=== PATIENT | female | born 1940 | race Caucasian/White ===

== ENCOUNTER 2016-07-04 21:50 | Emergency (ER) | payer MEDICARE, MEDICAID ==
[2016-07-04] MEDS ORDERED: ALBUTEROL SULFATE 2.5 MG/0.5 ML INH NEB SOLN As Ordered ONE (23:35)
[2016-07-04 23:54] LABS: BASO # 0.1 K/mm3 (0.0-0.2); BASO % 1.6 % (0.0-1.0); EOS # 0.4 K/mm3 (0.0-0.50); EOS % 3.9 % (0.0-3.0); LARGE UNSTAINED CELL # 0.2 K/mm3 (0.0-0.4); LARGE UNSTAINED CELL % 2.4 % (0.0-4.0); LYMPH # 2.8 K/mm3 (1.5-4.5); LYMPH % 30.1 % (24.0-44.0); MEAN CORPUSCULAR HEMOGLOBIN 28.9 pg (27.0-33.0); MEAN CORPUSCULAR HGB CONC 32.6 g/dl (32.0-36.5); MEAN CORPUSCULAR VOLUME 88.9 fl (80.0-96.0); MONO # 0.4 K/mm3 (0.0-0.8); MONO % 5.1 % (0.0-5.0); NEUTROPHILS % 56.9 % (36.0-66.0); PLATELET COUNT, AUTOMATED 261 k/mm3 (150-450); RED CELL DISTRIBUTION WIDTH 13.3 % (11.5-14.5); WHITE BLOOD COUNT 8.8 K/mm3 (4.0-10.0)
[2016-07-05 00:16] LABS: CALCIUM LEVEL 9.1 MG/DL (8.8-10.2); CREATININE FOR GFR 1.11 MG/DL (0.55-1.02); GLOMERULAR FILTRATION RATE 50.7 (>39)
--- NOTE | 2016-07-05 02:20 | REPUSA ---
CLINICAL HISTORY: Suspected pneumonia. TECHNIQUE: Multiple axial CT images were obtained through the thorax without IV contrast material. COMMENTS: Mild groundglass densities of the left upper lobe. Subsegmental atelectasis/consolidation of the lingula. There is no evidence of pleural or parenchymal-based mass. There are no pleural effusions. There is n o evidence of hilar or mediastinal lymphadenopathy. The heart and great vessels are within normal fox its. The visualized portions of the liver are of uniform attenuation without mass or defect. There is no i ntra or extrahepatic biliary ductal dilatation. The spleen is unremarkable. The visualized pancreas i s of normal contour and attenuation characteristics. There is no evidence of adrenal mass. The visual ized portions of the kidneys present no abnormalities. The bony structures are free of lytic or blastic lesions. IMPRESSION: Lingular pneumonia. Left upper lobe ground glass density suggestive of pneumonia. Thank you for your kind referral of this patient.
[2016-07-05] MEDS ORDERED: LevoFLOXacin 250 MG TABLET As Ordered ONE (02:38)
--- NOTE | 2016-07-05 02:50 | EDDOCDS ---
Nurse's Notes [facility] Name: Liss Haywood Age: 76 yrs Sex: Female : 1940 Arrival Date: 07/04/2016 Time: 21:50 Bed PD2 Private MD: Mateusz Carranza Diagnosis: Bacterial pneumonia, not elsewhere classified-left lingular, left upper lobe Presentation: 07/04 21:56 Presenting complaint: Patient states: that she is coughing a lot and it is productive, ms18 green and yellow phlegm. Pt is recovering from pneumonia at this time. Adult Sepsis Screening: The patient does not have new or worsening altered mentation. Patient's respiratory rate is less than 22. Systolic blood pressure is greater than 100. Patient has a qSOFA score of 0- Negative Sepsis Screen. Suicide/Homicide risk assessment- the patient denies having any suicidal and/or homicidal ideations and does not present with any other emotional, behavioral or mental health complaints. Status: Patient is not a guest service team leader or dependent. Transition of care: patient was not received from another setting of care. 21:56 Acuity: [place] Level 3 ms18 21:56 Method Of Arrival: Walkin/Carried/Asstd ms18 Triage Assessment: 22:06 General: Appears in no apparent distress, comfortable, Behavior is appropriate for age, ms18 cooperative. Pain: Denies pain. Neurological: Level of Consciousness is awake, alert, obeys commands, Oriented to person, place, time. Respiratory: Airway is patent Respiratory effort is even, unlabored, Reports cough that is productive. Derm: Skin is pink, warm & dry. Historical: - Allergies: Aspirinnon-coated; - Home Meds: 1. aspirin 325 mg Oral TbEC 1 tab once daily 2. simvastatin 40 mg Oral tab 1 tab once daily 3. Januvia 100 mg oral tab 1 tab once daily 4. metformin 500 mg Oral Tb24 1 tab 2 times per day 5. escitalopram oxalate 10 mg oral tab 1 tab once daily 6. ranitidine HCl 150 mg Oral tab 1 tab once daily 7. Vitamin D2 50,000 unit oral cap 1 cap every 2 weeks 8. metoprolol tartrate 25 mg Oral tab 1 tab once daily 9. albuterol sulfate 90 mcg/actuation Inhl aepb 2 puffs every 4 hours 10. risedronate 35 mg oral tab 1 tab once wkly 11. magnesium oxide 250 mg Oral tab daily 12. Super B Complex + C oral oral daily 13. calcium carbonate 600 mg (1,500 mg) Oral tab daily - PMHx: Angina; Hypertension; Diabetes - NIDDM: controlled; Pneumonia; Cancer, Breast - Left; - PSHx: Hip Arthroplasty, Left; Bladder suspension; Hysterectomy; Tonsillectomy; Adenoidectomy; Mastectomy- Left; - Social history: Smoking status: Patient states former smoker of tobacco. No barriers to communication noted, The patient speaks fluent Eritrean. - Family history: Not pertinent. - : The pt / caregiver states he / she is not on anticoagulants. Home medication list is obtained from the patient. - Exposure Risk Screening:: None identified. Screenin/03 01:52 Screening information is obtained from the patient. Fall risk: No risks identified. cz Assistance ADL's: requires no assistance with activities of daily living. Abuse/DV Screen: The patient / caregiver reports he/she is: not in a situation that causes fear, pain or injury. Nutritional screening: No deficits noted. home support is adequate. 02:46 Advance Directives: Currently, there is no health care proxy. lf1 Assessment: 01:52 Reassessment: Patient appears in no apparent distress at this time. pt sitting quietly cz on stretcher no coughing noted since initial breathing treatment was done. 02:46 Adult Sepsis Screening: The patient does not have new or worsening altered mentation. lf1 Patient's respiratory rate is less than 22. Systolic blood pressure is greater than 100. Patient has a qSOFA score of 0- Negative Sepsis Screen. General: First patient contact at time of discharge. Pain: Denies pain. Neurological: Level of Consciousness is awake, alert. EENT: No deficits noted. Cardiovascular: Chest pain is denied. Respiratory: Reports cough that is. GI: Denies nausea, vomiting. Derm: Skin is normal, swelling noted to left forehead, pt. states she tripped on her shoelaces Swollen area noted on forehead. Vital Signs: 07/04 21:53 BP 154 / 81; Pulse 98; Resp 18 S; Temp 96.9(O); Pulse Ox 95% on R/A; Weight 61.69 kg gr2 (R); Height 4 ft. 10 in. (147.32 cm) (R); Pain 3/10; 07/05 02:31 BP 146 / 64 LA Sitting (auto/reg); Pulse 80 MON; Resp 20 S; Temp 97.3(TE); Pulse Ox 94% cln on R/A; Pain 0/10; 07/04 21:53 Body Mass Index 28.42 (61.69 kg, 147.32 cm) gr2 Vitals: 07/04 21:53 Log In Time: July 04, 2016 at 21:53. gr2 ED Course: 21:51 Patient visited by Malachi Stewart. gr2 21:51 Patient moved to Waiting gr2 21:52 Mateusz Carranza MD is Private Physician. gr2 21:54 Patient visited by Malachi Stewart. gr2 21:54 Patient moved to Pre RCE gr2 21:58 Triage Initiated ms18 22:49 Patient moved to Triage 3 jmb 23:08 Milo Vernon RPA-C is PHCP. ck7 23:08 Dilshad Henao MD is Attending Physician. ck7 23:08 Patient visited by Milo Vernon RPA-C. ck7 23:27 Patient moved to PD2 jmb 23:43 -Blood Culture Sent. jmb 23:43 MED Profile Sent. jmb 23:43 CBC with Diff Sent. jmb 07/05 00:11 Patient visited by Milo Vernon RPA-C. ck7 01:11 PHCP role handed off by Milo Vernon RPA-C mo1 01:11 Beto Srivastava PA is PHCP. mo1 01:52 The patient / caregiver is instructed regarding the plan of care and ED course. cz 01:52 No IV's were initiated during this patient's visit. No procedures done that require cz assistance. 02:29 Mateusz Carranza MD is Referral Physician. mo1 02:32 Patient visited by Kamila Shepard PCA. cln 02:41 CT Chest Without Contrast Returned. EDMS Administered Medications: 07/04 23:38 Drug: Albuterol 2.5 mg [albuterol sulfate 2.5 mg/0.5 mL solution for nebulization (0.5 bb3 mL)] Route: Nebulizer; 23:46 Follow up: lung sounds increased throughout with end expiratory wheeze. Pt denies SOB bb3 past baseline. Pt had a congested non productive cough during neb tx. No adverse reactions. 07/05 02:40 Drug: levofloxacin 750 mg [levofloxacin 250 mg tablet (3 tabs)] Route: PO; lf1 Intake: RT: 07/04 23:37 Oxygen is room air. Respiratory: Respiratory effort is even, unlabored, relaxed, bb3 Respiratory pattern is regular symmetrical, Breath sounds are diminished bilaterally. Reports cough that is productive. 23:39 Initial Med Neb Given as ordered Patient was instructed and evaluated on procedure. bb3 23:45 Respiratory: lung sounds increased throughout with end expiratory wheeze. Pt denies SOB bb3 past baseline. Pt had a congested non productive cough during neb tx. No adverse reactions. Order Results: Lab Order: CBC with Diff; SPEC'M 07/04/16 23:40 Test: WHITE BLOOD COUNT; Value: 8.8; Range: 4.0-10.0; Units: K/mm3; Status: F Test: RED BLOOD COUNT; Value: 4.21; Range: 4.00-5.40; Units: M/mm3; Status: F Test: HEMOGLOBIN; Value: 12.2; Range: 12.0-16.0; Units: g/dl; Status: F Test: HEMATOCRIT; Value: 37.4; Range: 36.0-47.0; Units: %; Status: F Test: MEAN CORPUSCULAR VOLUME; Value: 88.9; Range: 80.0-96.0; Units: fl; Status: F Test: MEAN CORPUSCULAR HEMOGLOBIN; Value: 28.9; Range: 27.0-33.0; Units: pg; Status: F Test: MEAN CORPUSCULAR HGB CONC; Value: 32.6; Range: 32.0-36.5; Units: g/dl; Status: F Test: RED CELL DISTRIBUTION WIDTH; Value: 13.3; Range: 11.5-14.5; Units: %; Status: F Test: PLATELET COUNT, AUTOMATED; Value: 261; Range: 150-450; Units: k/mm3; Status: F Test: NEUTROPHILS %; Value: 56.9; Range: 36.0-66.0; Units: %; Status: F Test: LYMPH %; Value: 30.1; Range: 24.0-44.0; Units: %; Status: F Test: MONO %; Value: 5.1; Range: 0.0-5.0; Abnormal: Above high normal; Units: %; Status: F Test: EOS %; Value: 3.9; Range: 0.0-3.0; Abnormal: Above high normal; Units: %; Status: F Test: BASO %; Value: 1.6; Range: 0.0-1.0; Abnormal: Above high normal; Units: %; Status: F Test: LARGE UNSTAINED CELL %; Value: 2.4; Range: 0.0-4.0; Units: %; Status: F Test: NEUTROPHILS #; Value: 5.0; Range: 1.8-7.7; Units: K/mm3; Status: F Test: LYMPH #; Value: 2.8; Range: 1.5-4.5; Units: K/mm3; Status: F Test: MONO #; Value: 0.4; Range: 0.0-0.8; Units: K/mm3; Status: F Test: EOS #; Value: 0.4; Range: 0.0-0.50; Units: K/mm3; Status: F Test: BASO #; Value: 0.1; Range: 0.0-0.2; Units: K/mm3; Status: F Test: LARGE UNSTAINED CELL #; Value: 0.2; Range: 0.0-0.4; Units: K/mm3; Status: F Lab Order: [facility]; [facility]' 07/04/16 23:40 Test: GLUCOSE, FASTING; Value: 134; Range: 83-110; Abnormal: Above high normal; Units: MG/DL; Status: F Test: BLOOD UREA NITROGEN; Value: 23; Range: 7-18; Abnormal: Above high normal; Units: MG/DL; Status: F Test: CREATININE FOR GFR; Value: 1.11; Range: 0.55-1.02; Abnormal: Above high normal; Units: MG/DL; Status: F Test: GLOMERULAR FILTRATION RATE; Value: 50.7; Range: >39; Status: F Test: SODIUM LEVEL; Value: 139; Range: 136-145; Units: MEQ/L; Status: F Test: POTASSIUM SERUM; Value: 4.0; Range: 3.5-5.1; Units: MEQ/L; Status: F Test: CHLORIDE LEVEL; Value: 102; Range: 98-107; Units: MEQ/L; Status: F Test: CARBON DIOXIDE LEVEL; Value: 26; Range: 21-32; Units: MEQ/L; Status: F Test: ANION GAP; Value: 11; Range: 8-16; Units: MEQ/L; Status: F Test: CALCIUM LEVEL; Value: 9.1; Range: 8.8-10.2; Units: MG/DL; Status: F Test Note: ; Units are mL/min/1.73 m2 Chronic Kidney Disease Staging per NKF: Stage I & II GFR >=60 Normal to Mildly Decreased Stage III GFR 30-59 Moderately Decreased Stage IV GFR 15-29 Severely Decreased Stage V GFR <15 Very Little GFR Left ESRD GFR <15 on HOME DELIVERY DRIVER Radiology Order: CT Chest Without Contrast Test: CT Chest Without Contrast REASON FOR EXAMINATION: r/o pneumonia; ; CLINICAL HISTORY: Suspected pneumonia.; TECHNIQUE: Multiple axial CT images were obtained through the thorax without IV contrast material.; COMMENTS:; Mild groundglass densities of the left upper lobe.; Subsegmental atelectasis/consolidation of the lingula.; There is no evidence of pleural or parenchymal-based mass. There are no pleural effusions. There is n; o evidence of hilar or mediastinal lymphadenopathy. The heart and great vessels are within normal fox; its.; The visualized portions of the liver are of uniform attenuation without mass or defect. There is no i; ntra or extrahepatic biliary ductal dilatation. The spleen is unremarkable. The visualized pancreas i; s of normal contour and attenuation characteristics. There is no evidence of adrenal mass. The visual; ized portions of the kidneys present no abnormalities.; The bony structures are free of lytic or blastic lesions.; IMPRESSION:; Lingular pneumonia.; Left upper lobe ground glass density suggestive of pneumonia.; Thank you for your kind referral of this patient.; ; ; Outcome: 07/05 02:29 Discharge ordered by Provider. mo1 02:46 Discharge Assessment: Patient awake, alert and oriented x 3. No cognitive and/or lf1 functional deficits noted. Patient verbalized understanding of disposition instructions. Patient awake and alert. Oriented to person, place and time. Patient verbalized understanding of disposition instructions. Patient has no functional deficits. patient administered narcotics - no. The following High Risk Discharge criteria are identified: None. Discharged to home ambulatory. Condition: unchanged. Discharge instructions given to patient, family, Instructed on discharge instructions, follow up and referral plans. medication usage, Demonstrated understanding of instructions, medications, Patient was not receptive of discharge instructions. Prescriptions given X 2, Work note provided to patient. CT Study completed. Property :Personal belongings accompany Pt. 02:50 Patient left the ED. lf1 Signatures: Dispatcher [employer] EDMS Guillaume Barrientos, RN RN Elvira EwingRN RN lf1 Paco Neff bb3 Milo Vernon, TOSHA-C RPA-Cck7 Malachi Stewart gr2 Beto Srivastava PA PA mo1 Alfredito Curry,RN Arlyn Johnston RN RN ms18 Kamila Shepard, EJ RN HOSPICE cln SIMRAN
--- NOTE | 2016-07-05 02:51 | EDDOCDS ---
Physician Documentation [facility] Name: Liss Haywood Age: 76 yrs Sex: Female : 1940 Arrival Date: 07/04/2016 Time: 21:50 Bed PD Private MD: Mateusz Carranza Disposition: 07/05/16 02:29 Discharged to Home/Self Care. Impression: Bacterial pneumonia, not elsewhere classified - left lingular, left upper lobe. - Condition is Stable. - Discharge Instructions: Pneumonia, Adult, Cough, Adult. - Prescriptions for Levaquin 750 mg Oral Tablet - take 1 tablet by ORAL route once daily for 10 days; 10 tablet. Albuterol Sulfate 90 mcg/actuation Inhalation HFA Aerosol Inhaler - inhale 2 puff by INHALATION route every 4 hours As needed; 1 Inhaler. - Medication Reconciliation, Local Pharmacy Hours form. - Follow up: Mateusz Carranza MD; When: 1 - 2 days; Reason: Recheck today's complaints, Continuance of care. - Problem is new. - Symptoms are unchanged. Historical: - Allergies: Aspirinnon-coated; - Home Meds: 1. aspirin 325 mg Oral TbEC 1 tab once daily 2. simvastatin 40 mg Oral tab 1 tab once daily 3. Januvia 100 mg oral tab 1 tab once daily 4. metformin 500 mg Oral Tb24 1 tab 2 times per day 5. escitalopram oxalate 10 mg oral tab 1 tab once daily 6. ranitidine HCl 150 mg Oral tab 1 tab once daily 7. Vitamin D2 50,000 unit oral cap 1 cap every 2 weeks 8. metoprolol tartrate 25 mg Oral tab 1 tab once daily 9. albuterol sulfate 90 mcg/actuation Inhl aepb 2 puffs every 4 hours 10. risedronate 35 mg oral tab 1 tab once wkly 11. magnesium oxide 250 mg Oral tab daily 12. Super B Complex + C oral oral daily 13. calcium carbonate 600 mg (1,500 mg) Oral tab daily - PMHx: Angina; Hypertension; Diabetes - NIDDM: controlled; Pneumonia; Cancer, Breast - Left; - PSHx: Hip Arthroplasty, Left; Bladder suspension; Hysterectomy; Tonsillectomy; Adenoidectomy; Mastectomy- Left; - Social history: Smoking status: Patient states former smoker of tobacco. No barriers to communication noted, The patient speaks fluent Brazilian. - Family history: Not pertinent. - : The pt / caregiver states he / she is not on anticoagulants. Home medication list is obtained from the patient. - Exposure Risk Screening:: None identified. Vital Signs: 07/04 21:53 BP 154 / 81; Pulse 98; Resp 18 S; Temp 96.9(O); Pulse Ox 95% on R/A; Weight 61.69 kg / gr2 136 lbs (R); Height 4 ft. 10 in. (147.32 cm) (R); Pain 3/10; 07/05 02:31 BP 146 / 64 LA Sitting (auto/reg); Pulse 80 MON; Resp 20 S; Temp 97.3(TE); Pulse Ox 94% cln on R/A; Pain 0/10; 07/04 21:53 Body Mass Index 28.42 (61.69 kg, 147.32 cm) gr2 MDM: 07/04 23:27 -Blood Culture (Adults Only), peripheral from different site, or from device/port/PICC ck7 etc. if present ordered. 23:27 Albuterol 2.5 mg Nebulizer once ordered. ck7 23:27 Call Respiratory ordered. ck7 23:27 Call Respiratory complete. jmb 23:28 Chest, 2 View (pa\E\lat) Ordered. EDMS 23:28 CBC with Diff Ordered. EDMS 23:28 MED Profile Ordered. EDMS 23:28 -Blood Culture Ordered. EDMS 07/05 00:10 Financial registration complete. hs2 00:25 CBC with Diff Reviewed. ck7 00:25 MED Profile Reviewed. ck7 00:37 CT Chest Without Contrast Ordered. EDMS 01:06 -Blood Culture (Adults Only), peripheral from different site, or from device/port/PICC cz etc. if present complete. 02:28 levofloxacin 750 mg PO once ordered. mo1 Administered Medications: 07/04 23:38 Drug: Albuterol 2.5 mg [albuterol sulfate 2.5 mg/0.5 mL solution for nebulization (0.5 bb3 mL)] Route: Nebulizer; 23:46 Follow up: lung sounds increased throughout with end expiratory wheeze. Pt denies SOB bb3 past baseline. Pt had a congested non productive cough during neb tx. No adverse reactions. 07/05 02:40 Drug: levofloxacin 750 mg [levofloxacin 250 mg tablet (3 tabs)] Route: PO; lf1 Signatures: Dispatcher [employer] Guillaume Verdin, RN RN Elvira Ewing RN RN lf1 Milo Vernon, RPA-C RPA-Cck7 Beto Srivastava PA PA mo1 Alfredito Curry,RILEY RN Arlyn Wolf RN RN ms18 Fay Arguelles, [facility]2 Paco Neff [facility] MTDD
--- NOTE | 2016-07-05 14:36 | REP ---
PA and lateral chest radiograph 07/04/2016 Indication: Cough Comparison: PA and lateral chest 07/21/2014; study read in conjunction with CT chest 07/05/2016, CT chest 02/15/2016 Findings: Cardiomediastinal silhouette is of normal size. Moderate atherosclerotic changes are noted in the thoracic aorta Patchy opacities are present within the left upper lobe and lingula, consistent with small areas of atelectasis , scarring and/or minimal infiltrate. There is a right epicardial fat pad. Deformity of the right 6th posterior lateral ribs most compatible with scarring Surgical clips are noted within the left axilla consistent with history left breast cancer and left mastectomy Impression 1. Mild stable parenchymal disease in the lingula and left upper lobe consistent with small areas of atelectasis, scarring and/or minimal infiltrate. Recommend clinical followup. 2. Prior left mastectomy. Surgical clips in the left axilla Signed by Sara Chester MD 07/05/2016 09:00 A
--- NOTE | 2016-07-07 03:50 | EDDOCDS ---
Physician Documentation [facility] Name: Liss Haywood Age: 76 yrs Sex: Female : 1940 Arrival Date: 07/04/2016 Time: 21:50 Bed PD Private MD: Mateusz Carranza Disposition: 07/05/16 02:29 Discharged to Home/Self Care. Impression: Bacterial pneumonia, not elsewhere classified - left lingular, left upper lobe. - Condition is Stable. - Discharge Instructions: Pneumonia, Adult, Cough, Adult. - Prescriptions for Levaquin 750 mg Oral Tablet - take 1 tablet by ORAL route once daily for 10 days; 10 tablet. Albuterol Sulfate 90 mcg/actuation Inhalation HFA Aerosol Inhaler - inhale 2 puff by INHALATION route every 4 hours As needed; 1 Inhaler. - Medication Reconciliation, Local Pharmacy Hours form. - Follow up: Mateusz Carranza MD; When: 1 - 2 days; Reason: Recheck today's complaints, Continuance of care. - Problem is new. - Symptoms are unchanged. Historical: - Allergies: Aspirinnon-coated; - Home Meds: 1. aspirin 325 mg Oral TbEC 1 tab once daily 2. simvastatin 40 mg Oral tab 1 tab once daily 3. Januvia 100 mg oral tab 1 tab once daily 4. metformin 500 mg Oral Tb24 1 tab 2 times per day 5. escitalopram oxalate 10 mg oral tab 1 tab once daily 6. ranitidine HCl 150 mg Oral tab 1 tab once daily 7. Vitamin D2 50,000 unit oral cap 1 cap every 2 weeks 8. metoprolol tartrate 25 mg Oral tab 1 tab once daily 9. albuterol sulfate 90 mcg/actuation Inhl aepb 2 puffs every 4 hours 10. risedronate 35 mg oral tab 1 tab once wkly 11. magnesium oxide 250 mg Oral tab daily 12. Super B Complex + C oral oral daily 13. calcium carbonate 600 mg (1,500 mg) Oral tab daily - PMHx: Angina; Hypertension; Diabetes - NIDDM: controlled; Pneumonia; Cancer, Breast - Left; - PSHx: Hip Arthroplasty, Left; Bladder suspension; Hysterectomy; Tonsillectomy; Adenoidectomy; Mastectomy- Left; - Social history: Smoking status: Patient states former smoker of tobacco. No barriers to communication noted, The patient speaks fluent Niuean. - Family history: Not pertinent. - : The pt / caregiver states he / she is not on anticoagulants. Home medication list is obtained from the patient. - Exposure Risk Screening:: None identified. Vital Signs: 07/04 21:53 BP 154 / 81; Pulse 98; Resp 18 S; Temp 96.9(O); Pulse Ox 95% on R/A; Weight 61.69 kg / gr2 136 lbs (R); Height 4 ft. 10 in. (147.32 cm) (R); Pain 3/10; 07/05 02:31 BP 146 / 64 LA Sitting (auto/reg); Pulse 80 MON; Resp 20 S; Temp 97.3(TE); Pulse Ox 94% cln on R/A; Pain 0/10; 07/04 21:53 Body Mass Index 28.42 (61.69 kg, 147.32 cm) gr2 MDM: 07/04 23:27 -Blood Culture (Adults Only), peripheral from different site, or from device/port/PICC ck7 etc. if present ordered. 23:27 Albuterol 2.5 mg Nebulizer once ordered. ck7 23:27 Call Respiratory ordered. ck7 23:27 Call Respiratory complete. jmb 23:28 Chest, 2 View (pa\E\lat) Ordered. EDMS 23:28 CBC with Diff Ordered. EDMS 23:28 MED Profile Ordered. EDMS 23:28 -Blood Culture Ordered. EDMS 07/05 00:10 Financial registration complete. hs2 00:25 CBC with Diff Reviewed. ck7 00:25 MED Profile Reviewed. ck7 00:37 CT Chest Without Contrast Ordered. EDMS 01:06 -Blood Culture (Adults Only), peripheral from different site, or from device/port/PICC cz etc. if present complete. 02:28 levofloxacin 750 mg PO once ordered. mo1 03:26 [facility] Payment Agreement was scanned into [employer] and attached to record. hs2 07:33 T-Sheet-- Draft Copy was scanned into [employer] and attached to record. gb 10:52 Radiology Report was scanned into [employer] and attached to record. gb 07/06 00:31 ED course: dr carranza faxed formal report of cxr for fu mlg. ml Administered Medications: 07/04 23:38 Drug: Albuterol 2.5 mg [albuterol sulfate 2.5 mg/0.5 mL solution for nebulization (0.5 bb3 mL)] Route: Nebulizer; 23:46 Follow up: lung sounds increased throughout with end expiratory wheeze. Pt denies SOB bb3 past baseline. Pt had a congested non productive cough during neb tx. No adverse reactions. 07/05 02:40 Drug: levofloxacin 750 mg [levofloxacin 250 mg tablet (3 tabs)] Route: PO; lf1 02:50 Follow up: Response: Pt left department before re-evaluation is appropriate 1 Signatures: Dispatcher [employer] EDMS Benigno Romero MD MD ml Guillaume Barrientos, RILEY RN cz Mary Alexander, Reg Reg gb Elvira Ornelas RN RN lf1 Milo Vernon, RPA-C RPA-Cck7 Beto Srivastava PA PA mo1 Becker, JoshuaRN RN Arlyn Wolf RN RN ms18 Fay Arguelles, Reg Reg hs2 Paco Neff bb3 The chart was reviewed and I authenticate all verbal orders and agree with the evaluation and treatment provided.Attachments: 03:26 [facility] Payment Agreement hs2 07:33 T-Sheet-- Draft Copy gb Chart Complete MTDD
--- NOTE | 2016-07-07 03:51 | EDDOCDS ---
Nurse's Notes [facility] Name: Liss Haywood Age: 76 yrs Sex: Female : 1940 Arrival Date: 07/04/2016 Time: 21:50 Bed PD2 Private MD: Mateusz Carranza Diagnosis: Bacterial pneumonia, not elsewhere classified-left lingular, left upper lobe Presentation: 07/04 21:56 Presenting complaint: Patient states: that she is coughing a lot and it is productive, ms18 green and yellow phlegm. Pt is recovering from pneumonia at this time. Adult Sepsis Screening: The patient does not have new or worsening altered mentation. Patient's respiratory rate is less than 22. Systolic blood pressure is greater than 100. Patient has a qSOFA score of 0- Negative Sepsis Screen. Suicide/Homicide risk assessment- the patient denies having any suicidal and/or homicidal ideations and does not present with any other emotional, behavioral or mental health complaints. Status: Patient is not a food service or dependent. Transition of care: patient was not received from another setting of care. 21:56 Acuity: KEY[place] Level 3 ms18 21:56 Method Of Arrival: Walkin/Carried/Asstd ms18 Triage Assessment: 22:06 General: Appears in no apparent distress, comfortable, Behavior is appropriate for age, ms18 cooperative. Pain: Denies pain. Neurological: Level of Consciousness is awake, alert, obeys commands, Oriented to person, place, time. Respiratory: Airway is patent Respiratory effort is even, unlabored, Reports cough that is productive. Derm: Skin is pink, warm & dry. Historical: - Allergies: Aspirinnon-coated; - Home Meds: 1. aspirin 325 mg Oral TbEC 1 tab once daily 2. simvastatin 40 mg Oral tab 1 tab once daily 3. Januvia 100 mg oral tab 1 tab once daily 4. metformin 500 mg Oral Tb24 1 tab 2 times per day 5. escitalopram oxalate 10 mg oral tab 1 tab once daily 6. ranitidine HCl 150 mg Oral tab 1 tab once daily 7. Vitamin D2 50,000 unit oral cap 1 cap every 2 weeks 8. metoprolol tartrate 25 mg Oral tab 1 tab once daily 9. albuterol sulfate 90 mcg/actuation Inhl aepb 2 puffs every 4 hours 10. risedronate 35 mg oral tab 1 tab once wkly 11. magnesium oxide 250 mg Oral tab daily 12. Super B Complex + C oral oral daily 13. calcium carbonate 600 mg (1,500 mg) Oral tab daily - PMHx: Angina; Hypertension; Diabetes - NIDDM: controlled; Pneumonia; Cancer, Breast - Left; - PSHx: Hip Arthroplasty, Left; Bladder suspension; Hysterectomy; Tonsillectomy; Adenoidectomy; Mastectomy- Left; - Social history: Smoking status: Patient states former smoker of tobacco. No barriers to communication noted, The patient speaks fluent South Korean. - Family history: Not pertinent. - : The pt / caregiver states he / she is not on anticoagulants. Home medication list is obtained from the patient. - Exposure Risk Screening:: None identified. Screenin/03 01:52 Screening information is obtained from the patient. Fall risk: No risks identified. cz Assistance ADL's: requires no assistance with activities of daily living. Abuse/DV Screen: The patient / caregiver reports he/she is: not in a situation that causes fear, pain or injury. Nutritional screening: No deficits noted. home support is adequate. 02:46 Advance Directives: Currently, there is no health care proxy. lf1 Assessment: 07/04 23:30 Respiratory: Reports cough that is productive. cz 07/05 00:30 Reassessment: pt sitting quietly in room after breathing treatment and labs done cz awaiting results. 01:52 Reassessment: Patient appears in no apparent distress at this time. pt sitting quietly cz on stretcher no coughing noted since initial breathing treatment was done. 02:46 Adult Sepsis Screening: The patient does not have new or worsening altered mentation. lf1 Patient's respiratory rate is less than 22. Systolic blood pressure is greater than 100. Patient has a qSOFA score of 0- Negative Sepsis Screen. General: First patient contact at time of discharge. Pain: Denies pain. Neurological: Level of Consciousness is awake, alert. EENT: No deficits noted. Cardiovascular: Chest pain is denied. Respiratory: Reports cough that is. GI: Denies nausea, vomiting. Derm: Skin is normal, swelling noted to left forehead, pt. states she tripped on her shoelaces Swollen area noted on forehead. 02:50 General: Appears in no apparent distress. cz Vital Signs: 07/04 21:53 BP 154 / 81; Pulse 98; Resp 18 S; Temp 96.9(O); Pulse Ox 95% on R/A; Weight 61.69 kg gr2 (R); Height 4 ft. 10 in. (147.32 cm) (R); Pain 3/10; 07/05 02:31 BP 146 / 64 LA Sitting (auto/reg); Pulse 80 MON; Resp 20 S; Temp 97.3(TE); Pulse Ox 94% cln on R/A; Pain 0/10; 07/04 21:53 Body Mass Index 28.42 (61.69 kg, 147.32 cm) gr2 Vitals: 07/04 21:53 Log In Time: July 04, 2016 at 21:53. gr2 ED Course: 21:51 Patient visited by Malachi Stewart. gr2 21:51 Patient moved to Waiting gr2 21:52 Mateusz Carranza MD is Private Physician. gr2 21:54 Patient visited by Malachi Stewart. gr2 21:54 Patient moved to Pre RCE gr2 21:58 Triage Initiated ms18 22:49 Patient moved to Triage 3 jmb 23:08 Milo Vernon RPA-C is PHCP. ck7 23:08 Dilshad Henao MD is Attending Physician. ck7 23:08 Patient visited by Milo Vernon RPA-C. ck7 23:27 Patient moved to PD2 jmb 23:43 -Blood Culture Sent. jmb 23:43 MED Profile Sent. jmb 23:43 CBC with Diff Sent. jmb 07/05 00:11 Patient visited by Milo Vernon RPA-C. ck7 01:11 PHCP role handed off by Milo Vernon RPA-C mo1 01:11 Beto Srivastava PA is PHCP. mo1 01:52 The patient / caregiver is instructed regarding the plan of care and ED course. cz 01:52 No IV's were initiated during this patient's visit. No procedures done that require cz assistance. 02:29 Mateusz Carranza MD is Referral Physician. mo1 02:32 Patient visited by Kamila Shepard PCA. cln 02:41 CT Chest Without Contrast Returned. EDMS 03:26 [facility] [place] Agreement was scanned into [employer] and attached to record. hs2 03:31 Patient name changed from Liss\S\F\S\Haywood\S\ to Liss\S\Kellee\S\Haywood. EDMS 07:33 T-Sheet-- Draft Copy was scanned into [employer] and attached to record. gb 10:52 Radiology Report was scanned into [employer] and attached to record. gb 15:07 Chest, 2 View (pa\E\lat) Returned. EDMS Administered Medications: 07/04 23:38 Drug: Albuterol 2.5 mg [albuterol sulfate 2.5 mg/0.5 mL solution for nebulization (0.5 bb3 mL)] Route: Nebulizer; 23:46 Follow up: lung sounds increased throughout with end expiratory wheeze. Pt denies SOB bb3 past baseline. Pt had a congested non productive cough during neb tx. No adverse reactions. 07/05 02:40 Drug: levofloxacin 750 mg [levofloxacin 250 mg tablet (3 tabs)] Route: PO; lf1 02:50 Follow up: Response: Pt left department before re-evaluation is appropriate lf1 Intake: RT: 07/04 23:37 Oxygen is room air. Respiratory: Respiratory effort is even, unlabored, relaxed, bb3 Respiratory pattern is regular symmetrical, Breath sounds are diminished bilaterally. Reports cough that is productive. 23:39 Initial Med Neb Given as ordered Patient was instructed and evaluated on procedure. bb3 23:45 Respiratory: lung sounds increased throughout with end expiratory wheeze. Pt denies SOB bb3 past baseline. Pt had a congested non productive cough during neb tx. No adverse reactions. Order Results: Lab Order: CBC with Diff; SPEC'M 07/04/16 23:40 Test: WHITE BLOOD COUNT; Value: 8.8; Range: 4.0-10.0; Units: K/mm3; Status: F Test: RED BLOOD COUNT; Value: 4.21; Range: 4.00-5.40; Units: M/mm3; Status: F Test: HEMOGLOBIN; Value: 12.2; Range: 12.0-16.0; Units: g/dl; Status: F Test: HEMATOCRIT; Value: 37.4; Range: 36.0-47.0; Units: %; Status: F Test: MEAN CORPUSCULAR VOLUME; Value: 88.9; Range: 80.0-96.0; Units: fl; Status: F Test: MEAN CORPUSCULAR HEMOGLOBIN; Value: 28.9; Range: 27.0-33.0; Units: pg; Status: F Test: MEAN CORPUSCULAR HGB CONC; Value: 32.6; Range: 32.0-36.5; Units: g/dl; Status: F Test: RED CELL DISTRIBUTION WIDTH; Value: 13.3; Range: 11.5-14.5; Units: %; Status: F Test: PLATELET COUNT, AUTOMATED; Value: 261; Range: 150-450; Units: k/mm3; Status: F Test: NEUTROPHILS %; Value: 56.9; Range: 36.0-66.0; Units: %; Status: F Test: LYMPH %; Value: 30.1; Range: 24.0-44.0; Units: %; Status: F Test: MONO %; Value: 5.1; Range: 0.0-5.0; Abnormal: Above high normal; Units: %; Status: F Test: EOS %; Value: 3.9; Range: 0.0-3.0; Abnormal: Above high normal; Units: %; Status: F Test: BASO %; Value: 1.6; Range: 0.0-1.0; Abnormal: Above high normal; Units: %; Status: F Test: LARGE UNSTAINED CELL %; Value: 2.4; Range: 0.0-4.0; Units: %; Status: F Test: NEUTROPHILS #; Value: 5.0; Range: 1.8-7.7; Units: K/mm3; Status: F Test: LYMPH #; Value: 2.8; Range: 1.5-4.5; Units: K/mm3; Status: F Test: MONO #; Value: 0.4; Range: 0.0-0.8; Units: K/mm3; Status: F Test: EOS #; Value: 0.4; Range: 0.0-0.50; Units: K/mm3; Status: F Test: BASO #; Value: 0.1; Range: 0.0-0.2; Units: K/mm3; Status: F Test: LARGE UNSTAINED CELL #; Value: 0.2; Range: 0.0-0.4; Units: K/mm3; Status: F Lab Order: MED Profile; SPEC'M 07/04/16 23:40 Test: GLUCOSE, FASTING; Value: 134; Range: 83-110; Abnormal: Above high normal; Units: MG/DL; Status: F Test: BLOOD UREA NITROGEN; Value: 23; Range: 7-18; Abnormal: Above high normal; Units: MG/DL; Status: F Test: CREATININE FOR GFR; Value: 1.11; Range: 0.55-1.02; Abnormal: Above high normal; Units: MG/DL; Status: F Test: GLOMERULAR FILTRATION RATE; Value: 50.7; Range: >39; Status: F Test: SODIUM LEVEL; Value: 139; Range: 136-145; Units: MEQ/L; Status: F Test: POTASSIUM SERUM; Value: 4.0; Range: 3.5-5.1; Units: MEQ/L; Status: F Test: CHLORIDE LEVEL; Value: 102; Range: 98-107; Units: MEQ/L; Status: F Test: CARBON DIOXIDE LEVEL; Value: 26; Range: 21-32; Units: MEQ/L; Status: F Test: ANION GAP; Value: 11; Range: 8-16; Units: MEQ/L; Status: F Test: CALCIUM LEVEL; Value: 9.1; Range: 8.8-10.2; Units: MG/DL; Status: F Test Note: ; Units are mL/min/1.73 m2 Chronic Kidney Disease Staging per NKF: Stage I & II GFR >=60 Normal to Mildly Decreased Stage III GFR 30-59 Moderately Decreased Stage IV GFR 15-29 Severely Decreased Stage V GFR <15 Very Little GFR Left ESRD GFR <15 on [employer] Lab Order: -Blood Culture; SPEC'M 07/04/16 23:40 Test: BLOOD CULTURE; Value: No growth after 24 hours . All specimens observed; Status: F Test: BLOOD CULTURE; Value: for 5 days. Results final at that time.; Status: F Test: BLOOD CULTURE; Value: No Growth after 48 hours. All Specimens observed; Status: F Test: BLOOD CULTURE; Value: for 7 days. Results final at that time.; Status: F Radiology Order: Chest, 2 View (pa\E\lat) Test: Chest, 2 View (pa\E\lat) REASON FOR EXAMINATION: Cough; PA and lateral chest radiograph 07/04/2016; ; Indication: Cough; ; Comparison: PA and lateral chest 07/21/2014; study read in conjunction with CT; chest 07/05/2016, CT chest 02/15/2016; ; Findings: Cardiomediastinal silhouette is of normal size. Moderate; atherosclerotic changes are noted in the thoracic aorta Patchy opacities are; present within the left upper lobe and lingula, consistent with small areas of; atelectasis , scarring and/or minimal infiltrate. There is a right epicardial; fat pad. Deformity of the right 6th posterior lateral ribs most compatible with; scarring; ; Surgical clips are noted within the left axilla consistent with history left; breast cancer and left mastectomy; ; Impression; 1. Mild stable parenchymal disease in the lingula and left upper lobe consistent; with small areas of atelectasis, scarring and/or minimal infiltrate. Recommend; clinical followup.; ; 2. Prior left mastectomy. Surgical clips in the left axilla; ; ; ; ; ; ; Signed by; Sara Chester MD 07/05/2016 09:00 A; Radiology Order: CT Chest Without Contrast Test: CT Chest Without Contrast REASON FOR EXAMINATION: r/o pneumonia; ; CLINICAL HISTORY: Suspected pneumonia.; TECHNIQUE: Multiple axial CT images were obtained through the thorax without IV contrast material.; COMMENTS:; Mild groundglass densities of the left upper lobe.; Subsegmental atelectasis/consolidation of the lingula.; There is no evidence of pleural or parenchymal-based mass. There are no pleural effusions. There is n; o evidence of hilar or mediastinal lymphadenopathy. The heart and great vessels are within normal fox; its.; The visualized portions of the liver are of uniform attenuation without mass or defect. There is no i; ntra or extrahepatic biliary ductal dilatation. The spleen is unremarkable. The visualized pancreas i; s of normal contour and attenuation characteristics. There is no evidence of adrenal mass. The visual; ized portions of the kidneys present no abnormalities.; The bony structures are free of lytic or blastic lesions.; IMPRESSION:; Lingular pneumonia.; Left upper lobe ground glass density suggestive of pneumonia.; Thank you for your kind referral of this patient.; ; ; Outcome: 07/05 02:29 Discharge ordered by Provider. mo1 02:46 Discharge Assessment: Patient awake, alert and oriented x 3. No cognitive and/or lf1 functional deficits noted. Patient verbalized understanding of disposition instructions. Patient awake and alert. Oriented to person, place and time. Patient verbalized understanding of disposition instructions. Patient has no functional deficits. patient administered narcotics - no. The following High Risk Discharge criteria are identified: None. Discharged to home ambulatory. Condition: unchanged. Discharge instructions given to patient, family, Instructed on discharge instructions, follow up and referral plans. medication usage, Demonstrated understanding of instructions, medications, Patient was not receptive of discharge instructions. Prescriptions given X 2, Work note provided to patient. CT Study completed. Property :Personal belongings accompany Pt. 02:50 Patient left the ED. lf1 Signatures: Dispatcher [employer] EDMS Guillaume Barrientos, RILEY RN cz Mary Alexander, Reg Reg gb Elvira OrnelasRN RN lf1 Paco Neff bb3 Milo Vernon, RPA-C RPA-Cck7 Malachi Stewart gr2 Beto Srivastava PA PA mo1 Alfredito Curry,RN RN Arlyn Wolf RN RN ms18 Fay Arguelles, Reg Reg hs2 Kamila Shepard, EJ ACUTE DIALYSIS NURSE cln Chart Complete MTDD
--- NOTE | 2016-07-07 03:51 | EDDOCDS ---
Physician Documentation [facility] Name: Liss Haywood Age: 76 yrs Sex: Female : 1940 Arrival Date: 07/04/2016 Time: 21:50 Bed PD Private MD: Mateusz Carranza Disposition: 07/05/16 02:29 Discharged to Home/Self Care. Impression: Bacterial pneumonia, not elsewhere classified - left lingular, left upper lobe. - Condition is Stable. - Discharge Instructions: Pneumonia, Adult, Cough, Adult. - Prescriptions for Levaquin 750 mg Oral Tablet - take 1 tablet by ORAL route once daily for 10 days; 10 tablet. Albuterol Sulfate 90 mcg/actuation Inhalation HFA Aerosol Inhaler - inhale 2 puff by INHALATION route every 4 hours As needed; 1 Inhaler. - Medication Reconciliation, Local Pharmacy Hours form. - Follow up: Mateusz Carranza MD; When: 1 - 2 days; Reason: Recheck today's complaints, Continuance of care. - Problem is new. - Symptoms are unchanged. Historical: - Allergies: Aspirinnon-coated; - Home Meds: 1. aspirin 325 mg Oral TbEC 1 tab once daily 2. simvastatin 40 mg Oral tab 1 tab once daily 3. Januvia 100 mg oral tab 1 tab once daily 4. metformin 500 mg Oral Tb24 1 tab 2 times per day 5. escitalopram oxalate 10 mg oral tab 1 tab once daily 6. ranitidine HCl 150 mg Oral tab 1 tab once daily 7. Vitamin D2 50,000 unit oral cap 1 cap every 2 weeks 8. metoprolol tartrate 25 mg Oral tab 1 tab once daily 9. albuterol sulfate 90 mcg/actuation Inhl aepb 2 puffs every 4 hours 10. risedronate 35 mg oral tab 1 tab once wkly 11. magnesium oxide 250 mg Oral tab daily 12. Super B Complex + C oral oral daily 13. calcium carbonate 600 mg (1,500 mg) Oral tab daily - PMHx: Angina; Hypertension; Diabetes - NIDDM: controlled; Pneumonia; Cancer, Breast - Left; - PSHx: Hip Arthroplasty, Left; Bladder suspension; Hysterectomy; Tonsillectomy; Adenoidectomy; Mastectomy- Left; - Social history: Smoking status: Patient states former smoker of tobacco. No barriers to communication noted, The patient speaks fluent Afghan. - Family history: Not pertinent. - : The pt / caregiver states he / she is not on anticoagulants. Home medication list is obtained from the patient. - Exposure Risk Screening:: None identified. Vital Signs: 07/04 21:53 BP 154 / 81; Pulse 98; Resp 18 S; Temp 96.9(O); Pulse Ox 95% on R/A; Weight 61.69 kg / gr2 136 lbs (R); Height 4 ft. 10 in. (147.32 cm) (R); Pain 3/10; 07/05 02:31 BP 146 / 64 LA Sitting (auto/reg); Pulse 80 MON; Resp 20 S; Temp 97.3(TE); Pulse Ox 94% cln on R/A; Pain 0/10; 07/04 21:53 Body Mass Index 28.42 (61.69 kg, 147.32 cm) gr2 MDM: 07/04 23:27 -Blood Culture (Adults Only), peripheral from different site, or from device/port/PICC ck7 etc. if present ordered. 23:27 Albuterol 2.5 mg Nebulizer once ordered. ck7 23:27 Call Respiratory ordered. ck7 23:27 Call Respiratory complete. jmb 23:28 Chest, 2 View (pa\E\lat) Ordered. EDMS 23:28 CBC with Diff Ordered. EDMS 23:28 MED Profile Ordered. EDMS 23:28 -Blood Culture Ordered. EDMS 07/05 00:10 Financial registration complete. hs2 00:25 CBC with Diff Reviewed. ck7 00:25 MED Profile Reviewed. ck7 00:37 CT Chest Without Contrast Ordered. EDMS 01:06 -Blood Culture (Adults Only), peripheral from different site, or from device/port/PICC cz etc. if present complete. 02:28 levofloxacin 750 mg PO once ordered. mo1 03:26 [facility] [place] Agreement was scanned into [employer] and attached to record. hs2 07:33 T-Sheet-- Draft Copy was scanned into [employer] and attached to record. gb 10:52 Radiology Report was scanned into [employer] and attached to record. gb 07/06 00:31 ED course: dr carranza faxed formal report of cxr for fu mlg. ml Administered Medications: 07/04 23:38 Drug: Albuterol 2.5 mg [albuterol sulfate 2.5 mg/0.5 mL solution for nebulization (0.5 bb3 mL)] Route: Nebulizer; 23:46 Follow up: lung sounds increased throughout with end expiratory wheeze. Pt denies SOB bb3 past baseline. Pt had a congested non productive cough during neb tx. No adverse reactions. 07/05 02:40 Drug: levofloxacin 750 mg [levofloxacin 250 mg tablet (3 tabs)] Route: PO; lf1 02:50 Follow up: Response: Pt left department before re-evaluation is appropriate 1 Signatures: Dispatcher [employer] EDMS Benigno Romero MD MD ml Guillaume Barrientos, RILEY RN cz Mary Alexander, Reg Reg gb Elvira Ornelas RN RN lf1 Milo Vernon, RPA-C RPA-Cck7 Beto Srivastava PA PA mo1 Becker, JoshuaRN RN Arlyn Wolf RN RN ms18 Fay Arguelles, Reg Reg hs2 Paco Neff bb3 The chart was reviewed and I authenticate all verbal orders and agree with the evaluation and treatment provided.Attachments: 03:26 [facility] Payment Agreement hs2 07:33 T-Sheet-- Draft Copy gb Chart Complete MTDD
== END 2016-07-05 02:50 | disposition home or self-care (01) ==
LOC: M ED 21:50
DX: J18.1 Lobar pneumonia, unspecified organism (principal); I10 Essential (primary) hypertension; E11.9 Type 2 diabetes mellitus without complications; I20.9 Angina pectoris, unspecified; Z85.3 Personal history of malignant neoplasm of breast; Z90.12 Acquired absence of left breast and nipple; Z96.642 Presence of left artificial hip joint; Z90.79 Acquired absence of other genital organ(s); Z90.89 Acquired absence of other organs; Z87.891 Personal history of nicotine dependence; Z79.51 Long term (current) use of inhaled steroids; Z79.82 Long term (current) use of aspirin; Z79.899 Other long term (current) drug therapy; Z88.6 Allergy status to analgesic agent

== ENCOUNTER → 2016-07-15 | Outpatient (CLI) | payer MEDICARE, MEDICAID ==
--- NOTE | 2016-07-15 15:02 | REPMRS ---
Patient History The patient states she has not had a clinical breast exam in over a year. Patient is postmenopausal, has history of cancer in the left breast at age 65, had previous chemotherapy at age 65, and had first child at age 32. Family history of breast cancer in mother at age 50 or over and prostate cancer in brother at age 50 or over. Benign stereotatic loc for ea lesion of the right breast, October 03, 2011. Malignant mastectomy of the left breast, 2005. Took tamoxifen for 5 years. Digital Woman Screen Mammo: July 15, 2016 - Exam #: [id number] Bilateral CC and MLO view(s) were taken. Technologist: Ksenia Alvarez, Technologist Prior study comparison: June 24, 2015, digital woman screen mammo performed at [facility]. March 18, 2014, digital woman screen mammo performed at [facility]. March 08, 2013, digital woman screen mammo performed at [facility]. FINDINGS: There are scattered fibroglandular densities. There has been no change in the appearance of the right breast parenchyma in the interval since the prior examination. No mass, architectural distortion, or microcalcific cluster has developed. There is a needle biopsy marker clip in the right breast. No suspicious finding. ASSESSMENT: BI-RADS/ACR category 2 mammogram. Benign finding(s). Recommendation Routine screening mammogram in 1 year. This mammogram was interpreted with the aid of an FDA-approved computer-aided dectection system. Electronically Signed By: Naeem Galindo MD 07/15/16 0186
== END ==
LOC: M WHC 12:50
PROVIDERS: ATTEND Physician Assistant Medical
DX: Z12.31 Encounter for screening mammogram for malignant neoplasm of breast (principal)

== ENCOUNTER → 2016-08-30 | Outpatient (REF) | payer MEDICARE, MEDICAID ==
[2016-08-30 11:46] LABS: BASO % 0.5 % (0.0-1.0); EOS # 0.2 K/mm3 (0.0-0.50); EOS % 2.9 % (0.0-3.0); LARGE UNSTAINED CELL # 0.1 K/mm3 (0.0-0.4); LARGE UNSTAINED CELL % 1.2 % (0.0-4.0); LYMPH # 1.8 K/mm3 (1.5-4.5); LYMPH % 23.6 % (24.0-44.0); MEAN CORPUSCULAR HEMOGLOBIN 29.6 pg (27.0-33.0); MEAN CORPUSCULAR HGB CONC 33.6 g/dl (32.0-36.5); MEAN CORPUSCULAR VOLUME 88.1 fl (80.0-96.0); MONO # 0.4 K/mm3 (0.0-0.8); MONO % 4.8 % (0.0-5.0); NEUTROPHILS # 4.9 K/mm3 (1.8-7.7); NEUTROPHILS % 66.9 % (36.0-66.0); PLATELET COUNT, AUTOMATED 279 k/mm3 (150-450); RED CELL DISTRIBUTION WIDTH 13.2 % (11.5-14.5); WHITE BLOOD COUNT 7.3 K/mm3 (4.0-10.0)
[2016-08-30 12:22] LABS: ALBUMIN 4.1 GM/DL (3.2-5.2); ALBUMIN/GLOBULIN RATIO 1.37 (1.00-1.93); BILIRUBIN,TOTAL 0.5 MG/DL (0.2-1.0); CALCIUM LEVEL 9.6 MG/DL (8.8-10.2); CREATININE FOR GFR 0.99 MG/DL (0.55-1.02); GLOMERULAR FILTRATION RATE 57.9 (>39); POTASSIUM SERUM 4.4 MEQ/L (3.5-5.1); TOTAL PROTEIN 7.1 GM/DL (6.4-8.2)
== END ==
LOC: M SFHCPLAZ 09:10
PROVIDERS: ATTEND Family Medicine
DX: N18.3 Chronic kidney disease, stage 3 (moderate) (principal); E11.9 Type 2 diabetes mellitus without complications

== ENCOUNTER → 2016-09-06 | Outpatient (CLI) | payer MEDICARE, MEDICAID ==
[~2016-09-06] MED LIST: ISOVUE-370 76% 100ML VIAL (Q9967) As Ordered ONE
--- NOTE | 2016-09-06 10:17 | REP ---
CT study of chest with IV contrast: History: Pulmonary nodule. CT contrast dose: 75 ml of Isovue [address] study. Multiple prior studies are reviewed dated July 05, 2016, February 15, 2016, and July 31, 2013. CT findings: There is a subtle ground-glass opacity in the apex of the left lung left upper lobe. This measures 11 mm in anteroposterior by 12 mm in craniocaudal span. It is felt to be visible in retrospect and unchanged compared with study done July 31, 2013. No other significant pulmonary nodule is seen. There is some chronic fibroatelectatic change in the lingular segment of the left upper lobe. This is unchanged from February 15, 2016 prior study. Some old posttraumatic rib deformities are seen on the right. No pleural effusion is seen. No hilar or mediastinal mass or adenopathy is observed. There is fairly extensive left coronary artery vascular calcification versus stenting. The left breast is surgically absent. There is a stable periportal cyst in the left lobe of the liver measuring 1.4 cm. This is unchanged from an abdominal CT done in July 2005. There is a small hypervascular nodule in the left lobe of the liver on today's study measuring 1 cm in greatest diameter. This is visible on the April 2016 prior study and is unchanged. This is most compatible with a hemangioma. There is a 5 mm low density area in the left lobe of the liver more superiorly which is also visible and unchanged from the April 05, 2016 prior exam. This is unchanged from the images from July 31, 2013 as well. There is a complex cystic lesion in the left kidney seen at the bottom edge of the field of view of today's study containing some peripheral calcification. This measures 4.6 cm in greatest diameter. This is visible on the [address] study as well and is actually smaller today. Bone window settings show no bony destructive lesion. Impression: 1. Subtle 12 mm ground-glass opacity in the apex of the left lung left upper lobe. This is unchanged over a 2-year interval. Recommend followup chest CT study in 1 year. 2. Status post left mastectomy. 3. Stable benign appearing left lobe liver lesions and left renal cyst. Signed by Chapito Galindo MD 09/06/2016 03:19 P
== END ==
LOC: M RAD 09:15
PROVIDERS: ATTEND Family Medicine
DX: R91.1 Solitary pulmonary nodule (principal); K76.89 Other specified diseases of liver; N28.1 Cyst of kidney, acquired; Z98.890 Other specified postprocedural states
CPT/HCPCS: 71260; Q9967

== ENCOUNTER → 2016-10-31 | Outpatient (REF) | payer MEDICARE, MEDICAID | LOC: M LAB REF 12:54 | PROVIDERS: ATTEND Physician Assistant | DX: R30.0 Dysuria (principal) | CPT/HCPCS: 81002; 87088; 87186; G0463 ==

== ENCOUNTER → 2017-01-02 | Outpatient (REF) | payer MEDICARE, MEDICAID ==
[2017-01-02 19:34] LABS: ALBUMIN 4.3 GM/DL (3.2-5.2); ALBUMIN/GLOBULIN RATIO 1.39 (1.00-1.93); ALKALINE PHOSPHATASE 63 U/L (45-117); ALT/SGPT 18 U/L (12-78); ANION GAP 6 MEQ/L (8-16); AST/SGOT 15 U/L (15-37); BILIRUBIN,TOTAL 0.4 MG/DL (0.2-1.0); BLOOD UREA NITROGEN 24 MG/DL (7-18); CALCIUM LEVEL 10.1 MG/DL (8.8-10.2); CARBON DIOXIDE LEVEL 31 MEQ/L (21-32); CHLORIDE LEVEL 98 MEQ/L (98-107); CREATININE FOR GFR 0.96 MG/DL (0.55-1.02); GLUCOSE, FASTING 104 MG/DL (83-110); MAGNESIUM LEVEL 1.7 MG/DL (1.8-2.4); POTASSIUM SERUM 4.5 MEQ/L (3.5-5.1); SODIUM LEVEL 135 MEQ/L (136-145); TOTAL PROTEIN 7.4 GM/DL (6.4-8.2)
== END ==
LOC: M SFHCPLAZ 11:30
PROVIDERS: ATTEND Family Medicine
DX: E11.9 Type 2 diabetes mellitus without complications (principal); E78.2 Mixed hyperlipidemia; E55.9 Vitamin D deficiency, unspecified; Z23 Encounter for immunization
CPT/HCPCS: 36415; 80053; 81001; 82043; 82306; 83036; 83735; 83970; 90670; G0009; G0463

== ENCOUNTER → 2017-01-05 | Outpatient (CLI) | payer MEDICARE, MEDICAID ==
--- NOTE | 2017-01-05 12:12 | REP ---
Clinical: Left knee pain. Technique: AP, lateral, bilateral oblique and sunrise views of the left knee. Findings: Moderate tricompartmental arthritic degenerative changes include subchondral sclerosis along the tibial plateau and posterior margin of the patella with associated tibiofemoral and patellofemoral joint space narrowing as well as cortical irregularities and subtle spurring and chondrocalcinosis. No acute fracture or dislocation. No effusion. Vascular calcifications noted. Impression: Moderate tricompartmental arthritic degenerative changes. Signed by Keegan Gramajo MD 01/05/2017 12:02 P
== END ==
LOC: M RAD 11:10
PROVIDERS: ATTEND Family Medicine
DX: M17.0 Bilateral primary osteoarthritis of knee (principal)

== ENCOUNTER → 2017-01-12 | Outpatient (REF) | payer MEDICARE, MEDICAID | LOC: M SFHCPLAZ 15:15 | PROVIDERS: ATTEND Family Medicine | DX: R50.9 Fever, unspecified (principal) | CPT/HCPCS: 81001; 81002; 87088; 87186; 87804; 96372; G0463; J0696 ==

== ENCOUNTER → 2017-02-13 | Outpatient (REF) | payer MEDICARE, MEDICAID | LOC: M SFHCPLAZ 16:04 | PROVIDERS: ATTEND Physician Assistant | DX: N39.0 Urinary tract infection, site not specified (principal) | CPT/HCPCS: 81002; 87088; 87186; G0463 ==

== ENCOUNTER → 2017-05-09 | Outpatient (REF) | payer MEDICARE, MEDICAID ==
[2017-05-09 11:53] LABS: BASO % 0.3 % (0.0-1.0); EOS # 0.2 10^3/uL (0.0-0.50); EOS % 1.9 % (0.0-3.0); IMMATURE GRANULOCYTE % 0.4 % (0-0); LYMPH # 3.3 10^3/uL (1.5-4.5); LYMPH % 33.7 % (24.0-44.0); MEAN CORPUSCULAR HEMOGLOBIN 29.2 pg (27.0-33.0); MEAN CORPUSCULAR HGB CONC 32.9 g/dl (32.0-36.5); MEAN CORPUSCULAR VOLUME 88.6 fl (80.0-96.0); MONO # 0.6 10^3/uL (0.0-0.8); MONO % 6.3 % (0.0-5.0); NEUTROPHILS # 5.6 10^3/uL (1.8-7.7); NEUTROPHILS % 57.4 % (36.0-66.0); PLATELET COUNT, AUTOMATED 250 10^3/uL (150-450); WHITE BLOOD COUNT 9.8 10^3/uL (4.0-10.0)
[2017-05-09 12:44] LABS: ALBUMIN 4.4 GM/DL (3.2-5.2); ALBUMIN/GLOBULIN RATIO 1.26 (1.00-1.93); BILIRUBIN,TOTAL 0.2 MG/DL (0.2-1.0); CALCIUM LEVEL 9.9 MG/DL (8.8-10.2); CREATININE FOR GFR 1.13 MG/DL (0.55-1.02); FREE T4 0.97 NG/DL (0.76-1.46); GLOMERULAR FILTRATION RATE 49.6 (>39); POTASSIUM SERUM 4.5 MEQ/L (3.5-5.1); TOTAL PROTEIN 7.9 GM/DL (6.4-8.2)
== END ==
LOC: M SFHCPLAZ 10:30
PROVIDERS: ATTEND Family Medicine
DX: E55.9 Vitamin D deficiency, unspecified (principal); E78.2 Mixed hyperlipidemia; E11.9 Type 2 diabetes mellitus without complications; Z23 Encounter for immunization
CPT/HCPCS: 36415; 80053; 80061; 82306; 83970; 84439; 84443; 85025; 90662; G0008; G0463

== ENCOUNTER → 2017-06-06 | Outpatient (REF) | payer MEDICARE, MEDICAID | LOC: M LAB REF 18:07 | PROVIDERS: ATTEND Family Medicine | DX: D48.5 Neoplasm of uncertain behavior of skin (principal) ==

== ENCOUNTER → 2017-07-18 | Outpatient (CLI) | payer MEDICARE, MEDICAID | LOC: M WHC 09:42 | DX: Z12.31 Encounter for screening mammogram for malignant neoplasm of breast (principal); Z85.3 Personal history of malignant neoplasm of breast; M81.0 Age-related osteoporosis without current pathological fracture | CPT/HCPCS: 77067 ==

== ENCOUNTER → 2017-07-19 | Outpatient (CLI) | payer MEDICARE, MEDICAID | LOC: M RAD 09:10 | DX: N28.1 Cyst of kidney, acquired (principal) | CPT/HCPCS: 76775 ==

== ENCOUNTER → 2017-07-25 | Outpatient (REF) | payer MEDICARE, MEDICAID ==
[2017-07-25 14:32] LABS: ALBUMIN 4.2 GM/DL (3.2-5.2); ALKALINE PHOSPHATASE 57 U/L (45-117); ALT/SGPT 15 U/L (12-78); ANION GAP 9 MEQ/L (8-16); AST/SGOT 16 U/L (7-37); BILIRUBIN,TOTAL 0.3 MG/DL (0.2-1.0); BLOOD UREA NITROGEN 23 MG/DL (7-18); CALCIUM LEVEL 9.2 MG/DL (8.8-10.2); CARBON DIOXIDE LEVEL 29 MEQ/L (21-32); CHLORIDE LEVEL 100 MEQ/L (98-107); CREATININE FOR GFR 1.23 MG/DL (0.55-1.02); FERRITIN 82 NG/ML (8-252); GLUCOSE, FASTING 212 MG/DL (70-100); IRON (FE) 62 UG/DL (50-170); PERCENT SATURATION 16.7 % (13.2-45.0); POTASSIUM SERUM 4.9 MEQ/L (3.5-5.1); SODIUM LEVEL 138 MEQ/L (136-145); TOTAL IRON BINDING CAPACITY 371 UG/DL (250-450); TOTAL PROTEIN 7.2 GM/DL (6.4-8.2)
[2017-07-25 14:34] LABS: VITAMIN B12 LEVEL 699 PG/ML (247-911)
[2017-07-25 14:50] LABS: ESTIMATED AVERAGE GLUCOSE 146 MG/DL (60-110); HEMOGLOBIN A1c 6.7 %
== END ==
LOC: M SFHCPLAZ 10:45
DX: N18.3 Chronic kidney disease, stage 3 (moderate) (principal); E11.9 Type 2 diabetes mellitus without complications
CPT/HCPCS: 83550

== ENCOUNTER → 2017-07-26 | Outpatient (CLI) | payer MEDICARE, MEDICAID ==
[~2017-07-26] MED LIST changes: +ISOVUE-370 76% 100ML VIAL (Q9967) As Ordered; -ISOVUE-370 76% 100ML VIAL (Q9967) As Ordered ONE
== END ==
LOC: M RAD 13:13
DX: N28.1 Cyst of kidney, acquired (principal)
CPT/HCPCS: Q9967

== ENCOUNTER → 2017-09-18 | Outpatient (REF) | payer MEDICARE, MEDICAID ==
[2017-09-18 10:19] LABS: ALBUMIN/GLOBULIN RATIO 1.21 (1.00-1.93); ALKALINE PHOSPHATASE 64 U/L (45-117); ALT/SGPT 17 U/L (12-78); ANION GAP 9 MEQ/L (8-16); AST/SGOT 13 U/L (7-37); BILIRUBIN,TOTAL 0.3 MG/DL (0.2-1.0); BLOOD UREA NITROGEN 20 MG/DL (7-18); CALCIUM LEVEL 9.5 MG/DL (8.8-10.2); CARBON DIOXIDE LEVEL 29 MEQ/L (21-32); CHLORIDE LEVEL 99 MEQ/L (98-107); CREATININE FOR GFR 1.16 MG/DL (0.55-1.30); GLOMERULAR FILTRATION RATE 48.1 (>39); GLUCOSE, FASTING 158 MG/DL (70-100); POTASSIUM SERUM 4.7 MEQ/L (3.5-5.1); SODIUM LEVEL 137 MEQ/L (136-145); TOTAL PROTEIN 7.3 GM/DL (6.4-8.2)
[2017-09-18 10:21] LABS: ESTIMATED AVERAGE GLUCOSE 163 MG/DL (60-110); HEMOGLOBIN A1c 7.3 %
[2017-09-18 10:54] LABS: VITAMIN B12 LEVEL 668 PG/ML (247-911)
[2017-09-18 11:37] LABS: FERRITIN 30 NG/ML (8-252); IRON (FE) 55 UG/DL (50-170); PERCENT SATURATION 13.8 % (13.2-45.0); TOTAL IRON BINDING CAPACITY 400 UG/DL (250-450)
== END ==
LOC: M SFHCPLAZ 08:57
DX: N18.3 Chronic kidney disease, stage 3 (moderate) (principal); E11.9 Type 2 diabetes mellitus without complications
CPT/HCPCS: 83550

== ENCOUNTER → 2017-09-19 | Outpatient (CLI) | payer MEDICARE, MEDICAID | LOC: M RAD 14:21 | DX: R91.1 Solitary pulmonary nodule (principal); K44.9 Diaphragmatic hernia without obstruction or gangrene; K76.0 Fatty (change of) liver, not elsewhere classified; N28.1 Cyst of kidney, acquired | CPT/HCPCS: Q9967 ==

== ENCOUNTER → 2017-11-24 | Outpatient (REF) | payer MEDICARE, MEDICAID ==
[2017-11-24 18:14] LABS: AMORPHOUS SEDIMENT SMALL (NEGATIVE); APPEARANCE, URINE CLEAR (CLEAR); BACTERIA, URINE AUTO NEGATIVE (NEGATIVE); BILIRUBIN, URINE AUTO NEGATIVE (NEGATIVE); BLOOD, URINE BLOOD NEGATIVE (NEGATIVE); COLOR, URINE STRAW (YELLOW); GLUCOSE, URINE (UA) AUTO NEGATIVE (NEGATIVE); KETONE, URINE AUTO NEGATIVE (NEGATIVE); LEUKOCYTE ESTERASE, URINE AUTO TRACE (NEGATIVE); MUCUS, URINE SMALL (NEGATIVE); NITRITE, URINE AUTO NEGATIVE (NEGATIVE); PROTEIN, URINE AUTO NEGATIVE (NEGATIVE); RBC, URINE AUTO 2 /HPF (0-3); SPECIFIC GRAVITY URINE AUTO 1.006 (1.002-1.035); SQUAMOUS EPITHELIAL CELL UR AU 0 /HPF (0-6); UROBILINOGEN, URINE AUTO 0.2 mg/dL (0.0-2.0); WBC, URINE AUTO 2 /HPF (0-3)
== END ==
LOC: M SFHCPLAZ 16:52
DX: R30.0 Dysuria (principal)
CPT/HCPCS: 81001

== ENCOUNTER → 2018-06-18 | Outpatient (REF) | payer MEDICARE, MEDICAID ==
[2018-06-18 13:59] LABS: HEMOGLOBIN A1c 7.5 %
[2018-06-18 14:28] LABS: ALBUMIN 4.1 GM/DL (3.2-5.2); BILIRUBIN,TOTAL 0.3 MG/DL (0.2-1.0); C REACTIVE PROTEIN QUANTITATIV 1.01 MG/DL (0.00-0.30); CALCIUM LEVEL 8.9 MG/DL (8.8-10.2); CHOLESTEROL RISK RATIO 2.517 (<5); CREATININE FOR GFR 1.15 MG/DL (0.55-1.30); FREE T4 1.21 NG/DL (0.76-1.46); GLOMERULAR FILTRATION RATE 48.5 (>39); MAGNESIUM LEVEL 1.9 MG/DL (1.8-2.4); POTASSIUM SERUM 4.1 MEQ/L (3.5-5.1); THYROID STIMULATING HORMONE 0.769 uIU/ML (0.358-3.740); TOTAL PROTEIN 7.5 GM/DL (6.4-8.2)
== END ==
LOC: M SFHCPLAZ 11:35
PROVIDERS: ATTEND Family Medicine
DX: E11.9 Type 2 diabetes mellitus without complications (principal)
CPT/HCPCS: 36415; 80053; 80061; 82550; 83036; 83735; 84439; 84443; 86140; G0463

== ENCOUNTER → 2018-12-03 | Outpatient (REF) | payer MEDICARE, MEDICAID | LOC: M SFHCPLAZ 11:48 | PROVIDERS: ATTEND Family Medicine | DX: G47.62 Sleep related leg cramps (principal); E11.9 Type 2 diabetes mellitus without complications; Z53.8 Procedure and treatment not carried out for other reasons ==

== ENCOUNTER 2019-02-05 20:59 | Emergency (ER) | payer MEDICARE, MEDICAID ==
[~2019-02-05] VITALS: Ht 149.9 cm; Wt 59.6 kg
[2019-02-05 23:00] VITALS: BP 167/71
--- NOTE | 2019-03-05 14:18 | REP ---
Sacrum and coccyx series: Three views. Repeat dictation. History: Trauma. Comparison pelvic view is from July 31, 2013. Findings: A metallic screw is seen transfixing the SI joints horizontally through the region of the first sacral segment. This is a new finding. There are old healed superior and inferior pubic ramus fractures on the left. There is degenerative osteoarthritic facet disease in the lumbar spine. No acute fracture is seen. No sacral or coccygeal fracture is visible on these radiographs. Impression: Status post a transsacral pinning of the SI joints bilaterally with a horizontally oriented screw. Healed superior and inferior pubic ramus fractures. No acute traumatic abnormality. Electronically Signed by Chapito Galindo MD 03/05/2019 02:32 P
== END 2019-02-05 23:01 | disposition home or self-care (01) ==
LOC: M ED 20:59
DX: S30.0XXA Contusion of lower back and pelvis, initial encounter (principal); Y04.8XXA Assault by other bodily force, initial encounter; Y92.018 Other place in single-family (private) house as the place of occurrence of the external cause; E11.9 Type 2 diabetes mellitus without complications; I10 Essential (primary) hypertension; J45.909 Unspecified asthma, uncomplicated; K21.9 Gastro-esophageal reflux disease without esophagitis

== ENCOUNTER → 2019-03-21 | Outpatient (CLI) | payer MEDICARE, MEDICAID ==
--- NOTE | 2019-03-21 12:16 | REP ---
Lumbar spine five views: Comparison is 07/31/2013. There is demineralization. Vertebral body heights and alignment are normal and unchanged. There is mild disc space narrowing throughout the lumbar spine. There are small anterior osteophytes throughout the lumbar spine compatible with mild multilevel degenerative disc disease. This is unchanged. There is no spondylolysis or spondylolisthesis. This is unchanged. There is a transversely oriented internal fixation screw across the sacrum, not present on the prior lumbar spine study but unchanged from the sacrum/coccyx study dated 02/05/2019. On the comparison sacrum/coccyx study there were healed fractures of the left superior and inferior pubic ramus. The pubic ramus is not visible on the lumbar spine study today. Impression: Mild multilevel degenerative disc disease. This is unchanged. There is a transversely oriented fixation screw across the sacrum as described. Electronically Signed by Fransico Pickens MD 03/21/2019 12:08 P
--- NOTE | 2019-03-21 12:38 | REP ---
Sacrum and coccyx three views: Comparison is 12/20/2018. There is a fixation screw transversely across the sacrum. This is unchanged. No acute fracture is identified. On the comparison study there were healed fractures of the superior inferior pubic rami on the left. On the current study only in the superior left pubic ramus healed fracture is identified. The inferior ramus is excluded at the film margin. The sacroiliac articulations are unchanged. Impression: No acute fracture. Fixation screw as described. Old fracture of the left superior pubic ramus. Electronically Signed by Fransico Pickens MD 03/21/2019 12:30 P
--- NOTE | 2019-03-21 14:18 | REP ---
Right hand two views AP and lateral projections: There is demineralization. 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 On the lateral view there are faintly visible calcifications posterior to the carpus, nonspecific, tiny a avulsions versus chondrocalcinosis. No other evidence of fracture. Left hand two views AP and lateral projections: There is demineralization. Joint spaces are unremarkable except for triangular fibrocartilage no calcinosis suggestive of CPPD. On the lateral view there are faintly visible calcifications posterior to the carpus, nonspecific, a avulsions versus chondrocalcinosis. Electronically Signed by Fransico Pickens MD 03/21/2019 02:10 P
--- NOTE | 2019-03-21 15:29 | REP ---
Right wrist two views AP and lateral projections: There are no comparisons. There is demineralization. There are calcifications in the triangular fibrocartilage suggestive of CPPD. Lateral view there are tiny calcifications posteriorly, nonspecific, a avulsions versus chondrocalcinosis. No other fracture or dislocation are identified. Left hand two views, AP and lateral projections: There is demineralization. There are triangular fibrocartilage calcifications compatible with CPPD. There are faintly visible calcifications posteriorly on the lateral view, nonspecific, CPPD versus tiny a avulsions. No other fractures are identified. There is no dislocation. Electronically Signed by Fransico Pickens MD 03/21/2019 03:21 P
== END ==
LOC: M WUC 10:53
PROVIDERS: ATTEND Physician Assistant Medical
DX: M79.642 Pain in left hand (principal); M19.039 Primary osteoarthritis, unspecified wrist; S39.92XD Unspecified injury of lower back, subsequent encounter; M71.431 Calcium deposit in bursa, right wrist; M71.43 Calcium deposit in bursa, wrist; Z87.81 Personal history of (healed) traumatic fracture; M51.36 Other intervertebral disc degeneration, lumbar region

== ENCOUNTER → 2019-03-22 | Outpatient (CLI) | payer MEDICARE, MEDICAID ==
[2019-03-22 13:01] LABS: BASO % 0.6 % (0.0-1.0); EOS # 0.2 10^3/uL (0.0-0.5); EOS % 2.6 % (0.0-3.0); HEMATOCRIT 34.9 % (36.0-47.0); HEMOGLOBIN 11.4 g/dl (12.0-15.5); LYMPH # 2.3 10^3/uL (1.5-5.0); LYMPH % 33.2 % (24.0-44.0); MEAN CORPUSCULAR HEMOGLOBIN 29.4 pg (27.0-33.0); MEAN CORPUSCULAR HGB CONC 32.7 g/dl (32.0-36.5); MEAN CORPUSCULAR VOLUME 89.9 fl (80.0-96.0); MONO # 0.5 10^3/uL (0.0-0.8); MONO % 6.6 % (0.0-5.0); NEUTROPHILS % 56.7 % (36.0-66.0); PLATELET COUNT, AUTOMATED 237 10^3/uL (150-450); RED BLOOD COUNT 3.88 10^6/uL (4.00-5.40)
[2019-03-22 13:34] LABS: ALBUMIN 4.1 GM/DL (3.2-5.2); BILIRUBIN,TOTAL 0.4 MG/DL (0.2-1.0); CALCIUM LEVEL 9.8 MG/DL (8.8-10.2); CREATININE FOR GFR 0.96 MG/DL (0.55-1.30); GLOMERULAR FILTRATION RATE 59.7 (>39); POTASSIUM SERUM 4.6 MEQ/L (3.5-5.1); TOTAL PROTEIN 6.8 GM/DL (6.4-8.2)
[2019-03-22 15:03] LABS: HEMOGLOBIN A1c 6.5 %
== END ==
LOC: M WUC 03-21 11:00
PROVIDERS: ATTEND Family Medicine
DX: E11.9 Type 2 diabetes mellitus without complications (principal); G47.62 Sleep related leg cramps

== ENCOUNTER → 2019-03-28 | Outpatient (CLI) | payer MEDICARE, MEDICAID ==
[~2019-03-28] MED LIST changes: +ASPI81CH33 PO; +ASPI81TA85 PO; +CALC600T66 PO; +CICL0.7739 TOP; +CVS250TA3 PO; +DRIS50003 PO; +ESCI20TA PO; +FAMO20TA PO; +FOSA70TA PO; +HYDR-4514 PO; -ISOVUE-370 76% 100ML VIAL (Q9967) As Ordered; +JANU100T PO; +LEXA1TAB PO; +METF-791 PO; +METO1TAB87 PO; +METO50TA7 PO; +MIRA0.254 PO; +RA B1TAB7 PO; +SIMV40TA2 PO; +VOLT1GEL15 TOP; +ZANT150T40 PO
--- NOTE | 2019-03-28 11:39 | REP ---
UNILATERAL MAMMOGRAM RIGHT BREAST WITH 3D TOMOSYNTHESIS: HISTORY: Left breast cancer and mastectomy 2006. COMPARISON: 07/18/2017 as well as other prior exams. MLO and CC views of the right breast are performed with 3D tomosynthesis. There is moderate scattered fibroglandular tissue which is unchanged. No new mass or architectural distortion is seen. No clustered microcalcifications are seen. There are scattered coarse benign type calcifications. A metallic clip is seen in the upper outer quadrant of the right breast from a prior benign biopsy in 2011. IMPRESSION: BIRADS 1: BI-RADS/ACR category 1 mammogram. Negative Mammogram. ACR 1 negative mammogram right breast in this patient status post left mastectomy. Suggest followup mammogram in 1 year. This mammogram was interpreted with the aid of an FDA-approved computer-aided detection system. The patient states she has not had a clinical breast exam in over a year. The patient letter being requested is M1.
== END ==
LOC: M WHC 09:45
PROVIDERS: ATTEND Family Medicine
DX: Z12.31 Encounter for screening mammogram for malignant neoplasm of breast (principal); Z85.3 Personal history of malignant neoplasm of breast; Z90.12 Acquired absence of left breast and nipple

== ENCOUNTER 2019-04-06 06:34 | Observation (INO) | payer MEDICARE, MEDICAID ==
[~2019-04-06] VITALS: Ht 148.6 cm; Wt 64.6 kg
[2019-04-06] MEDS ORDERED: METF-791 PO (06:50)
[2019-04-06] MEDS ORDERED: MIRA0.254 PO (06:50)
[2019-04-06] MEDS ORDERED: ASPI81CH33 PO (06:50)
[2019-04-06] MEDS ORDERED: FOSA70TA PO (06:50)
[2019-04-06] MEDS ORDERED: MAGN250T22 PO (06:50)
[2019-04-06] MEDS ORDERED: ZANT150T40 PO (06:50)
[2019-04-06] MEDS ORDERED: METO1TAB87 PO (06:50)
[2019-04-06] MEDS ORDERED: DRIS50003 PO (06:50)
[2019-04-06] MEDS ORDERED: VOLT1GEL15 TOP (06:50)
[2019-04-06] MEDS ORDERED: CALC600T66 PO (06:50)
[2019-04-06] MEDS ORDERED: LEXA1TAB PO (06:50)
[2019-04-06] MEDS ORDERED: JANU100T PO (06:50)
[2019-04-06] MEDS ORDERED: SIMV40TA20 PO (06:50)
[2019-04-06] MEDS ORDERED: MORPHINE 4 MG/ML 1ML VIAL/SYRINGE (J2270) IV ONE (07:30)
[2019-04-06] MEDS ORDERED: METOPROLOL TART 25 MG TABLET PO ONE (07:45)
[2019-04-06 07:57] LABS: BASO % 0.3 % (0.0-1.0); EOS # 0.1 10^3/uL (0.0-0.5); EOS % 0.5 % (0.0-3.0); HEMATOCRIT 35.4 % (36.0-47.0); HEMOGLOBIN 11.7 g/dl (12.0-15.5); LYMPH # 1.5 10^3/uL (1.5-5.0); MEAN CORPUSCULAR HEMOGLOBIN 29.2 pg (27.0-33.0); MEAN CORPUSCULAR HGB CONC 33.1 g/dl (32.0-36.5); MEAN CORPUSCULAR VOLUME 88.3 fl (80.0-96.0); MONO # 0.7 10^3/uL (0.0-0.8); MONO % 5.7 % (0.0-5.0); NEUTROPHILS # 9.3 10^3/uL (1.5-8.5); NEUTROPHILS % 79.9 % (36.0-66.0); PLATELET COUNT, AUTOMATED 234 10^3/uL (150-450); RED BLOOD COUNT 4.01 10^6/uL (4.00-5.40); WHITE BLOOD COUNT 11.7 10^3/uL (4.0-10.0)
--- NOTE | 2019-04-06 08:06 | REP ---
Right elbow for views : There is no fracture or dislocation. Mineralization and joint spaces are normal. There are no calcifications or foreign bodies. Impression: Negative right elbow . Electronically Signed by Fransico Pickens MD 04/06/2019 07:56 A
[2019-04-06 08:15] LABS: BLOOD UREA NITROGEN 25 MG/DL (7-18); CALCIUM LEVEL 9.3 MG/DL (8.8-10.2); CARBON DIOXIDE LEVEL 28 MEQ/L (21-32); CHLORIDE LEVEL 94 MEQ/L (98-107); CK-MB VALUE MASS 2.6 NG/ML (<3.6); CPK CREATINE PHOSPHOKINASE 101 U/L (26-192); CREATININE FOR GFR 1.11 MG/DL (0.55-1.30); GLOMERULAR FILTRATION RATE 50.5 (>39); GLUCOSE, FASTING 176 MG/DL (70-100); MB/CK RELATIVE INDEX 2.57 (< OR =4); POTASSIUM SERUM 4.9 MEQ/L (3.5-5.1); SODIUM LEVEL 131 MEQ/L (136-145); TROPONIN I < 0.02 NG/ML (< 0.10)
[2019-04-06] MEDS ORDERED: ISOVUE-370 76% 100ML VIAL (Q9967) As Ordered ONE (08:52)
[2019-04-06] MEDS ORDERED: LABETALOL HCL 100 MG/20 ML VIAL IV STA ×2 (08:54→11:33)
--- NOTE | 2019-04-06 09:47 | REP ---
CT of the chest with IV contrast: Comparison is 09/19/2017. There is no pneumothorax. There is a tiny right pleural fluid collection, possibly a small right hemothorax. There is a new ground-glass density anteriorly inferiorly in the right upper lobe, possibly a small pulmonary contusion. There is a stable ground-glass density anteriorly inferiorly in the lingula, unchanged. There is an acute fracture of the right ninth rib posteriorly. There are old healed fractures of the right seventh and tenth ribs and of the left ninth rib and tenth rib. There is an old grade 3 compression deformity of the T3 vertebral body. There is slight retropulsion. This is unchanged. There is no sternal fracture. No fracture. The visualized clavicle or scapular. The thoracic aorta is unremarkable. There is no mediastinal hematoma. Cardiac size is upper normal. There is no pericardial effusion. The visualized upper abdominal contents are unremarkable except for left renal upper pole cysts. These are unchanged. Impression: Small right hemothorax. Probable right upper lobe pulmonary contusion. No pneumothorax. Acute right ninth rib fracture posteriorly. Old healed fractures bilaterally as described. Old compression deformity of the T3 vertebral body with slight retropulsion. Thoracic aorta unremarkable. No mediastinal hematoma. Electronically Signed by Fransico Pickens MD 04/06/2019 09:38 A
[2019-04-06] MEDS ORDERED: ASPI81TA85 PO (10:50)
[2019-04-06] MEDS ORDERED: RA B1TAB7 PO (10:50)
[2019-04-06] MEDS ORDERED: METO50TA7 PO (10:50)
[2019-04-06] MEDS ORDERED: ESCI20TA PO (10:50)
[2019-04-06] MEDS ORDERED: CICL0.7739 TOP (10:50)
[2019-04-06] MEDS: **hydrALAZINE** 10 MG TAB PO SCH ×3 (12:00→23:18)
[2019-04-06] MEDS ORDERED: ACETAMINOPHEN TAB 650MG DOSE (2X325MG) PO PRN (12:15)
[2019-04-06] MEDS ORDERED: GLUCOSE 4 GM CHEW TABLET PO PRN (13:00)
[2019-04-06] MEDS ORDERED: GLUCAGON FOR INJ 1 MG VIAL (J1610) SC PRN (13:00)
[2019-04-06] MEDS ORDERED: DEXTROSE 50% 50 ML SYRINGE IV PRN (13:00)
[2019-04-06] MEDS ORDERED: traMADol 50 MG TAB PO PRN (14:00)
--- NOTE | 2019-04-06 14:05 | HPEPDOC ---
General Date of Admission Apr 06, 2019 at 06:35 Date of Service: Apr 06, 2019 Attending Physician: YELENA LARSON MD Chief Complaint The patient is a 78-year-old female admitted with a reason for visit of Hemothorax,Hypertensive Urgency,Right Rib Fracture. Source: Patient, Family Exam Limitations: No limitations Timing/Duration: 24 hours Severity: Moderate Associated Symptoms: Mechanical fall, Other (right chest wall pain) History of Present Illness Ms. Haywood is a 78 yo woman with a history of diabetes, hypertension, remote breast invasive ductal carcinoma s/p mastectomy, osteoporosis, GERD who was brought into the ED this morning by her stepdaughter whom she lives with for right sided chest wall pain after she sustained a mechanical fall last night. The patient and her daughter report that the fall occurred after she got up from the couch where she had fallen asleep while watching TV as she walked to go to her room. The fall was witnessed by her daughter's significant other who described it as tripping and she fell to the ground and landed on her right side elbow without hitting her head and without any loss of consciousness, jerking, l oss of bladder or bowel function. She denies feeling dizzy prior to the event, neither did she experience any chest pain, shortness of breath, palpitations, vertigo, knee buckling or acute lower extremity weakness. Her daughter suggested that they come to the ED last night but the patient declined but by this morning the pain was severe enough that they agreed that they should come in. She denies any interval change in her breathing patterns without shortness of breath, new cough, chest pain outside of the right sided chest wall pain. She also has not had any fevers, chills, abdominal pain or dysuria. Of note, she shared that she has been recently very worried about her daughter who is in the [facility] with suicidality. At baseline she walks unassisted without devices, is completely independent with her ADLs, is a remote prior smoker, remote prior occasional alcohol consumer, does not use illicit substances and feels completely safe in her home that she shares with her daughter and her significant other. In the ED she was hypertensive to 229/97 without much response to the 10 IV labetalol and then 20 IV labetalol one 1 hour later. She was otherwise not tachycardic, and was breathing comfortably on room air. Initial work up was notable for a chronic stable hyponatremia to 131, Cr 1.11 at her baseline, EKG with NSR and negative troponin, CK-MB and total CK. A chest x-ray revealed a small right hemithorax and an acute right 9th posterior rib fracture as well as a right upper lobe contusion, without a pneumothorax. The ED physician contacted thoracic surgery that confirmed no surgical intervention is indicated after looking at the films and suggested adequate pain control and medical management. She is now being admitted under observation for hypertensive urgency and pain contol. Home Medications Scheduled Alendronate Sodium (Fosamax) 70 Mg Tablet, 70 MG PO QWEEK, (Reported) THURSDAYS Aspirin (Aspir 81) 81 Mg Tablet.dr, 81 MG PO DAILY, (Reported) Calcium Carbonate/Vitamin D3 (Calcium 600 + Vit D Tablet) 1 Each Tablet, 1 TAB PO DAILY, (Reported) Ciclopirox Olamine (Ciclopirox) 15 Gm Cream..g., 1 APLCT TOP BID, (Reported) APPLY TO FEET Ergocalciferol (Vitamin D2) (Drisdol) 50,000 Unit Capsule, 50,000 UNIT PO Q2WK, (Reported) EVERY OTHER MONDAY Escitalopram Oxalate (Escitalopram Oxalate) 20 Mg Tablet, 10 MG PO DAILY, (Reported) Magnesium (Magnesium) 250 Mg Tablet, 250 MG PO QHS, (Reported) Metformin HCl (Metformin HCl ER) 500 Mg Tab.er.24h, 500 MG PO BID, (Reported) Metoprolol Tartrate (Metoprolol Tartrate) 50 Mg Tablet, 25 MG PO DAILY, (Rep orted) Pramipexole Di-HCl (Mirapex) 0.25 Mg Tablet, 0.25 MG PO QHS, (Reported) Ranitidine Hcl (Zantac) 150 Mg Tablet, 1 TAB PO DAILY, (Reported) Simvastatin (Simvastatin) 40 Mg Tablet, 40 MG PO QHS, (Reported) Sitagliptin Phosphate (Januvia) 100 Mg Tablet, 100 MG PO DAILY, (Reported) Vitamin B Complex (B Complex) 1 Each Tablet, 1 TAB PO DAILY, (Reported) Scheduled PRN Diclofenac Sodium (Voltaren) 100 Gm Gel..gram., 1 GRAM TOP QID PRN for PAIN, (Reported) APPLY TO BILATERAL KNEES Allergies Coded Allergies: No Known Allergies (Verified , 07/27/05) Past Medical History Medical History Remote invasive ductal carcinoma s/p mastectomy, osteoporosis, diabetes, hypertension, GERD. Surgical History Mastectomy Family History Significant Family History: No pertinent family hx Social History * Smoker: former Smoker Alcohol: Denies Drugs: denies Recent Travel/Sick Contacts: Denies: Recent travel, Recent sick contacts Psychosocial History: No pertinent psych hx A-FIB/CHADSVASC A-FIB History Current/History of A-Fib/PAF?: No Current PO Anticoag Therapy: No Age/Risk Factor Scoring CHADSVASC: CHADSVASC Response (Comments) Value Age Risk Factor Age >/= 75 years old 2 Gender Risk Factor Female 1 Hx of CHF No 0 Hx of HTN Yes 1 Hx of Stroke/TIA/or VTE No 0 Hx of Diabetes Yes 1 Hx of Vascular Disease No 0 Total 5 Treatment Treatment ordered: NONE Reason Anticoagulant not given: Not indicated/[id number] Review of Systems Constitutional: Denies: Chills, Fever, Night Sweats Eyes: Denies: Pain, Vision change ENT: Denies: Head Aches, Ear Pain, Dysphagia Skin: Denies: Rash, Lesions, Breakdown Pulmonary: Reports: Other Symptoms (chest wall pain); Denies: Dyspnea, Cough Cardiovascular: Denies: Chest Pain, Palpitations, Orthopnea, Paroxysmal Noc. Dyspnea, Lt Headedness Gastrointestinal: Denies: Nausea, Vomiting, Abdominal Pain, Diarrhea Genitourinary: Denies: Dysuria, Frequency, Incontinence, Retention Hematologic: Denies: Bruising, Bleeding Excessively Endocrine: Denies: Polydipsia, Polyphagia, Polyuria, Heat Intolerance, Cold Intolerance, Other Endocrine Sx Musculoskeletal: Reports: Other Symptoms (Rib pain in R chest wall with deep breathing, twisting and moving around) Neurological: Denies: Weakness, Numbness, Change in speech, Confusion, Seizures Psych: Reports: Mood Normal (has been worried about daughter who is hospitali zed in [facility] with suicidality); Denies: Depression, Memory Issues Physical Examination General Exam: Positive: Alert, No Acute Distress Eye Exam: Positive: PERRLA, Conjunctiva & lids normal, EOMI; Negative: Sclera icteric ENT Exam: Positive: Atraumatic, Mucous membr. moist/pink, Pharynx Normal Neck Exam: Positive: Supple; Negative: JVD, thyromegaly, +2 carotid pulse wo bruit, Lymphadenopathy Chest Exam: Positive: Clear to auscultation, Normal air movement, Other (tende rness in right chest wall with palpation and also twisting action); Negative: Rales, Rhonchi, Wheezing Heart Exam: Positive: Rate Normal, Regular Rhythm, Normal S1, Normal S2; Negative: Murmurs, Rubs Abdomen Exam: Positive: Normal bowel sounds, Soft; Negative: Tenderness, Hepatospenomegaly Extremity Exam: Positive: Normal pulses; Negative: Clubbing, Cyanosis, Edema Skin Exam: Positive: Nl turgor and temperature; Negative: Breakdown, Lesion Neuro Exam: Positive: Normal Gait, Normal Speech, Strength at 5/5 X4 ext, Cranial Nerves 3-12 NL, Reflexes 2+, Other (Eyes minimally open R>L and reports it to be her baseline with ongoing evaluation for lid lift surgery with her eye doctor. Speaks with a lisp) Psych Exam: Positive: Mental status NL, Mood NL, Oriented x 3 Vital Signs Vital Signs Date Time Temp Pulse Resp B/P (MAP) Pulse Ox O2 Delivery O2 Flow Rate FiO2 04/06/19 12:22 74 191/79 04/06/19 12:15 93 04/06/19 08:35 16 Laboratory Data Labs 24H Laboratory Tests 2 04/06/19 07:38: Immature Granulocyte % (Auto) 0.6, White Blood Count 11.7H, Red Blood Count 4.01, Hemoglobin 11.7L, Hematocrit 35.4L, Mean Corpuscular Volume 88.3, Mean Corpuscular Hemoglobin 29.2, Mean Corpuscular Hemoglobin Concent 33.1, Red Cell Distribution Width 13.0, Platelet Count 234, Neutrophils (%) (Auto) 79.9H, Lymphocytes (%) (Auto) 13.0L, Monocytes (%) (Auto) 5.7H, Eosinophils (%) (Auto) 0.5, Basophils (%) (Auto) 0.3, Neutrophils # (Auto) 9.3H, Lymphocytes # (Auto) 1.5, Monocytes # (Auto) 0.7, Eosinophils # (Auto) 0.1, Basophils # (Auto) 0.0, Nucleated Red Blood Cells % (auto) 0.0, Anion Gap 9, Glomerular Filtration Rate 50.5, Blood Urea Nitrogen 25H, Creatinine 1.11, Sodium Level 131L, Potassium Level 4.9, Chloride Level 94L, Carbon Dioxide Level 28, Calcium Level 9.3, Total Creatine Kinase 101, Creatine Kinase MB 2.6, Creatine Kinase MB Relative Index 2.57, Troponin I < 0.02 CBC/BMP Laboratory Tests 04/06/19 07:38 Red Blood Count 4.01, Mean Corpuscular Volume 88.3, Mean Corpuscular Hemoglobin 29.2, Mean Corpuscular Hemoglobin Concent 33.1, Red Cell Distribution Width 13.0, Neutrophils (%) (Auto) 79.9 H, Lymphocytes (%) (Auto) 13.0 L, Monocytes (%) (Auto) 5.7 H, Eosinophils (%) (Auto) 0.5, Basophils (%) (Auto) 0.3, Neutrophils # (Auto) 9.3 H, Lymphocytes # (Auto) 1.5, Monocytes # (Auto) 0.7, Eosinophils # (Auto) 0.1, Basophils # (Auto) 0.0, Calcium Level 9.3, Total Creatine Kinase 101 Assessment/Plan 78 yo woman with a history of diabetes, hypertension, remote breast invasive ductal carcinoma s/p mastectomy, osteoporosis, GERD who was brought into the ED this morning by her stepdaughter with right sided chest wall pain after she sustained a mechanical fall last night and found to have a posterior 9th rib fracture and small hemothorax now admitted with hypertensive urgency for BP and pain control. Posterior 9th rib fracture in patient with osteoporosis -Pain control with oxycodone 5Q4 PRN for severe pain, tramadol 25mg Q4H PRN for moderate pain, tylenol PRN for mild pain -continue her weekly alendronate that she has skipped some weeks, 70mg every monday -continue oscal mechanical fall: -Dd not hit head, non focal neurological exam with noted chronic R>L ptosis with lisp in speech -PT/OT evaluation, daughter concerned that she may benefit from at least a cane sometimes -fall precautions DM: -hold metformin -SSI AC/HS -fingerstick blood glucose AC/HS -continue home januvia -hypoglycemia protocol -consistent carb diet Hypertension: -s/p labetalol 10 IV x1, then 20 IV x 1 in the ED will minimal effect, with HR in 70s. -start lisinopril 10mg QD now -start hydralazine 25 PO Q6H and adjust as needed -High BP is likely acute and related to pain management -continue her home metop 25 QD. Of note, she is on metop tartrate once daily and ideally should be succinate. Small hemothorax: -no hypoxemia, breathing comfortably -thoracic surgery reviewed imaging and did not recommend any surgical interventions -plan for AM CXR before discharge home likely tomorrow morning Dispo: likely tomorrow after BP controlled and repeat CXR DVT prophylasix: TEDs, SCDs, hold on blood thinners for prophylaxis in the setting of hemothorax Plan / VTE VTE Prophylaxis Ordered?: Yes YELENA LARSON MD Apr 06, 2019 13:58
[2019-04-06 16:40] VITALS: BP 168/74
[2019-04-06] MEDS: lisinopriL 10 MG TAB PO SCH (17:11)
[2019-04-06] MEDS: ESCITALOPRAM OXALATE 10 MG TAB (LEXAPRO) PO SCH (17:12)
[2019-04-06] MEDS: CALCIUM/VITAMIN D 500 MG TAB PO SCH (17:12)
[2019-04-06] MEDS: FAMOTIDINE 20 MG TAB PO SCH (17:12)
[2019-04-06] MEDS: ASPIRIN 81 MG ENTERIC TAB PO SCH (17:15)
[2019-04-06] MEDS: HumaLOG INSULIN (NovoLOG) PER UNIT SC SCH ×2 (17:16→20:40)
[2019-04-06 20:00] VITALS: BP 130/60
[2019-04-06] MEDS: PRAMIPEXOLE 0.25 MG TAB PO SCH (20:13)
[2019-04-06] MEDS: SIMVASTATIN 40 MG TAB PO SCH (20:13)
[2019-04-06] MEDS: oxyCODONE 5MG TAB PO PRN (20:14)
[2019-04-06] MEDS: DICLOFENAC EPOLAMINE 1.3 % PATCH TOP SCH (20:14)
[2019-04-07] VITALS (8 sets, daily range): BP systolic 98–132; BP diastolic 50–61
[2019-04-07] MEDS: oxyCODONE 5MG TAB PO PRN ×2 (04:23→12:37)
[2019-04-07] MEDS: **hydrALAZINE** 10 MG TAB PO SCH ×3 (06:37→17:49)
[2019-04-07 06:54] LABS: HEMATOCRIT 31.9 % (36.0-47.0); HEMOGLOBIN 10.5 g/dl (12.0-15.5); MEAN CORPUSCULAR HEMOGLOBIN 29.9 pg (27.0-33.0); MEAN CORPUSCULAR HGB CONC 32.9 g/dl (32.0-36.5); MEAN CORPUSCULAR VOLUME 90.9 fl (80.0-96.0); PLATELET COUNT, AUTOMATED 177 10^3/uL (150-450); RED BLOOD COUNT 3.51 10^6/uL (4.00-5.40); WHITE BLOOD COUNT 9.8 10^3/uL (4.0-10.0)
[2019-04-07 07:18] LABS: ALBUMIN 3.4 GM/DL (3.2-5.2); BILIRUBIN,TOTAL 0.6 MG/DL (0.2-1.0); CALCIUM LEVEL 8.7 MG/DL (8.8-10.2); CREATININE FOR GFR 2.13 MG/DL (0.55-1.30); GLOMERULAR FILTRATION RATE 23.8 (>39); POTASSIUM SERUM 4.5 MEQ/L (3.5-5.1); TOTAL PROTEIN 6.7 GM/DL (6.4-8.2)
[2019-04-07] MEDS: HumaLOG INSULIN (NovoLOG) PER UNIT SC SCH ×4 (07:30→20:28)
--- NOTE | 2019-04-07 08:10 | ECGEPIP ---
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
[2019-04-07] MEDS ORDERED: SITagliptin 50 MG TAB (JANUVIA) PO SCH (09:00)
[2019-04-07] MEDS: ASPIRIN 81 MG ENTERIC TAB PO SCH (10:26)
[2019-04-07] MEDS: NEPHRO-VIT TAB (NEPHROCAPS) PO SCH (10:26)
[2019-04-07] MEDS: CALCIUM/VITAMIN D 500 MG TAB PO SCH (10:27)
[2019-04-07] MEDS: lisinopriL 10 MG TAB PO SCH (10:27)
[2019-04-07] MEDS: METOPROLOL TART 25 MG TABLET PO SCH (10:27)
[2019-04-07] MEDS: ESCITALOPRAM OXALATE 10 MG TAB (LEXAPRO) PO SCH (10:27)
[2019-04-07] MEDS: FAMOTIDINE 20 MG TAB PO SCH (10:28)
[2019-04-07] MEDS: DICLOFENAC EPOLAMINE 1.3 % PATCH TOP SCH ×2 (10:28→20:27)
--- NOTE | 2019-04-07 15:58 | IPNPDOC ---
Subjective Date Seen The patient was seen on 04/07/19. Subjective Chief Complaint/HPI Not surprisingly, Ms. Haywood's rib hurts. She reports that she isn't taking a deep breath and feels like phlegm is building up because of this. Her BP has been better controlled today. She did get up and walk to the bathroom with therapy. General: Reports: Normal Appetite Pulmonary: Reports: Pleuritic Chest Pain; Denies: Cough Cardiovascular: Denies: Chest Pain, Palpitations Gastrointestinal: Denies: Nausea, Vomiting Psych: Reports: Mood Normal Objective Physical Examination General Exam: Positive: Alert, Cooperative, No Acute Distress Eye Exam: Positive: Conjunctiva & lids normal; Negative: Sclera icteric ENT Exam: Positive: Mucous membr. moist/pink, Pharynx Normal Neck Exam: Positive: Supple; Negative: Lymphadenopathy Chest Exam: Positive: Clear to auscultation, Normal air movement, Other (tenderness in right chest wall with palpation); Negative: Rales, Rhonchi, Wheezing Heart Exam: Positive: Rate Normal, Regular Rhythm, Normal S1, Normal S2; Negative: Murmurs, Rubs Abdomen Exam: Positive: Normal bowel sounds, Soft; Negative: Tenderness, Hepatospenomegaly Extremity Exam: Positive: Normal pulses; Negative: Edema Skin Exam: Positive: Nl turgor and temperature Neuro Exam: Positive: Normal Speech Psych Exam: Positive: Mental status NL, Mood NL, Oriented x 3 Assessment /Plan Problems (1) Right rib fracture Status: Acute Discussed With: Nurse, Patient, Family with Pt Consent Problem Specific Plan: Monitor Clinically Problem Text: She has pain from her rib fracture. The patient's step-daughter feels that the oxycodone makes her too sleepy and it isn't doing a great job taking the pain away either. The patient affirms that her pain is getting a little worse. I will change her to [place]. Sometimes people respond better to one agent than another. Also the acetominophen being right in with the opioid for the synergistic effect may help. I'd like to add a NSAID on for some relief, but we have to turn her kidneys around first for this to work. I added an IS to help remind her to take deep breaths. I feel that the "phlegm" is upper airway and not being cleared by vigorous coughs because of the rib fx. (2) Hemothorax Status: Acute Response to Treatment: Stable Problem Text: CT surgery feels no intervention is needed, therefore, once her pain and BP are controlled she could be discharged. As early as tomorrow. (3) Hypertensive urgency Status: Acute Response to Treatment: Improving Discussed With: Nurse, Patient Problem Specific Plan: Monitor Clinically Problem Text: I don't see that she needs the hydralizine routinely; it is not part of her home regimen. I put hold parameters on for SBP<150 for this medication. I'm sure she will have some hypertensive response to the pain, but I don't want to make her hypotensive. Will monitor. (4) ANU (acute kidney injury) Status: Acute Discussed With: Nurse, Patient, Family with Pt Consent Problem Specific Plan: Repeat Labs Problem Text: Her renal fx got much worse today. She has had a total of 710ml in most of the way through the day. I encouraged more PO fluids. Her step- daughter reports that she drinks well at home and I suspect that reaching for a cup hurts here so she just isn't doing it. I added some fluids on overnight. I will also check a CK in the Am to see if rhabdomyolysis is a part of this process. (5) Diabetes mellitus Status: Chronic Discussed With: Nurse Problem Text: Will check her fingersticks AC and HS with ISS coverage. Continue home regimen of 30 units of basal insulin at night. (6) Anemia of chronic disease Status: Chronic Problem Text: Seems stable, but monitor in light of the hemothorax. (7) Osteoporosis Problem Text: She should continue treatment, but I didn't see how long she has been on her bisphosphanate. If more than 5 years, maybe it's time for a break from this medication and consideration of another treatment modality since she now has a fragility fracture. Plan/VTE VTE Prophylaxis Ordered?: Yes (ROHIT and SCDs) VTE Exclusion Mechanical Proph: N/A:VTE Prophy Ordered VTE Exclusion Pharmacological: Bleeding Risk VS, I&O, 24H, Fishbone Vital Signs/I&O Vital Signs Date Time Temp Pulse Resp B/P (MAP) Pulse Ox O2 Delivery O2 Flow Rate FiO2 04/07/19 13:07 16 04/07/19 12:35 132/61 04/07/19 12:00 97.6 72 92 I&O- Last 24 Hours up to 6 AM 04/07/19 06:00 Intake Total 650 ml Output Total 300 ml Balance 350 ml Laboratory Data 24H LABS Laboratory Tests 2 04/06/19 16:57: Bedside Glucose (Misc Panel) 231H 04/06/19 20:22: Bedside Glucose (Misc Panel) 180H 04/07/19 06:26: Nucleated Red Blood Cells % (auto) 0.0, Anion Gap 7L, Glomerular Filtration Rate 23.8L, Blood Urea Nitrogen 35H, Creatinine 2.13#H, Sodium Level 132L, Potassium Level 4.5, Chloride Level 97L, Carbon Dioxide Level 28, Calcium Level 8.7L, Aspartate Amino Transf (AST/SGOT) 9, Alanine Aminotransferase (ALT/SGPT) 14, Alkaline Phosphatase 51, Total Bilirubin 0.6, Total Protein 6.7, Albumin 3.4, Albumin/Globulin Ratio 1.03 04/07/19 11:58: Bedside Glucose (Misc Panel) 117H CBC/BMP Laboratory Tests 04/07/19 06:26 Red Blood Count 3.51 L, Mean Corpuscular Volume 90.9, Mean Corpuscular Hemoglobin 29.9, Mean Corpuscular Hemoglobin Concent 32.9, Red Cell Distribution Width 13.6, Calcium Level 8.7 L, Aspartate Amino Transf (AST/SGOT) 9, Alanine Aminotransferase (ALT/SGPT) 14, Alkaline Phosphatase 51, Total Bilirubin 0.6, Total Protein 6.7, Albumin 3.4 Leon Boss MD Apr 07, 2019 15:58
[2019-04-07] MEDS ORDERED: NS 1,000 ML IV SCH (17:30)
[2019-04-07] MEDS: ANEXSIA, NORCO 7.5MG/325MG TABLET(HYDROCODONE/APAP) PO PRN ×2 (17:47→22:27)
[2019-04-07] MEDS: PRAMIPEXOLE 0.25 MG TAB PO SCH (20:28)
[2019-04-07] MEDS: SIMVASTATIN 40 MG TAB PO SCH (20:28)
[2019-04-07] MEDS ORDERED: LEVEMIR (INSULIN DETEMIR) 1 UNITS/0.01ML SC SCH (21:00)
[2019-04-07] MEDS: D5W/0.9% SODIUM CHLORIDE 1,000 ML IV SCH (22:27)
[2019-04-08] MEDS: ANEXSIA, NORCO 7.5MG/325MG TABLET(HYDROCODONE/APAP) PO PRN ×2 (03:10→09:40)
[2019-04-08 04:00] VITALS: BP 140/69
[2019-04-08] MEDS: **hydrALAZINE** 10 MG TAB PO SCH ×3 (05:00→12:00)
[2019-04-08 06:06] LABS: HEMATOCRIT 31.7 % (36.0-47.0); HEMOGLOBIN 10.2 g/dl (12.0-15.5); MEAN CORPUSCULAR HEMOGLOBIN 29.1 pg (27.0-33.0); MEAN CORPUSCULAR HGB CONC 32.2 g/dl (32.0-36.5); MEAN CORPUSCULAR VOLUME 90.6 fl (80.0-96.0); PLATELET COUNT, AUTOMATED 180 10^3/uL (150-450); WHITE BLOOD COUNT 8.9 10^3/uL (4.0-10.0)
[2019-04-08 06:29] LABS: ALBUMIN 3.2 GM/DL (3.2-5.2); BILIRUBIN,TOTAL 0.5 MG/DL (0.2-1.0); CALCIUM LEVEL 8.7 MG/DL (8.8-10.2); CREATININE FOR GFR 1.4 MG/DL (0.55-1.30); GLOMERULAR FILTRATION RATE 38.6 (>39); POTASSIUM SERUM 4.3 MEQ/L (3.5-5.1); TOTAL PROTEIN 6.4 GM/DL (6.4-8.2)
[2019-04-08] MEDS: HumaLOG INSULIN (NovoLOG) PER UNIT SC SCH ×2 (07:30→13:01)
[2019-04-08 08:00] VITALS: BP 130/60
[2019-04-08] MEDS: ESCITALOPRAM OXALATE 10 MG TAB (LEXAPRO) PO SCH (09:38)
[2019-04-08] MEDS: FAMOTIDINE 20 MG TAB PO SCH (09:38)
[2019-04-08] MEDS: DICLOFENAC EPOLAMINE 1.3 % PATCH TOP SCH (09:38)
[2019-04-08] MEDS: METOPROLOL TART 25 MG TABLET PO SCH (09:38)
[2019-04-08] MEDS: lisinopriL 10 MG TAB PO SCH (09:39)
[2019-04-08] MEDS: CALCIUM/VITAMIN D 500 MG TAB PO SCH (09:39)
[2019-04-08] MEDS: ASPIRIN 81 MG ENTERIC TAB PO SCH (09:39)
[2019-04-08] MEDS: NEPHRO-VIT TAB (NEPHROCAPS) PO SCH (09:39)
[2019-04-08] MEDS: D5W/0.9% SODIUM CHLORIDE 1,000 ML IV SCH (10:00)
[2019-04-08] MEDS ORDERED: FAMO20TA PO (10:45)
[2019-04-08] MEDS ORDERED: HYDR-4514 PO (10:45)
--- NOTE | 2019-04-08 11:28 | DSES ---
DATE OF ADMISSION: 04/06/2019 DATE OF DISCHARGE: REASON FOR ADMISSION: Liss was in her usual state of health until she fell resulting in rib fracture and a hemothorax. The right rib fracture was identified in the ED, mechanical fall. She has a history of invasive ductal carcinoma status post mastectomy, sustained a mechanical fall and ribs fracture, came into the hospital hypertensive. Her blood pressure rapidly improved. Imaging chest CT of identified acute right 9th rib fracture posteriorly, old healed fractures on the left, old compression deformity of T3. Tiny pleural effusion or a small hemothorax on the right. Admitted for monitoring. Oxygen status was assessed, found to have adequate oxygenation and not require support. Blood pressure normalized quickly 130/60, O2 sat 96, respiratory rate 18, heart rate 80, temperature 97.7 on the day of discharge. ASSESSMENT: Right 9th rib fracture following mechanical fall. Acute pain associated with same. History of arthritis. History of breast cancer. She passes physical therapy today and therefore, she is able to be discharged. Pain medicine currently in use is hydrocodone 7.5/[address] Boss yesterday. This seems to be providing adequate pain control. She also uses metoprolol 25 mg at bedtime. At home, she has been using Januvia and metformin for blood sugar control. Her creatinine is 1.4 at discharge. This should be checked a followup to confirm that her renal function is still adequate to allow continued use of metformin. She is only taking half max dose of 500 mg b.i.d., so I think it should be reasonably safe. Januvia 100 mg a day, but she indicates that her insurance scheme has decided to stop covering this agent so a new agent of this class will need to be selected for her. Other medications to continued will be simvastatin 40, B complex, magnesium 250 at bedtime, famotidine 20 mg daily was started to substitute for ranitidine, escitalopram 10 mg daily, diclofenac 1 gram topical gel to her knees q.i.d. as needed, seems to be providing adequate relief even though the dose is small, calcium carbonate 600 plus D daily, aspirin 81 mg daily and alendronate 70 mg weekly that she affirmed she tolerates well. DISCHARGE DIAGNOSIS: Rib fracture right 9th posterior. Small hemothorax or effusion associated with injury. Chronic problems as outlined. Diabetes mellitus type 2 without known complications, treated with oral medication only. Activity as tolerated. Medications as noted also. Followup with Dr. Carranza within a week. Diet controlled carbohydrate.
[2019-04-08 12:00] VITALS: BP 121/58
[2019-04-11] MEDS ORDERED: ALENDRONATE 35MG TABLET PO SCH (07:00)
== END 2019-04-08 13:36 | disposition home health service (06) ==
LOC: M ED 06:34 → M ED INP 06:35 → M PCU 16:39
PROVIDERS: ADMIT Internal Medicine; ATTEND Family Medicine
DX: S22.31XA Fracture of one rib, right side, initial encounter for closed fracture (principal); S27.1XXA Traumatic hemothorax, initial encounter; W01.0XXA Fall on same level from slipping, tripping and stumbling without subsequent striking against object, initial encounter; Y92.008 Other place in unspecified non-institutional (private) residence as the place of occurrence of the external cause; Y93.89 Activity, other specified; Y99.9 Unspecified external cause status; I16.0 Hypertensive urgency; E11.9 Type 2 diabetes mellitus without complications; I10 Essential (primary) hypertension; K21.9 Gastro-esophageal reflux disease without esophagitis; M81.0 Age-related osteoporosis without current pathological fracture; Z79.84 Long term (current) use of oral hypoglycemic drugs; Z79.82 Long term (current) use of aspirin; Z79.899 Other long term (current) drug therapy; Z85.3 Personal history of malignant neoplasm of breast
CPT/HCPCS: 36415; 71260; 73080; 80048; 80053; 82550; 82553; 84484; 85025; 85027; 93005; 93041; 94760; 96361; 96374; 96375; 96376; 97116; 97161; 97165; 97530; 97535; 99285; G0378; J2270; Q9967

== ENCOUNTER → 2019-04-19 | Outpatient (CLI) | payer MEDICARE, MEDICAID ==
--- NOTE | 2019-04-19 11:32 | REP ---
Two-view chest: 04/20/2019. Indication: Chest trauma. Comparison: 07/05/2016. Findings: Chronic bilateral rib deformities are redemonstrated. The lungs are clear. There is no significant pleural effusion or pneumothorax. Cardiac silhouette is normal. Aortic atherosclerotic disease is noted. Findings: No acute cardiopulmonary process. Electronically Signed by Shyam Acevedo DO 04/19/2019 11:24 A
== END ==
LOC: M SMT 11:11
PROVIDERS: ATTEND Physician Assistant Medical
DX: S22.31XD Fracture of one rib, right side, subsequent encounter for fracture with routine healing (principal); W19.XXXD Unspecified fall, subsequent encounter
CPT/HCPCS: 71046; 99495; G0463

== ENCOUNTER → 2019-06-10 | Outpatient (CLI) | payer MEDICARE, MEDICAID ==
[~2019-06-10] MED LIST changes: -CVS250TA3 PO; +MAGN250T22 PO; -SIMV40TA2 PO; +SIMV40TA20 PO
--- NOTE | 2019-06-10 11:57 | REPPI ---
Chest x-ray: Two views. History: Fracture of one rib on the right side with routine healing. Comparison chest x-ray: April 19, 2019. Findings: There are old bilateral rib fractures again noted. The lungs are symmetrically aerated. No infiltrate is seen. Minimal linear fibrosis is seen in the right base. No pleural effusion is seen. The aorta is calcific and slightly tortuous as before. There is diffuse osteopenia. Thoracic vertebral body heights are maintained. Heart is not enlarged. There are surgical clips in the left axilla. The patient is status post left mastectomy. Impression: No acute disease. Old bilateral rib fractures. Electronically Signed by Chapito Galindo MD 06/10/2019 12:17 P
== END ==
LOC: M PLAIMG 09:44
PROVIDERS: ATTEND Physician Assistant Medical
DX: M85.88 Other specified disorders of bone density and structure, other site (principal); S22.31XD Fracture of one rib, right side, subsequent encounter for fracture with routine healing
CPT/HCPCS: 71046; G0463

== ENCOUNTER → 2019-08-16 | Outpatient (CLI) | payer MEDICARE, MEDICAID ==
--- NOTE | 2019-08-16 08:20 | REP ---
Clinical: Complex renal cyst. Technique: Axial noncontrast images from the lung bases to the pubic symphysis with coronal and sagittal re-formations. Comparison: 07/26/2017. Findings: Left kidney demonstrates multiple large exophytic rounded low density lesions along with a single low density lesion demonstrating partial rim calcification which remain relatively stable in contour and size as compared to 07/26/2017. Largest such lesion noted anteriorly and measures approximately 4 cm diameter. Findings likely represent benign simple and complex cysts. The right kidney demonstrates rounded low density lesions similar to prior examination and likely representing benign cysts. However there is a posterior contour abnormality which appears relatively isointense to renal parenchyma and may be slightly increased from prior examination raising the possibility of underlying mass lesion (image 56). No significant acute perinephric stranding or hydronephrosis. No nephrolithiasis or obstructing ureteral calculi. Liver, spleen, pancreas, gallbladder, and bilateral adrenal glands are normal for noncontrast evaluation. The enteric system demonstrates small hiatal hernia and scattered sigmoid diverticula. No bowel obstruction or acute inflammatory process. Normal terminal ileum and appendix identified in the right lower quadrant. Pelvis demonstrates normal bladder and evidence for prior hysterectomy. No ascites. No free air. No adenopathy. Atherosclerotic changes of the aorta without aneurysm. Skeletal structures demonstrate degenerative changes without focal abnormality. Lung bases demonstrate chronic changes. Impression: 1. Evaluation of the renal lesions is somewhat limited by the lack of contrast enhanced and delayed images. The bilateral low-density lesions appear relatively stable as compared to 2018 and likely represent simple and complex cysts. 2. A rounded contour abnormality along the posterior aspect of the right kidney demonstrates soft tissue density cannot exclude mass lesion based on current examination. Consider ultrasound and if necessary pre and postcontrast CT of the abdomen. 3. Chronic stable changes. Electronically Signed by Keegan Gramajo MD 08/16/2019 08:12 A
== END ==
LOC: M RAD 06:35
PROVIDERS: ATTEND Family Medicine
DX: N28.1 Cyst of kidney, acquired (principal)

== ENCOUNTER → 2019-08-21 | Outpatient (CLI) | payer MEDICARE, MEDICAID ==
[2019-08-21 15:56] LABS: BASO # 0.1 10^3/uL (0.0-0.2); BASO % 0.5 % (0.0-1.0); EOS # 0.3 10^3/uL (0.0-0.5); EOS % 3.1 % (0.0-3.0); HEMATOCRIT 37.2 % (36.0-47.0); HEMOGLOBIN 11.9 g/dl (12.0-15.5); LYMPH % 29.8 % (24.0-44.0); MEAN CORPUSCULAR VOLUME 90.5 fl (80.0-96.0); MONO # 0.7 10^3/uL (0.0-0.8); MONO % 6.5 % (0.0-5.0); NEUTROPHILS # 5.9 10^3/uL (1.5-8.5); NEUTROPHILS % 59.7 % (36.0-66.0); PLATELET COUNT, AUTOMATED 247 10^3/uL (150-450); RED BLOOD COUNT 4.11 10^6/uL (4.00-5.40); WHITE BLOOD COUNT 9.9 10^3/uL (4.0-10.0)
[2019-08-21 16:03] LABS: BILIRUBIN,TOTAL 0.2 MG/DL (0.2-1.0); CALCIUM LEVEL 9.3 MG/DL (8.8-10.2); CHOLESTEROL RISK RATIO 4.266 (<5); CREATININE FOR GFR 1.24 MG/DL (0.55-1.30); FREE T4 1.14 NG/DL (0.76-1.46); GLOMERULAR FILTRATION RATE 44.3 (>32); MAGNESIUM LEVEL 1.7 MG/DL (1.8-2.4); POTASSIUM SERUM 4.8 MEQ/L (3.5-5.1); THYROID STIMULATING HORMONE 1.27 uIU/ML (0.358-3.740); TOTAL PROTEIN 7.4 GM/DL (6.4-8.2)
[2019-08-21 16:40] LABS: HEMOGLOBIN A1c 8.8 %
== END ==
LOC: M WUC 11:40
PROVIDERS: ATTEND Family Medicine
DX: N18.3 Chronic kidney disease, stage 3 (moderate) (principal); E78.2 Mixed hyperlipidemia; E11.9 Type 2 diabetes mellitus without complications; Z79.82 Long term (current) use of aspirin; Z79.84 Long term (current) use of oral hypoglycemic drugs

== ENCOUNTER → 2019-09-25 | Outpatient (REF) | payer MEDICARE, MEDICAID | LOC: M LAB REF 09:56 | PROVIDERS: ATTEND Ophthalmology | DX: H02.831 Dermatochalasis of right upper eyelid (principal); H02.834 Dermatochalasis of left upper eyelid ==

== ENCOUNTER → 2019-11-01 | Outpatient (REF) | payer MEDICARE, MEDICAID ==
[2019-11-01 11:27] LABS: APPEARANCE, URINE CLEAR (CLEAR); BACTERIA, URINE AUTO NEGATIVE (NEGATIVE); BILIRUBIN, URINE AUTO NEGATIVE (NEGATIVE); BLOOD, URINE BLOOD NEGATIVE (NEGATIVE); COLOR, URINE YELLOW (YELLOW); GLUCOSE, URINE (UA) AUTO 3+ mg/dL (NEGATIVE); KETONE, URINE AUTO NEGATIVE (NEGATIVE); LEUKOCYTE ESTERASE, URINE AUTO NEGATIVE (NEGATIVE); NITRITE, URINE AUTO NEGATIVE (NEGATIVE); PROTEIN, URINE AUTO NEGATIVE (NEGATIVE); RBC, URINE AUTO 2 /HPF (0-3); SPECIFIC GRAVITY URINE AUTO 1.016 (1.002-1.035); SQUAMOUS EPITHELIAL CELL UR AU 1 /HPF (0-6); UROBILINOGEN, URINE AUTO 0.2 mg/dL (0.0-2.0); WBC, URINE AUTO 2 /HPF (0-3)
== END ==
LOC: M SFHCPLAZ 10:03
PROVIDERS: ATTEND Family Medicine
DX: N39.0 Urinary tract infection, site not specified (principal)

== ENCOUNTER → 2019-12-18 | Outpatient (REF) | payer MEDICARE, MEDICAID ==
[~2019-12-18] MED LIST changes: -ASPI81TA85 PO; +ASPI81TA86 PO; -METF-791 PO; +METF-838 PO
[2019-12-18 17:18] LABS: BASO # 0.1 10^3/uL (0.0-0.2); BASO % 0.5 % (0.0-1.0); EOS # 0.3 10^3/uL (0.0-0.5); EOS % 2.4 % (0.0-3.0); HEMATOCRIT 38.9 % (36.0-47.0); HEMOGLOBIN 12.8 g/dl (12.0-15.5); LYMPH # 3.1 10^3/uL (1.5-5.0); LYMPH % 30.3 % (24.0-44.0); MEAN CORPUSCULAR HEMOGLOBIN 29.5 pg (27.0-33.0); MEAN CORPUSCULAR HGB CONC 32.9 g/dl (32.0-36.5); MEAN CORPUSCULAR VOLUME 89.6 fl (80.0-96.0); MONO # 0.7 10^3/uL (0.0-0.8); NEUTROPHILS # 6.1 10^3/uL (1.5-8.5); NEUTROPHILS % 59.4 % (36.0-66.0); PLATELET COUNT, AUTOMATED 271 10^3/uL (150-450); RED BLOOD COUNT 4.34 10^6/uL (4.00-5.40); WHITE BLOOD COUNT 10.3 10^3/uL (4.0-10.0)
[2019-12-18 17:27] LABS: ALBUMIN 4.2 GM/DL (3.2-5.2); BILIRUBIN,TOTAL 0.3 MG/DL (0.2-1.0); CALCIUM LEVEL 9.9 MG/DL (8.8-10.2); CHOLESTEROL RISK RATIO 3.893 (<5); CREATININE FOR GFR 1.17 MG/DL (0.55-1.30); FREE T4 1.21 NG/DL (0.76-1.46); GLOMERULAR FILTRATION RATE 47.4 (>32); POTASSIUM SERUM 4.8 MEQ/L (3.5-5.1); PTH INTACT 20.6 PG/ML (18.5-88.0); THYROID STIMULATING HORMONE 0.915 uIU/ML (0.358-3.740); TOTAL 25(OH) VITAMIN D 53.9 NG/ML (30.0-100.0); TOTAL PROTEIN 7.6 GM/DL (6.4-8.2)
[2019-12-18 17:39] LABS: HEMOGLOBIN A1c 9.7 %
== END ==
LOC: M SFHCPLAZ 14:10
PROVIDERS: ATTEND Physician Assistant Medical
DX: F41.9 Anxiety disorder, unspecified (principal); D63.8 Anemia in other chronic diseases classified elsewhere; E55.9 Vitamin D deficiency, unspecified; E78.2 Mixed hyperlipidemia; E11.9 Type 2 diabetes mellitus without complications; R41.89 Other symptoms and signs involving cognitive functions and awareness
CPT/HCPCS: 36415; 80053; 80061; 82306; 82607; 83036; 83655; 83970; 84439; 84443; 85025; G0463

== ENCOUNTER → 2020-02-24 | Outpatient (REF) | payer MEDICARE, MEDICAID ==
[2020-02-25 12:56] LABS: APPEARANCE, URINE HAZY (CLEAR); BACTERIA, URINE AUTO NEGATIVE (NEGATIVE); BILIRUBIN, URINE AUTO NEGATIVE (NEGATIVE); BLOOD, URINE BLOOD 3+ (NEGATIVE); COLOR, URINE YELLOW (YELLOW); GLUCOSE, URINE (UA) AUTO 1+ mg/dL (NEGATIVE); KETONE, URINE AUTO NEGATIVE (NEGATIVE); LEUKOCYTE ESTERASE, URINE AUTO 2+ (NEGATIVE); NITRITE, URINE AUTO NEGATIVE (NEGATIVE); PROTEIN, URINE AUTO 1+ mg/dL (NEGATIVE); RBC, URINE AUTO 182 /HPF (0-3); SPECIFIC GRAVITY URINE AUTO 1.018 (1.002-1.035); SQUAMOUS EPITHELIAL CELL UR AU 1 /HPF (0-6); UROBILINOGEN, URINE AUTO 0.2 mg/dL (0.0-2.0); WBC, URINE AUTO 135 /HPF (0-3)
== END ==
LOC: M LAB REF 16:50
PROVIDERS: ATTEND Family Medicine
DX: R31.9 Hematuria, unspecified (principal)
CPT/HCPCS: 81001; 87086; G0463

== ENCOUNTER → 2020-05-05 | Outpatient (CLI) | payer MEDICARE, MEDICAID ==
--- NOTE | 2020-05-05 11:30 | REPMRS ---
Patient History The patient states she has not had a clinical breast exam in over a year. Family history of breast cancer at age 50 or over in mother, prostate cancer at age 50 or over in brother, prostate cancer at age 42 in son. Benign stereotatic loc for ea lesion of the right breast, October 03, 2011. Malignant mastectomy of the left breast, 2005. Took tamoxifen for 5 years. 3D TOMOSYNTHESIS WAS PERFORMED. Volpara breast density b. Digital Woman Screen Mammo: May 05, 2020 - Exam #: [id number] CC and MLO view(s) were taken of the right breast. Technologist: Leticia Evans, Technologist Prior study comparison: March 28, 2019, bilateral digital woman screen mammo performed at [facility]. July 18, 2017, digital woman screen mammo performed at [facility]. FINDINGS: The breast tissue is heterogeneously dense. This may lower the sensitivity of mammography. There has been no change in the appearance of the mammogram from the prior studies. There is a moderate amount of residual fibroglandular tissue. There is no interval development of dominant mass, areas of architectural distortion, or clustered microcalcification typical of malignancy. No significant changes when compared with prior studies. Assessment: BI-RADS/ACR category 1 mammogram. Negative Mammogram. Recommendation Routine screening mammogram in 1 year (for women over age 40). This mammogram was interpreted with the aid of an FDA-approved computer-aided dectection system. Electronically Signed By: Fransico Alfonso MD 05/05/20 [id number]
== END ==
LOC: M WHC 10:39
PROVIDERS: ATTEND Physician Assistant Medical
DX: Z12.31 Encounter for screening mammogram for malignant neoplasm of breast (principal); Z80.3 Family history of malignant neoplasm of breast; Z80.42 Family history of malignant neoplasm of prostate; Z85.3 Personal history of malignant neoplasm of breast

== ENCOUNTER → 2020-07-21 | Outpatient (CLI) | payer MEDICARE, MEDICAID ==
[~2020-07-21] MED LIST changes: -ESCI20TA PO; +ESCI20TA16 PO; +PRED20TA PO; +VENTAER INH
[2020-07-21 15:58] LABS: BASO % 0.4 % (0.0-1.0); EOS # 0.3 10^3/uL (0.0-0.5); EOS % 2.9 % (0.0-3.0); HEMATOCRIT 36.4 % (36.0-47.0); HEMOGLOBIN 11.7 g/dl (12.0-15.5); LYMPH # 2.7 10^3/uL (1.5-5.0); LYMPH % 25.5 % (24.0-44.0); MEAN CORPUSCULAR HEMOGLOBIN 28.2 pg (27.0-33.0); MEAN CORPUSCULAR HGB CONC 32.1 g/dl (32.0-36.5); MEAN CORPUSCULAR VOLUME 87.7 fl (80.0-96.0); MONO # 0.8 10^3/uL (0.0-0.8); NEUTROPHILS # 6.6 10^3/uL (1.5-8.5); NEUTROPHILS % 62.9 % (36.0-66.0); PLATELET COUNT, AUTOMATED 259 10^3/uL (150-450); RED BLOOD COUNT 4.15 10^6/uL (4.00-5.40); WHITE BLOOD COUNT 10.5 10^3/uL (4.0-10.0)
[2020-07-21 16:38] LABS: ALT/SGPT 21 U/L (12-78); BILIRUBIN,TOTAL 0.4 MG/DL (0.2-1.0); BLOOD UREA NITROGEN 25 MG/DL (7-18); CALCIUM LEVEL 9.5 MG/DL (8.8-10.2); CARBON DIOXIDE LEVEL 28 MEQ/L (21-32); CHLORIDE LEVEL 92 MEQ/L (98-107); CREATININE FOR GFR 0.87 MG/DL (0.55-1.30); FERRITIN 104 NG/ML (8-252); GLOMERULAR FILTRATION RATE > 60.0 (>32); GLUCOSE, FASTING 115 MG/DL (70-100); IRON (FE) 34 UG/DL (50-170); MAGNESIUM LEVEL 1.7 MG/DL (1.8-2.4); PERCENT SATURATION 9.9 % (13.2-45.0); POTASSIUM SERUM 4.6 MEQ/L (3.5-5.1); SODIUM LEVEL 125 MEQ/L (136-145); TOTAL IRON BINDING CAPACITY 345 UG/DL (250-450); TOTAL PROTEIN 7.1 GM/DL (6.4-8.2)
[2020-07-21 17:49] LABS: HEMOGLOBIN A1c 7.3 %
[2020-07-21 17:51] LABS: PTH INTACT 39.7 PG/ML (18.5-88.0)
== END ==
LOC: M LAB 14:54
PROVIDERS: ATTEND Family Medicine
DX: E11.9 Type 2 diabetes mellitus without complications (principal)

== ENCOUNTER → 2020-07-22 | Outpatient (CLI) | payer MEDICARE, MEDICAID ==
[~2020-07-22] MED LIST changes: +ISOVUE-370 76% 100ML VIAL As Ordered ONE
--- NOTE | 2020-07-22 09:30 | REP ---
INDICATION: RENAL CYST. COMPARISON: 08/16/2019 TECHNIQUE: Axial contrast-enhanced images from the lung bases to the pubic symphysis using 100 cc Isovue 370 intravenous contrast material. Delayed images of the abdomen along with coronal and sagittal reformations obtained. This CT examination was performed using the following dose reduction techniques: Automated exposure control, adjustment of mA and/or kv according to the patient's size, and the use of iterative reconstruction technique. FINDINGS: The right kidney demonstrates sub cm and 1.6 cm simple cysts. The left kidney demonstrates innumerable cysts including multiple large exophytic cysts and possible few large cysts with thin benign appearing septations which includes conglomerate of upper pole cysts measuring greater than 7.5 cm in total length and 5.8 x 5.7 cm in diameter. The bilateral cysts demonstrate no soft tissue components and no evidence for calcification or enhancement. There is mild symmetric chronic perinephric stranding without evidence for hydronephrosis or nephrolithiasis. Liver, spleen, pancreas, gallbladder, and bilateral adrenal glands are normal. The enteric system is without obstruction or acute inflammatory process. Pelvis demonstrates normal bladder and evidence for prior hysterectomy. Atherosclerotic changes to the aorta and vasculature noted without aneurysm or dissection. Musculoskeletal structures demonstrate degenerative changes and evidence for prior pelvic trauma and fixation. No ascites. No free air. No adenopathy. IMPRESSION: Bilateral benign renal cysts including multiple large left renal cysts with conglomerate of upper pole cysts measuring greater than 7.5 x 5.8 x 5.7 cm and lower pole thinly septated conglomerate cysts measuring roughly 4 cm maximal diameter. <Electronically signed by Keegan Gramajo > 07/22/20 0927
== END ==
LOC: M RAD 08:43
PROVIDERS: ATTEND Family Medicine
DX: N28.1 Cyst of kidney, acquired (principal)
CPT/HCPCS: 74177; Q9967

== ENCOUNTER 2020-07-25 17:17 | Emergency (ER) | payer MEDICARE, MEDICAID ==
[~2020-07-25] VITALS: Ht 152.4 cm; Wt 62.3 kg
[~2020-07-25 17:17] MED LIST changes: -ISOVUE-370 76% 100ML VIAL As Ordered ONE; -PRED20TA PO; -VENTAER INH
[2020-07-25] MEDS ORDERED: COMBIVENT RESPIMAT 100-20MCG INHALER 4GM INH STA (17:51)
--- NOTE | 2020-07-25 20:10 | REPVR ---
PROCEDURE INFORMATION: Exam: XR Chest, 1 View Exam date and time: 07/25/2020 6:05 PM Age: 80 years old Clinical indication: Cough TECHNIQUE: Imaging protocol: XR of the chest Views: 1 view. COMPARISON: CT Chest with contrast 04/06/2019 9:09 AM FINDINGS: Lungs: Unremarkable. No consolidation. Pleural space: Unremarkable. No pleural effusion. No pneumothorax. Heart/Mediastinum: Unremarkable. No cardiomegaly. Bones/joints: Rib deformity right and left 7th ribs consistent with an age indeterminate, likely chronic rib fractures. Moderate degenerative changes in the thoracic spine. Osteoporosis. Soft tissues: Surgical clips in the left axilla. IMPRESSION: No acute findings. Electronically signed by: Min Swenson On 07/25/2020 20:10:05 PM
[2020-07-25] MEDS ORDERED: PRED20TA PO (20:23)
[2020-07-25] MEDS ORDERED: VENTAER INH (20:23)
[2020-07-25] MEDS ORDERED: predniSONE 20 MG TAB PO ONE (20:30)
[2020-07-25 20:51] VITALS: BP 141/81
== END 2020-07-25 20:54 | disposition home or self-care (01) ==
LOC: M ED 17:17
DX: J44.9 Chronic obstructive pulmonary disease, unspecified (principal); Z20.822 Contact with and (suspected) exposure to COVID-19; M51.34 Other intervertebral disc degeneration, thoracic region; M81.0 Age-related osteoporosis without current pathological fracture; E11.9 Type 2 diabetes mellitus without complications; I12.9 Hypertensive chronic kidney disease with stage 1 through stage 4 chronic kidney disease, or unspecified chronic kidney disease; E78.5 Hyperlipidemia, unspecified; K21.9 Gastro-esophageal reflux disease without esophagitis; Z79.51 Long term (current) use of inhaled steroids; Z79.82 Long term (current) use of aspirin; Z79.899 Other long term (current) drug therapy
CPT/HCPCS: 71045; 94640; 99283; U0003

== ENCOUNTER → 2020-08-18 | Outpatient (REF) | payer MEDICARE, MEDICAID ==
[~2020-08-18] MED LIST changes: +PRED20TA PO; +VENTAER INH
[2020-08-18 17:27] LABS: BASO # 0.1 10^3/uL (0.0-0.2); BASO % 0.5 % (0.0-1.0); EOS # 0.4 10^3/uL (0.0-0.5); EOS % 3.9 % (0.0-3.0); HEMATOCRIT 39.7 % (36.0-47.0); HEMOGLOBIN 12.2 g/dl (12.0-15.5); LYMPH # 2.6 10^3/uL (1.5-5.0); LYMPH % 27.3 % (24.0-44.0); MEAN CORPUSCULAR HEMOGLOBIN 27.5 pg (27.0-33.0); MEAN CORPUSCULAR HGB CONC 30.7 g/dl (32.0-36.5); MEAN CORPUSCULAR VOLUME 89.6 fl (80.0-96.0); MONO # 0.8 10^3/uL (0.0-0.8); MONO % 8.1 % (2.0-8.0); NEUTROPHILS # 5.8 10^3/uL (1.5-8.5); NEUTROPHILS % 59.8 % (36.0-66.0); PLATELET COUNT, AUTOMATED 270 10^3/uL (150-450); RED BLOOD COUNT 4.43 10^6/uL (4.00-5.40); WHITE BLOOD COUNT 9.6 10^3/uL (4.0-10.0)
[2020-08-18 17:37] LABS: SODIUM,RANDOM URINE 113 MEQ/L
[2020-08-18 17:57] LABS: ALBUMIN 4.1 GM/DL (3.2-5.2); CALCIUM LEVEL 9.4 MG/DL (8.8-10.2); CREATININE FOR GFR 1.13 MG/DL (0.55-1.30); FREE T4 1.13 NG/DL (0.76-1.46); GLOMERULAR FILTRATION RATE 49.2 (>32); PHOSPHORUS LEVEL 4.8 MG/DL (2.5-4.9); POTASSIUM SERUM 4.5 MEQ/L (3.5-5.1); THYROID STIMULATING HORMONE 0.715 uIU/ML (0.358-3.740)
[2020-08-18 19:24] LABS: OSMOLALITY URINE 571 MOSM/KG (500-800)
== END ==
LOC: M SFHCPLAZ 15:09
PROVIDERS: ATTEND Family Medicine
DX: E87.1 Hypo-osmolality and hyponatremia (principal); D63.8 Anemia in other chronic diseases classified elsewhere
CPT/HCPCS: 36415; 80069; 83930; 83935; 84300; 84439; 84443; 85025; G0463

== ENCOUNTER → 2020-11-02 | Outpatient (REF) | payer MEDICARE, MEDICAID ==
[2020-11-02 13:31] LABS: BASO # 0.1 10^3/uL (0.0-0.2); BASO % 0.7 % (0.0-1.0); EOS # 0.2 10^3/uL (0.0-0.5); EOS % 2.7 % (0.0-3.0); HEMATOCRIT 37.4 % (36.0-47.0); HEMOGLOBIN 12.1 g/dl (12.0-15.5); LYMPH # 2.7 10^3/uL (1.5-5.0); LYMPH % 32.3 % (24.0-44.0); MEAN CORPUSCULAR HEMOGLOBIN 28.8 pg (27.0-33.0); MEAN CORPUSCULAR HGB CONC 32.4 g/dl (32.0-36.5); MONO # 0.7 10^3/uL (0.0-0.8); MONO % 7.8 % (2.0-8.0); NEUTROPHILS # 4.7 10^3/uL (1.5-8.5); PLATELET COUNT, AUTOMATED 250 10^3/uL (150-450); WHITE BLOOD COUNT 8.5 10^3/uL (4.0-10.0)
[2020-11-02 14:24] LABS: ALBUMIN 4.1 GM/DL (3.2-5.2); BILIRUBIN,TOTAL 0.3 MG/DL (0.2-1.0); CALCIUM LEVEL 10.1 MG/DL (8.8-10.2); CREATININE FOR GFR 1.13 MG/DL (0.55-1.30); GLOMERULAR FILTRATION RATE 49.2 (>32); POTASSIUM SERUM 5.1 MEQ/L (3.5-5.1); TOTAL PROTEIN 7.3 GM/DL (6.4-8.2)
[2020-11-02 14:29] LABS: TOTAL 25(OH) VITAMIN D 22.9 NG/ML (30.0-100.0)
== END ==
LOC: M SFHCPLAZ 10:26
PROVIDERS: ATTEND Physician Assistant
DX: I10 Essential (primary) hypertension (principal); E11.9 Type 2 diabetes mellitus without complications; Z79.899 Other long term (current) drug therapy
CPT/HCPCS: 36415; 80053; 82306; 83036; 83880; 83970; 85025; G0463

== ENCOUNTER → 2020-11-05 | Outpatient (CLI) | payer MEDICARE, MEDICAID ==
[2020-11-05 09:48] LABS: OSMOLALITY URINE 482 MOSM/KG (50-1400)
[2020-11-05 09:56] LABS: SODIUM,RANDOM URINE 114 MEQ/L
[2020-11-05 10:02] LABS: CALCIUM LEVEL 9.3 MG/DL (8.8-10.2); CREATININE FOR GFR 1.15 MG/DL (0.55-1.30); GLOMERULAR FILTRATION RATE 48.2 (>32); PHOSPHORUS LEVEL 3.9 MG/DL (2.5-4.9)
== END ==
LOC: M LAB 07:41
PROVIDERS: ATTEND Physician Assistant
DX: I10 Essential (primary) hypertension (principal)

== ENCOUNTER → 2021-02-11 | Outpatient (REF) | payer MEDICARE, MEDICAID | LOC: M SFHCPLAZ 13:12 | PROVIDERS: ATTEND Physician Assistant | DX: R30.0 Dysuria (principal); R05 Cough | CPT/HCPCS: 81002; 87086; 87426; G0463; U0003 ==

== ENCOUNTER 2021-02-22 20:13 | Emergency (ER) | payer MEDICARE, MEDICAID ==
[~2021-02-22] VITALS: Ht 152.4 cm; Wt 63.6 kg
[2021-02-22 20:31] VITALS: BP 157/88
--- NOTE | 2021-02-22 21:09 | REPVR ---
PROCEDURE INFORMATION: Exam: CT Head Without Contrast Exam date and time: 02/22/2021 8:30 PM Age: 80 years old Clinical indication: Injury or trauma; Fall; Blunt trauma (contusions or hematomas) TECHNIQUE: Imaging protocol: Computed tomography of the head without contrast. Radiation optimization: All CT scans at this facility use at least one of these dose optimization techniques: automated exposure control; mA and/or kV adjustment per patient size (includes targeted exams where dose is matched to clinical indication); or iterative reconstruction. COMPARISON: No relevant prior studies available. FINDINGS: Brain: There is no acute cortical infarction, intracranial hemorrhage or mass. There is mild diffuse heterogeneity of the white matter, most consistent with microangiopathy. Cerebral ventricles: The ventricles appear mildly enlarged, but not out of proportion to the degree of parenchymal volume loss. Paranasal sinuses: Visualized sinuses are unremarkable. No fluid levels. Mastoid air cells: Visualized mastoid air cells are well aerated. Vasculature: Atherosclerosis. Bones/joints: Unremarkable. No acute fracture. Soft tissues: Unremarkable. IMPRESSION: No acute intracranial findings. Electronically signed by: Sabra Carroll On 02/22/2021 21:08:48 PM
--- NOTE | 2021-02-22 21:15 | REPVR ---
PROCEDURE INFORMATION: Exam: CT Cervical Spine Without Contrast Exam date and time: 02/22/2021 8:30 PM Age: 80 years old Clinical indication: Injury or trauma; Fall; Blunt trauma TECHNIQUE: Imaging protocol: Computed tomography images of the cervical spine without contrast. Radiation optimization: All CT scans at this facility use at least one of these dose optimization techniques: automated exposure control; mA and/or kV adjustment per patient size (includes targeted exams where dose is matched to clinical indication); or iterative reconstruction. COMPARISON: CR SPINE LS COMPLETE 03/21/2019 11:16 AM FINDINGS: Bones/joints: Normal alignment. Disc space narrowing and endplate degeneration C5-C6. No acute fracture in the cervical spine. Discs/Spinal canal/Neural foramina: There is [id number] spinal canal stenosis at C4-C5 and C5-C6 and moderate narrowing of the right C5-C6 neural foramen. No further spinal canal stenosis or significant neural foraminal narrowing in the cervical spine. Lungs: Pleuroparenchymal scarring at the lung apices. Soft tissues: Unremarkable. IMPRESSION: No acute fracture or dislocation in the cervical spine. Electronically signed by: Sabra Carroll On 02/22/2021 21:14:57 PM
== END 2021-02-22 22:22 | disposition home or self-care (01) ==
LOC: M ED 20:13
DX: S01.01XA Laceration without foreign body of scalp, initial encounter (principal); W10.8XXA Fall (on) (from) other stairs and steps, initial encounter; Y92.009 Unspecified place in unspecified non-institutional (private) residence as the place of occurrence of the external cause; Y93.9 Activity, unspecified; Y99.9 Unspecified external cause status; I50.9 Heart failure, unspecified; E11.9 Type 2 diabetes mellitus without complications; Z79.82 Long term (current) use of aspirin; Z79.899 Other long term (current) drug therapy

== ENCOUNTER 2021-04-25 11:59 | Inpatient (IN) | payer MEDICARE, MEDICAID ==
[~2021-04-25] VITALS: Ht 149.9 cm; Wt 73.0 kg
--- OUTSIDE RECORDS SUMMARY | 2021-04-25 12:28 | CCD ---
Author Author [facility] Organization [facility] Address Unknown Phone Unavailable Care Team Providers Care Neurology Manager Name Role Phone Tracie Hanley Unavailable PROBLEMS Type Condition ICD9-CM Code [id number] Code Onset Dates Condition S tatus W/U Status Risk SNOMED Code Notes Problem Personal history of malignant neoplasm of breast Z 85.3 Active confirmed 802182629 Problem Essential (primary) hypertension I10 Active conf irmed 85552907 Problem Age-related osteoporosis without current pathological fracture M81.0 Active confirmed 352240930 Problem Vitamin D deficiency, unspecified E55.9 Active con firmed 73210521 Problem Mixed hyperlipidemia E78.2 Active confirmed 407345209 Problem CKD (chronic kidney disease) stage 3, GFR 30-59 ml/min N18.3 Active confirmed 852578598 Problem Type 2 diabetes mellitus without complications E11 .9 Active confirmed 676735356 Problem 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 Active confirmed 2 48097886 Problem Pulmonary nodule R91.1 Active confirmed 309 020667 Problem Gastroesophageal reflux disease, esophagitis pre sence not specified K21.9 Active confirmed 287167198 Problem Anemia of chronic disease D63.8 Active confirmed 163682609 Problem Depression F32.9 Active confirmed 18134711 Problem Hyponatremia E87.1 Active confirmed 7121988 8 Problem Anxiety disorder F41.9 Active confirmed 197 395421 Problem Recurrent UTI N39.0 Active confirmed 458962 001 Problem Primary osteoarthritis of both knees M17.0 Act shereen confirmed 554974267 Problem Leg cramps, sleep related G47.62 Active confirmed 218975523 Problem Breast cancer screening Z12.31 Active confirmed 162798807 ALLERGIES Allergen (clinical drug ingredient) Drug/Non Drug Allergy do cumented on EMR Reaction Allergy Type Onset Date Status Aspirin aspirin aches Non Drug Allergy 04/19/2019 Active ENCOUNTERS from 1940 to 2021-02-15 Encounter Location Date Provider Diagnosis [facility] Bianka [address] [facility] [phone] [place] [address] Jan, Tracie Hanley Cough R05 ; Dysuria R30.0 ; Cloudy urine R82.90 and Bronchitis J40 IMMUNIZATIONS Vaccine Route Administration Date Status Influenza 18 yrs & older Flublok IM Intramuscular May 06, 2019 Administered Rocephin 1gm Ceftriaxone IM Intramuscular January 12, 2017 Admini stered Influenza (High Dose 65 & up) IM Intramuscular May 09, 2017 A dministered Influenza (High Dose 65 & up) IM Intramuscular May 06, 2016 A dministered Pneumococcal 0.5mL Prevnar 13 IM Intramuscular January 02, 2017 A dministered Influenza 6mo & up Fluzone IM Intramuscular Mar 25, 2014 Admi nistered Influenza 18 yrs & older Flublok IM Intramuscular Jun 08, 2020 Administered Influenza 6mo & up Fluzone IM Intramuscular Jun 17, 2013 Admi nistered COVID-19 dose #1 given elsewhere Unspecified Unknown Aug Administered Influenza 6mo & up Fluzone IM Intramuscular May 14, 2012 Admi nistered COVID-19 dose #2 given elsewhere Unspecified Unknown Oct Administered Influenza 6mo & up Fluzone IM Intramuscular May 02, 2011 Admi nistered SOCIAL HISTORY Tobacco Use: Social History Observation Description Date Details (start date - stop date) Former Smoker Sex Assigned At : Social History Observation Description Sex Assigned At Unknown Education: Question Answer Notes Level of Education: Not finished High School Audit Question Answer Notes Total Score: 0 Interpretation: Alcohol Education Language: Question Answer Notes Languages spoken: Chinese Hindu: Question Answer Notes Hindu 08 [employer] Sexual Hx: Question Answer Notes Had sex in the last 12 months (vaginal, oral, or anal)? No LMP: Hysterectomy Have you ever had an STD? No Drug and Alcohol Question Answer Notes Total Score: 0 Interpretation: No problems reported Alcohol Screening: Question Answer Notes Did you have a drink containing alcohol in the past year? No Points 0 Interpretation Negative Tobacco Use: Question Answer Notes Are you a: former smoker How long has it been since you last smoked? > 10 years REASON FOR REFERRAL No Information VITAL SIGNS Weight 147 lbs Jan, Weight-kg 66.68 kg Jan, Height 58 in Jan, BMI 30.72 kg/m2 Jan, Heart Rate 65 /min Jan, Respiratory Rate 20 /min Jan, Temperature 96.6 degrees Fahrenheit Jan, Oximetry 95 Jan, Blood pressure systolic 128 mm Hg Jan, Blood pressure diastolic 82 mm Hg Jan, MEDICATIONS Medication SIG (Take, Route, Frequency, Duration) Notes Start Da te End Date Status Famotidine 20 MG 1 tab Orally at bedtime for 90 day(s) Active metFORMIN HCl ER 500 MG 1 tablet Orally twice daily for 90 day(s) Active Simvastatin 40 MG 1 tablet every evening Orally Once a day for 90 day (s) Active Calcium 600 + D 600-400 MG-UNIT 1 tablet Orally at bedtime for 90 day (s) Active Pramipexole Dihydrochloride 0.5 MG 1 tablet Orally at bedtime for 9 0 day(s) Active Aspirin 81 MG 1 tablet Orally Once a day for 90 day(s) Active Metoprolol Tartrate 50 MG 1/2 tablet with food Orally Twice a day for 90 day(s) Active Glucometer as directed dx: E11.9-one touch verio Daily for 30 Days Oct, Active Magnesium 250 MG 1 tablet with a meal Orally Once a day Active Voltaren 1 % as directed Transdermal 4 gm QID to L knee for 30 days Active Augmentin 875-125 MG 1 tablet Orally Twice a day for 7 day(s) Jan, Active BD Lancet Ultrafine 33G - as directed subcutaneously A C BID, E11.8 for 90 day(s) Active Ergocalciferol 41932 UNIT 1 capsule Orally every 14 days for 90 day(s ) Active predniSONE 20 MG 1 tablet Orally once a day for 5 days Jan, Active Escitalopram Oxalate 20 MG 1 tablet Orally Once a day for 90 day(s) Active ProAir HFA 108 (90 Base) MCG/ACT 2 puffs Inhalation QID for 10 d ays Jan, Active Glimepiride 1 MG 1 tab Orally bid for 90 day(s) Active Ciclopirox 0.77 % 1 application to affected ar ea Externally Twice a day to feet for 30 days Apr, Active Fosamax 70MG 1 tablet Orally once a week for 90 day(s) Active Glucose strip (Verio IQ) as directed one touch verio three times daily for 30 day(s) Dec, Active OneTouch Verio . 1 strip subcutaneously AC BID, E18.9 for 90 day(s) Active Januvia 100 mg 1 tablet Orally every morning for 90 day(s) Active Irbesartan 75 MG 1 tablet Orally at bedtime for 90 day(s) Aug, Active Super B Complex OTC 1 tablet Orally once a day Active PROCEDURES No Information RESULTS Component Value Reference Range Urinalysis, no Micro Reviewed date:02/11/2021 11:28:07 Interpretation: Performing Lab:[facility], [place] [address] Spec gravity 1.005 1.002 - 1.035 pH 7 5.0 - 9.0 Leukocyte + Negative - Nitrate neg Negative - Protein trace Negative - mg/dl Glucose normal Negative - mg/dl Ketones neg Negative - mg/dl Urobili normal Normal - mg/dl Bilirubin neg Negative - Blood trace Negative - Internal QC Acceptable (Y/N) yes URINE CULTURE Reviewed date:02/12/2021 09:22:53 Interpretation: Performing Lab:[facility], [facility] [address] [facility] [address] , ,[place] [address] Coronavirus 2019 Nasopharygeal (Send Out ) COVID Reviewed date:02/12/2021 18:10:59 Interpretation: Performing Lab:[facility], [facility] [address] [place] [id number] , ,[place] [address] KARMA COVID AG (Point of Care) Reviewed date:02/12/2021 14:00:01 Interpretation: Performing Lab:[facility], [place] [address] K[facility]MA COVID ANTIGEN negative REASON FOR VISIT cough MEDICAL (GENERAL) HISTORY Type Description Date Medical History history of nicotine addictio n-quit in 2005-45 pack year history- April 2004 FEV1 of 104% normal Medical History history of left breast invas shereen ductal carcinoma-ER/TN +, status post mastectomy in July 2006-Tammi, chemotherapy s/p tamoxifen x 5Y Medical History T2DM NID Medical History hyperlipidemia 2B Medical History hypertension-LAE 36 mm, mild PHTN, elevated CVP, aortic valve sclerosis, grade 2 diastolic dysfunciton-12/2013 TTE-Nieves/12/2013 low risk DBST-Nieves Medical History GERD Medical History osteoporosis Medical History s/p mechanical fall 07/30/13 with 2 8 left rib fractures, R sacral fracture, L inferior and superior pubic rami fracture, L L2 transverse process fracture, R L4, 5 transverse process fractures, T3 compression fracture for which she was place in [employer] brace , R zone 2 sacral fracture s/p percutaneous fixation of R posterior pelvis, R SI joint screw, closed treatment of anterior pelvic ring-08/01/13 Medical History recurrent UTI Medical History LIZ/chronic MDD Surgical History L mastectomy 2005 Surgical History T&A Surgical History TVH with anterior colporrhap pratima-Elham/Lamonte-done secondary to uterine prolapse/benign pathology June 2010 Surgical History R breast stereotactic biopsy c/w sclerosing adenosis, dystrophic calcifications 10/2011 Surgical History anterior, posterior repair, TVT repair 2 uterine prolapse, stress incontinence-[facility]. Delgado[facility] 12/30/2013 Hospitalization History mechanical fall c 2 R 9th po sterior rib fx 2 small hemothorax, ANU cr to 2.1 04/2019 Goals Section No Information Health Concerns No Information MEDICAL EQUIPMENT No Information MENTAL STATUS No Information FUNCTIONAL STATUS No Information ASSESSMENTS Encounter Date Diagnosis Assessment Notes Treatment Notes Treatm ent Clinical Notes Jan, Cough (ICD-10 - R05) Discussed with patient that her urine looks cloudy and UA is pos for leuks. Will send for culture. Patient's rapid Covid testing was negative. Will send for PCR testing as well. Will start patient on Proair, Augmentin and prednisone as directed. follow up as scheduled with primary care provider sooner if needed. Patient agrees with plan. Jan, Dysuria (ICD-10 - R30.0) Jan, Cloudy urine (ICD-10 - R82.90) Jan, Bronchitis (ICD-10 - J40) Jan, Other Total time shukri ng for the patient on the day of the encounter was 20 min PLAN OF TREATMENT Medication Medication Name Sig Start Date Stop Date predniSONE 20 MG 1 tablet Orally once a day for 5 days Jan, Augmentin 875-125 MG 1 tablet Orally Twice a day for 7 day(s) Jan, ProAir HFA 108 (90 Base) MCG/ACT 2 puffs Inhalation QID for 10 days Jan, Treatment Notes Assessment Notes Clinical Notes Cough Discussed with ruperto nt that her urine looks cloudy and UA is pos for leuks. Will send for culture. Patient's rapid Covid testing was negative. Will send for PCR testing as well. Will start patient on Proair, Augmentin and prednisone as directed. follow up as scheduled with primary care provider sooner if needed. Patient agrees with plan. Next Appt Details Provider Name:Mtaeusz Cash Dillon, 2021-03-29 1 1:15:00 AM, [address] [facility], , [place], [address], Insurance Providers Payer Name Payer Address Payer Phone Insured Name Patient Relati onship to Insured Coverage Start Date Coverage End Date MEDICARE Part A and B [address] [facility] [id number] DAVIAN COATS self MEDICAID [employer] [address] [facility] [id number] DAVIAN COATS
--- OUTSIDE RECORDS SUMMARY | 2021-04-25 12:28 | CCD ---
Author Author [facility] Organization [facility] Address Unknown Phone Unavailable Care Team Providers Care Help Aid Name Role Phone Mateusz Carranza Unavailable PROBLEMS Type Condition ICD9-CM Code ZLC89-WP Code Onset Dates Condition S tatus W/U Status Risk SNOMED Code Notes Problem Personal history of malignant neoplasm of breast Z 85.3 Active confirmed 810854947 Problem Essential (primary) hypertension I10 Active conf irmed 44894956 Problem Age-related osteoporosis without current pathological fracture M81.0 Active confirmed 119051630 Problem Vitamin D deficiency, unspecified E55.9 Active con firmed 01597761 Problem Mixed hyperlipidemia E78.2 Active confirmed 151627070 Problem CKD (chronic kidney disease) stage 3, GFR 30-59 ml/min N18.3 Active confirmed 721884884 Problem Type 2 diabetes mellitus without complications E11 .9 Active confirmed 926220441 Problem 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 Active confirmed 2 09958608 Problem Pulmonary nodule R91.1 Active confirmed 309 839465 Problem Gastroesophageal reflux disease, esophagitis pre sence not specified K21.9 Active confirmed 325089607 Problem Anemia of chronic disease D63.8 Active confirmed 141774007 Problem Depression F32.9 Active confirmed 18291827 Problem Hyponatremia E87.1 Active confirmed 5017688 8 Problem Anxiety disorder F41.9 Active confirmed 197 187290 Problem Recurrent UTI N39.0 Active confirmed 909746 001 Problem Primary osteoarthritis of both knees M17.0 Act shereen confirmed 325020069 Problem Leg cramps, sleep related G47.62 Active confirmed 978882342 Problem Breast cancer screening Z12.31 Active confirmed 530058547 ALLERGIES Allergen (clinical drug ingredient) Drug/Non Drug Allergy do cumented on EMR Reaction Allergy Type Onset Date Status Aspirin aspirin aches Non Drug Allergy 04/19/2019 Active ENCOUNTERS from 1940 to 2021-03-18 Encounter Location Date Provider Diagnosis [facility] [place] [address] [facility] [phone] [place] [address] 14 Mar, 2021 Mateusz Carranza IMMUNIZATIONS Vaccine Route Administration Date Status Influenza [...] Education Language: Question Answer Notes Languages spoken: Maltese Gnosticist: Question Answer Notes Gnosticist 08 Episcopalian Sexual Hx: Question Answer Notes Had sex [...] REASON FOR REFERRAL No Information VITAL SIGNS No information MEDICATIONS Medication SIG (Take, Route, Frequency, Duration) Notes Start Da te End Date Status Januvia 100 mg 1 tablet Orally every morning for 90 day(s) Active Voltaren 1 % as directed Transdermal 4 gm QID to L knee for 30 days Active Ciclopirox 0.77 % 1 application to affected ar ea Externally Twice a day to feet for 30 days Apr, Active BD Lancet Ultrafine 33G - as directed subcutaneously A C BID, E11.8 for 90 day(s) Active Aspirin 81 MG 1 tablet Orally Once a day for 90 day(s) Active Fosamax 70MG 1 tablet Orally once a week for 90 day(s) Active Augmentin 875-125 MG 1 tablet Orally Twice a day for 7 day(s) Jan, Not-Taking Super B Complex OTC 1 tablet Orally once a day Active Famotidine 20 MG 1 tab Orally at bedtime for 90 day(s) Active Glimepiride 1 MG 1 tab Orally bid for 90 day(s) Active OneTouch Verio . 1 strip subcutaneously AC BID, E18.9 for 90 day(s) Active metFORMIN HCl ER 500 MG 1 tablet Orally twice daily for 90 day(s) Active Glucose strip (Verio IQ) as directed one touch verio three times daily for 30 day(s) Dec, Active Magnesium 250 MG 1 tablet with a meal Orally Once a day Active Simvastatin 40 MG 1 tablet every evening Orally Once a day for 90 day (s) Active Metoprolol Tartrate 50 MG 1/2 tablet with food Orally Twice a day for 90 day(s) Active Glucometer as directed dx: E11.9-one touch verio Daily for 30 Days Oct, Active Ergocalciferol 04379 UNIT 1 capsule Orally every 14 days for 90 day(s ) Active Irbesartan 75 MG 1 tablet Orally at bedtime for 90 day(s) Aug, Active predniSONE 20 MG 1 tablet Orally once a day for 5 days Jan, Not-Taking Escitalopram Oxalate 20 MG 1 tablet Orally Once a day for 90 day(s) Active Calcium 600 + D 600-400 MG-UNIT 1 tablet Orally at bedtime for 90 day (s) Active ProAir HFA 108 (90 Base) MCG/ACT 2 puffs Inhalation QID for 10 d ays Jan, Active Pramipexole Dihydrochloride 0.5 MG 1 tablet Orally at bedtime for 9 0 day(s) Active PROCEDURES No Information RESULTS No Results REASON FOR VISIT test strips MEDICAL (GENERAL) HISTORY Type Description Date Medical History history of nicotine addictio n-quit in 2005-45 pack year history- April 2004 FEV1 of 104% normal Medical History history of left breast invas shereen ductal carcinoma-ER/NH +, status post mastectomy in July 2006-Tammi, [...] fracture for which she was place in [employer]OR [employer]ARD brace , R zone 2 sacral fracture s/p percutaneous fixation of R posterior pelvis, R SI joint screw, closed treatment of anterior pelvic ring-08/01/13 Medical History recurrent UTI Medical History LIZ/chronic MDD Surgical History L mastectomy 2005 Surgical History T&A Surgical History TVH with anterior colporrhap partima-[place]/[facility]te-done secondary to uterine prolapse/benign pathology June 2010 Surgical History R breast stereotactic biopsy c/w sclerosing adenosis, dystrophic calcifications 10/2011 Surgical History anterior, posterior repair, TVT repair 2 uterine prolapse, stress incontinence-Dr. Delgado-[facility] 12/30/2013 Hospitalization History mechanical fall c 2 R 9th po sterior rib fx 2 small hemothorax, ANU cr to 2.1 04/2019 Hospitalization History [facility] ED-Fall, indra to head 021 Goals Section No Information Health Concerns No Information MEDICAL EQUIPMENT No Information MENTAL STATUS No Information FUNCTIONAL STATUS No Information ASSESSMENTS No Information PLAN OF TREATMENT Medication Medication Name Sig Start Date Stop Date Irbesartan 75 MG 1 tablet Orally at bedtime for 90 day(s) Aug OneTouch Verio . 1 strip subcutaneously AC BID, E18.9 for 90 day (s) Next Appt Details Provider Name:Mateusz Carranza, 2021-03-29 1 1:15:00 AM, [address] [facility], , [place], [address], Insurance Providers Payer Name Payer Address Payer Phone Insured Name Patient Relati onship to Insured Coverage Start Date Coverage End Date MEDICAID [employer] [address] [facility] [address] DAVIAN COATS MEDICARE Part A and B [address] [facility] [address] DAVIAN COATS
--- OUTSIDE RECORDS SUMMARY | 2021-04-25 12:28 | CCD ---
Author Author [facility] Organization [facility] Address Unknown Phone Unavailable Care Team Providers Care Wireless Sales Manager Name Role Phone Mateusz Carranza Unavailable PROBLEMS Type Condition ICD9-CM Code TDE60-HH Code Onset Dates Condition S tatus W/U Status Risk SNOMED Code Notes Problem Personal history of malignant neoplasm of breast Z 85.3 Active confirmed 190567429 Problem Essential (primary) hypertension I10 Active conf irmed 77023053 Problem Age-related osteoporosis without current pathological fracture M81.0 Active confirmed 630852295 Problem Vitamin D deficiency, unspecified E55.9 Active con firmed 76235497 Problem Mixed hyperlipidemia E78.2 Active confirmed 314374121 Problem CKD (chronic kidney disease) stage 3, GFR 30-59 ml/min N18.3 Active confirmed 084741375 Problem Type 2 diabetes mellitus without complications E11 .9 Active confirmed 201361342 Problem 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 Active confirmed 2 11362143 Problem Pulmonary nodule R91.1 Active confirmed 309 863245 Problem Gastroesophageal reflux disease, esophagitis pre sence not specified K21.9 Active confirmed 453011671 Problem Anemia of chronic disease D63.8 Active confirmed 801743656 Problem Depression F32.9 Active confirmed 41768523 Problem Hyponatremia E87.1 Active confirmed 9669906 8 Problem Anxiety disorder F41.9 Active confirmed 197 497053 Problem Recurrent UTI N39.0 Active confirmed 542879 001 Problem Primary osteoarthritis of both knees M17.0 Act shereen confirmed 846738063 Problem Leg cramps, sleep related G47.62 Active confirmed 939142319 Problem Breast cancer screening Z12.31 Active confirmed 343293632 ALLERGIES Allergen (clinical drug ingredient) Drug/Non Drug Allergy do cumented on EMR Reaction Allergy Type Onset Date Status Aspirin aspirin aches Non Drug Allergy 04/19/2019 Active ENCOUNTERS from 1940 to 2021-03-04 Encounter Location Date Provider Diagnosis [facility] [place] [address] [facility] [phone] [place] [address] Mar, Mateusz Akers (primary) hyperten dorinda I10 IMMUNIZATIONS Vaccine Route Administration Date Status Influenza [...] Education Language: Question Answer Notes Languages spoken: Bulgarian Faith: Question Answer Notes Faith 08 Sikh Sexual Hx: Question Answer Notes Had sex [...] Daily for 30 Days Oct, Active Ergocalciferol 41372 UNIT 1 capsule Orally every 14 days [...] Information RESULTS No Results REASON FOR VISIT refill-irbesartan MEDICAL (GENERAL) HISTORY Type Description Date Medical History history of nicotine addictio n-quit in 2005-45 pack year history- April 2004 FEV1 of 104% normal Medical History history of left breast invas shereen ductal carcinoma-ER/[place] +, status post mastectomy in July 2006-Tammi, [...] fracture for which she was place in [employer] brace , R zone 2 sacral fracture [...] TVT repair 2 uterine prolapse, stress incontinence-Dr. Delgado-[facility] 12/30/2013 Hospitalization History mechanical fall c 2 R 9th po sterior rib fx 2 small hemothorax, ANU cr to 2.1 04/2019 Hospitalization History [facility] ED-Fall, indra to head 021 Goals Section No Information Health Concerns No Information MEDICAL EQUIPMENT No Information MENTAL STATUS No Information FUNCTIONAL STATUS No Information ASSESSMENTS Encounter Date Diagnosis Assessment Notes Treatment Notes Treatm ent Clinical Notes Mar, Essential (primary) hypertension (ICD-10 - I10) PLAN OF TREATMENT Medication Medication Name Sig Start Date Stop Date Irbesartan 75 MG 1 tablet Orally at bedtime for 90 day(s) Aug Next Appt Details Provider Name:Mateusz Carranza, 2021-03-29 1 1:15:00 AM, [address] [facility], , [place], [address], Insurance Providers Payer Name Payer Address Payer Phone Insured Name Patient Relati onship to Insured Coverage Start Date Coverage End Date MEDICAID [employer] [address] [facility] [id number] DAVIAN COATS self MEDICARE Part A and B [address] [facility] [address] [phone] DAVIAN COATS self
--- OUTSIDE RECORDS SUMMARY | 2021-04-25 12:28 | CCD ---
Author Author [facility] Organization [facility] Address Unknown Phone Unavailable Care Team Providers Care Automatic Buffing Wheel Former Name Role Phone Tracie Hanley Unavailable PROBLEMS Type Condition ICD9-CM Code EDF14-AZ Code Onset Dates Condition S tatus W/U Status Risk SNOMED Code Notes Problem Personal history of malignant neoplasm of breast Z 85.3 Active confirmed 276434516 Problem Essential (primary) hypertension I10 Active conf irmed 10947591 Problem Age-related osteoporosis without current pathological fracture M81.0 Active confirmed 864095693 Problem Vitamin D deficiency, unspecified E55.9 Active con firmed 82288285 Problem Mixed hyperlipidemia E78.2 Active confirmed 311646955 Problem CKD (chronic kidney disease) stage 3, GFR 30-59 ml/min N18.3 Active confirmed 128429235 Problem Type 2 diabetes mellitus without complications E11 .9 Active confirmed 859851234 Problem 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 Active confirmed 2 69764583 Problem Pulmonary nodule R91.1 Active confirmed 309 465576 Problem Gastroesophageal reflux disease, esophagitis pre sence not specified K21.9 Active confirmed 200217393 Problem Anemia of chronic disease D63.8 Active confirmed 999905510 Problem Depression F32.9 Active confirmed 69067584 Problem Hyponatremia E87.1 Active confirmed 8440200 8 Problem Anxiety disorder F41.9 Active confirmed 197 101710 Problem Recurrent UTI N39.0 Active confirmed 076312 001 Problem Primary osteoarthritis of both knees M17.0 Act shereen confirmed 539437293 Problem Leg cramps, sleep related G47.62 Active confirmed 129712220 Problem Breast cancer screening Z12.31 Active confirmed 367204327 ALLERGIES Allergen (clinical drug ingredient) Drug/Non Drug Allergy do cumented on EMR Reaction Allergy Type Onset Date Status Aspirin aspirin aches Non Drug Allergy 04/19/2019 Active ENCOUNTERS from 1940 to 2021-03-09 Encounter Location Date Provider Diagnosis [facility] [place] [address] [facility] [phone] [place] [address] Mar, Tracie Hanley Laceration of occipital scal p, initial encounter S01.01XA IMMUNIZATIONS Vaccine Route Administration Date Status Influenza (High Dose 65 & up) IM Intramuscular May 09, 2017 A dministered Pneumococcal 0.5mL Prevnar 13 IM Intramuscular January 02, 2017 A dministered Influenza (High Dose 65 & up) IM Intramuscular May 06, 2016 A dministered COVID-19 dose #2 given elsewhere Unspecified Unknown Oct Administered COVID-19 dose #1 given elsewhere Unspecified Unknown Aug Administered Influenza 6mo & up Fluzone IM Intramuscular Mar 25, 2014 Admi nistered Rocephin 1gm Ceftriaxone IM Intramuscular January 12, 2017 Admini stered Influenza 6mo & up Fluzone IM Intramuscular Jun 17, 2013 Admi nistered Influenza 18 yrs & older Flublok IM Intramuscular May 06, 2019 Administered Influenza 6mo & up Fluzone IM Intramuscular May 14, 2012 Admi nistered Influenza 18 yrs & older [...] Education Language: Question Answer Notes Languages spoken: Citizen Of [place] Rastafari: Question Answer Notes Rastafari 08 Sabianist Sexual Hx: Question Answer Notes Had sex [...] FOR REFERRAL No Information VITAL SIGNS Weight 149.0 lbs 02 Sep, 2021 Height 58 in Mar, BMI 31.14 kg/m2 Mar, Heart Rate 87 /min Mar, Respiratory Rate 20 /min Mar, Temperature 97.4 degrees Fahrenheit Mar, Oximetry 97% Mar, Blood pressure systolic 126 mm Hg Mar, Blood pressure diastolic 80 mm Hg Mar, MEDICATIONS Medication SIG (Take, Route, Frequency, Duration) [...] Daily for 30 Days Oct, Active Ergocalciferol 31352 UNIT 1 capsule Orally every 14 days [...] Information RESULTS No Results REASON FOR VISIT staple removal from head ok per vanessa MEDICAL (GENERAL) HISTORY Type Description Date Medical History history of nicotine addictio n-quit in 2005-45 pack year history- April 2004 FEV1 of 104% normal Medical History history of left breast invas shereen ductal carcinoma-ER/[place] +, status post mastectomy in July 2006-Tammi, [...] fracture for which she was place in [employer]BER brace , R zone 2 sacral fracture [...] TVT repair 2 uterine prolapse, stress incontinence-Dr. Delgado-[facility] 12/30/2013 Hospitalization History mechanical fall c 2 R 9th po sterior rib fx 2 small hemothorax, ANU cr to 2.1 04/2019 Hospitalization History [facility] ED-Fall, indra to head 021 Goals Section No Information Health Concerns No Information MEDICAL EQUIPMENT No Information MENTAL STATUS No Information FUNCTIONAL STATUS No Information ASSESSMENTS Encounter Date Diagnosis Assessment Notes Treatment Notes Treatm ent Clinical Notes Mar, Laceration of occipital scal p, initial encounter (ICD-10 - S01.01XA) Area cleaned with alcohol. [place] removed without complication. Pt will f/u with PCP as scheduled Mar, Other Total time shukri ng for the patient on the day of the encounter was 20 min PLAN OF TREATMENT Medication Medication Name Sig Start Date Stop Date Irbesartan 75 MG 1 tablet Orally at bedtime for 90 day(s) Aug Treatment Notes Assessment Notes Clinical Notes Laceration of occipital scalp, initial encounter Area cleaned with alcohol. [place] removed without complication. Pt will f/u with PCP as scheduled Next Appt Details Provider Name:Mateusz Carranza, 2021-03-29 1 1:15:00 AM, [address] [facility], , [place], [address], Insurance Providers Payer Name Payer Address Payer Phone Insured Name Patient Relati onship to Insured Coverage Start Date Coverage End Date MEDICARE Part A and B [address] [facility] [address] DAVIAN COATS MEDICAID [employer] [address] [facility] [address] DAVIAN COATS
--- OUTSIDE RECORDS SUMMARY | 2021-04-25 12:28 | CCD ---
Author Author [facility] Organization [facility] Address Unknown Phone Unavailable Care Team Providers Care Neurobiologist Name Role Phone Mateusz Carranza Unavailable PROBLEMS Type Condition ICD9-CM Code BEF54-DH Code Onset Dates Condition S tatus W/U Status Risk SNOMED Code Notes Problem Personal history of malignant neoplasm of breast Z 85.3 Active confirmed 487702802 Problem Essential (primary) hypertension I10 Active conf irmed 43269380 Problem Age-related osteoporosis without current pathological fracture M81.0 Active confirmed 013320390 Problem Vitamin D deficiency, unspecified E55.9 Active con firmed 82737475 Problem Mixed hyperlipidemia E78.2 Active confirmed 547414821 Problem CKD (chronic kidney disease) stage 3, GFR 30-59 ml/min N18.3 Active confirmed 537945410 Problem Type 2 diabetes mellitus without complications E11 .9 Active confirmed 960101908 Problem 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 Active confirmed 2 25401114 Problem Pulmonary nodule R91.1 Active confirmed 309 411380 Problem Gastroesophageal reflux disease, esophagitis pre sence not specified K21.9 Active confirmed 376626030 Problem Anemia of chronic disease D63.8 Active confirmed 140986106 Problem Depression F32.9 Active confirmed 99167171 Problem Hyponatremia E87.1 Active confirmed 0290469 8 Problem Anxiety disorder F41.9 Active confirmed 197 243755 Problem Recurrent UTI N39.0 Active confirmed 846763 001 Problem Primary osteoarthritis of both knees M17.0 Act shereen confirmed 948499473 Problem Leg cramps, sleep related G47.62 Active confirmed 677627621 Problem Breast cancer screening Z12.31 Active confirmed 754231875 ALLERGIES Allergen (clinical drug ingredient) Drug/Non Drug Allergy do cumented on EMR Reaction Allergy Type Onset Date Status aspirin Aspirin([facility] Code:[address]-77) aches Drug Allergy Active ENCOUNTERS from 1940 to 2021-04-20 Encounter Location Date Provider Diagnosis [facility] [place] [address] [facility] [phone] [place] [address] Apr, Mateusz Carranza Age-related osteoporosis wit hout current pathological fracture M81.0 and Leg cramps, sleep related G47.62 IMMUNIZATIONS Vaccine Route Administration Date Status Influenza [...] Education Language: Question Answer Notes Languages spoken: Cook Islander Mu-Ism: Question Answer Notes Mu-Ism 08 Confucianism Sexual Hx: Question Answer Notes Had sex [...] Notes Start Da te End Date Status Ergocalciferol 60638 UNIT 1 capsule Orally every 14 days for 90 day(s ) Active Ciclopirox 0.77 % 1 application to affected ar ea Externally Twice a day to feet for 30 days Apr, Active Calcium 600 + D 600-400 MG-UNIT 1 tablet Orally at bedtime for 90 day (s) Active Magnesium 250 MG 1 tablet with a meal Orally Once a day Active BD Lancet Ultrafine 33G - as directed subcutaneously AC BID, E11.8 Active Famotidine 20 MG 1 tab Orally at bedtime for 90 day(s) Active Glucometer as directed dx: E11.9-one touch verio Daily Oct, Active Fosamax 70MG 1 tablet Orally once a week for 90 days Active Glimepiride 1 MG 1 tab Orally bid for 90 day(s) Active Irbesartan 75 MG 1 tablet Orally at bedtime Aug, Active Januvia 100 mg 1 tablet Orally every morning Active Simvastatin 40 MG 1 tablet every evening Orally Once a day Active Super B Complex OTC 1 tablet Orally once a day Active OneTouch Verio . 1 strip subcutaneously AC BID, E18.9 for 90 day(s) Active Pramipexole Dihydrochloride 0.5 MG 1 tablet Orally at bedtime for 90 days Active Aspirin 81 MG 1 tablet Orally Once a day for 90 day(s) Active Metoprolol Tartrate 50 MG 1/2 tablet with food Orally Twice a day for 90 day(s) Active Voltaren 1 % as directed Transdermal 4 gm QID to L knee for 30 days Active predniSONE 20 MG 1 tablet Orally once a day for 5 days Jan, Not-Taking Glucose strip (Verio IQ) as directed one touch verio three times daily for 30 day(s) Dec, Active Escitalopram Oxalate 20 MG 1 tablet Orally Once a day for 90 day(s) Active metFORMIN HCl ER 500 MG 1 tablet Orally twice daily Active ProAir HFA 108 (90 Base) MCG/ACT 2 puffs Inhalation QID for 10 d ays Jan, Active Augmentin 875-125 MG 1 tablet Orally Twice a day for 7 day(s) Jan, Not-Taking PROCEDURES No Information RESULTS No Results REASON FOR VISIT Refill - multiple MEDICAL (GENERAL) HISTORY Type Description Date Medical History history of nicotine addictio n-quit in 2005-45 pack year history- April 2004 FEV1 of 104% normal Medical History history of left breast invas shereen ductal carcinoma-ER/[place] +, status post mastectomy in July 2006-Tammi, [...] fracture for which she was place 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 Delgado-[facility] 12/30/2013 Hospitalization History mechanical fall c 2 R 9th po sterior rib fx 2 small hemothorax, ANU cr to 2.1 04/2019 Hospitalization History [facility] ED-Fall, indra to head 021 Goals Section No Information Health Concerns No Information MEDICAL EQUIPMENT No Information MENTAL STATUS No Information FUNCTIONAL STATUS No Information ASSESSMENTS Encounter Date Diagnosis Assessment Notes Treatment Notes Treatm ent Clinical Notes Apr, Age-related osteoporosis wit hout current pathological fracture (ICD-10 - M81.0) Apr, Leg cramps, sleep related (ICD-10 - G47.62) PLAN OF TREATMENT Medication Medication Name Sig Start Date Stop Date Simvastatin 40 MG 1 tablet every evening Orally Once a day metFORMIN HCl ER 500 MG 1 tablet Orally twice daily Januvia 100 mg 1 tablet Orally every morning Irbesartan 75 MG 1 tablet Orally at bedtime Aug, Pramipexole Dihydrochloride 0.5 MG 1 tablet Orally at bedtime fo r 90 days Fosamax 70MG 1 tablet Orally once a week for 90 days BD Lancet Ultrafine 33G - as directed subcutaneously AC BID, E11 .8 Glucometer as directed dx: E11.9-one touch verio Daily 15 A pr, 2020 Next Appt Details Provider Name:Mateusz Sahnier, 2021-07-16 0 4:00:00 PM, [address] [facility], , [place], [address], Insurance Providers Payer Name Payer Address Payer Phone Insured Name Patient Relati onship to Insured Coverage Start Date Coverage End Date MEDICAID [employer] [address] [facility] [id number] DAVIAN COATS MEDICARE Part A and B [address] [facility] [address] [phone] DAVIAN COATS
--- OUTSIDE RECORDS SUMMARY | 2021-04-25 12:28 | CCD ---
Author Author [facility] Organization [facility] Address Unknown Phone Unavailable Care Team Providers Care Inspector Handbag Frames Name Role Phone Natalie Sims Unavailable PROBLEMS Type Condition ICD9-CM Code OHD39-FC Code Onset Dates Condition S tatus W/U Status Risk SNOMED Code Notes Problem Personal history of malignant neoplasm of breast Z 85.3 Active confirmed 115252559 Problem Essential (primary) hypertension I10 Active conf irmed 64199337 Problem Age-related osteoporosis without current pathological fracture M81.0 Active confirmed 722446700 Problem Vitamin D deficiency, unspecified E55.9 Active con firmed 75675833 Problem Mixed hyperlipidemia E78.2 Active confirmed 833877905 Problem CKD (chronic kidney disease) stage 3, GFR 30-59 ml/min N18.3 Active confirmed 677905691 Problem Type 2 diabetes mellitus without complications E11 .9 Active confirmed 344544934 Problem 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 Active confirmed 2 81435698 Problem Pulmonary nodule R91.1 Active confirmed 309 162107 Problem Gastroesophageal reflux disease, esophagitis pre sence not specified K21.9 Active confirmed 560245443 Problem Anemia of chronic disease D63.8 Active confirmed 136083728 Problem Depression F32.9 Active confirmed 37725849 Problem Hyponatremia E87.1 Active confirmed 9477679 8 Problem Anxiety disorder F41.9 Active confirmed 197 915015 Problem Recurrent UTI N39.0 Active confirmed 616965 001 Problem Primary osteoarthritis of both knees M17.0 Act shereen confirmed 012803462 Problem Leg cramps, sleep related G47.62 Active confirmed 093752191 Problem Breast cancer screening Z12.31 Active confirmed 582212217 ALLERGIES Allergen (clinical drug ingredient) Drug/Non Drug Allergy do cumented on EMR Reaction Allergy Type Onset Date Status Aspirin aspirin aches Non Drug Allergy 04/19/2019 Active ENCOUNTERS from 1940 to 2021-04-07 Encounter Location Date Provider Diagnosis [facility] Bianka [address] [facility] [phone] [place] [address] Mar, Natalie Soosairaj Cough in adult R05 ; Essenti al (primary) hypertension I10 ; Type 2 diabetes mellitus without complications E11.9 ; Mixed hyperlipidemia E78.2 ; CKD (chronic kidney disease) stage 3, GFR 30-59 ml/min N18.3 ; Anemia of chronic disease D63.8 and Breast cancer screening Z12.31 IMMUNIZATIONS Vaccine Route Administration Date Status Influenza [...] Education Language: Question Answer Notes Languages spoken: Israeli Jehovah'S Witness: Question Answer Notes Jehovah'S Witness 08 Sikh Sexual Hx: Question Answer Notes [...] FOR REFERRAL No Information VITAL SIGNS Weight 148.4 lbs Mar, Weight-kg 67.31 kg Mar, Height 58 in Mar, BMI 31.01 kg/m2 Mar, Heart Rate 88 /min Mar, Respiratory Rate 18 /min Mar, Temperature 97.3 degrees Fahrenheit Mar, Oximetry 95% Mar, Blood pressure systolic 122 mm Hg Mar, Blood pressure diastolic 82 mm Hg Mar, MEDICATIONS Medication SIG (Take, Route, Frequency, Duration) Notes Start Da te End Date Status Glucometer as directed dx: E11.9-one touch verio Daily Oct, Active Ciclopirox 0.77 % 1 application to affected ar ea Externally Twice a day to feet for 30 days Apr, Active Ergocalciferol 72613 UNIT 1 capsule Orally every 14 days for 90 day(s ) Active Magnesium 250 MG 1 tablet with a meal Orally Once a day Active Glimepiride 1 MG 1 tab Orally bid for 90 day(s) Active Super B Complex OTC 1 tablet Orally once a day Active BD Lancet Ultrafine 33G - as directed subcutaneously AC BID, E11.8 Active ProAir HFA 108 (90 Base) MCG/ACT 2 puffs Inhalation QID for 10 d ays Jan, Active Pramipexole Dihydrochloride 0.5 MG 1 tablet Orally at bedtime for 9 0 day(s) Active Irbesartan 75 MG 1 tablet Orally at bedtime Aug, Active Januvia 100 mg 1 tablet Orally every morning Active Simvastatin 40 MG 1 tablet every evening Orally Once a day Active predniSONE 20 MG 1 tablet Orally once a day for 5 days Jan, Not-Taking Fosamax 70MG 1 tablet Orally once a week for 90 day(s) Active Voltaren 1 % as directed Transdermal 4 gm QID to L knee for 30 days Active Augmentin 875-125 MG 1 tablet Orally Twice a day for 7 day(s) Jan, Not-Taking Metoprolol Tartrate 50 MG 1/2 tablet with food Orally Twice a day for 90 day(s) Active OneTouch Verio . 1 strip subcutaneously AC BID, E18.9 for 90 day(s) Active Aspirin 81 MG 1 tablet Orally Once a day for 90 day(s) Active Glucose strip (Verio IQ) as directed one touch verio three times daily for 30 day(s) Dec, Active Escitalopram Oxalate 20 MG 1 tablet Orally Once a day for 90 day(s) Active metFORMIN HCl ER 500 MG 1 tablet Orally twice daily Active Famotidine 20 MG 1 tab Orally at bedtime for 90 day(s) Active Calcium 600 + D 600-400 MG-UNIT 1 tablet Orally at bedtime for 90 day (s) Active PROCEDURES No Information RESULTS Component Value Reference Range [facility]AR[facility] COVID AG (Point of Care) Reviewed date:03/30/2021 11:27:38 Interpretation: Performing Lab:[facility], ,[place] [address] KARMA COVID ANTIGEN negative [facility] COVID AG (Point of Care) Reviewed date:03/31/2021 11:26:07 Interpretation: Performing Lab:[facility], [place] INTERFACE [address] [facility] [address] , ,[place] [address] KARMA COVID ANTIGEN NEGATIVE NEGATIVE REASON FOR VISIT Door D- cough MEDICAL (GENERAL) HISTORY Type Description Date Medical History history of nicotine addictio n-quit in 2005-45 pack year history- April 2004 FEV1 of 104% normal Medical History history of left breast invas shereen ductal carcinoma-ER/OR +, status post mastectomy in July 2006-Tammi, [...] fracture for which she was place in [employer] brace , R zone 2 sacral fracture [...] TVT repair 2 uterine prolapse, stress incontinence-Dr. Delgado-[facility] 12/30/2013 Hospitalization History mechanical fall c 2 R 9th po sterior rib fx 2 small hemothorax, ANU cr to 2.1 04/[address] [facility] ED-Fall, indra to head 021 Goals Section No Information Health Concerns No Information MEDICAL EQUIPMENT No Information MENTAL STATUS No Information FUNCTIONAL STATUS No Information ASSESSMENTS Encounter Date Diagnosis Assessment Notes Treatment Notes Treatm ent Clinical Notes Mar, Cough in adult (ICD-10 - R05) Rapid test negative advised supportive measrues vital signs stable. no acute distress. anticipatory guidance given for red flag sxs to seek emergency help Mar, Essential (primary) hypertension (ICD-10 - I10) labs when acute sxs resolves Mar, Type 2 diabetes mellitus without complications ( ICD-10 - E11.9) Mar, Mixed hyperlipidemia (ICD-10 - E78.2) Mar, CKD (chronic kidney disease) stage 3, GFR 30-59 ml/min (ICD-10 - N18.3) Mar, Anemia of chronic disease (ICD-10 - D63.8) Mar, Breast cancer screening (ICD-10 - Z12.31) mammogram order given PLAN OF TREATMENT Medication Medication Name Sig Start Date Stop Date Simvastatin 40 MG 1 tablet every evening Orally Once a day metFORMIN HCl ER 500 MG 1 tablet Orally twice daily Januvia 100 mg 1 tablet Orally every morning Irbesartan 75 MG 1 tablet Orally at bedtime Aug, BD Lancet Ultrafine 33G - as directed subcutaneously AC BID, E11 .8 Glucometer as directed dx: E11.9-one touch verio Daily 15 A 2020 Treatment Notes Assessment Notes Clinical Notes Cough in adult Rapid test negativea dvised supportive measruesvital signs stable. no acute distress.anticipatory guidance given for red flag sxs to seek emergency help Essential (primary) hypertension labs wh en acute sxs resolves Breast cancer screening mammogram order given Treatment Notes Test Name Order Date [facility] Screening Bilateral (Ultrasound if Indicated ) (3D Mammo) 2021-03-30 Future Test Test Name Order Date Comprehensive Metabolic Profile (CMP) 20210330 HEMOGLOBIN A1c [id number] MICROALBUMIN RANDOM [id number] LIPID PANEL (CARDIAC RISK) [id number] CBC with Differential [id number] Next Appt Details next available appt with Dr. Dillon Canas n: Provider Name:Mateusz Carranza, 2021-07-16 0 4:00:00 PM, [address] [facility], , [place], [address], Insurance Providers Payer Name Payer Address Payer Phone Insured Name Patient Relati onship to Insured Coverage Start Date Coverage End Date MEDICAID [employer] [address] [facility] [id number] [place] self MEDICARE Part A and B [address] [facility] [address] [phone] DAVIAN COATS self
--- OUTSIDE RECORDS SUMMARY | 2021-04-25 12:28 | CCD ---
Author Author [facility] Organization [facility] Address Unknown Phone Unavailable Care Team Providers Care Customer Support Technician Name Role Phone Mateusz Carranza Unavailable PROBLEMS Type Condition ICD9-CM Code EWK35-BI Code Onset Dates Condition S tatus W/U Status Risk SNOMED Code Notes Problem Personal history of malignant neoplasm of breast Z 85.3 Active confirmed 073853214 Problem Essential (primary) hypertension I10 Active conf irmed 98694237 Problem Age-related osteoporosis without current pathological fracture M81.0 Active confirmed 461066135 Problem Vitamin D deficiency, unspecified E55.9 Active con firmed 43677539 Problem Mixed hyperlipidemia E78.2 Active confirmed 212790887 Problem CKD (chronic kidney disease) stage 3, GFR 30-59 ml/min N18.3 Active confirmed 972973357 Problem Type 2 diabetes mellitus without complications E11 .9 Active confirmed 852904466 Problem 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 Active confirmed 2 45900704 Problem Pulmonary nodule R91.1 Active confirmed 309 455622 Problem Gastroesophageal reflux disease, esophagitis pre sence not specified K21.9 Active confirmed 066205578 Problem Anemia of chronic disease D63.8 Active confirmed 035385300 Problem Depression F32.9 Active confirmed 95874631 Problem Hyponatremia E87.1 Active confirmed 9487648 8 Problem Anxiety disorder F41.9 Active confirmed 197 844540 Problem Recurrent UTI N39.0 Active confirmed 826141 001 Problem Primary osteoarthritis of both knees M17.0 Act shereen confirmed 137889477 Problem Leg cramps, sleep related G47.62 Active confirmed 926337260 Problem Breast cancer screening Z12.31 Active confirmed 718829295 ALLERGIES Allergen (clinical drug ingredient) Drug/Non Drug Allergy do cumented on EMR Reaction Allergy Type Onset Date Status Aspirin aspirin aches Non Drug Allergy 04/19/2019 Active ENCOUNTERS from 1940 to 2021-03-29 Encounter Location Date Provider Diagnosis [facility] Bianka [address] [facility] [phone] [place] [address] Mar, Mateusz Carranza IMMUNIZATIONS Vaccine Route Administration Date [...] Education Language: Question Answer Notes Languages spoken: Sami Christianity: Question Answer Notes Christianity 08 Spiritism Sexual Hx: Question Answer Notes Had sex [...] Notes Start Da te End Date Status Juluvia 100 mg 1 tablet Orally every morning [...] Daily for 30 Days Oct, Active Ergocalciferol 17436 UNIT 1 capsule Orally every 14 days [...] Information RESULTS No Results REASON FOR VISIT Appt MEDICAL (GENERAL) HISTORY Type Description Date Medical History history of nicotine addictio n-quit in 2005-45 pack year history- April 2004 FEV1 of 104% normal Medical History history of left breast invas shereen ductal carcinoma-ER/DE +, status post mastectomy in July 2006-Tammi, [...] fracture for which she was place in [facility] RN brace , R zone 2 sacral fracture [...] TVT repair 2 uterine prolapse, stress incontinence-Dr. Delgado-[facility] 12/30/2013 Hospitalization History mechanical fall c 2 R 9th po sterior rib fx 2 small hemothorax, ANU cr to 2.1 04/2019 Hospitalization History [facility] ED-Fall, indra to head 021 Goals Section [...] 90 day (s) Next Appt Details Provider Name:Natalie Sims, 2020-0 03-30 10:45:00 AM, [address] [facility], , [place], [address], Insurance Providers Payer Name Payer Address Payer Phone Insured Name Patient Relati onship to Insured Coverage Start Date Coverage End Date MEDICAID [employer] [address] [facility] [id number] [place] MEDICARE Part A and B [address] [facility] [phone] DAVIAN COATS
--- OUTSIDE RECORDS SUMMARY | 2021-04-25 12:29 | CCD ---
Author Author [facility] Organization [facility] Address Unknown Phone Unavailable Care Team Providers Care Cook Chef Name Role Phone Jhonny Mccray MD Unavailable Unavailable Jhonny Mccray MD Unavailable Unavailable Jhonny Mccray MD Unavailable Unavailable Jhonny Mccray MD Unavailable Unavailable Jhonny Mccray MD Unavailable Unavailable hJonny Mccray MD Unavailable Unavailable Jhonny Mccray MD Unavailable Unavailable Jhonny Mccray MD Unavailable Unavailable Jhonny Mccray MD Unavailable Unavailable Jhonny Mccray MD Unavailable Unavailable Jhonny Mccray MD Unavailable Unavailable Jhonny Mccray MD Unavailable Unavailable Jhonny Mccray MD Unavailable Unavailable Jhonny Mccray MD Unavailable Unavailable Jhonny Mccray MD Unavailable Unavailable Jhonny Mccray MD Unavailable Unavailable Jhonny Mccray MD Unavailable Unavailable Jhonny Mccray MD Unavailable Unavailable Jhonny Mccray MD Unavailable Unavailable Jhonny Mccray MD Unavailable Unavailable Jhonny Mccray MD Unavailable Unavailable Jhonny Mccray MD Unavailable Unavailable Jhonny Mccray MD Unavailable Unavailable Jhonny Mccray MD Unavailable Unavailable Jhonny Mccray MD Unavailable Unavailable Jhonny Mccray MD Unavailable Unavailable Jhonny Mccray MD Unavailable Unavailable Jhonny Mccray MD Unavailable Unavailable Jhonny Mccray MD Unavailable Unavailable Jhonny Mccray MD Unavailable Unavailable Jhonny Mccray MD Unavailable Unavailable MccrayJhonny MD Unavailable Unavailable Jhonny Mccray MD Unavailable Unavailable MccrayJhonny MD Unavailable Unavailable MccrayJhonny MD Unavailable Unavailable MccrayJhonny MD Unavailable Unavailable MccrayJhonny MD Unavailable Unavailable Jhonny Mccray MD Unavailable Unavailable Jhonny Mccray MD Unavailable Unavailable Jhonny Mccray MD Unavailable Unavailable MccrayJhonny MD Unavailable Unavailable Jhonny Mccray MD Unavailable Unavailable Mccray, Jhonny Rahman MD Unavailable Unavailable MccrayJhonny MD Unavailable Unavailable MccrayJhonny MD Unavailable Unavailable MccrayJhonny MD Unavailable Unavailable Jhonny Mccray MD Unavailable Unavailable Jhonny Mccray MD Unavailable Unavailable Jhonny Mccray MD Unavailable Unavailable MccrayJhonny MD Unavailable Unavailable MccrayJhonny MD Unavailable Unavailable MccrayJhonny MD Unavailable Unavailable Jhonny Mccray MD Unavailable Unavailable Jhonny Mccray MD Unavailable Unavailable Jhonny Mccray MD Unavailable Unavailable Jhonny Mccray MD Unavailable Unavailable Jhonny Mccray MD Unavailable Unavailable Jhonny Mccray MD Unavailable Unavailable Jhonny Mccray MD Unavailable Unavailable Jhonny Mccray MD Unavailable Unavailable Jhonny Mccray MD Unavailable Unavailable Jhonny Mccray MD Unavailable Unavailable Jhonny Mccray MD Unavailable Unavailable Jhonny Mccray MD Unavailable Unavailable Jhonny Mccray MD Unavailable Unavailable Jhonny Mccray MD Unavailable Unavailable Jhonny Mccray MD Unavailable Unavailable Jhonny Mccray MD Unavailable Unavailable Jhonny Mccray MD Unavailable Unavailable Jhonny Mccray MD Unavailable Unavailable Jhonny Mccray MD Unavailable Unavailable Jhonny Mccray MD Unavailable Unavailable Jhonny Mccray MD Unavailable Unavailable Jhonny Mccray MD Unavailable Unavailable Jhonny Mccray MD Unavailable Unavailable Jhonny Mccray MD Unavailable Unavailable Jhonny Mccray MD Unavailable Unavailable Jhonny Mccray MD Unavailable Unavailable Jhonny Mccray MD Unavailable Unavailable Jhonny Mccray MD Unavailable Unavailable Jhonny Mccray MD Unavailable Unavailable Jhonny Mccray MD Unavailable Unavailable Jhonny Mccray MD Unavailable Unavailable Jhonny Mccray MD Unavailable Unavailable Jhonny Mccray MD Unavailable Unavailable Jhonny Mccray MD Unavailable Unavailable Jhonny Mccray MD Unavailable Unavailable Jhonny Mccray MD Unavailable Unavailable Jhonny Mccray MD Unavailable Unavailable Jhonny Mccray MD Unavailable Unavailable Jhonny Mccray MD Unavailable Unavailable Jhonny Mccray MD Unavailable Unavailable Jhonny Mccray MD Unavailable Unavailable Re-disclosure Warning The records that you are about to access may contain information from federally-assisted alcohol or drug abuse programs. If such information is present, then the following federally mandated warning applies: This information has been disclosed to you from records protected by federal confidentiality rules (42 CFR part 2). The federal rules prohibit you from making any further disclosure of this information unless further disclosure is expressly permitted by the written consent of the person to whom it pertains or as otherwise permitted by 42 CFR part 2. A general authorization for the release of medical or other information is NOT sufficient for this purpose. The Federal rules restrict any use of the information to criminally investigate or prosecute any alcohol or drug abuse patient.The records that you are about to access may contain highly sensitive health information, the redisclosure of which is protected by Article 27-F of the [facility] Public Health law. If you continue you may have access to information: Regarding HIV / AIDS; Provided by facilities licensed or operated by the [facility] Office of Mental Health; or Provided by the [facility] Office for People With Developmental Disabilities. If such information is present, then the following [facility] mandated warning applies: This information has been disclosed to you from confidential records which are protected by state law. State law prohibits you from making any further disclosure of this information without the specific written consent of the person to whom it pertains, or as otherwise permitted by law. Any unauthorized further disclosure in violation of state law may result in a fine or fci sentence or both. A general authorization for the release of medical or other information is NOT sufficient authorization for further disc losure. Allergies and Adverse Reactions Type Description Substance Reaction Status Data Source(s ) Allergy to substance Allergy to substance Allergy to substance [place] ([facility]) Allergy to substance Allergy to substance Allergy to substance [place] ([facility]) Encounters Encounter Providers Location Date Indications Data Source(s ) Unknown [address] [facility], [facility] [address] 04/20/2021 12:00:00 AM EDT eCW1 ([facility]) Office Visit, Est Pt., Level 4 PC [address] [place] [address] 03/30/2021 12:00:00 AM EDT eCW1 ([facility]) Unknown [address] [facility], [facility] [address] 03/29/2021 12:00:00 AM EDT eCW1 ([facility]) Unknown [address] [facility] [address] 03/16/2021 12:00:00 AM EDT eCW1 ([facility]) Outpatient [address] [facility] [address] 03/04/2021 12:00:00 AM EDT eCW1 ([facility]) Unknown [address] [facility] [address] 03/04/2021 12:00:00 AM EDT eCW1 ([facility]) Outpatient [address] [facility] [address] 02/11/2021 12:00:00 AM EDT eCW1 ([facility]) Unknown [address] [facility] [address] 02/11/2021 12:00:00 AM EDT eCW1 ([facility]) Unknown [address] [facility] [address] 02/10/2021 12:00:00 AM EDT eCW1 ([facility]) Unknown [address] [facility] [address] 02/09/2021 12:00:00 AM EDT eCW1 ([facility]) Unknown [address] [facility] [address] 02/04/2021 12:00:00 AM EDT eCW1 ([facility]) Unknown [address] [facility] [address] 12/24/2020 12:00:00 AM EDT eCW1 ([facility]) Unknown [address] [facility] [address] 12/15/2020 12:00:00 AM EDT eCW1 ([facility]) Unknown [address] [facility] [address] 12/04/2020 12:00:00 AM EDT eCW1 ([facility]) Unknown [address] [facility] [address] 11/13/2020 12:00:00 AM EDT eCW1 ([facility]) Unknown [address] [facility] [address] 11/05/2020 12:00:00 AM EDT eCW1 ([facility]) Unknown [address] [facility] [address] 11/04/2020 12:00:00 AM EDT eCW1 ([facility]) Outpatient [address] [facility] [address] 11/02/2020 12:00:00 AM EDT eCW1 ([facility]) Josiah Mccray MD: [address] [place] [phone], Ph. Attender: Josiah Mccray MD [facility] 10/27/2020 12:00:00 AM EDT [place] ([facility]) Unknown [address] [facility] [address] 10/26/2020 12:00:00 AM EDT eCW1 ([facility]) Unknown [address] [facility] [address] 10/15/2020 12:00:00 AM EDT eCW1 ([facility]) Unknown [address] [facility] [address] 10/01/2020 12:00:00 AM EDT eCW1 ([facility]) Josiah Mccray MD: [address] [place] [phone], Ph. Attender: Josiah Mccray MD [facility] 09/29/2020 12:00:00 AM EDT [place] ([facility]) Josiah Mccray MD: [address] [place] [address], Ph. Attender: Josiah Mccray MD [facility] 09/29/2020 12:00:00 AM EDT [place] ([facility]) Outpatient [address] [facility] [address] 08/18/2020 12:00:00 AM EST eCW1 ([facility]) Unknown [address] [facility] [address] 08/18/2020 12:00:00 AM EST eCW1 ([facility]) Unknown [address] [facility] [address] 08/14/2020 12:00:00 AM EST eCW1 ([facility]) Outpatient [address] [facility] [address] 06/08/2020 12:00:00 AM EST eCW1 ([facility]) Unknown [address] [facility] [address] 05/18/2020 12:00:00 AM EST eCW1 ([facility]) Unknown [address] [facility] [address] 05/05/2020 12:00:00 AM EST eCW1 ([facility]) Unknown [address] [facility] [address] 04/17/2020 12:00:00 AM EDT eCW1 ([facility]) Immunizations Vaccine Date Status Description Data Source(s) COVID-19, mRNA, LNP-S, PF, 100 mcg/0.5 mL dose 10/27/2020 11 :55:47 AM EDT completed 10.5 mL [place] ([facility]) COVID-19 dose #2 given elsewhere Unspecified 10/27/2020 09:3 1:00 AM EDT completed eCW1 ([facility]) COVID-19 dose #2 given elsewhere Unspecified 10/27/2020 09:3 1:00 AM EDT completed eCW1 ([facility]) COVID-19 dose #2 given elsewhere Unspecified 10/27/2020 09:3 1:00 AM EDT completed eCW1 ([facility]) COVID-19 dose #2 given elsewhere Unspecified 10/27/2020 09:3 1:00 AM EDT completed eCW1 ([facility]) COVID-19 dose #2 given elsewhere Unspecified 10/27/2020 09:3 1:00 AM EDT completed eCW1 ([facility]) COVID-19 dose #2 given elsewhere Unspecified 10/27/2020 09:3 1:00 AM EDT completed eCW1 ([facility]) COVID-19 dose #2 given elsewhere Unspecified 10/27/2020 09:3 1:00 AM EDT completed eCW1 ([facility]) COVID-19 dose #2 given elsewhere Unspecified 10/27/2020 09:3 1:00 AM EDT completed eCW1 ([facility]) COVID-19 dose #2 given elsewhere Unspecified 10/27/2020 09:3 1:00 AM EDT completed eCW1 ([facility]) COVID-19 dose #2 given elsewhere Unspecified 10/27/2020 09:3 1:00 AM EDT completed eCW1 ([facility]) COVID-19 dose #2 given elsewhere Unspecified 10/27/2020 09:3 1:00 AM EDT completed eCW1 ([facility]) COVID-19 dose #2 given elsewhere Unspecified 10/27/2020 09:3 1:00 AM EDT completed eCW1 ([facility]) COVID-19 dose #2 given elsewhere Unspecified 10/27/2020 09:3 1:00 AM EDT completed eCW1 ([facility]) COVID-19 dose #2 given elsewhere Unspecified 10/27/2020 09:3 1:00 AM EDT completed eCW1 ([facility]) COVID-19 dose #2 given elsewhere Unspecified 10/27/2020 09:3 1:00 AM EDT completed eCW1 ([facility]) COVID-19 dose #2 given elsewhere Unspecified 10/27/2020 09:3 1:00 AM EDT completed eCW1 ([facility]) COVID-19 dose #2 given elsewhere Unspecified 10/27/2020 09:3 1:00 AM EDT completed eCW1 ([facility]) COVID-19 dose #2 given elsewhere Unspecified 10/27/2020 09:3 1:00 AM EDT completed eCW1 ([facility]) COVID-19 VACCINE Moderna 10/27/2020 12:00:00 AM EDT completed [employer] Vaccine Series Complete: YESThis Data wa s Submitted to [facility] Via [employer]. COVID-19, mRNA, LNP-S, PF, 100 mcg/0.5 mL dose 09/29/2020 11 :47:34 AM EDT completed .5 mL [place] ([facility]) COVID-19, mRNA, LNP-S, PF, 100 mcg/0.5 mL dose 09/29/2020 11 :47:34 AM EDT completed .5 mL [place] ([facility]) COVID-19 dose #1 given elsewhere Unspecified 09/29/2020 09:3 0:00 AM EDT completed eCW1 ([facility]) COVID-19 dose #1 given elsewhere Unspecified 09/29/2020 09:3 0:00 AM EDT completed eCW1 ([facility]) COVID-19 dose #1 given elsewhere Unspecified 09/29/2020 09:3 0:00 AM EDT completed eCW1 ([facility]) COVID-19 dose #1 given elsewhere Unspecified 09/29/2020 09:3 0:00 AM EDT completed eCW1 ([facility]) COVID-19 dose #1 given elsewhere Unspecified 09/29/2020 09:3 0:00 AM EDT completed eCW1 ([facility]) COVID-19 dose #1 given elsewhere Unspecified 09/29/2020 09:3 0:00 AM EDT completed eCW1 ([facility]) COVID-19 dose #1 given elsewhere Unspecified 09/29/2020 09:3 0:00 AM EDT completed eCW1 ([facility]) COVID-19 dose #1 given elsewhere Unspecified 09/29/2020 09:3 0:00 AM EDT completed eCW1 ([facility]) COVID-19 dose #1 given elsewhere Unspecified 09/29/2020 09:3 0:00 AM EDT completed eCW1 ([facility]) COVID-19 dose #1 given elsewhere Unspecified 09/29/2020 09:3 0:00 AM EDT completed eCW1 ([facility]) COVID-19 dose #1 given elsewhere Unspecified 09/29/2020 09:3 0:00 AM EDT completed eCW1 ([facility]) COVID-19 dose #1 given elsewhere Unspecified 09/29/2020 09:3 0:00 AM EDT completed eCW1 ([facility]) COVID-19 dose #1 given elsewhere Unspecified 09/29/2020 09:3 0:00 AM EDT completed eCW1 ([facility]) COVID-19 dose #1 given elsewhere Unspecified 09/29/2020 09:3 0:00 AM EDT completed eCW1 ([facility]) COVID-19 dose #1 given elsewhere Unspecified 09/29/2020 09:3 0:00 AM EDT completed eCW1 ([facility]) COVID-19 dose #1 given elsewhere Unspecified 09/29/2020 09:3 0:00 AM EDT completed eCW1 ([facility]) COVID-19 dose #1 given elsewhere Unspecified 09/29/2020 09:3 0:00 AM EDT completed eCW1 ([facility]) COVID-19 dose #1 given elsewhere Unspecified 09/29/2020 09:3 0:00 AM EDT completed eCW1 ([facility]) COVID-19 VACCINE Moderna 09/29/2020 12:00:00 AM EDT completed [employer] Vaccine Series Complete: NOThis Data was Submitted to [facility] Via [employer]. influenza, recombinant, quadrIvalent,injectable, prese rvative free 06/08/2020 05:45:00 PM EST completed eCW1 ([facility]) influenza, recombinant, quadrIvalent,injectable, prese rvative free 06/08/2020 05:45:00 PM EST completed eCW1 ([facility]) influenza, recombinant, quadrIvalent,injectable, prese rvative free 06/08/2020 05:45:00 PM EST completed eCW1 ([facility]) influenza, recombinant, quadrIvalent,injectable, prese rvative free 06/08/2020 05:45:00 PM EST completed eCW1 ([facility]) influenza, recombinant, quadrIvalent,injectable, prese rvative free 06/08/2020 05:45:00 PM EST completed eCW1 ([facility]) influenza, recombinant, quadrIvalent,injectable, prese rvative free 06/08/2020 05:45:00 PM EST completed eCW1 ([facility]) influenza, recombinant, quadrIvalent,injectable, prese rvative free 06/08/2020 05:45:00 PM EST completed eCW1 ([facility]) influenza, recombinant, quadrIvalent,injectable, prese rvative free 06/08/2020 05:45:00 PM EST completed eCW1 ([facility]) influenza, recombinant, quadrIvalent,injectable, prese rvative free 06/08/2020 05:45:00 PM EST completed eCW1 ([facility]) influenza, recombinant, quadrIvalent,injectable, prese rvative free 06/08/2020 05:45:00 PM EST completed eCW1 ([facility]) influenza, recombinant, quadrIvalent,injectable, prese rvative free 06/08/2020 05:45:00 PM EST completed eCW1 ([facility]) influenza, recombinant, quadrIvalent,injectable, prese rvative free 06/08/2020 05:45:00 PM EST completed eCW1 ([facility]) influenza, recombinant, quadrIvalent,injectable, prese rvative free 06/08/2020 05:45:00 PM EST completed eCW1 ([facility]) influenza, recombinant, quadrIvalent,injectable, prese rvative free 06/08/2020 05:45:00 PM EST completed eCW1 ([facility]) influenza, recombinant, quadrIvalent,injectable, prese rvative free 06/08/2020 05:45:00 PM EST completed eCW1 ([facility]) influenza, recombinant, quadrIvalent,injectable, prese rvative free 06/08/2020 05:45:00 PM EST completed eCW1 ([facility]) influenza, recombinant, quadrIvalent,injectable, prese rvative free 06/08/2020 05:45:00 PM EST completed eCW1 ([facility]) influenza, recombinant, quadrIvalent,injectable, prese rvative free 06/08/2020 05:45:00 PM EST completed eCW1 ([facility]) influenza, recombinant, quadrIvalent,injectable, prese rvative free 06/08/2020 05:45:00 PM EST completed eCW1 ([facility]) influenza, recombinant, quadrIvalent,injectable, prese rvative free 06/08/2020 05:45:00 PM EST completed eCW1 ([facility]) influenza, recombinant, quadrIvalent,injectable, prese rvative free 06/08/2020 05:45:00 PM EST completed eCW1 ([facility]) influenza, recombinant, quadrIvalent,injectable, prese rvative free 06/08/2020 05:45:00 PM EST completed eCW1 ([facility]) influenza, recombinant, quadrIvalent,injectable, prese rvative free 06/08/2020 05:45:00 PM EST completed eCW1 ([facility]) influenza, recombinant, quadrIvalent,injectable, prese rvative free 06/08/2020 05:45:00 PM EST completed eCW1 ([facility]) influenza, recombinant, quadrIvalent,injectable, prese rvative free 06/08/2020 05:45:00 PM EST completed eCW1 ([facility]) Medications Medication Brand Name Start Date Product Form Dose Route Admi nistrative Instructions Pharmacy Instructions Status Indications Reaction Description Data Source(s) Pramipexole dihydrochloride 0.5 MG Oral Tablet PRAMIPEXOLE D I-HCL 04/20/2021 12:00:00 AM EDT tablet 90 TAKE ONE TABLET BY MOUTH AT BEDTIME TAKE ONE TABLET BY MOUTH AT BEDTIME SOLD: 04/22/2021 [facility] 70 mg 04/20/2021 12:00:00 AM EDT tablet 12 TAKE 1 TABLET BY MOUTH ONCE WEEK TAKE 1 TABLET BY MOUTH ONCE WEEK SOLD: 04/22/2021 [facility] BLO[facility] SUGAR DIAGNOSTIC 03/18/2021 12:00:00 AM EDT strip 200 USE 1STRIP SUBCUTANEOUSLY BEFORE MEALS TWO TIMES A DAY USE 1STRIP SUBCUTANEOUSLY BEFORE MEALS TWO TIMES A DAY SOLD: 03/23/2021 [facility] 75 mg 03/05/2021 12:00:00 AM EDT tablet 90 TAKE ONE TABLET BY MOUTH AT BEDTIME TAKE ONE TABLET BY MOUTH AT BEDTIME SOLD: 03/07/2021 [facility] 0.77 % 02/25/2021 12:00:00 AM EDT cream 90 APPLY TO AFFECTED AREA(S) BOTH FEET TWO TIMES A DAY APPLY TO AFFECTED AREA(S) BOTH FEET TWO TIMES A DAY SO LD: 03/07/2021 [facility] Prednisone 20 MG Oral Tablet predniSONE 20 MG predniSONE 20 MG 02/11/2021 12:00:00 AM EDT 1.0 {tablet} active pr edniSONE 20 MG eCW1 ([facility]) 200 ACTUAT Albuterol 0.09 MG/ACTUAT Mete red Dose Inhaler [ProAir] ProAir HFA 108 (90 Base) MCG/ACT ProAir HFA 108 (90 Base) MCG/ACT 02/11/2021 12:00:00 AM EDT 2.0 {puffs} active ProAir HFA 1 08 (90 Base) MCG/ACT eCW1 ([facility]) Prednisone 20 MG Oral Tablet predniSONE 20 MG predniSONE 20 MG 02/11/2021 12:00:00 AM EDT 1.0 {tablet} suspended predniSONE 20 MG eCW1 ([facility]) Prednisone 20 MG Oral Tablet predniSONE 20 MG predniSONE 20 MG 02/11/2021 12:00:00 AM EDT 1.0 {tablet} active pr edniSONE 20 MG eCW1 ([facility]) Prednisone 20 MG Oral Tablet predniSONE 20 MG predniSONE 20 MG 02/11/2021 12:00:00 AM EDT 1.0 {tablet} suspended predniSONE 20 MG eCW1 ([facility]) 200 ACTUAT Albuterol 0.09 MG/ACTUAT Mete red Dose Inhaler [ProAir] ProAir HFA 108 (90 Base) MCG/ACT ProAir HFA 108 (90 Base) MCG/ACT 02/11/2021 12:00:00 AM EDT 2.0 {puffs} active ProAir HFA 1 08 (90 Base) MCG/ACT eCW1 ([facility]) 20 mg 02/11/2021 12:00:00 AM EDT tablet 5 TAKE ONE TABLET BY MOUTH EVERY DAY FOR 5 DAYS TAKE ONE TABLET BY MOUTH EVERY DAY FOR 5 DAYS SOLD: 02/12/2021 [facility] Prednisone 20 MG Oral Tablet predniSONE 20 MG predniSONE 20 MG 02/11/2021 12:00:00 AM EDT 1.0 {tablet} suspended predniSONE 20 MG eCW1 ([facility]) Augmentin 875-125 MG UNK 02/11/2021 12:00:00 AM EDT 1.0 {tab let} suspended Augmentin 875-125 MG eCW1 ([facility]) Augmentin 875-125 MG UNK 02/11/2021 12:00:00 AM EDT 1.0 {tab let} suspended Augmentin 875-125 MG eCW1 ([facility]) Prednisone 20 MG Oral Tablet predniSONE 20 MG predniSONE 20 MG 02/11/2021 12:00:00 AM EDT 1.0 {tablet} suspended predniSONE 20 MG eCW1 ([facility]) 200 ACTUAT Albuterol 0.09 MG/ACTUAT Mete red Dose Inhaler [ProAir] ProAir HFA 108 (90 Base) MCG/ACT ProAir HFA 108 (90 Base) MCG/ACT 02/11/2021 12:00:00 AM EDT 2.0 {puffs} active ProAir HFA 1 08 (90 Base) MCG/ACT eCW1 ([facility]) 200 ACTUAT Albuterol 0.09 MG/ACTUAT Mete red Dose Inhaler [ProAir] ProAir HFA 108 (90 Base) MCG/ACT ProAir HFA 108 (90 Base) MCG/ACT 02/11/2021 12:00:00 AM EDT 2.0 {puffs} active ProAir HFA 1 08 (90 Base) MCG/ACT eCW1 ([facility]) Augmentin 875-125 MG UNK 02/11/2021 12:00:00 AM EDT 1.0 {tablet } active Augmentin 875-125 MG eCW1 ([facility]) 200 ACTUAT Albuterol 0.09 MG/ACTUAT Mete red Dose Inhaler [ProAir] ProAir HFA 108 (90 Base) MCG/ACT ProAir HFA 108 (90 Base) MCG/ACT 02/11/2021 12:00:00 AM EDT 2.0 {puffs} active ProAir HFA 1 08 (90 Base) MCG/ACT eCW1 ([facility]) Augmentin 875-125 MG UNK 02/11/2021 12:00:00 AM EDT 1.0 {tablet } active Augmentin 875-125 MG eCW1 ([facility]) Augmentin 875-125 MG UNK 02/11/2021 12:00:00 AM EDT 1.0 {tablet } active Augmentin 875-125 MG eCW1 ([facility]) Prednisone 20 MG Oral Tablet predniSONE 20 MG predniSONE 20 MG 02/11/2021 12:00:00 AM EDT 1.0 {tablet} suspended predniSONE 20 MG eCW1 ([facility]) 200 ACTUAT Albuterol 0.09 MG/ACTUAT Mete red Dose Inhaler [ProAir] ProAir HFA 108 (90 Base) MCG/ACT ProAir HFA 108 (90 Base) MCG/ACT 02/11/2021 12:00:00 AM EDT 2.0 {puffs} active ProAir HFA 1 08 (90 Base) MCG/ACT eCW1 ([facility]) 200 ACTUAT Albuterol 0.09 MG/ACTUAT Met[facility] red Dose Inhaler [ProAir] ProAir HFA 108 (90 Base) MCG/ACT ProAir HFA 108 (90 Base) MCG/ACT 02/11/2021 12:00:00 AM EDT 2.0 {puffs} active ProAir HFA 1 08 (90 Base) MCG/ACT eCW1 ([facility]) Augmentin 875-125 MG UNK 02/11/2021 12:00:00 AM EDT 1.0 {tab let} suspended Augmentin 875-125 MG eCW1 ([facility]) 1 % 02/11/2021 12:00:00 AM EDT gel 500 APPLY 4 GRAMS TO THE LEFT KNEE FOUR TIMES A DAY APPLY 4 GRAMS TO THE LEFT KNEE FOUR TIMES A DAY SOLD: 02/12/2021 [facility] Augmentin 875-125 MG UNK 02/11/2021 12:00:00 AM EDT 1.0 {tab let} suspended Augmentin 875-125 MG eCW1 ([facility]) 90 mcg/actuation 02/11/2021 12:00:00 AM EDT HFA aerosol inha ler 18 INHALE TWO PUFFS FOUR TIMES A DAY 10 DAYS INHALE TWO PUFFS FOUR TIMES A DAY 10 DAYS SOLD: 02/12/2021 [employer] 200 ACTUAT Albuterol 0.09 MG/ACTUAT Mete red Dose Inhaler [ProAir] ProAir HFA 108 (90 Base) MCG/ACT ProAir HFA 108 (90 Base) MCG/ACT 02/11/2021 12:00:00 AM EDT 2.0 {puffs} active ProAir HFA 1 08 (90 Base) MCG/ACT eCW1 ([facility]) Augmentin 875-125 MG UNK 02/11/2021 12:00:00 AM EDT 1.0 {tab let} suspended Augmentin 875-125 MG eCW1 ([facility]) 200 ACTUAT Albuterol 0.09 MG/ACTUAT Mete red Dose Inhaler [ProAir] ProAir HFA 108 (90 Base) MCG/ACT ProAir HFA 108 (90 Base) MCG/ACT 02/11/2021 12:00:00 AM EDT 2.0 {puffs} active ProAir HFA 1 08 (90 Base) MCG/ACT eCW1 ([facility]) Augmentin 875-125 MG UNK 02/11/2021 12:00:00 AM EDT 1.0 {tab let} suspended Augmentin 875-125 MG eCW1 ([facility]) Amoxicillin 875 MG / Clavulanate 125 MG Oral Tablet 87 5-125 mg AMOXICILLIN/POTASSIUM CLAV 02/11/2021 12:00:00 AM EDT tablet 14 TAKE ONE TABLET BY MOUTH TWICE A DAY FOR 7 DAYS TAKE ONE TABLET BY MOUTH TWICE A DAY FOR 7 DAYS SOLD: 02/12/2021 [facility] Prednisone 20 MG Oral Tablet predniSONE 20 MG predniSONE 20 MG 02/11/2021 12:00:00 AM EDT 1.0 {tablet} suspended predniSONE 20 MG eCW1 ([facility]) Prednisone 20 MG Oral Tablet predniSONE 20 MG predniSONE 20 MG 02/11/2021 12:00:00 AM EDT 1.0 {tablet} active pr edniSONE 20 MG eCW1 ([facility]) Escitalopram 20 MG Oral Tablet ESCITALOPRAM OXALATE 02/09/2021 1 2:00:00 AM EDT tablet 90 TAKE ONE TABLET BY MOUTH EVERY D AY TAKE ONE TABLET BY MOUTH EVERY DAY SOLD: 02/09/2021 [facility] 0.77 % 02/05/2021 12:00:00 AM EDT gel 30 APPLY TO AFFECTED AREA(S) EXTERNALLY TWO TIMES A DAY TO FEET APPLY TO AFFECTED AREA(S) EXTERNALLY TWO TIMES A DAY TO FEET SOLD: 02/09/2021 [facility] 0.5 mg 12/25/2020 12:00:00 AM EDT tablet 90 TAKE ONE TABLET BY MOUTH AT BEDTIME TAKE ONE TABLET BY MOUTH AT BEDTIME SOLD: 01/06/2021 [facility] Glucose strip (Verio IQ) UNK 12/15/2020 12:00:00 AM EDT active Glucose strip (Verio IQ) eCW1 ([facility]) Glucose strip (Verio IQ) UNK 12/15/2020 12:00:00 AM EDT active Glucose strip (Verio IQ) eCW1 ([facility]) Glucose strip (Verio IQ) UNK 12/15/2020 12:00:00 AM EDT active Glucose strip (Verio IQ) eCW1 ([facility]) Glucose strip (Verio IQ) UNK 12/15/2020 12:00:00 AM EDT active Glucose strip (Verio IQ) eCW1 ([facility]) Glucose strip (Verio IQ) UNK 12/15/2020 12:00:00 AM EDT active Glucose strip (Verio IQ) eCW1 ([facility]) Glucose strip (Verio IQ) UNK 12/15/2020 12:00:00 AM EDT active Glucose strip (Verio IQ) eCW1 ([facility]) Glucose strip (Verio IQ) UNK 12/15/2020 12:00:00 AM EDT active Glucose strip (Verio IQ) eCW1 ([facility]) Glucose strip (Verio IQ) UNK 12/15/2020 12:00:00 AM EDT active Glucose strip (Verio IQ) eCW1 ([facility]) Glucose strip (Verio IQ) UNK 12/15/2020 12:00:00 AM EDT active Glucose strip (Verio IQ) eCW1 ([facility]) Glucose strip (Verio IQ) UNK 12/15/2020 12:00:00 AM EDT active Glucose strip (Verio IQ) eCW1 ([facility]) Glucose strip (Verio IQ) UNK 12/15/2020 12:00:00 AM EDT active Glucose strip (Verio IQ) eCW1 ([facility]) Glucose strip (Verio IQ) UNK 12/15/2020 12:00:00 AM EDT active Glucose strip (Verio IQ) eCW1 ([facility]) Glucose strip (Verio IQ) UNK 12/15/2020 12:00:00 AM EDT active Glucose strip (Verio IQ) eCW1 ([facility]) 500 mg 12/07/2020 12:00:00 AM EDT tablet extended release 24 hr 180 TAKE ONE TABLET BY MOUTH TWICE A DAY TAKE ONE TABLET BY MOUTH TWICE A DAY SOLD: 03/14/2021 [facility] BLOOD SUGAR DIAGNOSTIC 12/07/2020 12:00:00 AM EDT strip 200 DIRECTED TWO TIMES A DAY DIRECTED TWO TIMES A DAY SOLD: 12/11/2020 [facility] 24 HR Metformin hydrochloride 500 MG Extended Release Oral T ablet METFORMIN HCL 12/07/2020 12:00:00 AM EDT tablet extended release 24 hr 180 TAKE ONE TABLET BY MOUTH TWICE A DAY TAKE ONE TABLET BY MOUTH TWICE A DAY SOLD: 12/11/2020 [facility] 0.77 % 11/26/2020 12:00:00 AM EDT cream 90 APPLY TO AFFECTED AREA(S) ON BOTH FEET TWO TIMES A DAY APPLY TO AFFECTED AREA(S) ON BOTH FEET TWO TIMES A DAY SOLD: 01/18/2021 [facility] 0.77 % 11/26/2020 12:00:00 AM EDT cream 60 APPLY TO AFFECTED AREA(S) ON BOTH FEET TWO TIMES A DAY APPLY TO AFFECTED AREA(S) ON BOTH FEET TWO TIMES A DAY SOLD: 12/06/2020 [facility] Famotidine 20 MG Oral Tablet FAMOTIDINE 11/14/2020 12:00:00 AM EDT tab let 90 TAKE ONE TABLET BY MOUTH AT BEDTIME TAKE ONE TABLET BY MOUTH AT BEDTIME SOLD: 02/11/2021 [facility] 70 mg 11/14/2020 12:00:00 AM EDT tablet 12 TAKE ONE TABLET BY MOUTH ONCE A WEEK TAKE ONE TABLET BY MOUTH ONCE A WEEK SOLD: 11/16/2020 [facility] 70 mg 11/14/2020 12:00:00 AM EDT tablet 12 TAKE ONE TABLET BY MOUTH ONCE A WEEK TAKE ONE TABLET BY MOUTH ONCE A WEEK SOLD: 02/09/2021 [facility] Famotidine 20 MG Oral Tablet FAMOTIDINE 11/14/2020 12:00:00 AM EDT tab let 90 TAKE ONE TABLET BY MOUTH AT BEDTIME TAKE ONE TABLET BY MOUTH AT BEDTIME SOLD: 11/16/2020 [facility] 40 mg 11/13/2020 12:00:00 AM EDT tablet 90 TAKE ONE TABLET BY MOUTH EVERY EVENING TAKE ONE TABLET BY MOUTH EVERY EVENING SOLD: 11/16/2020 [facility] 40 mg 11/13/2020 12:00:00 AM EDT tablet 90 TAKE ONE TABLET BY MOUTH EVERY EVENING TAKE ONE TABLET BY MOUTH EVERY EVENING SOLD: 02/11/2021 [facility] 100 mg 11/02/2020 12:00:00 AM EDT tablet 90 TAKE ONE TABLET BY MOUTH EVERY MORNING TAKE ONE TABLET BY MOUTH EVERY MORNING SOLD: 02/09/2021 [facility] 100 mg 11/02/2020 12:00:00 AM EDT tablet 90 TAKE ONE TABLET BY MOUTH EVERY MORNING TAKE ONE TABLET BY MOUTH EVERY MORNING SOLD: 11/09/2020 [facility] BLOOD-GLUCOSE METER 10/16/2020 12:00:00 AM EDT misc 1 USE DIRECTED DAILY USE DIRECTED DAILY SOLD: 10/26/2020 [facility] Glucometer UNK 10/15/2020 12:00:00 AM EDT active Glucometer eCW1 ([facility]) Glucometer UNK 10/15/2020 12:00:00 AM EDT active Glucometer eCW1 ([facility]) Glucometer UNK 10/15/2020 12:00:00 AM EDT active Glucometer eCW1 ([facility]) Glucometer UNK 10/15/2020 12:00:00 AM EDT active Glucometer eCW1 ([facility]) Glucometer UNK 10/15/2020 12:00:00 AM EDT active Glucometer eCW1 ([facility]) Glucometer UNK 10/15/2020 12:00:00 AM EDT active Glucometer eCW1 ([facility]) Glucometer UNK 10/15/2020 12:00:00 AM EDT active Glucometer eCW1 ([facility]) Glucometer UNK 10/15/2020 12:00:00 AM EDT active Glucometer eCW1 ([facility]) Glucometer UNK 10/15/2020 12:00:00 AM EDT active Glucometer eCW1 ([facility]) Glucometer UNK 10/15/2020 12:00:00 AM EDT active Glucometer eCW1 ([facility]) Glucometer UNK 10/15/2020 12:00:00 AM EDT active Glucometer eCW1 ([facility]) Glucometer UNK 10/15/2020 12:00:00 AM EDT active Glucometer eCW1 ([facility]) Glucometer UNK 10/15/2020 12:00:00 AM EDT active Glucometer eCW1 ([facility]) Glucometer UNK 10/15/2020 12:00:00 AM EDT active Glucometer eCW1 ([facility]) Glucometer UNK 10/15/2020 12:00:00 AM EDT active Glucometer eCW1 ([facility]) Glucometer UNK 10/15/2020 12:00:00 AM EDT active Glucometer eCW1 ([facility]) Glucometer UNK 10/15/2020 12:00:00 AM EDT active Glucometer eCW1 ([facility]) Glucometer UNK 10/15/2020 12:00:00 AM EDT active Glucometer eCW1 ([facility]) Glucometer UNK 10/15/2020 12:00:00 AM EDT active Glucometer eCW1 ([facility]) Glucometer UNK 10/15/2020 12:00:00 AM EDT active Glucometer eCW1 ([facility]) LANCETS 10/02/2020 12:00:00 AM EDT misc 200 USE A S DIRECTED TWO TIMES A DAY USE DIRECTED TWO TIMES A DAY SOLD: 10/12/2020 [facility] irbesartan 75 MG Oral Tablet Irbesartan 75 MG Irbesartan 75 MG 08/18/2020 12:00:00 AM EST 1.0 {tablet} active Ir besartan 75 MG eCW1 ([facility]) irbesartan 75 MG Oral Tablet Irbesartan 75 MG Irbesartan 75 MG 08/18/2020 12:00:00 AM EST 1.0 {tablet} active Ir besartan 75 MG eCW1 ([facility]) irbesartan 75 MG Oral Tablet Irbesartan 75 MG Irbesartan 75 MG 08/18/2020 12:00:00 AM EST 1.0 {tablet} active Ir besartan 75 MG eCW1 ([facility]) irbesartan 75 MG Oral Tablet Irbesartan 75 MG Irbesartan 75 MG 08/18/2020 12:00:00 AM EST 1.0 {tablet} active Ir besartan 75 MG eCW1 ([facility]) irbesartan 75 MG Oral Tablet Irbesartan 75 MG Irbesartan 75 MG 08/18/2020 12:00:00 AM EST 1.0 {tablet} active Ir besartan 75 MG eCW1 ([facility]) irbesartan 75 MG Oral Tablet Irbesartan 75 MG Irbesartan 75 MG 08/18/2020 12:00:00 AM EST 1.0 {tablet} active Ir besartan 75 MG eCW1 ([facility]) irbesartan 75 MG Oral Tablet Irbesartan 75 MG Irbesartan 75 MG 08/18/2020 12:00:00 AM EST 1.0 {tablet} active Ir besartan 75 MG eCW1 ([facility]) irbesartan 75 MG Oral Tablet Irbesartan 75 MG Irbesartan 75 MG 08/18/2020 12:00:00 AM EST 1.0 {tablet} active Ir besartan 75 MG eCW1 ([facility]) 75 mg 08/18/2020 12:00:00 AM EST tablet 90 TAKE ONE TABLET BY MOUTH AT BEDTIME TAKE ONE TABLET BY MOUTH AT BEDTIME SOLD: 11/22/2020 [facility] irbesartan 75 MG Oral Tablet Irbesartan 75 MG Irbesartan 75 MG 08/18/2020 12:00:00 AM EST 1.0 {tablet} active Ir besartan 75 MG eCW1 ([facility]) irbesartan 75 MG Oral Tablet Irbesartan 75 MG Irbesartan 75 MG 08/18/2020 12:00:00 AM EST 1.0 {tablet} active Ir besartan 75 MG eCW1 ([facility]) irbesartan 75 MG Oral Tablet Irbesartan 75 MG Irbesartan 75 MG 08/18/2020 12:00:00 AM EST 1.0 {tablet} active Ir besartan 75 MG eCW1 ([facility]) 75 mg 08/18/2020 12:00:00 AM EST tablet 90 TAKE ONE TABLET BY MOUTH AT BEDTIME TAKE ONE TABLET BY MOUTH AT BEDTIME SOLD: 08/18/2020 [facility] irbesartan 75 MG Oral Tablet Irbesartan 75 MG Irbesartan 75 MG 08/18/2020 12:00:00 AM EST 1.0 {tablet} active Ir besartan 75 MG eCW1 ([facility]) irbesartan 75 MG Oral Tablet Irbesartan 75 MG Irbesartan 75 MG 08/18/2020 12:00:00 AM EST 1.0 {tablet} active Ir besartan 75 MG eCW1 ([facility]) irbesartan 75 MG Oral Tablet Irbesartan 75 MG Irbesartan 75 MG 08/18/2020 12:00:00 AM EST 1.0 {tablet} active Ir besartan 75 MG eCW1 ([facility]) irbesartan 75 MG Oral Tablet Irbesartan 75 MG Irbesartan 75 MG 08/18/2020 12:00:00 AM EST 1.0 {tablet} active Ir besartan 75 MG eCW1 ([facility]) irbesartan 75 MG Oral Tablet Irbesartan 75 MG Irbesartan 75 MG 08/18/2020 12:00:00 AM EST 1.0 {tablet} active Ir besartan 75 MG eCW1 ([facility]) irbesartan 75 MG Oral Tablet Irbesartan 75 MG Irbesartan 75 MG 08/18/2020 12:00:00 AM EST 1.0 {tablet} active Ir besartan 75 MG eCW1 ([facility]) irbesartan 75 MG Oral Tablet Irbesartan 75 MG Irbesartan 75 MG 08/18/2020 12:00:00 AM EST 1.0 {tablet} active Ir besartan 75 MG eCW1 ([facility]) irbesartan 75 MG Oral Tablet Irbesartan 75 MG Irbesartan 75 MG 08/18/2020 12:00:00 AM EST 1.0 {tablet} active Ir besartan 75 MG eCW1 ([facility]) irbesartan 75 MG Oral Tablet Irbesartan 75 MG Irbesartan 75 MG 08/18/2020 12:00:00 AM EST 1.0 {tablet} active Ir besartan 75 MG eCW1 ([facility]) irbesartan 75 MG Oral Tablet Irbesartan 75 MG Irbesartan 75 MG 08/18/2020 12:00:00 AM EST 1.0 {tablet} active Ir besartan 75 MG eCW1 ([facility]) irbesartan 75 MG Oral Tablet Irbesartan 75 MG Irbesartan 75 MG 08/18/2020 12:00:00 AM EST 1.0 {tablet} active Ir besartan 75 MG eCW1 ([facility]) irbesartan 75 MG Oral Tablet Irbesartan 75 MG Irbesartan 75 MG 08/18/2020 12:00:00 AM EST 1.0 {tablet} active Ir besartan 75 MG eCW1 ([facility]) Escitalopram 20 MG Oral Tablet ESCITALOPRAM OXALATE 08/15/2020 1 2:00:00 AM EST tablet 90 TAKE ONE TABLET BY MOUTH EVERY D AY TAKE ONE TABLET BY MOUTH EVERY DAY SOLD: 11/16/2020 [facility] Escitalopram 20 MG Oral Tablet ESCITALOPRAM OXALATE 08/15/2020 1 2:00:00 AM EST tablet 90 TAKE ONE TABLET BY MOUTH EVERY D AY TAKE ONE TABLET BY MOUTH EVERY DAY SOLD: 08/18/2020 [facility] 70 mg 07/22/2020 12:00:00 AM EST tablet 12 TAKE 1 TABLET BY MOUTH ONCE A WEEEK TAKE 1 TABLET BY MOUTH ONCE A WEEEK SOLD: 07/27/2020 [facility] 0.77 % 07/02/2020 12:00:00 AM EST cream 90 APPLY TO BOTH FEET TWO TIMES A DAY APPLY TO BOTH FEET TWO TIMES A DAY SOLD: 07/07/2020 [facility] 0.5 mg 06/09/2020 12:00:00 AM EST tablet 90 TAKE ONE TABLET BY MOUTH AT BEDTIME TAKE ONE TABLET BY MOUTH AT BEDTIME SOLD: 09/30/2020 [facility] 50 mg 06/09/2020 12:00:00 AM EST tablet 90 TAKE ONE-HALF TABLET BY MOUTH TWICE A DAY WITH FOOD TAKE ONE-HALF TABLET BY MOUTH TWICE A DAY WITH FOOD SO LD: 11/22/2020 [facility] glimepiride 1 MG Oral Tablet GLIMEPIRIDE 06/09/2020 12:00:00 AM EST t ablet 180 TAKE ONE TABLET BY MOUTH TWICE A DAY TAKE ONE TABLET BY MOUT H TWICE A DAY SOLD: 06/10/2020 [facility] 0.5 mg 06/09/2020 12:00:00 AM EST tablet 90 TAKE ONE TABLET BY MOUTH AT BEDTIME TAKE ONE TABLET BY MOUTH AT BEDTIME SOLD: 06/10/2020 [facility] 500 mg 06/09/2020 12:00:00 AM EST tablet extended release 24 hr 180 TAKE ONE TABLET BY MOUTH TWICE A DAY TAKE ONE TABLET BY MOUTH TWICE A DAY SOLD: 08/18/2020 [facility] 50 mg 06/09/2020 12:00:00 AM EST tablet 90 TAKE ONE-HALF TABLET BY MOUTH TWICE A DAY WITH FOOD TAKE ONE-HALF TABLET BY MOUTH TWICE A DAY WITH FOOD SO LD: 06/10/2020 [facility] BLOOD SUGAR DIAGNOSTIC 06/09/2020 12:00:00 AM EST strip 200 DIRECTED TWO TIMES A DAY BEFORE MEALS DIRECTED TWO TIMES A DAY BEFORE MEALS SOLD: 06/10/2020 [facility] 500 mg 06/09/2020 12:00:00 AM EST tablet extended release 24 hr 180 TAKE ONE TABLET BY MOUTH TWICE A DAY TAKE ONE TABLET BY MOUTH TWICE A DAY SOLD: 06/10/2020 [facility] BLOOD SUGAR DIAGNOSTIC 06/09/2020 12:00:00 AM EST strip 200 DIRECTED TWO TIMES A DAY BEFORE MEALS DIRECTED TWO TIMES A DAY BEFORE MEALS SOLD: 09/07/2020 [facility] Escitalopram 20 MG Oral Tablet Escitalopram Oxalate 20 MG Escitalopram Oxalate 20 MG 06/08/2020 12:00:00 AM EST 1.0 {tablet} activ e Escitalopram Oxalate 20 MG eCW1 ([facility]) Escitalopram 20 MG Oral Tablet Escitalopram Oxalate 20 MG Escitalopram Oxalate 20 MG 06/08/2020 12:00:00 AM EST 1.0 {tablet} activ e Escitalopram Oxalate 20 MG eCW1 ([facility]) BD Lancet Ultrafine 33G - BD Lancet Ultrafine 33G - 06/08/2020 1 2:00:00 AM EST active BD Lancet Ultraf ine 33G - eCW1 ([facility]) BD Lancet Ultrafine 33G - BD Lancet Ultrafine 33G - 06/08/2020 1 2:00:00 AM EST active BD Lancet Ultraf ine 33G - eCW1 ([facility]) Pramipexole dihydrochloride 0.5 MG Oral Tablet Pramipexole Dihydrochloride 0.5 MG Pramipexole Dihydrochloride 0.5 MG 06/08/2020 12:00:00 AM EST 1.0 {tablet} active Pramipexole Dihydroc hloride 0.5 MG eCW1 ([facility]) Pramipexole dihydrochloride 0.5 MG Oral Tablet Pramipexole Dihydrochloride 0.5 MG Pramipexole Dihydrochloride 0.5 MG 06/08/2020 12:00:00 AM EST 1.0 {tablet} active Pramipexole Dihydroc hloride 0.5 MG eCW1 ([facility]) 20 mg 05/19/2020 12:00:00 AM EST tablet 90 TAKE ONE TABLET BY MOUTH EVERY DAY TAKE ONE TABLET BY MOUTH EVERY DAY SOLD: 05/22/2020 [facility] 40 mg 05/19/2020 12:00:00 AM EST tablet 90 TAKE ONE TABLET BY MOUTH EVERY EVENING TAKE ONE TABLET BY MOUTH EVERY EVENING SOLD: 08/18/2020 [facility] Famotidine 20 MG Oral Tablet FAMOTIDINE 05/19/2020 12:00:00 AM EST tab let 90 TAKE ONE TABLET BY MOUTH EVERY DAY TAKE ONE TABLET BY MOUTH EVERY DAY SOLD: 08/18/2020 [facility] 40 mg 05/19/2020 12:00:00 AM EST tablet 90 TAKE ONE TABLET BY MOUTH EVERY EVENING TAKE ONE TABLET BY MOUTH EVERY EVENING SOLD: 05/22/2020 [facility] 100 mg 04/18/2020 12:00:00 AM EDT tablet 90 TAKE ONE TABLET BY MOUTH EVERY MORNING TAKE ONE TABLET BY MOUTH EVERY MORNING SOLD: 07/27/2020 [facility] 100 mg 04/18/2020 12:00:00 AM EDT tablet 90 TAKE ONE TABLET BY MOUTH EVERY MORNING TAKE ONE TABLET BY MOUTH EVERY MORNING SOLD: 04/20/2020 [facility] LANCETS 03/28/2020 12:00:00 AM EDT misc 200 DIRECTED TWO TIMES A DAY BEFORE MEALS DIRECTED TWO TIMES A DAY BEFORE MEALS SOLD: 03/30/2020 [facility] 2 % 03/24/2020 12:00:00 AM EDT cream 90 APPLY TO AFFECTED AREA(S) ON FACE TWO TIMES A DAY FOR 14 DAYS NEEDED FOR RASH APPLY TO AFFECTED AREA(S) ON FACE TWO TIMES A DAY FOR 14 DAYS NEEDED FOR RASH SOLD: 03/25/2020 [facility] 0.77 % 03/17/2020 12:00:00 AM EDT cream 90 APPLY TO BOTH FEET TWO TIMES A DAY APPLY TO BOTH FEET TWO TIMES A DAY SOLD: 03/19/2020 [facility] glimepiride 1 MG Oral Tablet GLIMEPIRIDE 02/25/2020 12:00:00 AM EDT ta blet 60 TAKE ONE TABLET BY MOUTH TWICE A DAY BEFORE A MEAL TAKE ONE TABLET BY MOUTH TWICE A DAY BEFORE A MEAL SOLD: 04/20/2020 [facility] glimepiride 1 MG Oral Tablet GLIMEPIRIDE 02/25/2020 12:00:00 AM EDT ta blet 60 TAKE ONE TABLET BY MOUTH TWICE A DAY BEFORE A MEAL TAKE ONE TABLET BY MOUTH TWICE A DAY BEFORE A MEAL SOLD: 02/25/2020 [facility] 500 mg 02/25/2020 12:00:00 AM EDT tablet 14 TAKE ONE TABLET BY MOUTH TWICE A DAY FOR 7 DAYS TAKE ONE TABLET BY MOUTH TWICE A DAY FOR 7 DAYS SOLD: 02/25/2020 [facility] glimepiride 1 MG Oral Tablet GLIMEPIRIDE 02/25/2020 12:00:00 AM EDT ta blet 60 TAKE ONE TABLET BY MOUTH TWICE A DAY BEFORE A MEAL TAKE ONE TABLET BY MOUTH TWICE A DAY BEFORE A MEAL SOLD: 03/25/2020 [facility] 0.25 mg 02/07/2020 12:00:00 AM EDT tablet 30 TAKE 1 TABLET BY MOUTH ONCE DAILY AT BEDTIME TAKE 1 TABLET BY MOUTH ONCE DAILY AT BEDTIME SOLD: 0 [facility] 0.25 mg 02/07/2020 12:00:00 AM EDT tablet 30 TAKE 1 TABLET BY MOUTH ONCE DAILY AT BEDTIME TAKE 1 TABLET BY MOUTH ONCE DAILY AT BEDTIME SOLD: 0 [facility] 40 mg 02/07/2020 12:00:00 AM EDT tablet 30 TAKE 1 TABLET BY MOUTH ONCE DAILY AT BEDTIME TAKE 1 TABLET BY MOUTH ONCE DAILY AT BEDTIME SOLD: 04/15/2020 [facility] 0.25 mg 02/07/2020 12:00:00 AM EDT tablet 30 TAKE 1 TABLET BY MOUTH ONCE DAILY AT BEDTIME TAKE 1 TABLET BY MOUTH ONCE DAILY AT BEDTIME SOLD: 0 [facility] 40 mg 02/07/2020 12:00:00 AM EDT tablet 30 TAKE 1 TABLET BY MOUTH ONCE DAILY AT BEDTIME TAKE 1 TABLET BY MOUTH ONCE DAILY AT BEDTIME SOLD: 03/16/2020 [facility] 70 mg 01/08/2020 12:00:00 AM EDT tablet 12 TAKE ONE TABLET BY MOUTH ONCE A WEEK TAKE ONE TABLET BY MOUTH ONCE A WEEK SOLD: 04/20/2020 [facility] 50 mg 12/17/2019 12:00:00 AM EDT tablet 90 TAKE 1/2 TABLET BY MOUTH TWO TIMES A DAY WITH FOOD TAKE 1/2 TABLET BY MOUTH TWO TIMES A DAY WITH FOOD [facility] Insurance Providers Payer name Policy type / Coverage type Policy ID Covered alliance party ID Covered alliance party's relationship to [place] Policy [place] Plan Information MEDICARE A [id number] Self [id number] A MEDICARE [id number] SP [id number] A MEDICARE [id number] SP [id number] A MEDICAID [id number] Self [id number] MEDICAID [id number] SP [id number] MEDICAID [id number] SP [id number] ANS-Medicaid [id number] ANSI-Commercial [id number] ANSI-Medicare Part B [id number] ANSI-Commercial [id number] ANSI-Medicare Part B [id number] ANSI-Medicaid [id number] ANSI-Commercial [id number] ANSI-Medicaid [id number] ANSI-Medicare Part B [id number] ANSI-Medicaid [id number] ANSI-Commercial [id number] ANSI-Medicare Part B [id number] ANSI-Commercial [id number] ANSI-Medicare Part B [id number] ANSI-Medicaid [id number] ANSI-Commercial [id number] ANSI-Medicare Part B [id number] ANSI-Medicaid [id number] ANSI-Commercial [id number] ANSI-Medicaid [id number] ANSI-Medicare Part B [id number] MEDICARE [id number] ANSI-Medicaid [id number] ANSI-Medicare Part B [id number] ANSI-Commercial [id number] ANSI-Commercial [id number] ANSI-Medicare Part B [id number] ANSI-Medicaid [id number] ANSI-Medicaid [id number] ANSI-Medicare Part B [id number] ANSI-Commercial [id number] ANSI-Medicare Part B [id number] ANSI-Commercial [id number] ANSI-Medicaid [id number] ANSI-Commercial [id number] ANSI-Medicaid [id number] ANSI-Medicare Part B [id number] MEDICARE C [id number] S [id number] A MEDICAID [id number] SP [id number] MEDICARE IRF PPS M [id number] S [id number] MEDICARE INPATIENT M [id number] S [id number] MEDICAID W [id number] S [id number] [place] [id number] SP [id number] MEDICARE OUTPATIENT M [id number] S [id number] MEDICARE [id number] SP [id number] [place] [id number] SP [id number] MEDICARE C [id number] S [id number] MEDICAID M [id number] S [id number] MEDICAID [id number] SP [id number] Problems, Conditions, and Diagnoses Code Display Name Description Problem Type Effective Dates Data Source(s) E87.1 [id number] Hyponatremia Problem 08/18/2020 12:00:00 AM EST eCW1 ([facility]) Surgeries/Procedures Procedure Description Date Indications Data Source(s) Immunization: Flublok Quadrivalent (18 years & older) 0.5mL IM (Influenza) 06/08/2020 12:00:00 AM EST eCW1 ([facility]) Results ID Date Data Source [id number] 03/30/2021 09:56:00 AM EDT [facility] Name Value Range Interpretation Code Description Data Brittany rce(s) Supporting Document(s) SARS COVID ANTIGEN NEGATIVE [facility] This lab was ordered by [facility] a nd reported by [facility]. ID Date Data Source KARMA COVID AG (Point of Care) 03/30/2021 12:00:00 AM EDT [facility]C [facility] [facility]) Name Value Range Interpretation Code Description Data Brittany rce(s) Supporting Document(s) NEGATIVE NEGATIVE KARMA COVID ANTIGEN eCW1 ([facility]) ID Date Data Source [id number] 02/11/2021 10:03:00 AM EDT [facility] Name Value Range Interpretation Code Description Data Brittany rce(s) Supporting Document(s) SARS COVID ANTIGEN NEGATIVE [facility] This lab was ordered by [facility] a nd reported by [facility]. ID Date Data Source Coronavirus 2019 Nasopharygeal (Send Out) COVID 02/11/2021 1 2:00:00 AM EDT eCW1 ([facility]) Name Value Range Interpretation Code Description Data Brittany rce(s) Supporting Document(s) Coronavirus 2019 Nasophar ygeal (Send Out) COVID eCW1 ([facility]) ID Date Data Source URINE CULTURE 02/11/2021 12:00:00 AM EDT eCW1 ([facility]) Name Value Range Interpretation Code Description Data Brittany rce(s) Supporting Document(s) Laboratory studies (set) URINE CULTU RE eCW1 ([facility]) ID Date Data Source VITAMIN D 25-[id number] 11/02/2020 12:00:00 AM EDT eCW1 ([facility]) Name Value Range Interpretation Code Description Data Brittany rce(s) Supporting Document(s) 22.9 30.0-100.0 TOTAL 25(OH) VITAMIN D eC W1 ([facility]) ID Date Data Source [id number] 11/02/2020 12:00:00 AM EDT eCW1 ([facility]) Name Value Range Interpretation Code Description Data Brittany rce(s) Supporting Document(s) Hemoglobin A1c/Hemoglobin.total in Blood 8.0 HEMOGLOBIN A1c eCW1 ([facility]) ID Date Data Source Comprehensive Metabolic Profile (CMP) 11/02/2020 12:00:00 AM EDT eCW1 ([facility]) Name Value Range Interpretation Code Description Data Brittany rce(s) Supporting Document(s) 281 70-100 GLUCOSE, FASTING eCW1 ([facility]) 23 7-18 BLOOD UREA NITROGEN eCW1 ([facility]) 1.13 0.55-1.30 CREATININE FOR GFR eCW1 ([facility]) 49.2 >32 GLOMERULAR FILTRATION RATE eCW 1 ([facility]) 5.1 3.5-5.1 POTASSIUM SERUM eCW1 ([facility]) 129 136-145 SODIUM LEVEL eCW1 ([facility]) 94 98-107 CHLORIDE LEVEL eCW1 ([facility]) 29 21-32 CARBON DIOXIDE LEVEL eCW1 ([facility]) 10.1 8.8-10.2 CALCIUM LEVEL eCW1 ([facility]) 22 12-78 ALT/SGPT eCW1 ([facility]) 90 45-117 ALKALINE PHOSPHATASE eCW1 ([facility] access hospital) 12 7-37 AST/SGOT eCW1 ([facility]) 0.3 0.2-1.0 BILIRUBIN,TOTAL eCW1 ([facility]) 7.3 6.4-8.2 TOTAL PROTEIN eCW1 ([facility]) 4.1 3.2-5.2 ALBUMIN eCW1 ([facility]) 1.3 1.2-2.2 ALBUMIN/GLOBULIN RATIO eCW1 ([facility]) ID Date Data Source PTH INTACT 11/02/2020 12:00:00 AM EDT eCW1 ([facility]) Name Value Range Interpretation Code Description Data Brittany rce(s) Supporting Document(s) 37.0 18.5-88.0 PTH INTACT eCW1 ([facility]) ID Date Data Source CBC with Differential 11/02/2020 12:00:00 AM EDT eCW1 ([facility]) Name Value Range Interpretation Code Description Data Brittany rce(s) Supporting Document(s) 8.5 4.0-10.0 WHITE BLOOD COUNT eCW1 ([facility]) 37.4 36.0-47.0 HEMATOCRIT eCW1 ([facility]) 12.1 12.0-15.5 HEMOGLOBIN eCW1 ([facility]) 4.20 4.00-5.40 RED BLOOD COUNT eCW1 ([facility]) 32.4 32.0-36.5 MEAN CORPUSCULAR HGB CONC eCW1 ([facility]) 89.0 80.0-96.0 MEAN CORPUSCULAR VOLUME e CW1 ([facility]) 28.8 27.0-33.0 MEAN CORPUSCULAR HEMOGLOB IN eCW1 ([facility]) 13.6 11.5-14.5 RED CELL DISTRIBUTION WID TH eCW1 ([facility]) 250 150-450 PLATELET COUNT, AUTOMATED eCW1 ([facility]) 7.8 2.0-8.0 MONO % eCW1 ([facility]) 32.3 24.0-44.0 LYMPH % eCW1 ([facility]) 56.0 36.0-66.0 NEUTROPHILS % eCW1 ([facility]) 0.7 0.0-1.0 BASO % eCW1 ([facility]) 2.7 0.0-3.0 EOS % eCW1 ([facility]) 4.7 1.5-8.5 NEUTROPHILS # eCW1 ([facility]) 0.7 0.0-0.8 MONO # eCW1 ([facility]) 2.7 1.5-5.0 LYMPH # eCW1 ([facility]) 0.1 0.0-0.2 BASO # eCW1 ([facility]) 0.2 0.0-0.5 EOS # eCW1 ([facility]) ID Date Data Source NT-PRO BNP 11/02/2020 12:00:00 AM EDT eCW1 ([facility]) Name Value Range Interpretation Code Description Data Brittany rce(s) Supporting Document(s) 383 <450 NT-PRO BNP W1 ([facility]) ID Date Data Source OSMOLALITY URINE 08/18/2020 12:00:00 AM EST eCW1 ([facility]) Name Value Range Interpretation Code Description Data Brittany rce(s) Supporting Document(s) 571 500-800 [facility] ([facility]) ID Date Data Source SODIUM,RANDOM URINE 08/18/2020 12:00:00 AM EST eCW1 ([facility]) Name Value Range Interpretation Code Description Data Brittany rce(s) Supporting Document(s) 113 eCW1 ([facility]) ID Date Data Source RENAL PROFILE 08/18/2020 12:00:00 AM EST eCW1 ([facility]) Name Value Range Interpretation Code Description Data Brittany rce(s) Supporting Document(s) 119 70-100 eCW1 ([facility]) 4.5 3.5-5.1 eCW1 ([facility]) 32 7-18 eCW1 ([facility]) 137 136-145 eCW1 ([facility]) 49.2 >32 eCW1 ([facility]) 1.13 0.55-1.30 eCW1 ([facility]) 9.4 8.8-10.2 eCW1 ([facility]) 24 21-32 eCW1 ([facility]) 4.8 2.5-4.9 eCW1 ([facility]) 101 98-107 eCW1 ([facility]) 4.1 3.2-5.2 eCW1 ([facility]) ID Date Data Source OSMOLALITY SERUM 08/18/2020 12:00:00 AM EST eCW1 ([facility]) Name Value Range Interpretation Code Description Data Brittany rce(s) Supporting Document(s) 287 280-301 eCW1 ([facility]) ID Date Data Source FREE T4 & TSH PANEL 08/18/2020 12:00:00 AM EST eCW1 ([facility]) Name Value Range Interpretation Code Description Data Brittany rce(s) Supporting Document(s) 1.13 0.76-1.46 eCW1 ([facility]) 0.715 0.358-3.740 eCW1 ([facility]) ID Date Data Source CBC with Auto Differential 08/18/2020 12:00:00 AM EST eCW1 ( [facility]) Name Value Range Interpretation Code Description Data Brittany rce(s) Supporting Document(s) 9.6 4.0-10.0 eCW1 ([facility]) 4.43 4.00-5.40 eCW1 ([facility]) 39.7 36.0-47.0 eCW1 ([facility]) 12.2 12.0-15.5 eCW1 ([facility]) 89.6 80.0-96.0 eCW1 ([facility]) 13.5 11.5-14.5 eCW1 ([facility]) 270 150-450 eCW1 ([facility]) 30.7 32.0-36.5 eCW1 ([facility]) 27.5 27.0-33.0 eCW1 ([facility]) 59.8 36.0-66.0 eCW1 ([facility]) 8.1 2.0-8.0 eCW1 ([facility]) 0.5 0.0-1.0 eCW1 ([facility]) 3.9 0.0-3.0 eCW1 ([facility]) 27.3 24.0-44.0 eCW1 ([facility]) 2.6 1.5-5.0 eCW1 ([facility]) 5.8 1.5-8.5 eCW1 ([facility]) 0.4 0-3.0 eCW1 ([facility]) 0.0 0-0 eCW1 ([facility]) 0.1 0.0-0.2 eCW1 ([facility]) 0.4 0.0-0.5 eCW1 ([facility]) 0.8 0.0-0.8 eCW1 ([facility]) ID Date Data Source [id number] 07/25/2020 08:46:00 PM [facility] Name Value Range Interpretation Code Description Data Brittany rce(s) Supporting Document(s) SARS coronavirus [address] [facility] [place] This lab was ordered by [facility] and reported by [facility]. Procedure Social History Code Duration Value Status Description Data Source(s ) Smoking 04/16/2021 12:00:00 AM EDT Former Smoker completed Former Smoker eCW1 ([facility]) Smoking 03/30/2021 12:00:00 AM EDT Former Smoker completed Former Smoker eCW1 ([facility]) Smoking 03/04/2021 12:00:00 AM EDT Former Smoker completed Former Smoker eCW1 ([facility]) Smoking 03/04/2021 12:00:00 AM EDT Former Smoker completed Former Smoker eCW1 ([facility]) Smoking 03/04/2021 12:00:00 AM EDT Former Smoker completed Former Smoker eCW1 ([facility]) Smoking 03/04/2021 12:00:00 AM EDT Former Smoker completed Former Smoker eCW1 ([facility]) Smoking 02/11/2021 12:00:00 AM EDT Former Smoker completed Former Smoker eCW1 ([facility]) Smoking 02/11/2021 12:00:00 AM EDT Former Smoker completed Former Smoker eCW1 ([facility]) Smoking 02/11/2021 12:00:00 AM EDT Former Smoker completed Former Smoker eCW1 ([facility]) Smoking 11/02/2020 12:00:00 AM EDT Former Smoker completed Former Smoker eCW1 ([facility]) Smoking 11/02/2020 12:00:00 AM EDT Former Smoker completed Former Smoker eCW1 ([facility]) Smoking 11/02/2020 12:00:00 AM EDT Former Smoker completed Former Smoker eCW1 ([facility]) Smoking 11/02/2020 12:00:00 AM EDT Former Smoker completed Former Smoker eCW1 ([facility]) Smoking 11/02/2020 12:00:00 AM EDT Former Smoker completed Former Smoker eCW1 ([facility]) Smoking 11/02/2020 12:00:00 AM EDT Former Smoker completed Former Smoker eCW1 ([facility]) Smoking 11/02/2020 12:00:00 AM EDT Former Smoker completed Former Smoker eCW1 ([facility]) Smoking 11/02/2020 12:00:00 AM EDT Former Smoker completed Former Smoker eCW1 ([facility]) Smoking 11/02/2020 12:00:00 AM EDT Former Smoker completed Former Smoker eCW1 ([facility]) Smoking 08/18/2020 12:00:00 AM EST Former Smoker completed Former Smoker eCW1 ([facility]) Smoking 08/18/2020 12:00:00 AM EST Former Smoker completed Former Smoker eCW1 ([facility]) Smoking 08/18/2020 12:00:00 AM EST Former Smoker completed Former Smoker eCW1 ([facility]) Smoking 08/18/2020 12:00:00 AM EST Former Smoker completed Former Smoker eCW1 ([facility]) Smoking 08/18/2020 12:00:00 AM EST Former Smoker completed Former Smoker eCW1 ([facility]) Smoking 06/08/2020 12:00:00 AM EST Former Smoker completed Former Smoker eCW1 ([facility]) Smoking 06/08/2020 12:00:00 AM EST Former Smoker completed Former Smoker eCW1 ([facility]) Vital Signs ID Date Data Source UNK Name Value Range Interpretation Code Description Data Source(s) Body mass index (BMI) [Ratio] 31.01 kg/m2 31.01 kg/m2 eCW1 ([facility]) Body weight 148.4 [lb_av] 148.4 [lb_av] eCW1 ([facility]) Body weight 67.31 kg 67.31 kg eCW1 ([facility]) Body height 58 [in_i] 58 [in_i] eCW1 ([facility]) Heart rate 88 /min 88 /min eCW1 ([facility]) Respiratory rate 18 /min 18 /min eCW1 ([facility]) Body temperature 97.3 [degF] 97.3 [degF] eCW1 ( [facility]) Systolic blood pressure 122 mm[Hg] 122 mm[Hg] e CW1 ([facility]) Diastolic blood pressure 82 mm[Hg] 82 mm[Hg] eCW1 ([facility]) Body weight 149.0 [lb_av] 149.0 [lb_av] eCW1 ([facility]) Diastolic blood pressure 80 mm[Hg] 80 mm[Hg] eCW1 ([facility]) Body height 58 [in_i] 58 [in_i] eCW1 ([facility]) Body mass index (BMI) [Ratio] 31.14 kg/m2 31.14 kg/m2 eCW1 ([facility]) Heart rate 87 /min 87 /min eCW1 ([facility]) Respiratory rate 20 /min 20 /min eCW1 ([facility]) Body temperature 97.4 [degF] 97.4 [degF] eCW1 ( [facility]) Systolic blood pressure 126 mm[Hg] 126 mm[Hg] e CW1 ([facility]) Body height 58 [in_i] 58 [in_i] eCW1 ([facility]) Body mass index (BMI) [Ratio] 30.72 kg/m2 30.72 kg/m2 eCW1 ([facility]) Body weight 147 [lb_av] 147 [lb_av] eCW1 ([facility]) Body temperature 96.6 [degF] 96.6 [degF] eCW1 ( [facility]) Body weight 66.68 kg 66.68 kg eCW1 ([facility]) Systolic blood pressure 128 mm[Hg] 128 mm[Hg] e CW1 ([facility]) Heart rate 65 /min 65 /min eCW1 ([facility]) Diastolic blood pressure 82 mm[Hg] 82 mm[Hg] eCW1 ([facility]) Respiratory rate 20 /min 20 /min eCW1 ([facility]) Body weight 146.2 [lb_av] 146.2 [lb_av] eCW1 ([facility]) Body height 58 [in_i] 58 [in_i] eCW1 ([facility]) Body mass index (BMI) [Ratio] 30.55 kg/m2 30.55 kg/m2 eCW1 ([facility]) Heart rate 79 /min 79 /min eCW1 ([facility]) Respiratory rate 20 /min 20 /min eCW1 ([facility]) Body temperature 96.2 [degF] 96.2 [degF] eCW1 ( [facility]) Systolic blood pressure 130 mm[Hg] 130 mm[Hg] e CW1 ([facility]) Diastolic blood pressure 80 mm[Hg] 80 mm[Hg] eCW1 ([facility]) Body weight 134 [lb_av] 134 [lb_av] eCW1 ([facility]) Body height 58 [in_i] 58 [in_i] eCW1 ([facility]) Body mass index (BMI) [Ratio] 28.00 kg/m2 28.00 kg/m2 eCW1 ([facility]) Heart rate 80 /min 80 /min eCW1 ([facility]) Respiratory rate 20 /min 20 /min eCW1 ([facility]) Body temperature 96.6 [degF] 96.6 [degF] eCW1 ( [facility]) Systolic blood pressure 162 mm[Hg] 162 mm[Hg] e CW1 ([facility]) Diastolic blood pressure 82 mm[Hg] 82 mm[Hg] eCW1 ([facility]) Body weight 139.8 [lb_av] 139.8 [lb_av] eCW1 ([facility]) Systolic blood pressure 130 mm[Hg] 130 mm[Hg] e CW1 ([facility]) Body mass index (BMI) [Ratio] 29.22 kg/m2 29.22 kg/m2 eCW1 ([facility]) Body height 58 [in_i] 58 [in_i] eCW1 ([facility]) Heart rate 81 /min 81 /min eCW1 ([facility]) Diastolic blood pressure 82 mm[Hg] 82 mm[Hg] eCW1 ([facility]) Respiratory rate 18 /min 18 /min eCW1 ([facility]) Body temperature 97.0 [degF] 97.0 [degF] eCW1 ( [facility]) Patient Treatment Plan of Care Planned Activity Planned Date Details Description Data Source (s) 200 ACTUAT Albuterol 0.09 MG/ACTUAT Metered Dose Inhal er [ProAir] 02/11/2021 12:00:00 AM EDT eCW1 ([facility]) Prednisone 20 MG Oral Tablet 02/11/2021 12:00:00 AM EDT eCW1 ([facility]) Augmentin 875-125 MG 02/11/2021 12:00:00 AM EDT eCW1 ([facility]) 200 ACTUAT Albuterol 0.09 MG/ACTUAT Metered Dose Inhal er [ProAir] 02/11/2021 12:00:00 AM EDT eCW1 ([facility]) Prednisone 20 MG Oral Tablet 02/11/2021 12:00:00 AM EDT eCW1 ([facility]) Augmentin 875-125 MG 02/11/2021 12:00:00 AM EDT eCW1 ([facility]) 200 ACTUAT Albuterol 0.09 MG/ACTUAT Metered Dose Inhal er [ProAir] 02/11/2021 12:00:00 AM EDT eCW1 ([facility]) Prednisone 20 MG Oral Tablet 02/11/2021 12:00:00 AM EDT eCW1 ([facility]) Augmentin 875-125 MG 02/11/2021 12:00:00 AM EDT eCW1 ([facility]) Glucose strip (Verio IQ) 12/15/2020 12:00:00 AM EDT eCW1 ([facility]) Glucose strip (Verio IQ) 12/15/2020 12:00:00 AM EDT eCW1 ([facility]) Glucose strip (Verio IQ) 12/15/2020 12:00:00 AM EDT eCW1 ([facility]) Glucose strip (Verio IQ) 12/15/2020 12:00:00 AM EDT eCW1 ([facility]) Glucometer 10/15/2020 12:00:00 AM EDT e CW1 ([facility]) Glucometer 10/15/2020 12:00:00 AM EDT e CW1 ([facility]) Glucometer 10/15/2020 12:00:00 AM EDT e CW1 ([facility]) Glucometer 10/15/2020 12:00:00 AM EDT e CW1 ([facility]) irbesartan 75 MG Oral Tablet 08/18/2020 12:00:00 AM EST eCW1 ([facility]) irbesartan 75 MG Oral Tablet 08/18/2020 12:00:00 AM EST eCW1 ([facility]) irbesartan 75 MG Oral Tablet 08/18/2020 12:00:00 AM EST eCW1 ([facility]) irbesartan 75 MG Oral Tablet 08/18/2020 12:00:00 AM EST eCW1 ([facility]) irbesartan 75 MG Oral Tablet 08/18/2020 12:00:00 AM EST eCW1 ([facility]) irbesartan 75 MG Oral Tablet 08/18/2020 12:00:00 AM EST eCW1 ([facility]) irbesartan 75 MG Oral Tablet 08/18/2020 12:00:00 AM EST eCW1 ([facility]) irbesartan 75 MG Oral Tablet 08/18/2020 12:00:00 AM EST eCW1 ([facility]) irbesartan 75 MG Oral Tablet 08/18/2020 12:00:00 AM EST eCW1 ([facility]) BD Lancet Ultrafine 33G - 06/08/2020 12:00:00 AM EST eCW1 ([facility]) Escitalopram 20 MG Oral Tablet 06/08/2020 12:00:00 AM EST eCW1 ([facility]) Pramipexole dihydrochloride 0.5 MG Oral Tablet 06/08/2020 12:00:00 AM EST eCW1 ([facility]) Escitalopram 20 MG Oral Tablet 06/08/2020 12:00:00 AM EST eCW1 ([facility]) Pramipexole dihydrochloride 0.5 MG Oral Tablet 06/08/2020 12:00:00 AM EST eCW1 ([facility]) BD Lancet Ultrafine 33G - 06/08/2020 12:00:00 AM EST eCW1 ([facility])
--- OUTSIDE RECORDS SUMMARY | 2021-04-25 12:29 | CCD ---
Author Author [facility] Organization [facility] Address Unknown Phone Unavailable Care Team Providers Care Telephone Maintainer Name Role Phone Mateusz Carranza Unavailable PROBLEMS Type Condition ICD9-CM Code [id number] Code Onset Dates Condition S tatus W/U Status Risk SNOMED Code Notes Problem Personal history of malignant neoplasm of breast Z 85.3 Active confirmed 343078048 Problem Essential (primary) hypertension I10 Active conf irmed 55719683 Problem Age-related osteoporosis without current pathological fracture M81.0 Active confirmed 614452734 Problem Vitamin D deficiency, unspecified E55.9 Active con firmed 98261445 Problem Mixed hyperlipidemia E78.2 Active confirmed 292051951 Problem CKD (chronic kidney disease) stage 3, GFR 30-59 ml/min N18.3 Active confirmed 480240150 Problem Type 2 diabetes mellitus without complications E11 .9 Active confirmed 065873999 Problem 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 Active confirmed 2 76265645 Problem Pulmonary nodule R91.1 Active confirmed 309 907589 Problem Gastroesophageal reflux disease, esophagitis pre sence not specified K21.9 Active confirmed 229010481 Problem Anemia of chronic disease D63.8 Active confirmed 645850776 Problem Depression F32.9 Active confirmed 32055370 Problem Hyponatremia E87.1 Active confirmed 2639906 8 Problem Anxiety disorder F41.9 Active confirmed 197 749461 Problem Recurrent UTI N39.0 Active confirmed 713071 001 Problem Primary osteoarthritis of both knees M17.0 Act shereen confirmed 465691983 Problem Leg cramps, sleep related G47.62 Active confirmed 867628351 Problem Breast cancer screening Z12.31 Active confirmed 277657194 ALLERGIES Allergen (clinical drug ingredient) Drug/Non Drug Allergy do cumented on EMR Reaction Allergy Type Onset Date Status Aspirin aspirin aches Non Drug Allergy 04/19/2019 Active ENCOUNTERS from 1940 to 2021-02-09 Encounter Location Date Provider Diagnosis [facility] Bianka [address] [phone] [place] [address] Jan, Mateusz Carranza Depression F32.9 IMMUNIZATIONS Vaccine Route Administration Date Status Influenza [...] Education Language: Question Answer Notes Languages spoken: Italian Presybeterian: Question Answer Notes Presybeterian 08 [employer] Sexual Hx: Question Answer Notes Had sex [...] Notes Start Da te End Date Status Fosamax 70MG 1 tablet Orally once a week for 90 day(s) Active BD Lancet Ultrafine 33G - as directed subcutaneously A C BID, E11.8 for 90 day(s) Active Simvastatin 40 MG 1 tablet every evening Orally Once a day for 90 day (s) Active Super B Complex OTC 1 tablet Orally once a day Active Januvia 100 mg 1 tablet Orally every morning for 90 day(s) Active Metoprolol Tartrate 50 MG 1/2 tablet with food Orally Twice a day for 90 day(s) Active Famotidine 20 MG 1 tab Orally at bedtime for 90 day(s) Active metFORMIN HCl ER 500 MG 1 tablet Orally twice daily for 90 day(s) Active Ergocalciferol 53768 UNIT 1 capsule Orally every 14 days for 90 day(s ) Active Pramipexole Dihydrochloride 0.5 MG 1 tablet Orally at bedtime for 9 0 day(s) Active Aspirin 81 MG 1 tablet Orally Once a day for 90 day(s) Active Glimepiride 1 MG 1 tab Orally bid for 90 day(s) Active Magnesium 250 MG 1 tablet with a meal Orally Once a day Active Calcium 600 + D 600-400 MG-UNIT 1 tablet Orally at bedtime for 90 day (s) Active Escitalopram Oxalate 20 MG 1 tablet Orally Once a day for 90 day(s) Active Glucose strip (Verio IQ) as directed one touch verio three times daily for 30 day(s) Dec, Active Glucometer as directed dx: E11.9-one touch verio Daily for 30 Days Oct, Active Ciclopirox 0.77 % 1 application to affected ar ea Externally Twice a day to feet for 30 days Apr, Active OneTouch Verio . 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 [facility] 12/30/2013 Hospitalization History mechanical fall c 2 R 9th po sterior rib fx 2 small hemothorax, ANU cr to 2.1 04/2019 Goals Section No Information Health Concerns No Information MEDICAL EQUIPMENT No Information MENTAL STATUS No Information FUNCTIONAL STATUS No Information ASSESSMENTS Encounter Date Diagnosis Assessment Notes Treatment Notes Treatm ent Clinical Notes Jan, Depression (ICD-10 - F32.9) PLAN OF TREATMENT Medication Medication Name Sig Start Date Stop Date Pramipexole Dihydrochloride 0.5 MG 1 tablet Orally at bedtime fo r 90 day(s) OneTouch Verio . 1 strip subcutaneously AC BID, E18.9 for 90 day (s) Glucose strip (Verio IQ) as directed one touch verio three times daily for 30 day(s) Dec, metFORMIN HCl ER 500 MG 1 tablet Orally twice daily for 90 day(s ) Escitalopram Oxalate 20 MG 1 tablet Orally Once a day for 90 day (s) Ciclopirox 0.77 % 1 application to affected ar ea Externally Twice a day to feet for 30 days Apr, Januvia 100 mg 1 tablet Orally every morning for 90 day(s) Fosamax 70MG 1 tablet Orally once a week for 90 day(s) Famotidine 20 MG 1 tab Orally at bedtime for 90 day(s) Simvastatin 40 MG 1 tablet every evening Orally Once a day for 9 0 day(s) Next Appt Details Provider Name:Mateusz Carranza, 2021-03-29 1 1:15:00 AM, [address], , [place], [address], Insurance Providers Payer Name Payer Address Payer Phone Insured Name Patient Relati onship to Insured Coverage Start Date Coverage End Date MEDICAID [employer] [address] [facility] [id number] [place] MEDICARE Part A and B [address] [facility] [id number] [employer] self
--- OUTSIDE RECORDS SUMMARY | 2021-04-25 12:29 | CCD ---
Author Author [facility] Organization [facility] Address Unknown Phone Unavailable Care Team Providers Care Auto Battery Builder Name Role Phone Ghazal Holly Unavailable PROBLEMS Type Condition ICD9-CM Code [id number] Code Onset Dates Condition S tatus W/U Status Risk SNOMED Code Notes Problem Personal history of malignant neoplasm of breast Z 85.3 Active confirmed 146782327 Problem Essential (primary) hypertension I10 Active conf irmed 46398560 Problem Age-related osteoporosis without current pathological fracture M81.0 Active confirmed 962604700 Problem Vitamin D deficiency, unspecified E55.9 Active con firmed 01348117 Problem Mixed hyperlipidemia E78.2 Active confirmed 119059889 Problem CKD (chronic kidney disease) stage 3, GFR 30-59 ml/min N18.3 Active confirmed 308604586 Problem Type 2 diabetes mellitus without complications E11 .9 Active confirmed 057889926 Problem 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 Active confirmed 2 67500064 Problem Pulmonary nodule R91.1 Active confirmed 309 637792 Problem Gastroesophageal reflux disease, esophagitis pre sence not specified K21.9 Active confirmed 608427659 Problem Anemia of chronic disease D63.8 Active confirmed 129530724 Problem Depression F32.9 Active confirmed 73840420 Problem Hyponatremia E87.1 Active confirmed 9399683 8 Problem Anxiety disorder F41.9 Active confirmed 197 870333 Problem Recurrent UTI N39.0 Active confirmed 626552 001 Problem Primary osteoarthritis of both knees M17.0 Act shereen confirmed 096723069 Problem Leg cramps, sleep related G47.62 Active confirmed 208721308 Problem Breast cancer screening Z12.31 Active confirmed 725091923 ALLERGIES Allergen (clinical drug ingredient) Drug/Non Drug Allergy do cumented on EMR Reaction Allergy Type Onset Date Status Aspirin aspirin aches Non Drug Allergy 04/19/2019 Active ENCOUNTERS from 1940 to 2021-02-11 Encounter Location Date Provider Diagnosis [facility] Bianka [address] [facility] [phone] [place] [address] 11 Jan, 2021 Ghazal Holly Primary osteoarthritis of [place] th knees M17.0 IMMUNIZATIONS Vaccine Route Administration Date Status Influenza [...] Education Language: Question Answer Notes Languages spoken: Upper Sorbian Uatsdin: Question Answer Notes Uatsdin 08 [facility] Sexual Hx: Question Answer Notes Had sex [...] BID, E11.8 for 90 day(s) Active Ergocalciferol 42384 UNIT 1 capsule Orally every 14 days [...] a day Active PROCEDURES No Information RESULTS No Results REASON FOR VISIT refill MEDICAL (GENERAL) HISTORY Type Description Date Medical History history of nicotine addictio n-quit in 2005-45 pack year history- April 2004 FEV1 of 104% normal Medical History history of left breast invas shereen ductal carcinoma-ER/MI +, status post mastectomy in July 2006-Tammi, [...] 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 Delgado-[facility] 12/30/2013 Hospitalization History mechanical fall c 2 R 9th po sterior rib fx 2 small hemothorax, ANU cr to 2.1 04/2019 Goals Section No Information Health Concerns No Information MEDICAL EQUIPMENT No Information MENTAL STATUS No Information FUNCTIONAL STATUS No Information ASSESSMENTS Encounter Date Diagnosis Assessment Notes Treatment Notes Treatm ent Clinical Notes Jan, Primary osteoarthritis of both knees (ICD-10 - M 17.0) PLAN OF TREATMENT Medication Medication Name Sig Start Date Stop Date predniSONE 20 MG 1 tablet Orally once a day for 5 days Jan, Augmentin 875-125 MG 1 tablet Orally Twice a day for 7 day(s) Jan, ProAir HFA 108 (90 Base) MCG/ACT 2 puffs Inhalation QID for 10 days Jan, Next Appt Details Provider Name:Mateusz Carranza, 2021-03-29 1 1:15:00 AM, [address] [facility], , [place], [address], Insurance Providers Payer Name Payer Address Payer Phone Insured Name Patient Relati onship to Insured Coverage Start Date Coverage End Date MEDICARE Part A and B [address] [facility] [phone] [phone] DAVIAN COATS self MEDICAID [employer] [address] [facility] [id number] DAVIAN COATS self
--- OUTSIDE RECORDS SUMMARY | 2021-04-25 12:29 | CCD ---
Author Author [facility] Organization [facility] Address Unknown Phone Unavailable Care Team Providers Care Family Service Aide Name Role Phone Mateusz Carranza Unavailable PROBLEMS Type Condition ICD9-CM Code [id number] Code Onset Dates Condition S tatus W/U Status Risk SNOMED Code Notes Problem Personal history of malignant neoplasm of breast Z 85.3 Active confirmed 343105090 Problem Essential (primary) hypertension I10 Active conf irmed 61395633 Problem Age-related osteoporosis without current pathological fracture M81.0 Active confirmed 908749518 Problem Vitamin D deficiency, unspecified E55.9 Active con firmed 39024051 Problem Mixed hyperlipidemia E78.2 Active confirmed 688023290 Problem CKD (chronic kidney disease) stage 3, GFR 30-59 ml/min N18.3 Active confirmed 741151555 Problem Type 2 diabetes mellitus without complications E11 .9 Active confirmed 629524679 Problem 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 Active confirmed 2 82872420 Problem Pulmonary nodule R91.1 Active confirmed 309 982235 Problem Gastroesophageal reflux disease, esophagitis pre sence not specified K21.9 Active confirmed 952250746 Problem Anemia of chronic disease D63.8 Active confirmed 410752226 Problem Depression F32.9 Active confirmed 66063461 Problem Hyponatremia E87.1 Active confirmed 5712330 8 Problem Anxiety disorder F41.9 Active confirmed 197 072308 Problem Recurrent UTI N39.0 Active confirmed 740664 001 Problem Primary osteoarthritis of both knees M17.0 Act shereen confirmed 618776541 Problem Leg cramps, sleep related G47.62 Active confirmed 815427633 Problem Breast cancer screening Z12.31 Active confirmed 345839984 ALLERGIES Allergen (clinical drug ingredient) Drug/Non Drug Allergy do cumented on EMR Reaction Allergy Type Onset Date Status Aspirin aspirin aches Non Drug Allergy 04/19/2019 Active ENCOUNTERS from 1940 to 2021-02-11 Encounter Location Date Provider Diagnosis [facility] Bianka [address] [facility] [phone] [place] [address] Jan, Mateusz Carranza IMMUNIZATIONS Vaccine Route Administration Date [...] Education Language: Question Answer Notes Languages spoken: Vietnamese Holiness: Question Answer Notes Holiness 08 Y[employer] Sexual Hx: Question Answer Notes Had sex [...] BID, E11.8 for 90 day(s) Active Ergocalciferol 93102 UNIT 1 capsule Orally every 14 days [...] Information RESULTS No Results REASON FOR VISIT coughing and gagging MEDICAL (GENERAL) HISTORY Type Description Date Medical [...] 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 Delgado-[facility] 12/30/2013 Hospitalization History mechanical fall c [...] Name:Mateusz Carranza, 2021-03-29 1 1:15:00 AM, [address] [facility], , [place], [address], Insurance Providers Payer Name Payer Address Payer Phone Insured Name Patient Relati onship to Insured Coverage Start Date Coverage End Date MEDICARE Part A and B [address] [facility] [phone] DAVIAN COATS self MEDICAID [employer] [address] [facility] [id number] DAVIAN COATS self
--- OUTSIDE RECORDS SUMMARY | 2021-04-25 12:29 | CCD ---
Author Author [facility] Organization [facility] Address Unknown Phone Unavailable Care Team Providers Care Vamp Liner Name Role Phone Ghazal Holly Unavailable PROBLEMS Type Condition ICD9-CM Code RJO81-QK Code Onset Dates Condition S tatus W/U Status Risk SNOMED Code Notes Problem Personal history of malignant neoplasm of breast Z 85.3 Active confirmed 170248669 Problem Essential (primary) hypertension I10 Active conf irmed 16261216 Problem Age-related osteoporosis without current pathological fracture M81.0 Active confirmed 165080340 Problem Vitamin D deficiency, unspecified E55.9 Active con firmed 29506282 Problem Mixed hyperlipidemia E78.2 Active confirmed 924371681 Problem CKD (chronic kidney disease) stage 3, GFR 30-59 ml/min N18.3 Active confirmed 152943233 Problem Type 2 diabetes mellitus without complications E11 .9 Active confirmed 294188510 Problem 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 Active confirmed 2 84285616 Problem Pulmonary nodule R91.1 Active confirmed 309 154387 Problem Gastroesophageal reflux disease, esophagitis pre sence not specified K21.9 Active confirmed 270000166 Problem Anemia of chronic disease D63.8 Active confirmed 249142369 Problem Depression F32.9 Active confirmed 45468621 Problem Hyponatremia E87.1 Active confirmed 8279175 8 Problem Anxiety disorder F41.9 Active confirmed 197 853040 Problem Recurrent UTI N39.0 Active confirmed 752748 001 Problem Primary osteoarthritis of both knees M17.0 Act shereen confirmed 896891758 Problem Leg cramps, sleep related G47.62 Active confirmed 506438379 Problem Breast cancer screening Z12.31 Active confirmed 079564123 ALLERGIES Allergen (clinical drug ingredient) Drug/Non Drug Allergy do cumented on EMR Reaction Allergy Type Onset Date Status Aspirin aspirin aches Non Drug Allergy 04/19/2019 Active ENCOUNTERS from 1940 to 2021-02-04 Encounter Location Date Provider Diagnosis [facility] Bianka [address] [facility] [phone] [place] [address] Jan, Ghazal Avni IMMUNIZATIONS Vaccine Route Administration Date Status Influenza [...] Education Language: Question Answer Notes Languages spoken: Wallisian Anabaptism: Question Answer Notes Anabaptism 08 Catholic Sexual Hx: Question Answer Notes Had sex [...] C BID, E11.8 for 90 day(s) Active Januvia 100 mg 1 tablet Orally every morning for 90 day(s) Active Super B Complex OTC 1 tablet Orally once a day Active Escitalopram Oxalate 20 MG 1 tablet Orally Once a day for 90 day(s) Active Metoprolol Tartrate 50 MG 1/2 tablet with food Orally Twice a day for 90 day(s) Active Simvastatin 40 MG 1 tablet every evening Orally Once a day for 90 day (s) Active metFORMIN HCl ER 500 MG 1 tablet Orally twice daily for 90 day(s) Active Ergocalciferol 55799 UNIT 1 capsule Orally every 14 days [...] at bedtime for 90 day (s) Active Ciclopirox 0.77 % 1 application to affected ar ea Externally Twice a day to feet for 30 days Apr, Active Glucose strip (Verio IQ) as directed one touch verio three times daily for 30 day(s) Dec, Active Glucometer as directed dx: E11.9-one touch verio Daily for 30 Days Oct, Active Famotidine 20 MG 1 tab Orally at bedtime for 90 day(s) Active OneTouch Verio . [...] grade 2 diastolic dysfunciton-12/2013 [facility]/12/2013 low risk [facility]-[place] Medical History GERD Medical History osteoporosis Medical History s/p mechanical fall 07/30/13 with 2 8 left rib fractures, R sacral fracture, L inferior and superior pubic rami fracture, L L2 transverse process fracture, R L4, 5 transverse process fractures, T3 compression fracture for which she was place in TRANSPORTATION LEAD brace , R zone 2 sacral fracture [...] TVT repair 2 uterine prolapse, stress incontinence-Dr. [facility] 12/30/2013 Hospitalization History mechanical fall c 2 [...] Orally twice daily for 90 day(s ) Ciclopirox 0.77 % 1 application to affected [...] Name:Mateusz Carranza, 2021-03-29 1 1:15:00 AM, [address] [facility], , [place], [address], Insurance Providers Payer Name Payer Address Payer Phone Insured Name Patient Relati onship to Insured Coverage Start Date Coverage End Date MEDICAID [employer] [address] [facility] [id number] [phone] DAVIAN COATS MEDICARE Part A and B [address] [facility] [address] DAVIAN COATS self
--- NOTE | 2021-04-25 12:51 | REP ---
INDICATION: altered mental status. COMPARISON: PA chest, 07/25/2020. TECHNIQUE: Upright AP portable chest image was obtained. FINDINGS: The lungs are clear. There is no lobar consolidation or pleural effusion. The heart size is normal. There is calcific vascular disease of the thoracic aorta. The upper abdominal bowel gas pattern is normal. There are multiple healed rib fractures bilaterally. Status post left mastectomy and axillary lymph node dissection. IMPRESSION: No evidence of acute cardiopulmonary pathology. Other findings as noted. <Electronically signed by Csatro Weber > 04/25/21 2210
--- NOTE | 2021-04-25 12:52 | REP ---
INDICATION: unknown last BM. COMPARISON: None. TECHNIQUE: Single supine image of the abdomen was obtained. FINDINGS: There is a paucity of colonic and small bowel gas consistent with enterocolitis or ileus. There is no evidence of abnormal bowel dilatation or free intraperitoneal air. There is calcific vascular disease of the abdominal aorta. There is a large orthopedic screw for fixation of both SI joints. IMPRESSION: Decreased bowel gas consistent with enterocolitis or ileus. <Electronically signed by Castro Weber > 04/25/21 3087
--- NOTE | 2021-04-25 13:00 | REP ---
INDICATION: altered mental status. COMPARISON: CT head without contrast, 02/22/2021. TECHNIQUE: Contiguous 5 mm thick axial projection images were obtained of the head. 2D coronal projection reconstructions were performed. FINDINGS: There is no evidence of acute intracranial hemorrhage or infarction. There are no abnormal intracranial masses or mass effect. The skull base and calvarium are normal. The intraorbital contents are normal. The visualized extracranial soft tissues are unremarkable. There is moderate diffuse cerebral atrophy with concomitant ventriculomegaly. There is patchy low density of the periventricular white matter consistent with chronic ischemic white matter disease. There is calcific vascular disease of the intracranial portion of both internal carotid arteries and both vertebral arteries. IMPRESSION: 1. Cerebral atrophy. 2. No evidence of acute intracranial pathology. 3. Other findings as noted. <Electronically signed by Castro Weber > 04/25/21 1257
[2021-04-25 13:01] LABS: BASO # 0.1 10^3/uL (0.0-0.2); BASO % 0.3 % (0.0-1.0); EOS # 0.2 10^3/uL (0.0-0.5); EOS % 1.2 % (0.0-3.0); HEMATOCRIT 37.4 % (36.0-47.0); HEMOGLOBIN 12.2 g/dl (12.0-15.5); LYMPH # 2.3 10^3/uL (1.5-5.0); LYMPH % 15.6 % (24.0-44.0); MEAN CORPUSCULAR HEMOGLOBIN 28.9 pg (27.0-33.0); MEAN CORPUSCULAR HGB CONC 32.6 g/dl (32.0-36.5); MEAN CORPUSCULAR VOLUME 88.6 fl (80.0-96.0); MONO # 1.2 10^3/uL (0.0-0.8); MONO % 8.2 % (2.0-8.0); NEUTROPHILS # 10.8 10^3/uL (1.5-8.5); NEUTROPHILS % 74.1 % (36.0-66.0); RED BLOOD COUNT 4.22 10^6/uL (4.00-5.40); WHITE BLOOD COUNT 14.5 10^3/uL (4.0-10.0)
[2021-04-25 13:21] LABS: PLATELET COUNT, AUTOMATED 242 10^3/uL (150-450)
--- NOTE | 2021-04-25 13:52 | ECGEPIP ---
[facility] - ED Test Date: 2021-04-25 Pat Name: DAVIAN COATS Department: Room: - Gender: Female Weblogic Developer: CHRISTOPHE : 1940 Requested By: SID Barker Order Number: [id number] Reading MD: Kacy Aldridge Measurements Intervals [place] Rate: 129 P: 104 IN: 114 QRS: -48 QRSD: 90 T: 80 QT: 320 QTc: 468 Interpretive Statements Sinus tachycardia baseline artifact may affect interpretation NSTTW abnormalities Left anterior fascicular block Minimal voltage criteria for LVH, may be normal variant ( R in aVL ) Inferior infarct , age undetermined Electronically Signed on 04-25-2021 13:51:52 EDT by Kacy Aldridge
[2021-04-25 13:55] LABS: ALT/SGPT 23 U/L (12-78); BILIRUBIN,DIRECT < 0.1 MG/DL (0.0-0.2); BILIRUBIN,TOTAL 0.5 MG/DL (0.2-1.0); BLOOD UREA NITROGEN 24 MG/DL (7-18); CALCIUM LEVEL 9.2 MG/DL (8.8-10.2); CARBON DIOXIDE LEVEL 24 MEQ/L (21-32); CHLORIDE LEVEL 95 MEQ/L (98-107); CK-MB VALUE MASS 2.8 NG/ML (<3.6); CPK CREATINE PHOSPHOKINASE 105 U/L (26-192); CREATININE FOR GFR 1.22 MG/DL (0.55-1.30); ETHYL ALCOHOL (ETHANOL) < 0.003 % (0.000-0.010); FREE T4 1.27 NG/DL (0.76-1.46); GLUCOSE, FASTING 395 MG/DL (70-100); MB/CK RELATIVE INDEX 2.67 (< OR =4); POTASSIUM SERUM 5.2 MEQ/L (3.5-5.1); SODIUM LEVEL 130 MEQ/L (136-145); TOTAL PROTEIN 7.4 GM/DL (6.4-8.2); TROPONIN I < 0.02 NG/ML (< 0.10)
[2021-04-25] MEDS ORDERED: GLUCOSE 4GM CHEW TABLET PO PRN (14:45)
[2021-04-25] MEDS ORDERED: GLUCAGON INJ 1MG VIAL SC PRN (14:45)
[2021-04-25] MEDS ORDERED: ACETAMINOPHEN TAB 650MG DOSE (2X325MG) PO PRN (14:45)
[2021-04-25] MEDS ORDERED: DEXTROSE 50% 50 ML SYRINGE IV PRN (14:45)
[2021-04-25] MEDS ORDERED: LABETALOL 100MG/20ML VIAL IV PRN (14:50)
--- OUTSIDE RECORDS SUMMARY | 2021-04-25 14:55 | CCD ---
Author Author [facility] Organization [facility] Address Unknown Phone Unavailable Care Team Providers Care Receiver Dispatcher Name Role Phone Jhonny Mccray MD Unavailable [...] is protected by Article 27-F of the [facility] Public Health law. If you continue you may have access to information: Regarding HIV / AIDS; Provided by facilities licensed or operated by the [facility] Office of Mental Health; or Provided by the [facility] Office for People With Developmental Disabilities. If such information is present, then the following [facility] mandated warning applies: This information has been [...] law may result in a fine or longterm sentence or both. A general authorization for the release of medical or other information is NOT sufficient authorization for further disc losure. Allergies and Adverse Reactions Type Description Substance Reaction Status Data Source(s ) Allergy to substance Allergy to substance Allergy to substance VERNON ([facility]) Allergy to substance Allergy to substance Allergy to substance ASBURY ([facility]) Encounters Encounter Providers Location Date Indications Data Source(s ) Unknown [address] [facility], [facility] [address] 04/20/2021 12:00:00 AM EDT eCW1 ([facility]) Office Visit, Est Pt., Level [address] PC [address] [place] [address] 03/30/2021 12:00:00 AM EDT eCW1 ([facility]) Unknown [address] [facility], [facility] [address] 03/29/2021 12:00:00 AM EDT eCW1 ([facility]) [place] [address] [place] [address] 03/16/2021 12:00:00 AM EDT eCW1 ([facility]) [place] [address] [place] [address] 03/04/2021 12:00:00 AM EDT eCW1 ([facility]) Unknown [address] [place] [address] 03/04/2021 12:00:00 AM EDT eCW1 ([facility]) [place] [address] [place] [address] 02/11/2021 12:00:00 AM EDT eCW1 ([facility]) Unknown [address] [place] [address] 02/11/2021 12:00:00 AM EDT eCW1 ([facility]) [place] [address] [place] [address] 02/10/2021 12:00:00 AM EDT eCW1 ([facility]) [place] [address] [place] [address] 02/09/2021 12:00:00 AM EDT eCW1 ([facility]) Unknown [address] [place] [address] 02/04/2021 12:00:00 AM EDT eCW1 ([facility]) [place] [address] [place] [address] 12/24/2020 12:00:00 AM EDT eCW1 ([facility]) [place] [address] [place] [address] 12/15/2020 12:00:00 AM EDT eCW1 ([facility]) Unknown [address] [place] [address] 12/04/2020 12:00:00 AM EDT eCW1 ([facility]) [place] [address] [place] [address] 11/13/2020 12:00:00 AM EDT eCW1 ([facility]) Unknown [address] [place] [address] 11/05/2020 12:00:00 AM EDT eCW1 ([facility]) Unknown [address] [place] [address] 11/04/2020 12:00:00 AM EDT eCW1 ([facility]) Out[place] [address] [place] [address] 11/02/2020 12:00:00 AM EDT eCW1 ([facility]) Josiah Mccray MD: [address] [place] [phone], Ph. Attender: Josiah Mccray MD [facility] Medical 10/27/2020 12:00:00 AM EDT [place] ([facility]) Unknown [address] [place] [address] 10/26/2020 12:00:00 AM EDT eCW1 ([facility]) Unknown [address] [place] [address] 10/15/2020 12:00:00 AM EDT eCW1 ([facility]) Unknown [address] [facility] [address] 10/01/2020 12:00:00 AM EDT eCW1 ([facility]) Josiah Mccray MD: [address] [place] [address], Ph. Attender: Josiah Mccray MD [facility] Medical 09/29/2020 12:00:00 AM EDT VERNON ([facility]) Josiah Mccray MD: [address] [place] [address], Ph. Attender: Josiah Mccray MD [facility] Medical 09/29/2020 12:00:00 AM EDT [place] ([facility]) [place] [address] [place] [address] 08/18/2020 12:00:00 AM EST eCW1 ([facility]) Unknown [address] [place] [address] 08/18/2020 12:00:00 AM EST eCW1 ([facility]) Unknown [address] [place] [address] 08/14/2020 12:00:00 AM EST eCW1 ([facility]) Outpatient [address] [place] [address] 06/08/2020 12:00:00 AM EST eCW1 ([facility]) Unknown [address] [place] [address] 05/18/2020 12:00:00 AM EST eCW1 ([facility]) Unknown [address] [place] [address] 05/05/2020 12:00:00 AM EST eCW1 ([facility]) Unknown [address] [place] [address] 04/17/2020 12:00:00 AM EDT eCW1 ([facility]) Immunizations Vaccine Date Status Description Data Source(s) COVID-19, mRNA, LNP-S, PF, 100 mcg/0.5 mL dose 10/27/2020 11 :55:47 AM EDT completed 10.5 mL VERNON ([facility]) COVID-19 dose #2 given elsewhere Unspecified 10/27/2020 09:3 1:00 AM EDT completed eCW1 ([facility]) COVID-19 dose #2 given elsewhere Unspecified 10/27/2020 09:3 1:00 AM EDT completed eCW1 ([facility]) COVID-19 dose #2 given elsewhere Unspecified 10/27/2020 09:3 1:00 AM EDT completed eCW1 ([facility]) COVID-19 dose #2 given elsewhere Unspecified 10/27/2020 09:3 1:00 AM EDT completed eCW1 ([facility]) COVID-19 dose #2 given elsewhere Unspecified 10/27/2020 09:3 1:00 AM EDT completed eCW1 ([facility]) COVID-19 dose #2 given elsewhere Unspecified 10/27/2020 09:3 1:00 AM EDT completed eCW1 ([facility]) COVID-19 dose #2 given elsewhere Unspecified 10/27/2020 09:3 1:00 AM EDT completed eCW1 ([facility]) COVID-19 dose #2 given elsewhere Unspecified 10/27/2020 09:3 1:00 AM EDT completed eCW1 ([facility]) COVID-19 dose #2 given elsewhere Unspecified 10/27/2020 09:3 1:00 AM EDT completed eCW1 ([facility]) COVID-19 dose #2 given elsewhere Unspecified 10/27/2020 09:3 1:00 AM EDT completed eCW1 ([facility]) COVID-19 dose #2 given elsewhere Unspecified 10/27/2020 09:3 1:00 AM EDT completed eCW1 ([facility]) COVID-19 dose #2 given elsewhere Unspecified 10/27/2020 09:3 1:00 AM EDT completed eCW1 ([facility]) COVID-19 dose #2 given elsewhere Unspecified 10/27/2020 09:3 1:00 AM EDT completed eCW1 ([facility]) COVID-19 dose #2 given elsewhere Unspecified 10/27/2020 09:3 1:00 AM EDT completed eCW1 ([facility]) COVID-19 dose #2 given elsewhere Unspecified 10/27/2020 09:3 1:00 AM EDT completed eCW1 ([facility]) COVID-19 dose #2 given elsewhere Unspecified 10/27/2020 09:3 1:00 AM EDT completed eCW1 ([facility]) COVID-19 dose #2 given elsewhere Unspecified 10/27/2020 09:3 1:00 AM EDT completed eCW1 ([facility]) COVID-19 dose #2 given elsewhere Unspecified 10/27/2020 09:3 1:00 AM EDT completed eCW1 ([facility]) COVID-19 VACCINE Moderna 10/27/2020 12:00:00 AM EDT completed [employer] Vaccine Series Complete: YESThis Data wa s Submitted to [facility] Via [employer]. COVID-19, mRNA, LNP-S, PF, 100 mcg/0.5 mL dose 09/29/2020 11 :47:34 AM EDT completed .5 mL VERNON ([facility]) COVID-19, mRNA, LNP-S, PF, 100 mcg/0.5 mL dose 09/29/2020 11 :47:34 AM EDT completed .5 mL [place]ON ([facility]) COVID-19 dose #1 given elsewhere Unspecified 09/29/2020 09:3 0:00 AM EDT completed eCW1 ([facility]) COVID-19 dose #1 given elsewhere Unspecified 09/29/2020 09:3 0:00 AM EDT completed eCW1 ([facility]) COVID-19 dose #1 given elsewhere Unspecified 09/29/2020 09:3 0:00 AM EDT completed eCW1 ([facility]) COVID-19 dose #1 given elsewhere Unspecified 09/29/2020 09:3 0:00 AM EDT completed eCW1 ([facility]) COVID-19 dose #1 given elsewhere Unspecified 09/29/2020 09:3 0:00 AM EDT completed eCW1 ([facility]) COVID-19 dose #1 given elsewhere Unspecified 09/29/2020 09:3 0:00 AM EDT completed eCW1 ([facility]) COVID-19 dose #1 given elsewhere Unspecified 09/29/2020 09:3 0:00 AM EDT completed eCW1 ([facility]) COVID-19 dose #1 given elsewhere Unspecified 09/29/2020 09:3 0:00 AM EDT completed eCW1 ([facility]) COVID-19 dose #1 given elsewhere Unspecified 09/29/2020 09:3 0:00 AM EDT completed eCW1 ([facility]) COVID-19 dose #1 given elsewhere Unspecified 09/29/2020 09:3 0:00 AM EDT completed eCW1 ([facility]) COVID-19 dose #1 given elsewhere Unspecified 09/29/2020 09:3 0:00 AM EDT completed eCW1 ([facility]) COVID-19 dose #1 given elsewhere Unspecified 09/29/2020 09:3 0:00 AM EDT completed eCW1 ([facility]) COVID-19 dose #1 given elsewhere Unspecified 09/29/2020 09:3 0:00 AM EDT completed eCW1 ([facility]) COVID-19 dose #1 given elsewhere Unspecified 09/29/2020 09:3 0:00 AM EDT completed eCW1 ([facility]) COVID-19 dose #1 given elsewhere Unspecified 09/29/2020 09:3 0:00 AM EDT completed eCW1 ([facility]) COVID-19 dose #1 given elsewhere Unspecified 09/29/2020 09:3 0:00 AM EDT completed eCW1 ([facility]) COVID-19 dose #1 given elsewhere Unspecified 09/29/2020 09:3 0:00 AM EDT completed eCW1 ([facility]) COVID-19 dose #1 given elsewhere Unspecified 09/29/2020 09:3 0:00 AM EDT completed eCW1 ([facility]) COVID-19 VACCINE Moderna 09/29/2020 12:00:00 AM EDT completed [employer] Vaccine Series Complete: NOThis Data was Submitted to [facility] Via [employer]. influenza, recombinant, quadrIvalent,injectable, prese rvative free 06/08/2020 05:45:00 PM EST completed eCW1 ([facility]) influenza, recombinant, quadrIvalent,injectable, prese rvative free 06/08/2020 05:45:00 PM EST completed eCW1 ([facility]) influenza, recombinant, quadrIvalent,injectable, prese rvative free 06/08/2020 05:45:00 PM EST completed eCW1 ([facility]) influenza, recombinant, quadrIvalent,injectable, prese rvative free 06/08/2020 05:45:00 PM EST completed eCW1 ([facility]) influenza, recombinant, quadrIvalent,injectable, prese rvative free 06/08/2020 05:45:00 PM EST completed eCW1 ([facility]) influenza, recombinant, quadrIvalent,injectable, prese rvative free 06/08/2020 05:45:00 PM EST completed eCW1 ([facility]) influenza, recombinant, quadrIvalent,injectable, prese rvative free 06/08/2020 05:45:00 PM EST completed eCW1 ([facility]) influenza, recombinant, quadrIvalent,injectable, prese rvative free 06/08/2020 05:45:00 PM EST completed eCW1 ([facility]) influenza, recombinant, quadrIvalent,injectable, prese rvative free 06/08/2020 05:45:00 PM EST completed eCW1 ([facility]) influenza, recombinant, quadrIvalent,injectable, prese rvative free 06/08/2020 05:45:00 PM EST completed eCW1 ([facility]) influenza, recombinant, quadrIvalent,injectable, prese rvative free 06/08/2020 05:45:00 PM EST completed eCW1 ([facility]) influenza, recombinant, quadrIvalent,injectable, prese rvative free 06/08/2020 05:45:00 PM EST completed eCW1 ([facility]) influenza, recombinant, quadrIvalent,injectable, prese rvative free 06/08/2020 05:45:00 PM EST completed eCW1 ([facility]) influenza, recombinant, quadrIvalent,injectable, prese rvative free 06/08/2020 05:45:00 PM EST completed eCW1 ([facility]) influenza, recombinant, quadrIvalent,injectable, prese rvative free 06/08/2020 05:45:00 PM EST completed eCW1 ([facility]) influenza, recombinant, quadrIvalent,injectable, prese rvative free 06/08/2020 05:45:00 PM EST completed eCW1 ([facility]) influenza, recombinant, quadrIvalent,injectable, prese rvative free 06/08/2020 05:45:00 PM EST completed eCW1 ([facility]) influenza, recombinant, quadrIvalent,injectable, prese rvative free 06/08/2020 05:45:00 PM EST completed eCW1 ([facility]) influenza, recombinant, quadrIvalent,injectable, prese rvative free 06/08/2020 05:45:00 PM EST completed eCW1 ([facility]) influenza, recombinant, quadrIvalent,injectable, prese rvative free 06/08/2020 05:45:00 PM EST completed eCW1 ([facility]) influenza, recombinant, quadrIvalent,injectable, prese rvative free 06/08/2020 05:45:00 PM EST completed eCW1 ([facility]) influenza, recombinant, quadrIvalent,injectable, prese rvative free 06/08/2020 05:45:00 PM EST completed eCW1 ([facility]) influenza, recombinant, quadrIvalent,injectable, prese rvative free 06/08/2020 05:45:00 PM EST completed eCW1 ([facility]) influenza, recombinant, quadrIvalent,injectable, prese rvative free 06/08/2020 05:45:00 PM EST completed eCW1 ([facility]) influenza, recombinant, quadrIvalent,injectable, prese rvative free 06/08/2020 05:45:00 PM EST completed eCW1 ([facility]) Medications Medication Brand Name Start Date Product [...] {tablet} active pr edniSONE 20 MG eCW1 ([facility]) 200 ACTUAT Albuterol 0.09 MG/ACTUAT Mete red Dose Inhaler [ProAir] ProAir HFA 108 (90 Base) MCG/ACT ProAir HFA 108 (90 Base) MCG/ACT 02/11/2021 12:00:00 AM EDT 2.0 {puffs} active ProAir HFA 1 08 (90 Base) MCG/ACT eCW1 ([facility]) Prednisone 20 MG Oral Tablet predniSONE 20 MG predniSONE 20 MG 02/11/2021 12:00:00 AM EDT 1.0 {tablet} suspended predniSONE 20 MG eCW1 ([facility]) Prednisone 20 MG Oral Tablet predniSONE 20 MG predniSONE 20 MG 02/11/2021 12:00:00 AM EDT 1.0 {tablet} active pr edniSONE 20 MG eCW1 ([facility]) Prednisone 20 MG Oral Tablet predniSONE 20 MG predniSONE 20 MG 02/11/2021 12:00:00 AM EDT 1.0 {tablet} suspended predniSONE 20 MG eCW1 ([facility]) 200 ACTUAT Albuterol 0.09 MG/ACTUAT Mete red Dose Inhaler [ProAir] ProAir HFA 108 (90 Base) MCG/ACT ProAir HFA 108 (90 Base) MCG/ACT 02/11/2021 12:00:00 AM EDT 2.0 {puffs} active ProAir HFA 1 08 (90 Base) MCG/ACT eCW1 ([facility]) 20 mg 02/11/2021 12:00:00 AM EDT tablet 5 TAKE ONE TABLET BY MOUTH EVERY DAY FOR 5 DAYS TAKE ONE TABLET BY MOUTH EVERY DAY FOR 5 DAYS SOLD: 02/12/2021 [facility] Prednisone 20 MG Oral Tablet predniSONE 20 MG predniSONE 20 MG 02/11/2021 12:00:00 AM EDT 1.0 {tablet} suspended predniSONE 20 MG eCW1 ([facility]) Augmentin 875-125 MG UNK 02/11/2021 12:00:00 AM EDT 1.0 {tab let} suspended Augmentin 875-125 MG eCW1 ([facility]) Augmentin 875-125 MG UNK 02/11/2021 12:00:00 AM EDT 1.0 {tab let} suspended Augmentin 875-125 MG eCW1 ([facility]) Prednisone 20 MG Oral Tablet predniSONE 20 MG predniSONE 20 MG 02/11/2021 12:00:00 AM EDT 1.0 {tablet} suspended predniSONE 20 MG eCW1 ([facility]) 200 ACTUAT Albuterol 0.09 MG/ACTUAT Mete red Dose Inhaler [ProAir] ProAir HFA 108 (90 Base) MCG/ACT ProAir HFA 108 (90 Base) MCG/ACT 02/11/2021 12:00:00 AM EDT 2.0 {puffs} active ProAir HFA 1 08 (90 Base) MCG/ACT eCW1 ([facility]) 200 ACTUAT Albuterol 0.09 MG/ACTUAT Mete red Dose Inhaler [ProAir] ProAir HFA 108 (90 Base) MCG/ACT ProAir HFA 108 (90 Base) MCG/ACT 02/11/2021 12:00:00 AM EDT 2.0 {puffs} active ProAir HFA 1 08 (90 Base) MCG/ACT eCW1 ([facility]) Augmentin 875-125 MG UNK 02/11/2021 12:00:00 AM EDT 1.0 {tablet } active Augmentin 875-125 MG eCW1 ([facility]) 200 ACTUAT Albuterol 0.09 MG/ACTUAT Mete red Dose Inhaler [ProAir] ProAir HFA 108 (90 Base) MCG/ACT ProAir HFA 108 (90 Base) MCG/ACT 02/11/2021 12:00:00 AM EDT 2.0 {puffs} active ProAir HFA 1 08 (90 Base) MCG/ACT eCW1 ([facility]) Augmentin 875-125 MG UNK 02/11/2021 12:00:00 AM EDT 1.0 {tablet } active Augmentin 875-125 MG eCW1 ([facility]) Augmentin 875-125 MG UNK 02/11/2021 12:00:00 AM EDT 1.0 {tablet } active Augmentin 875-125 MG eCW1 ([facility]) Prednisone 20 MG Oral Tablet predniSONE 20 MG predniSONE 20 MG 02/11/2021 12:00:00 AM EDT 1.0 {tablet} suspended predniSONE 20 MG eCW1 ([facility]) 200 ACTUAT Albuterol 0.09 MG/ACTUAT Mete red Dose Inhaler [ProAir] ProAir HFA 108 (90 Base) MCG/ACT ProAir HFA 108 (90 Base) MCG/ACT 02/11/2021 12:00:00 AM EDT 2.0 {puffs} active ProAir HFA 1 08 (90 Base) MCG/ACT eCW1 ([facility]) 200 ACTUAT Albuterol 0.09 MG/ACTUAT Mete red Dose Inhaler [ProAir] ProAir HFA 108 (90 Base) MCG/ACT ProAir HFA 108 (90 Base) MCG/ACT 02/11/2021 12:00:00 AM EDT 2.0 {puffs} active ProAir HFA 1 08 (90 Base) MCG/ACT eCW1 ([facility]) Augmentin 875-125 MG UNK 02/11/2021 12:00:00 AM EDT 1.0 {tab let} suspended Augmentin 875-125 MG eCW1 ([facility]) 1 % 02/11/2021 12:00:00 AM EDT gel 500 APPLY 4 GRAMS TO THE LEFT KNEE FOUR TIMES A DAY APPLY 4 GRAMS TO THE LEFT KNEE FOUR TIMES A DAY SOLD: 02/12/2021 [facility] Augmentin 875-125 MG UNK 02/11/2021 12:00:00 AM EDT 1.0 {tab let} suspended Augmentin 875-125 MG eCW1 ([facility]) 90 mcg/actuation 02/11/2021 12:00:00 AM EDT HFA aerosol inha ler 18 INHALE TWO PUFFS FOUR TIMES A DAY 10 DAYS INHALE TWO PUFFS FOUR TIMES A DAY 10 DAYS SOLD: 02/12/2021 [facility] 200 ACTUAT Albuterol 0.09 MG/ACTUAT Mete red Dose Inhaler [ProAir] ProAir HFA 108 (90 Base) MCG/ACT ProAir HFA 108 (90 Base) MCG/ACT 02/11/2021 12:00:00 AM EDT 2.0 {puffs} active ProAir HFA 1 08 (90 Base) MCG/ACT eCW1 ([facility]) Augmentin 875-125 MG UNK 02/11/2021 12:00:00 AM EDT 1.0 {tab let} suspended Augmentin 875-125 MG eCW1 ([facility]) 200 ACTUAT Albuterol 0.09 MG/ACTUAT Mete red Dose Inhaler [ProAir] ProAir HFA 108 (90 Base) MCG/ACT ProAir HFA 108 (90 Base) MCG/ACT 02/11/2021 12:00:00 AM EDT 2.0 {puffs} active ProAir HFA 1 08 (90 Base) MCG/ACT eCW1 ([facility]) Augmentin 875-125 MG UNK 02/11/2021 12:00:00 AM EDT 1.0 {tab let} suspended Augmentin 875-125 MG eCW1 ([facility]) Amoxicillin 875 MG / Clavulanate 125 MG [...] 1.0 {tablet} suspended predniSONE 20 MG eCW1 ([facility]) Prednisone 20 MG Oral Tablet predniSONE 20 MG predniSONE 20 MG 02/11/2021 12:00:00 AM EDT 1.0 {tablet} active pr edniSONE 20 MG eCW1 ([facility]) Escitalopram 20 MG Oral Tablet ESCITALOPRAM OXALATE [...] EDT active Glucose strip (Ver[employer]) eCW1 ([facility]) Glucose strip ([employer]) UNK 12/15/2020 12:00:00 AM EDT active Glucose strip ([employer]) eCW1 ([facility]) Glucose strip ([employer]) UNK 12/15/2020 12:00:00 AM EDT active Glucose strip ([employer]) eCW1 ([facility]) Glucose strip ([employer]) UNK 12/15/2020 12:00:00 AM EDT active Glucose strip ([employer]) eCW1 ([facility]) Glucose strip ([employer]) UNK 12/15/2020 12:00:00 AM EDT active Glucose strip ([employer]) eCW1 ([facility]) Glucose strip ([employer]) UNK 12/15/2020 12:00:00 AM EDT active Glucose strip ([employer]) eCW1 ([facility]) Glucose strip ([employer]) UNK 12/15/2020 12:00:00 AM EDT active Glucose strip ([employer]) eCW1 ([facility]) Glucose strip ([employer]) UNK 12/15/2020 12:00:00 AM EDT active Glucose strip ([employer]) eCW1 ([facility]) Glucose strip ([employer]) UNK 12/15/2020 12:00:00 AM EDT active Glucose strip ([employer]) eCW1 ([facility]) Glucose strip ([employer]) UNK 12/15/2020 12:00:00 AM EDT active Glucose strip ([employer]) eCW1 ([facility]) Glucose strip ([employer]) UNK 12/15/2020 12:00:00 AM EDT active Glucose strip ([employer]) eCW1 ([facility]) Glucose strip ([employer]) UNK 12/15/2020 12:00:00 AM EDT active Glucose strip ([employer]) eCW1 ([facility]) Glucose strip ([employer]) UNK 12/15/2020 12:00:00 AM EDT active Glucose strip ([employer]) eCW1 ([facility]) 500 mg 12/07/2020 12:00:00 AM EDT tablet extended release 24 hr 180 TAKE ONE TABLET BY MOUTH TWICE A DAY TAKE ONE TABLET BY MOUTH TWICE A DAY SOLD: 03/14/2021 [facility] BLOOD SUGAR DIAGNOSTIC 12/07/2020 12:00:00 AM EDT [...] 10/15/2020 12:00:00 AM EDT active Glucometer eCW1 ([facility]) Glucometer UNK 10/15/2020 12:00:00 AM EDT active Glucometer eCW1 ([facility]) Glucometer UNK 10/15/2020 12:00:00 AM EDT active Glucometer eCW1 ([facility]) Glucometer UNK 10/15/2020 12:00:00 AM EDT active Glucometer eCW1 ([facility]) Glucometer UNK 10/15/2020 12:00:00 AM EDT active Glucometer eCW1 ([facility]) Glucometer UNK 10/15/2020 12:00:00 AM EDT active Glucometer eCW1 ([facility]) Glucometer UNK 10/15/2020 12:00:00 AM EDT active Glucometer eCW1 ([facility]) Glucometer UNK 10/15/2020 12:00:00 AM EDT active Glucometer eCW1 ([facility]) Glucometer UNK 10/15/2020 12:00:00 AM EDT active Glucometer eCW1 ([facility]) Glucometer UNK 10/15/2020 12:00:00 AM EDT active Glucometer eCW1 ([facility]) Glucometer UNK 10/15/2020 12:00:00 AM EDT active Glucometer eCW1 ([facility]) Glucometer UNK 10/15/2020 12:00:00 AM EDT active Glucometer eCW1 ([facility]) Glucometer UNK 10/15/2020 12:00:00 AM EDT active Glucometer eCW1 ([facility]) Glucometer UNK 10/15/2020 12:00:00 AM EDT active Glucometer eCW1 ([facility]) Glucometer UNK 10/15/2020 12:00:00 AM EDT active Glucometer eCW1 ([facility]) Glucometer UNK 10/15/2020 12:00:00 AM EDT active Glucometer eCW1 ([facility]) Glucometer UNK 10/15/2020 12:00:00 AM EDT active Glucometer eCW1 ([facility]) Glucometer UNK 10/15/2020 12:00:00 AM EDT active Glucometer eCW1 ([facility]) Glucometer UNK 10/15/2020 12:00:00 AM EDT active Glucometer eCW1 ([facility]) Glucometer UNK 10/15/2020 12:00:00 AM EDT active Glucometer eCW1 ([facility]) LANCETS 10/02/2020 12:00:00 AM EDT misc 200 USE A S DIRECTED TWO TIMES A DAY USE DIRECTED TWO TIMES A DAY SOLD: 10/12/2020 [facility] irbesartan 75 MG Oral Tablet Irbesartan 75 MG Irbesartan 75 MG 08/18/2020 12:00:00 AM EST 1.0 {tablet} active Ir besartan 75 MG eCW1 ([facility]) irbesartan 75 MG Oral Tablet Irbesartan 75 MG Irbesartan 75 MG 08/18/2020 12:00:00 AM EST 1.0 {tablet} active Ir besartan 75 MG eCW1 ([facility]) irbesartan 75 MG Oral Tablet Irbesartan 75 MG Irbesartan 75 MG 08/18/2020 12:00:00 AM EST 1.0 {tablet} active Ir besartan 75 MG eCW1 ([facility]) irbesartan 75 MG Oral Tablet Irbesartan 75 MG Irbesartan 75 MG 08/18/2020 12:00:00 AM EST 1.0 {tablet} active Ir besartan 75 MG eCW1 ([facility]) irbesartan 75 MG Oral Tablet Irbesartan 75 MG Irbesartan 75 MG 08/18/2020 12:00:00 AM EST 1.0 {tablet} active Ir besartan 75 MG eCW1 ([facility]) irbesartan 75 MG Oral Tablet Irbesartan 75 MG Irbesartan 75 MG 08/18/2020 12:00:00 AM EST 1.0 {tablet} active Ir besartan 75 MG eCW1 ([facility]) irbesartan 75 MG Oral Tablet Irbesartan 75 MG Irbesartan 75 MG 08/18/2020 12:00:00 AM EST 1.0 {tablet} active Ir besartan 75 MG eCW1 ([facility]) irbesartan 75 MG Oral Tablet Irbesartan 75 MG Irbesartan 75 MG 08/18/2020 12:00:00 AM EST 1.0 {tablet} active Ir besartan 75 MG eCW1 ([facility]) 75 mg 08/18/2020 12:00:00 AM EST tablet 90 TAKE ONE TABLET BY MOUTH AT BEDTIME TAKE ONE TABLET BY MOUTH AT BEDTIME SOLD: 11/22/2020 [facility] irbesartan 75 MG Oral Tablet Irbesartan 75 MG Irbesartan 75 MG 08/18/2020 12:00:00 AM EST 1.0 {tablet} active Ir besartan 75 MG eCW1 ([facility]) irbesartan 75 MG Oral Tablet Irbesartan 75 MG Irbesartan 75 MG 08/18/2020 12:00:00 AM EST 1.0 {tablet} active Ir besartan 75 MG eCW1 ([facility]) irbesartan 75 MG Oral Tablet Irbesartan 75 MG Irbesartan 75 MG 08/18/2020 12:00:00 AM EST 1.0 {tablet} active Ir besartan 75 MG eCW1 ([facility]) 75 mg 08/18/2020 12:00:00 AM EST tablet 90 TAKE ONE TABLET BY MOUTH AT BEDTIME TAKE ONE TABLET BY MOUTH AT BEDTIME SOLD: 08/18/2020 [facility] irbesartan 75 MG Oral Tablet Irbesartan 75 MG Irbesartan 75 MG 08/18/2020 12:00:00 AM EST 1.0 {tablet} active Ir besartan 75 MG eCW1 ([facility]) irbesartan 75 MG Oral Tablet Irbesartan 75 MG Irbesartan 75 MG 08/18/2020 12:00:00 AM EST 1.0 {tablet} active Ir besartan 75 MG eCW1 ([facility]) irbesartan 75 MG Oral Tablet Irbesartan 75 MG Irbesartan 75 MG 08/18/2020 12:00:00 AM EST 1.0 {tablet} active Ir besartan 75 MG eCW1 ([facility]) irbesartan 75 MG Oral Tablet Irbesartan 75 MG Irbesartan 75 MG 08/18/2020 12:00:00 AM EST 1.0 {tablet} active Ir besartan 75 MG eCW1 ([facility]) irbesartan 75 MG Oral Tablet Irbesartan 75 MG Irbesartan 75 MG 08/18/2020 12:00:00 AM EST 1.0 {tablet} active Ir besartan 75 MG eCW1 ([facility]) irbesartan 75 MG Oral Tablet Irbesartan 75 MG Irbesartan 75 MG 08/18/2020 12:00:00 AM EST 1.0 {tablet} active Ir besartan 75 MG eCW1 ([facility]) irbesartan 75 MG Oral Tablet Irbesartan 75 MG Irbesartan 75 MG 08/18/2020 12:00:00 AM EST 1.0 {tablet} active Ir besartan 75 MG eCW1 ([facility]) irbesartan 75 MG Oral Tablet Irbesartan 75 MG Irbesartan 75 MG 08/18/2020 12:00:00 AM EST 1.0 {tablet} active Ir besartan 75 MG eCW1 ([facility]) irbesartan 75 MG Oral Tablet Irbesartan 75 MG Irbesartan 75 MG 08/18/2020 12:00:00 AM EST 1.0 {tablet} active Ir besartan 75 MG eCW1 ([facility]) irbesartan 75 MG Oral Tablet Irbesartan 75 MG Irbesartan 75 MG 08/18/2020 12:00:00 AM EST 1.0 {tablet} active Ir besartan 75 MG eCW1 ([facility]) irbesartan 75 MG Oral Tablet Irbesartan 75 MG Irbesartan 75 MG 08/18/2020 12:00:00 AM EST 1.0 {tablet} active Ir besartan 75 MG eCW1 ([facility]) irbesartan 75 MG Oral Tablet Irbesartan 75 MG Irbesartan 75 MG 08/18/2020 12:00:00 AM EST 1.0 {tablet} active Ir besartan 75 MG eCW1 ([facility]) Escitalopram 20 MG Oral Tablet ESCITALOPRAM OXALATE [...] activ e Escitalopram Oxalate 20 MG eCW1 ([facility]) Escitalopram 20 MG Oral Tablet Escitalopram Oxalate 20 MG Escitalopram Oxalate 20 MG 06/08/2020 12:00:00 AM EST 1.0 {tablet} activ e Escitalopram Oxalate 20 MG eCW1 ([facility]) BD Lancet Ultrafine 33G - BD Lancet Ultrafine 33G - 06/08/2020 1 2:00:00 AM EST active BD Lancet Ultraf ine 33G - eCW1 ([facility]) BD Lancet Ultrafine 33G - BD Lancet Ultrafine 33G - 06/08/2020 1 2:00:00 AM EST active BD Lancet Ultraf ine 33G - eCW1 ([facility]) Pramipexole dihydrochloride 0.5 MG Oral Tablet Pramipexole Dihydrochloride 0.5 MG Pramipexole Dihydrochloride 0.5 MG 06/08/2020 12:00:00 AM EST 1.0 {tablet} active Pramipexole Dihydroc hloride 0.5 MG eCW1 ([facility]) Pramipexole dihydrochloride 0.5 MG Oral Tablet Pramipexole Dihydrochloride 0.5 MG Pramipexole Dihydrochloride 0.5 MG 06/08/2020 12:00:00 AM EST 1.0 {tablet} active Pramipexole Dihydroc hloride 0.5 MG eCW1 ([facility]) 20 mg 05/19/2020 12:00:00 AM EST tablet [...] type / Coverage type Policy ID Covered green party ID Covered green party's relationship to ramos Policy [place] Plan Information MEDICARE A [id number] Self [id number] A MEDICARE [id number] SP [id number] A MEDICARE [id number] SP [id number] A MEDICAID M [id number] Self [id number] MEDICAID [id number] SP [id number] MEDICAID [id number] SP [id number] ANS-Medicaid [id number] ANSI-Commercial [id number] ANSI-Medicare Part B [id number] ANSI-Commercial [id number] ANSI-Medicare Part B [id number] ANSI-Medicaid [id number] ANSI-Commercial [id number] ANSI-Medicaid [id number] ANSI-Medicare Part B [id number] ANSI-Medicaid [id number] ANSI-Commercial [id number] ANSI-Medicare Part B [id number] ANSI-Commercial [id number] ANSI-Medicare Part B [id number] ANSI-Medicaid [id number] ANSI-Commercial [id number] ANSI-Medicare Part B [id number] ANSI-Medicaid [id number] ANSI-Commercial [id number] ANSI-Medicaid [id number] ANSI-Medicare Part B [id number] MEDICARE [id number] A ANSI-Medicaid [id number] ANSI-Medicare Part B [id number] ANSI-Commercial [id number] ANSI-Commercial [id number] ANSI-Medicare Part B [id number] ANSI-Medicaid [id number] ANSI-Medicaid [id number] ANSI-Medicare Part B [id number] ANSI-Commercial [id number] ANSI-Medicare Part B [id number] ANSI-Commercial [id number] ANSI-Medicaid [id number] ANSI-Commercial [id number] ANSI-Medicaid [id number] ANSI-Medicare Part B [id number] MEDICARE C [id number] S [id number] A MEDICAID [id number] SP [id number] MEDICARE IRF PPS M [id number] S [id number] MEDICARE INPATIENT M [id number] S [id number] MEDICAID W [id number] S [id number] [place] [id number] SP [id number] MEDICARE OUTPATIENT M [id number] S [id number] MEDICARE [id number] SP [id number] [place]ED[place] [id number] SP [id number] MEDICARE C [id number] S [id number] MEDICAID M [id number] S [id number] MEDICAID [id number] SP [id number] Problems, Conditions, and Diagnoses Code Display Name Description Problem Type Effective Dates Data Source(s) E87.1 [id number] Hyponatremia Problem 08/18/2020 12:00:00 AM EST eCW1 ([facility]) Surgeries/Procedures Procedure Description Date Indications Data Source(s) Immunization: Flublok Quadrivalent (18 years & older) 0.5mL IM (Influenza) 06/08/2020 12:00:00 AM EST eCW1 ([facility]) Results ID Date Data Source [id number] 03/30/2021 09:56:00 AM EDT [facility] Name Value Range Interpretation Code Description Data Brittany rce(s) Supporting Document(s) SARS COVID ANTIGEN NEGATIVE [facility] This lab was ordered by [facility] a nd reported by [facility]. ID Date Data Source KARMA COVID AG (Point of Care) 03/30/2021 12:00:00 AM EDT eC W1 ([facility]) Name Value Range Interpretation Code Description Data Brittany rce(s) Supporting Document(s) NEGATIVE NEGATIVE [place]ARMA COVID ANTIGEN eCW1 ([facility]) ID Date Data Source [id number] 02/11/2021 10:03:00 AM EDT [facility] Name Value Range Interpretation Code Description Data Brittany rce(s) Supporting Document(s) SARS COVID ANTIGEN NEGATIVE [facility] This lab was ordered by [facility] a nd reported by [facility]. ID Date Data Source Coronavirus 2019 Nasopharygeal (Send Out) COVID 02/11/2021 1 2:00:00 AM EDT eCW1 ([facility]) Name Value Range Interpretation Code Description Data Brittany rce(s) Supporting Document(s) Coronavirus 2019 Nasophar ygeal (Send Out) COVID eCW1 ([facility]) ID Date Data Source URINE CULTURE 02/11/2021 12:00:00 AM EDT eCW1 ([facility]) Name Value Range Interpretation Code Description Data Brittany rce(s) Supporting Document(s) Laboratory studies (set) URINE CULTU RE eCW1 ([facility]) ID Date Data Source VITAMIN D [id number] 11/02/2020 12:00:00 AM EDT eCW1 ([facility]) Name Value Range Interpretation Code Description Data Brittany rce(s) Supporting Document(s) 22.9 30.0-100.0 TOTAL 25(OH) VITAMIN D eC W1 ([facility]) ID Date Data Source [id number] 11/02/2020 12:00:00 AM EDT eCW1 ([facility]) Name Value Range Interpretation Code Description Data Brittany rce(s) Supporting Document(s) Hemoglobin A1c/Hemoglobin.total in Blood 8.0 HEMOGLOBIN A1c eCW1 ([facility]) ID Date Data Source Comprehensive Metabolic Profile (CMP) 11/02/2020 12:00:00 AM EDT eCW1 ([facility]) Name Value Range Interpretation Code Description Data Brittany rce(s) Supporting Document(s) 281 70-100 GLUCOSE, FASTING eCW1 ([facility]) 23 7-18 BLOOD UREA NITROGEN eCW1 ([facility]) 1.13 0.55-1.30 CREATININE FOR GFR eCW1 ([facility]) 49.2 >32 GLOMERULAR FILTRATION RATE eCW 1 ([facility]) 5.1 3.5-5.1 POTASSIUM SERUM eCW1 ([facility]) 129 136-145 SODIUM LEVEL eCW1 ([facility]) 94 98-107 CHLORIDE LEVEL eCW1 ([facility]) 29 21-32 CARBON DIOXIDE LEVEL eCW1 ([facility]) 10.1 8.8-10.2 CALCIUM LEVEL eCW1 ([facility]) 22 12-78 ALT/SGPT eCW1 ([facility]) 90 45-117 ALKALINE PHOSPHATASE eCW1 ([facility]) 12 7-37 AST/SGOT eCW1 ([facility]) 0.3 0.2-1.0 BILIRUBIN,TOTAL eCW1 ([facility]) 7.3 6.4-8.2 TOTAL PROTEIN eCW1 ([facility]) 4.1 3.2-5.2 ALBUMIN eCW1 ([facility]) 1.3 1.2-2.2 ALBUMIN/GLOBULIN RATIO eCW1 ([facility]) ID Date Data Source PTH INTACT 11/02/2020 12:00:00 AM EDT eCW1 ([facility]) Name Value Range Interpretation Code Description Data Brittany rce(s) Supporting Document(s) 37.0 18.5-88.0 PTH INTACT eCW1 ([facility]) ID Date Data Source CBC with Differential 11/02/2020 12:00:00 AM EDT eCW1 ([facility]) Name Value Range Interpretation Code Description Data Brittany rce(s) Supporting Document(s) 8.5 4.0-10.0 WHITE BLOOD COUNT eCW1 ([facility]) 37.4 36.0-47.0 HEMATOCRIT eCW1 ([facility]) 12.1 12.0-15.5 HEMOGLOBIN eCW1 ([facility]) 4.20 4.00-5.40 RED BLOOD COUNT eCW1 ([facility]) 32.4 32.0-36.5 MEAN CORPUSCULAR HGB CONC eCW1 ([facility]) 89.0 80.0-96.0 MEAN CORPUSCULAR VOLUME e CW1 ([facility]) 28.8 27.0-33.0 MEAN CORPUSCULAR HEMOGLOB IN eCW1 ([facility]) 13.6 11.5-14.5 RED CELL DISTRIBUTION WID TH eCW1 ([facility]) 250 150-450 PLATELET COUNT, AUTOMATED eCW1 ([facility]) 7.8 2.0-8.0 MONO % eCW1 ([facility]) 32.3 24.0-44.0 LYMPH % eCW1 ([facility]) 56.0 36.0-66.0 NEUTROPHILS % eCW1 ([facility]) 0.7 0.0-1.0 BASO % eCW1 ([facility]) 2.7 0.0-3.0 EOS % eCW1 ([facility]) 4.7 1.5-8.5 NEUTROPHILS # eCW1 ([facility]) 0.7 0.0-0.8 MONO # eCW1 ([facility]) 2.7 1.5-5.0 LYMPH # eCW1 ([facility]) 0.1 0.0-0.2 BASO # eCW1 ([facility]) 0.2 0.0-0.5 EOS # eCW1 ([facility]) ID Date Data Source NT-PRO BNP 11/02/2020 12:00:00 AM EDT eCW1 ([facility]) Name Value Range Interpretation Code Description Data Brittany rce(s) Supporting Document(s) 383 <450 NT-PRO BNP W1 ([facility]) ID Date Data Source OSMOLALITY URINE 08/18/2020 12:00:00 AM EST eCW1 ([facility]) Name Value Range Interpretation Code Description Data Brittany rce(s) Supporting Document(s) 571 500-800 [facility] ([facility]) ID Date Data Source SODIUM,RANDOM URINE 08/18/2020 12:00:00 AM EST eCW1 ([facility]) Name Value Range Interpretation Code Description Data Brittany rce(s) Supporting Document(s) 113 eCW1 ([facility]) ID Date Data Source RENAL PROFILE 08/18/2020 12:00:00 AM EST eCW1 ([facility]) Name Value Range Interpretation Code Description Data Brittany rce(s) Supporting Document(s) 119 70-100 eCW1 ([facility]) 4.5 3.5-5.1 eCW1 ([facility]) 32 7-18 eCW1 ([facility]) 137 136-145 eCW1 ([facility]) 49.2 >32 eCW1 ([facility]) 1.13 0.55-1.30 eCW1 ([facility]) 9.4 8.8-10.2 eCW1 ([facility]) 24 21-32 eCW1 ([facility]) 4.8 2.5-4.9 eCW1 ([facility]) 101 98-107 eCW1 ([facility]) 4.1 3.2-5.2 eCW1 ([facility]) ID Date Data Source OSMOLALITY SERUM 08/18/2020 12:00:00 AM EST eCW1 ([facility]) Name Value Range Interpretation Code Description Data Brittany rce(s) Supporting Document(s) 287 280-301 eCW1 ([facility]) ID Date Data Source FREE T4 & TSH PANEL 08/18/2020 12:00:00 AM EST eCW1 ([facility]) Name Value Range Interpretation Code Description Data Brittany rce(s) Supporting Document(s) 1.13 0.76-1.46 eCW1 ([facility]) 0.715 0.358-3.740 eCW1 ([facility]) ID Date Data Source CBC with Auto Differential 08/18/2020 12:00:00 AM EST eCW1 ( [facility]) Name Value Range Interpretation Code Description Data Brittany rce(s) Supporting Document(s) 9.6 4.0-10.0 eCW1 ([facility]) 4.43 4.00-5.40 eCW1 ([facility]) 39.7 36.0-47.0 eCW1 ([facility]) 12.2 12.0-15.5 eCW1 ([facility]) 89.6 80.0-96.0 eCW1 ([facility]) 13.5 11.5-14.5 eCW1 ([facility]) 270 150-450 eCW1 ([facility]) 30.7 32.0-36.5 eCW1 ([facility]) 27.5 27.0-33.0 eCW1 ([facility]) 59.8 36.0-66.0 eCW1 ([facility]) 8.1 2.0-8.0 eCW1 ([facility]) 0.5 0.0-1.0 eCW1 ([facility]) 3.9 0.0-3.0 eCW1 ([facility]) 27.3 24.0-44.0 eCW1 ([facility]) 2.6 1.5-5.0 eCW1 ([facility]) 5.8 1.5-8.5 eCW1 ([facility]) 0.4 0-3.0 eCW1 ([facility]) 0.0 0-0 eCW1 ([facility]) 0.1 0.0-0.2 eCW1 ([facility]) 0.4 0.0-0.5 eCW1 ([facility]) 0.8 0.0-0.8 eCW1 ([facility]) ID Date Data Source [id number] 07/25/2020 08:46:00 PM [facility] Name Value Range Interpretation Code Description Data Brittany rce(s) Supporting Document(s) SARS coronavirus 2 RNA Not Detected [facility] [place] This lab was ordered by [facility] and reported by [facility]. Procedure Social History Code Duration Value Status Description Data Source(s ) Smoking 04/16/2021 12:00:00 AM EDT Former Smoker completed Former Smoker eCW1 ([facility]) Smoking 03/30/2021 12:00:00 AM EDT Former Smoker completed Former Smoker eCW1 ([facility]) Smoking 03/04/2021 12:00:00 AM EDT Former Smoker completed Former Smoker eCW1 ([facility]) Smoking 03/04/2021 12:00:00 AM EDT Former Smoker completed Former Smoker eCW1 ([facility]) Smoking 03/04/2021 12:00:00 AM EDT Former Smoker completed Former Smoker eCW1 ([facility]) Smoking 03/04/2021 12:00:00 AM EDT Former Smoker completed Former Smoker eCW1 ([facility]) Smoking 02/11/2021 12:00:00 AM EDT Former Smoker completed Former Smoker eCW1 ([facility]) Smoking 02/11/2021 12:00:00 AM EDT Former Smoker completed Former Smoker eCW1 ([facility]) Smoking 02/11/2021 12:00:00 AM EDT Former Smoker completed Former Smoker eCW1 ([facility]) Smoking 11/02/2020 12:00:00 AM EDT Former Smoker completed Former Smoker eCW1 ([facility]) Smoking 11/02/2020 12:00:00 AM EDT Former Smoker completed Former Smoker eCW1 ([facility]) Smoking 11/02/2020 12:00:00 AM EDT Former Smoker completed Former Smoker eCW1 ([facility]) Smoking 11/02/2020 12:00:00 AM EDT Former Smoker completed Former Smoker eCW1 ([facility]) Smoking 11/02/2020 12:00:00 AM EDT Former Smoker completed Former Smoker eCW1 ([facility]) Smoking 11/02/2020 12:00:00 AM EDT Former Smoker completed Former Smoker eCW1 ([facility]) Smoking 11/02/2020 12:00:00 AM EDT Former Smoker completed Former Smoker eCW1 ([facility]) Smoking 11/02/2020 12:00:00 AM EDT Former Smoker completed Former Smoker eCW1 ([facility]) Smoking 11/02/2020 12:00:00 AM EDT Former Smoker completed Former Smoker eCW1 ([facility]) Smoking 08/18/2020 12:00:00 AM EST Former Smoker completed Former Smoker eCW1 ([facility]) Smoking 08/18/2020 12:00:00 AM EST Former Smoker completed Former Smoker eCW1 ([facility]) Smoking 08/18/2020 12:00:00 AM EST Former Smoker completed Former Smoker eCW1 ([facility]) Smoking 08/18/2020 12:00:00 AM EST Former Smoker completed Former Smoker eCW1 ([facility]) Smoking 08/18/2020 12:00:00 AM EST Former Smoker completed Former Smoker eCW1 ([facility]) Smoking 06/08/2020 12:00:00 AM EST Former Smoker completed Former Smoker eCW1 ([facility]) Smoking 06/08/2020 12:00:00 AM EST Former Smoker completed Former Smoker eCW1 ([facility]) Vital Signs ID Date Data Source UNK Name Value Range Interpretation Code Description Data Source(s) Body weight 148.4 [lb_av] 148.4 [lb_av] eCW1 ([facility]) Body mass index (BMI) [Ratio] 31.01 kg/m2 31.01 kg/m2 eCW1 ([facility]) Heart rate 88 /min 88 /min eCW1 ([facility]) Body weight 67.31 kg 67.31 kg eCW1 ([facility]) Respiratory rate 18 /min 18 /min eCW1 ([facility]) Body height 58 [in_i] 58 [in_i] eCW1 ([facility]) Body temperature 97.3 [degF] 97.3 [degF] eCW1 ( [facility]) Systolic blood pressure 122 mm[Hg] 122 mm[Hg] e CW1 ([facility]) Diastolic blood pressure 82 mm[Hg] 82 mm[Hg] eCW1 ([facility]) Body weight 149.0 [lb_av] 149.0 [lb_av] eCW1 ([facility]) Body height 58 [in_i] 58 [in_i] eCW1 ([facility]) Body mass index (BMI) [Ratio] 31.14 kg/m2 31.14 kg/m2 eCW1 ([facility]) Heart rate 87 /min 87 /min eCW1 ([facility]) Respiratory rate 20 /min 20 /min eCW1 ([facility]) Body temperature 97.4 [degF] 97.4 [degF] eCW1 ( [facility]) Systolic blood pressure 126 mm[Hg] 126 mm[Hg] e CW1 ([facility]) Diastolic blood pressure 80 mm[Hg] 80 mm[Hg] eCW1 ([facility]) Body weight 147 [lb_av] 147 [lb_av] eCW1 ([facility]) Body weight 66.68 kg 66.68 kg eCW1 ([facility]) Body height 58 [in_i] 58 [in_i] eCW1 ([facility]) Body temperature 96.6 [degF] 96.6 [degF] eCW1 ( [facility]) Diastolic blood pressure 82 mm[Hg] 82 mm[Hg] eCW1 ([facility]) Systolic blood pressure 128 mm[Hg] 128 mm[Hg] e CW1 ([facility]) Body mass index (BMI) [Ratio] 30.72 kg/m2 30.72 kg/m2 eCW1 ([facility]) Heart rate 65 /min 65 /min eCW1 ([facility]) Respiratory rate 20 /min 20 /min eCW1 ([facility]) Body weight 146.2 [lb_av] 146.2 [lb_av] eCW1 ([facility]) Body height 58 [in_i] 58 [in_i] eCW1 ([facility]) Body mass index (BMI) [Ratio] 30.55 kg/m2 30.55 kg/m2 eCW1 ([facility]) Heart rate 79 /min 79 /min eCW1 ([facility]) Respiratory rate 20 /min 20 /min eCW1 ([facility]) Body temperature 96.2 [degF] 96.2 [degF] eCW1 ( [facility]) Systolic blood pressure 130 mm[Hg] 130 mm[Hg] e CW1 ([facility]) Diastolic blood pressure 80 mm[Hg] 80 mm[Hg] eCW1 ([facility]) Body weight 134 [lb_av] 134 [lb_av] eCW1 ([facility]) Body height 58 [in_i] 58 [in_i] eCW1 ([facility]) Body mass index (BMI) [Ratio] 28.00 kg/m2 28.00 kg/m2 eCW1 ([facility]) Heart rate 80 /min 80 /min eCW1 ([facility]) Respiratory rate 20 /min 20 /min eCW1 ([facility]) Body temperature 96.6 [degF] 96.6 [degF] eCW1 ( [facility]) Systolic blood pressure 162 mm[Hg] 162 mm[Hg] e CW1 ([facility]) Diastolic blood pressure 82 mm[Hg] 82 mm[Hg] eCW1 ([facility]) Body weight 139.8 [lb_av] 139.8 [lb_av] eCW1 ([facility]) Systolic blood pressure 130 mm[Hg] 130 mm[Hg] e CW1 ([facility]) Body mass index (BMI) [Ratio] 29.22 kg/m2 29.22 kg/m2 eCW1 ([facility]) Heart rate 81 /min 81 /min eCW1 ([facility]) Body height 58 [in_i] 58 [in_i] eCW1 ([facility]) Respiratory rate 18 /min 18 /min eCW1 ([facility]) Diastolic blood pressure 82 mm[Hg] 82 mm[Hg] eCW1 ([facility]) Body temperature 97.0 [degF] 97.0 [degF] eCW1 ( [facility]) Patient Treatment Plan of Care Planned Activity Planned Date Details Description Data Source (s) 200 ACTUAT Albuterol 0.09 MG/ACTUAT Metered Dose Inhal er [ProAir] 02/11/2021 12:00:00 AM EDT eCW1 ([facility]) Prednisone 20 MG Oral Tablet 02/11/2021 12:00:00 AM EDT eCW1 ([facility]) Augmentin 875-125 MG 02/11/2021 12:00:00 AM EDT eCW1 ([facility]) 200 ACTUAT Albuterol 0.09 MG/ACTUAT Metered Dose Inhal er [ProAir] 02/11/2021 12:00:00 AM EDT eCW1 ([facility]) Prednisone 20 MG Oral Tablet 02/11/2021 12:00:00 AM EDT eCW1 ([facility]) Augmentin 875-125 MG 02/11/2021 12:00:00 AM EDT eCW1 ([facility]) 200 ACTUAT Albuterol 0.09 MG/ACTUAT Metered Dose Inhal er [ProAir] 02/11/2021 12:00:00 AM EDT eCW1 ([facility]) Prednisone 20 MG Oral Tablet 02/11/2021 12:00:00 AM EDT eCW1 ([facility]) Augmentin 875-125 MG 02/11/2021 12:00:00 AM EDT eCW1 ([facility]) Glucose strip (Verio IQ) 12/15/2020 12:00:00 AM EDT eCW1 ([facility]) Glucose strip (Verio IQ) 12/15/2020 12:00:00 AM EDT eCW1 ([facility]) Glucose strip (Verio IQ) 12/15/2020 12:00:00 AM EDT eCW1 ([facility]) Glucose strip (Verio IQ) 12/15/2020 12:00:00 AM EDT eCW1 ([facility]) Glucometer 10/15/2020 12:00:00 AM EDT e CW1 ([facility]) Glucometer 10/15/2020 12:00:00 AM EDT e CW1 ([facility]) Glucometer 10/15/2020 12:00:00 AM EDT e CW1 ([facility]) Glucometer 10/15/2020 12:00:00 AM EDT e CW1 ([facility]) irbesartan 75 MG Oral Tablet 08/18/2020 12:00:00 AM EST eCW1 ([facility]) irbesartan 75 MG Oral Tablet 08/18/2020 12:00:00 AM EST eCW1 ([facility]) irbesartan 75 MG Oral Tablet 08/18/2020 12:00:00 AM EST eCW1 ([facility]) irbesartan 75 MG Oral Tablet 08/18/2020 12:00:00 AM EST eCW1 ([facility]) irbesartan 75 MG Oral Tablet 08/18/2020 12:00:00 AM EST eCW1 ([facility]) irbesartan 75 MG Oral Tablet 08/18/2020 12:00:00 AM EST eCW1 ([facility]) irbesartan 75 MG Oral Tablet 08/18/2020 12:00:00 AM EST eCW1 ([facility]) irbesartan 75 MG Oral Tablet 08/18/2020 12:00:00 AM EST eCW1 ([facility]) irbesartan 75 MG Oral Tablet 08/18/2020 12:00:00 AM EST eCW1 ([facility]) BD Lancet Ultrafine 33G - 06/08/2020 12:00:00 AM EST eCW1 ([facility]) Escitalopram 20 MG Oral Tablet 06/08/2020 12:00:00 AM EST eCW1 ([facility]) Pramipexole dihydrochloride 0.5 MG Oral Tablet 06/08/2020 12:00:00 AM EST eCW1 ([facility]) Escitalopram 20 MG Oral Tablet 06/08/2020 12:00:00 AM EST eCW1 ([facility]) Pramipexole dihydrochloride 0.5 MG Oral Tablet 06/08/2020 12:00:00 AM EST eCW1 ([facility]) BD Lancet Ultrafine 33G - 06/08/2020 12:00:00 AM EST eCW1 ([facility])
[2021-04-25] MEDS ORDERED: LEVEMIR (INSULIN DETEMIR) 1 UNITS/0.01ML SC ONE (15:15)
[2021-04-25] MEDS ORDERED: SOD POLYSTYRENE SULFONATE SUSP 15 GM/60 ML UD PO ONE (15:15)
--- NOTE | 2021-04-25 15:15 | HPEPDOC ---
General Date of Admission Apr 25, 2021 at 14:41 Date of Service: Apr 25, 2021 Chief Complaint The patient is a 80-year-old female admitted with a reason for visit of Altered Mental Status. Source: Patient, Family Exam Limitations: Clinical conditions History of Present Illness Patient is 80 years old female with past medical history of left breast invasive ductal carcinoma, status post mastectomy in 2006, hyperlipidemia, hypertension, diastolic CHF presented to hospital with altered mental status. According to her son patient was in her usual state of health recently, 2 days ago she developed some mental confusion, she became disoriented in time and place and today in the morning she developed some visual hallucinations, she saw Yordy in her room. Patient denied any pain, fever or chills. Patient reported with she was constipated for couple of days. In ER patient was found to have systolic blood pressure elevated to 196, white blood count of 14.5, potassium 5.2, glucose level 395, troponin negative, UA negative for pyuria. CT head did not show acute intracranial pathology. Abdominal x-ray showed Decreased bowel gas consistent with enterocolitis or ileus. Chest x-ray showed no evidence of acute cardiopulmonary pathology. Of note patient forgot to take her morning medications Home Medications Scheduled Alendronate Sodium (Fosamax) 70 Mg Tablet, 70 MG PO QWEEK, (Reported) THURSDAYS Aspirin (Aspir 81) 81 Mg Tablet.dr, 81 MG PO DAILY, (Reported) Calcium Carbonate/Vitamin D3 (Calcium 600 + Vit D Tablet) 1 Each Tablet, 1 TAB PO DAILY, (Reported) Ciclopirox Olamine (Ciclopirox) 15 Gm Cream..g., 1 APLCT TOP BID, (Reported) APPLY TO FEET Ergocalciferol (Vitamin D2) (Drisdol) 50,000 Unit Capsule, 50,000 UNIT PO Q2WK, (Reported) EVERY OTHER MONDAY Escitalopram Oxalate (Escitalopram Oxalate) 20 Mg Tablet, 10 MG PO DAILY, (Reported) Famotidine (Famotidine) 20 Mg Tablet, 20 MG PO DAILY Magnesium (Magnesium) 250 Mg Tablet, 250 MG PO QHS, (Reported) Metformin HCl (Metformin HCl ER) 500 Mg Tab.er.24h, 500 MG PO BID, (Reported) Metoprolol Tartrate (Metoprolol Tartrate) 50 Mg Tablet, 25 MG PO DAILY, (Reported) Pramipexole Di-HCl (Mirapex) 0.25 Mg Tablet, 0.25 MG PO QHS, (Reported) Prednisone (Prednisone) 20 Mg Tablet, 60 MG PO DAILY Simvastatin (Simvastatin) 40 Mg Tablet, 40 MG PO QHS, (Reported) Sitagliptin Phosphate (Januvia) 100 Mg Tablet, 100 MG PO DAILY, (Reported) Vitamin B Complex (B Complex) 1 Each Tablet, 1 TAB PO DAILY, (Reported) Scheduled PRN Albuterol Sulfate (Ventolin Hfa) 18 Gm Hfa.aer.ad, 2 PUFF INH Q4-6HP PRN for wheezing Diclofenac Sodium (Voltaren) 100 Gm Gel..gram., 1 GRAM TOP QID PRN for PAIN, (Reported) APPLY TO BILATERAL KNEES Hydrocodone/Acetaminophen (Hydrocodone-Acetamin 7.5-325) 1 Each Tablet, 1 TAB PO Q4HP PRN for PAIN Allergies Coded Allergies: No Known Allergies (Verified , 07/27/05) Past Medical History Medical History HISTORY OF NICOTINE ADDICTION-QUIT IN 2005-45 PACK YEAR HISTORY-APRIL 2004 FEV1 OF 104% NORMAL HISTORY OF LEFT BREAST INVASIVE DUCTAL CARCINOMA-ER/UT +, STATUS POST MASTECTOMY IN JULY 2006-DEISY, CHEMOTHERAPY S/P TAMOXIFEN X 5Y T2DM NID HYPERLIPIDEMIA 2B HYPERTENSION-LAE 36 MM, MILD PHTN, ELEVATED CVP, AORTIC VALVE SCLEROSIS, GRADE 2 DIASTOLIC DYSFUNCITON-12/2013 TTE-[facility] [place]/12/2013 LOW RISK DBST-[place] GERD OSTEOPOROSIS S/P MECHANICAL FALL 07/30/13 WITH 2 8 LEFT RIB FRACTURES, R SACRAL FRACTURE, L INFERIOR AND SUPERIOR PUBIC RAMI FRACTURE, L L2 TRANSVERSE PROCESS FRACTURE, R L4, 5 TRANSVERSE PROCESS FRACTURES, T3 COMPRESSION FRACTURE FOR WHICH SHE WAS PLACE IN [place] [employer] , RECURRENT UTI LIZ/CHRONIC MDD Surgical History R ZONE 2 SACRAL FRACTURE S/P PERCUTANEOUS FIXATION OF R POSTERIOR PELVIS, R SI JOINT SCREW, CLOSED TREATMENT OF ANTERIOR PELVIC RING-08/01/13 L MASTECTOMY 2005 T&A TVH WITH ANTERIOR COLPORRHAPHY-PATRICK/JANE-DONE SECONDARY TO UTERINE PROLAPSE/BENIGN PATHOLOGY JUNE 2010 R BREAST STEREOTACTIC BIOPSY C/W SCLEROSING ADENOSIS, DYSTROPHIC CALCIFICATIONS 10/2011 ANTERIOR, POSTERIOR REPAIR, TVT REPAIR 2 UTERINE PROLAPSE, STRESS INCONTINENCE-[facility] 12/30/2013 Family History I personally reviewed family history and found not pertinent Social History * Smoker: former Smoker Alcohol: Denies Drugs: denies A-FIB/CHADSVASC A-FIB History Current/History of A-Fib/PAF?: No Current PO Anticoag Therapy: No Review of Systems Constitutional: Denies: Chills, Fever Eyes: Denies: Pain ENT: Denies: Head Aches Skin: Denies: Rash, Lesions Pulmonary: Denies: Dyspnea Cardiovascular: Denies: Chest Pain Gastrointestinal: Denies: Nausea, Vomiting Genitourinary: Denies: Dysuria Hematologic: Denies: Bruising Endocrine: Denies: Polydipsia Musculoskeletal: Denies: Neck Pain Neurological: Reports: Confusion; Denies: Weakness Psych: Reports: Mood Normal Physical Examination General Exam: Positive: Cooperative, No Acute Distress Eye Exam: Positive: PERRLA ENT Exam: Positive: Atraumatic Neck Exam: Positive: Supple; Negative: JVD Chest Exam: Positive: Clear to auscultation Heart Exam: Positive: Tachycardic Telemetry: Positive: Sinus Abdomen Exam: Positive: Normal bowel sounds Extremity Exam: Negative: Clubbing Skin Exam: Positive: Nl turgor and temperature Neuro Exam: Positive: Cranial Nerves 3-12 NL Psych Exam: Positive: Mood NL Vital Signs Vital Signs Date Time Temp Pulse Resp B/P (MAP) Pulse Ox O2 Delivery O2 Flow Rate FiO2 04/25/21 12:42 185/74 (111) 04/25/21 12:07 97.5 106 38 95 Room Air Laboratory Data Labs 24H Laboratory Tests 2 04/25/21 12:15: Bedside Glucose (Misc Panel) 402H 04/25/21 12:48: Immature Granulocyte % (Auto) 0.6, Neutrophils (%) (Auto) 74.1H, Lymphocytes (%) (Auto) 15.6L, Monocytes (%) (Auto) 8.2H, Eosinophils (%) (Auto) 1.2, Basophils (%) (Auto) 0.3, Neutrophils # (Auto) 10.8H, Lymphocytes # (Auto) 2.3, Monocytes # (Auto) 1.2H, Eosinophils # (Auto) 0.2, Basophils # (Auto) 0.1, Nucleated Red Blood Cells % (auto) 0.0, Anion Gap 11, Glomerular Filtration Rate 45.0, Calcium Level 9.2, Total Bilirubin 0.5, Direct Bilirubin < 0.1, Aspartate Amino Transf (AST/SGOT) 22, Alanine Aminotransferase (ALT/SGPT) 23, Alkaline Phosphatase 90, Ammonia 28, Total Creatine Kinase 105, Creatine Kinase MB 2.8, Creatine Kinase MB Relative Index 2.67, Troponin I < 0.02, Total Protein 7.4, Albumin 4.0, Albumin/Globulin Ratio 1.2, Thyroid Stimulating Hormone (TSH) 1.990, Free Thyr oxine 1.27, Ethyl Alcohol Level < 0.003 04/25/21 13:48: Urine Color YELLOW, Urine Appearance CLEAR, Urine pH 6.0, Urine Specific [place] 1.015, Urine Protein 2+H, Urine Glucose (UA) 3+H, Urine Ketones TRACEH, Urine Blood NEGATIVE, Urine Nitrite NEGATIVE, Urine Bilirubin NEGATIVE, Urine Urobilinogen 0.2, Urine Leukocyte Esterase NEGATIVE, Urine WBC (Auto) 1, Urine RBC (Auto) 1, Urine Hyaline Casts (Auto) 0, Urine Bacteria (Auto) NEGATIVE, Urine Squamous Epithelial Cells 0, Urine Sperm (Auto) CBC/BMP Laboratory Tests 04/25/21 12:48 Assessment/Plan Patient is 80 years old female with past medical history of left breast invasive ductal carcinoma, status post mastectomy in 2006, hyperlipidemia, hypertension, diastolic CHF presented to hospital with altered mental status. According to her son patient was in her usual state of health recently, 2 days ago she developed some mental confusion, she became disoriented in time and place and today in the morning she developed some visual hallucinations, she saw Yordy in her room. Patient denied any pain, fever or chills. Patient reported with she was constipated for couple of days. In ER patient was found to have white blood count of 14.5, potassium 5.2, glucose level 395, troponin negative, UA negative for pyuria. CT head did not show acute intracranial pathology. Abdominal x-ray showed Decreased bowel gas consistent with enterocolitis or ileus. Chest x-ray showed no evidence of acute cardiopulmonary pathology Problems (1) Altered mental status Status: Acute Problem Text: Unknown etiology UA did not show pyuria Patient developed leukocytosis with tachycardia Abdominal x-ray shows possible enteritis. I will proceed with CT abdomen/pelvis I will start empirically Zosyn IV (2) Osteoporosis Status: Chronic Problem Text: Continue home meds (3) Diabetes mellitus Status: Chronic Problem Text: Patient currently on Metformin She forgot to take her medications according to his son Detemir twice daily Insulin sliding scale Diabetes diet (4) Hypertensive urgency Status: Acute Problem Text: Captopril 6.25 once Continue home meds Labetalol 20 mg IV as needed (5) Hyperlipidemia Status: Chronic Problem Text: Continue statin (6) SIRS (systemic inflammatory response syndrome) Status: Acute Problem Text: Patient developed tachycardia, altered mental status, and leukocytosis of 14 I will start empirically IV Zosyn Blood culture ordered Gentle IV fluid due to history of diastolic CHF and hypertensive urgency (7) Diastolic CHF Status: Chronic Problem Text: Not in acute exacerbation I's and O's Salt restriction Plan / VTE VTE Prophylaxis Ordered?: Yes OSWALDO MERAZ DO Apr 25, 2021 15:15
[2021-04-25] MEDS ORDERED: ISOVUE-370 76% 100ML VIAL As Ordered ONE (15:26)
[2021-04-25] MEDS ORDERED: CAPTOpril 6.25 MG PER 1/2 TABLET PO ONE ×2 (15:30→19:00)
[2021-04-25] MEDS ORDERED: CALC600C3 PO (15:31)
[2021-04-25] MEDS ORDERED: MIRA0.5T PO (15:31)
[2021-04-25] MEDS ORDERED: LEXA1TAB2 PO (15:31)
[2021-04-25] MEDS ORDERED: IRBE75TA4 PO (15:31)
[2021-04-25] MEDS ORDERED: ASPI81TA26 PO (15:31)
[2021-04-25] MEDS ORDERED: HOME MED LIST COMPLETE! XX SCH (15:40)
[2021-04-25 15:52] LABS: RSV AMPLIFICATION NEGATIVE (NEGATIVE)
[2021-04-25] MEDS ORDERED: PIPERACILLIN/TAZOBACTAM SOD 3.375 GM in D5W MINI-BAG PLUS 50 ML IV ONE (16:00)
[2021-04-25 16:28] VITALS: BP 190/80
[2021-04-25] MEDS: NS 1,000 ML IV SCH (17:04)
--- NOTE | 2021-04-25 17:09 | REP ---
INDICATION: Gastroenteritis. COMPARISON: CT abdomen pelvis with contrast 07/22/2020. TECHNIQUE: Imaging protocol: Computed tomography of the abdomen and pelvis with IV contrast. Contiguous 3 mm thick axial projection images were obtained through the abdomen and pelvis. 2D sagittal and coronal reconstructions were performed. Radiation optimization: All CT scans at this facility use at least one of these dose optimization techniques: automated exposure control; mA and/or kV adjustment per patient size (includes targeted exams where dose is matched to clinical indication); or iterative reconstruction. Contrast material: ISOVUE 370; Contrast volume: 100 ml; Contrast route: INTRAVENOUS (IV). FINDINGS: Heart and lung bases: There is linear scarring in the lingula. There are no pleural effusions. The heart size is normal. There is no pericardial effusion. There is calcific vascular disease of the thoracic aorta and coronary arteries. Liver: Fatty infiltration. Gallbladder: Normal. Spleen: Normal. Pancreas: Normal. Adrenal glands: Normal. Kidneys/bladder: There are multiple benign cortical cysts in both kidneys. The urinary bladder has a normal unenhanced appearance. Pelvic structures: The uterus is surgically absent. The ovaries are not identified. There is no free fluid the pelvis. There is no pelvic or inguinal lymphadenopathy. GI tract: There is a small hiatal hernia. There are few scattered colonic diverticula without evidence of acute inflammation. The appendix is not demonstrated. Abdominal wall and mesentery: There is a 20 mm in diameter umbilical hernia containing normal fat. There are bilateral inguinal hernias, containing normal fat, measuring 1.8 cm in diameter on the right and 1.7 cm in diameter on the left. Abdominal aorta and vascular structures: There is calcific vascular disease of the abdominal aorta. The origins of renal arteries and the SMA are heavily calcified. The inferior vena cava and portal venous system are unremarkable. Bony structures: The lumbar spine is unremarkable. There is a large orthopedic screw through both SI joints. There is mild arthritis of both hips. IMPRESSION: 1. There are stable benign cortical cyst in both kidneys. 2. Fatty liver infiltration. 3. There is a small hiatal hernia. 4. There are is mild colonic diverticulosis. 5. There is calcific vascular disease of the thoracoabdominal aorta and coronary arteries. 6. Status post ORIF diastasis of the SI joints. 7. Umbilical and bilateral inguinal hernias containing normal fat. <Electronically signed by Castro Weber > 04/25/21 [id number]
[2021-04-25] MEDS: HumaLOG INSULIN (NovoLOG) PER UNIT SC SCH ×2 (17:29→20:24)
[2021-04-25] MEDS ORDERED: LORazepam 1 MG TAB PO ONE (17:45)
[2021-04-25] MEDS ORDERED: LORazepam 1 MG TAB PO PRN (18:10)
[2021-04-25 18:30] VITALS: BP 162/78
[2021-04-25] MEDS ORDERED: METOPROLOL TART 25 MG TABLET PO ONE (18:50)
[2021-04-25] MEDS ORDERED: METOPROLOL 5 MG/5 ML VIAL IV PRN (18:50)
[2021-04-25 19:00] VITALS: BP 129/75
[2021-04-25 20:08] VITALS: BP 134/62
[2021-04-25] MEDS: HEPARIN SOD (PORCINE) 5000UNITS/ML 1ML VIAL/SYRINGE SC SCH (20:19)
[2021-04-25] MEDS: QUEtiapine FUMARATE 12.5 MG HALF-TAB PO SCH (20:20)
[2021-04-25] MEDS: SIMVASTATIN 40 MG TAB PO SCH (20:20)
[2021-04-25] MEDS: PRAMIPEXOLE 0.25 MG TAB PO SCH (20:22)
[2021-04-25] MEDS: IRBESARTAN 150MG TAB PO SCH (20:22)
[2021-04-25] MEDS: METOPROLOL TART 25 MG TABLET PO SCH (20:22)
[2021-04-25] MEDS: LEVEMIR (INSULIN DETEMIR) 1 UNITS/0.01ML SC SCH (20:24)
[2021-04-25] MEDS ORDERED: NS 1,000 ML IV ONE (22:15)
[2021-04-25] MEDS: PIPERACILLIN/TAZOBACTAM SOD 3.375 GM in D5W MINI-BAG PLUS 50 ML IV SCH (23:55)
[2021-04-26 00:15] VITALS: BP 99/55
[2021-04-26 04:10] VITALS: BP 122/56
[2021-04-26] MEDS: PIPERACILLIN/TAZOBACTAM SOD 3.375 GM in D5W MINI-BAG PLUS 50 ML IV SCH ×4 (05:06→23:08)
[2021-04-26 05:58] LABS: HEMATOCRIT 32.6 % (36.0-47.0); HEMOGLOBIN 10.5 g/dl (12.0-15.5); MEAN CORPUSCULAR HEMOGLOBIN 28.6 pg (27.0-33.0); MEAN CORPUSCULAR HGB CONC 32.2 g/dl (32.0-36.5); MEAN CORPUSCULAR VOLUME 88.8 fl (80.0-96.0); PLATELET COUNT, AUTOMATED 246 10^3/uL (150-450); RED BLOOD COUNT 3.67 10^6/uL (4.00-5.40); WHITE BLOOD COUNT 10.6 10^3/uL (4.0-10.0)
[2021-04-26 06:27] LABS: ALBUMIN 3.2 GM/DL (3.2-5.2); BILIRUBIN,TOTAL 0.4 MG/DL (0.2-1.0); CALCIUM LEVEL 8.1 MG/DL (8.8-10.2); CREATININE FOR GFR 1.49 MG/DL (0.55-1.30); GLOMERULAR FILTRATION RATE 35.8 (>32); MAGNESIUM LEVEL 1.5 MG/DL (1.8-2.4); POTASSIUM SERUM 3.9 MEQ/L (3.5-5.1); TOTAL PROTEIN 6.5 GM/DL (6.4-8.2)
[2021-04-26 07:36] VITALS: BP 169/75
[2021-04-26] MEDS: NS 1,000 ML IV SCH (08:19)
[2021-04-26] MEDS: METOPROLOL TART 25 MG TABLET PO SCH ×2 (08:19→20:11)
[2021-04-26] MEDS: ESCITALOPRAM OXALATE 10 MG TAB (LEXAPRO) PO SCH (08:20)
[2021-04-26] MEDS: ASPIRIN 81MG ENTERIC TABLET PO SCH (08:20)
[2021-04-26] MEDS: QUEtiapine FUMARATE 12.5 MG HALF-TAB PO SCH (08:20)
[2021-04-26] MEDS: HEPARIN SOD (PORCINE) 5000UNITS/ML 1ML VIAL/SYRINGE SC SCH ×2 (08:20→20:11)
[2021-04-26] MEDS: HumaLOG INSULIN (NovoLOG) PER UNIT SC SCH ×4 (08:21→20:13)
[2021-04-26] MEDS: LEVEMIR (INSULIN DETEMIR) 1 UNITS/0.01ML SC SCH ×2 (08:21→20:12)
[2021-04-26] MEDS ORDERED: MAGNESIUM OXIDE 400MG TAB (MAG-OX) PO ONE (10:00)
[2021-04-26 11:57] VITALS: BP 147/64
[2021-04-26] MEDS ORDERED: ALBUTEROL SULFATE 2.5 MG/0.5 ML INH NEB SOLN NEB PRN (12:25)
[2021-04-26] MEDS: IPRATROPIUM 0.5MG/ALBUTEROL 2.5MG INH SOL UD 3ML (DUONEB) NEB SCH ×2 (13:09→20:54)
--- NOTE | 2021-04-26 15:42 | IPNPDOC ---
Text Note Date of Service The patient was seen on 04/26/21. NOTE Subjective: Patient was agitated overnight, screamed. In the morning she was somnolent but oriented in time and place. Objective: GENERAL APPEARANCE: Somnolent female HEENT: no scleral icterus, no JVD, EOMI CARDIOVASCULAR: S1S2 LUNGS: Diminished lung sounds bilaterally ABDOMEN: soft & not tender w palpation MUSCULOSKELETAL: no cyanosis, no swelling INTEGUMENT: no generalized pallor NEUROLOGICAL: cranial nerve function from 2-12 intact, follows commands, speech not dysarthric Assessment/Plan Patient is 80 years old female with past medical history of left breast invasive ductal carcinoma, status post mastectomy in 2006, hyperlipidemia, hypertension, diastolic CHF presented to hospital with altered mental status. According to her son patient was in her usual state of health recently, 2 days ago she developed some mental confusion, she became disoriented in time and place and today in the morning she developed some visual hallucinations, she saw Yordy in her room. Patient denied any pain, fever or chills. Patient reported with she was constipated for couple of days. In ER patient was found to have white blood count of 14.5, potassium 5.2, glucose level 395, troponin negative, UA negative for pyuria. CT head did not show acute intracranial pathology. Abdominal x-ray showed Decreased bowel gas consistent with enterocolitis or ileus. Chest x-ray showed no evidence of acute cardiopulmonary pathology Problems (1) Altered mental status/metabolic encephalopathy/agitation Unknown etiology, most likely secondary to SIRS UA did not show pyuria Patient had leukocytosis, lactic acidosis with tachycardia on admission Abdominal x-ray shows possible enteritis. CT abdomen/pelvis showed There are is mild colonic diverticulosis. Continues to have mild leukocytosis today Continue empirically Zosyn IV day 1, await blood culture (2) Osteoporosis Continue home meds (3) Diabetes mellitus Glucose level under control Detemir twice daily Insulin sliding scale Diabetes diet (4) Hypertensive urgency/hypertension Blood pressure under control Continue home meds (5) Hyperlipidemia Continue statin (6) SIRS (systemic inflammatory response syndrome) Patient had tachycardia, lactic acidosis, altered mental status, and leukocytosis of 14 I started empirically IV Zosyn Blood culture pending (7) Diastolic CHF Not in acute exacerbation I's and O's Salt restriction Deconditioning PT/OT Lactic acidosis Resolved Plan / VTE VTE Prophylaxis Ordered?: Yes VS,Fishbone, I+O VS, Fishbone, I+O Laboratory Tests 04/26/21 05:39 Vital Signs Date Time Temp Pulse Resp B/P (MAP) Pulse Ox O2 Delivery O2 Flow Rate FiO2 04/26/21 11:57 99.9 107 24 147/64 (91) 93 Room Air I&O- Last 24 Hours up to 6 AM 04/26/21 06:00 Intake Total 1610 ml Output Total 0 ml Balance 1610 ml OSWALDO MERAZ DO Apr 26, 2021 15:42
[2021-04-26] MEDS ORDERED: METOPROLOL TART 25 MG TABLET PO ONE (15:45)
[2021-04-26 16:00] VITALS: BP 151/72
[2021-04-26 20:00] VITALS: BP 178/72
[2021-04-26] MEDS: QUEtiapine FUMARATE 25 MG TAB PO SCH (20:11)
[2021-04-26] MEDS: IRBESARTAN 150MG TAB PO SCH (20:12)
[2021-04-26] MEDS: SIMVASTATIN 40 MG TAB PO SCH (20:12)
[2021-04-26] MEDS: PRAMIPEXOLE 0.25 MG TAB PO SCH (20:12)
[2021-04-27] VITALS: BP 110/72
[2021-04-27] MEDS: IPRATROPIUM 0.5MG/ALBUTEROL 2.5MG INH SOL UD 3ML (DUONEB) NEB SCH ×3 (02:00→13:21)
[2021-04-27 04:00] VITALS: BP 164/72
[2021-04-27] MEDS: PIPERACILLIN/TAZOBACTAM SOD 3.375 GM in D5W MINI-BAG PLUS 50 ML IV SCH ×2 (04:26→10:05)
[2021-04-27] MEDS: QUEtiapine FUMARATE 25 MG TAB PO SCH (07:59)
[2021-04-27] MEDS: ASPIRIN 81MG ENTERIC TABLET PO SCH (07:59)
[2021-04-27] MEDS: METOPROLOL TART 25 MG TABLET PO SCH (07:59)
[2021-04-27] MEDS: ESCITALOPRAM OXALATE 10 MG TAB (LEXAPRO) PO SCH (07:59)
[2021-04-27 08:00] VITALS: BP 171/76
[2021-04-27] MEDS: LEVEMIR (INSULIN DETEMIR) 1 UNITS/0.01ML SC SCH (08:00)
[2021-04-27] MEDS: HEPARIN SOD (PORCINE) 5000UNITS/ML 1ML VIAL/SYRINGE SC SCH (08:00)
[2021-04-27] MEDS: HumaLOG INSULIN (NovoLOG) PER UNIT SC SCH ×2 (08:00→12:20)
[2021-04-27] MEDS ORDERED: FLUBLOK(EGG FREE)(QUAD)INFLUENZA VACC 0.5ML SYRINGE 18YRS & OLDER IM ONE (09:00)
[2021-04-27] MEDS ORDERED: **hydrALAZINE** 10 MG TAB PO SCH (09:00)
[2021-04-27] MEDS ORDERED: METOPROLOL TART 25 MG TABLET PO ONE (09:10)
[2021-04-27] MEDS ORDERED: ISOS20TAB PO (09:22)
[2021-04-27] MEDS ORDERED: HYDR10TAB PO (09:22)
[2021-04-27] MEDS ORDERED: AUGM875T28 PO (09:22)
[2021-04-27] MEDS ORDERED: METO75TA PO (09:22)
[2021-04-27] MEDS ORDERED: SELF1KIT MC (09:23)
[2021-04-27] MEDS: ISOSORBIDE DIN. (ISORDIL) 20 MG TAB PO SCH ×2 (09:38→12:00)
[2021-04-27 12:00] VITALS: BP 126/60
[2021-04-27 12:17] VITALS: BP 126/60
--- NOTE | 2021-04-27 19:35 | DS.PDOC ---
Discharge Summary General Date of Admission Apr 25, 2021 at 14:41 Date of Discharge 04/27/21 Discharge Summary DICTATED DISCHARGE SUMMARY JOB # [id number] Vital Signs/I&Os Vital Signs Date Time Temp Pulse Resp B/P (MAP) Pulse Ox O2 Delivery O2 Flow Rate FiO2 04/27/21 12:17 126/60 (82) 04/27/21 09:38 102 04/27/21 08:00 97.5 20 91 Room Air I&O- Last 24 Hours up to 6 AM 04/27/21 06:00 Intake Total 1710 ml Output Total 500 ml Balance 1210 ml Laboratory Data Labs 24H Laboratory Tests 2 04/26/21 19:50: Bedside Glucose (Misc Panel) 291H 04/27/21 06:17: Bedside Glucose (Misc Panel) 169H 04/27/21 11:36: Bedside Glucose (Misc Panel) 241H FSBS Laboratory Tests Test 04/26/21 19:50 04/27/21 06:17 04/27/21 11:36 Range/Units Bedside Glucose (Misc Panel) 291 169 241 83-110 MG/DL Microbiology Microbiology 04/25/21 Blood Culture - Preliminary, Resulted No Growth after 48 hours. All Specime... 04/25/21 Blood Culture - Preliminary, Resulted No Growth after 48 hours. All Specime... Discharge Medications Scheduled Alendronate Sodium (Fosamax) 70 Mg Tablet, 70 MG PO QWEEK, (Reported) THURSDAYS Amoxicillin/Potassium Clav (Augmentin 875-125 Tablet) 1 Each Tablet, 875 MG PO BID Aspirin (Aspirin EC) 81 Mg Tablet.dr, 81 MG PO DAILY, (Reported) Calcium Carbonate/Vitamin D3 (Calcium 600+D Softgel) 1 Each Capsule, 1 CAP PO DAILY, (Reported) Ciclopirox Olamine (Ciclopirox) 15 Gm Cream..g., 1 APLCT TOP BID, (Reported) APPLY TO FEET Escitalopram Oxalate (Lexapro) 20 Mg Tablet, 20 MG PO DAILY, (Reported) Hydralazine HCl (Hydralazine HCl) 10 Mg Tablet, 20 MG PO TID Isosorbide Dinitrate (Isosorbide Dinitrate) 20 Mg Tablet, 20 MG PO TID@07,12,17 Magnesium (Magnesium) 250 Mg Tablet, 250 MG PO QHS, (Reported) Metformin HCl (Metformin HCl ER) 500 Mg Tab.er.24h, 500 MG PO BID, (Reported) Metoprolol Tartrate (Metoprolol Tartrate) 75 Mg Tablet, 75 MG PO BID Pramipexole Di-HCl (Mirapex) 0.5 Mg Tablet, 0.5 MG PO QHS, (Reported) Simvastatin (Simvastatin) 40 Mg Tablet, 40 MG PO QHS, (Reported) Sitagliptin Phosphate (Januvia) 100 Mg Tablet, 100 MG PO DAILY, (Reported) Allergies Coded Allergies: No Known Allergies (Verified , 07/27/05) MICHAEL CHEN MD Apr 27, 2021 19:35
[2021-04-27] MEDS ORDERED: METOPROLOL TART 25 MG TABLET PO SCH (21:00)
== END 2021-04-27 16:14 | disposition home health service (06) | DRG 71 ==
LOC: EDBD 11:59 → M ED 11:59 → M ED INP 14:41 → M PCU 16:25
PROVIDERS: ADMIT Internal Medicine; ATTEND General Practice
DX: G93.41 Metabolic encephalopathy (principal); E87.2 Acidosis; I50.32 Chronic diastolic (congestive) heart failure; R65.10 Systemic inflammatory response syndrome (SIRS) of non-infectious origin without acute organ dysfunction; K56.7 Ileus, unspecified; I16.0 Hypertensive urgency; Z79.899 Other long term (current) drug therapy; Z79.82 Long term (current) use of aspirin; Z85.3 Personal history of malignant neoplasm of breast; E78.5 Hyperlipidemia, unspecified; I11.0 Hypertensive heart disease with heart failure; Z87.891 Personal history of nicotine dependence; M81.0 Age-related osteoporosis without current pathological fracture; E11.9 Type 2 diabetes mellitus without complications; K57.30 Diverticulosis of large intestine without perforation or abscess without bleeding; K52.9 Noninfective gastroenteritis and colitis, unspecified

== ENCOUNTER 2021-05-04 12:22 | Inpatient (IN) | payer MEDICARE, MEDICAID ==
[~2021-05-04] VITALS: Ht 149.9 cm; Wt 70.0 kg
[~2021-05-04 12:22] MED LIST changes: +ASPI81TA26 PO; +AUGM875T28 PO; +CALC600C3 PO; +HYDR10TAB PO; +IRBE75TA4 PO; +ISOS20TAB PO; +LEXA1TAB2 PO; +METO75TA PO; +MIRA0.5T PO; +SELF1KIT MC
--- NOTE | 2021-05-04 12:53 | REP ---
INDICATION: Altered Mental Status. COMPARISON: 04/25/2021. TECHNIQUE: Single portable AP view of the chest was performed. FINDINGS: There is no acute infiltrate or pulmonary edema. Lungs are clear. The heart is not significantly enlarged. The mediastinal silhouette is unremarkable. The visualized osseous structures are intact.Metallic clips are seen in the left axilla. There is some calcification of the thoracic aorta. IMPRESSION: No acute pulmonary disease. <Electronically signed by Fransico Alfonso > 05/04/21 [id number]
--- NOTE | 2021-05-04 13:09 | REP ---
INDICATION: Altered Mental Status. COMPARISON: 04/25/2021. TECHNIQUE: CT brain performed in the axial plane. Coronal reconstruction images are performed. FINDINGS: Mild stable atrophy. There are mild periventricular white matter lucencies compatible with chronic stable periventricular small vessel ischemic change. There is no acute intracranial hemorrhage, midline shift or mass effect. Vascular calcifications are seen in the carotid siphons. The visualized paranasal sinuses and mastoid air cells are clear. IMPRESSION: Stable chronic findings. No acute intracranial hemorrhage, midline shift or mass effect. <Electronically signed by Fransico Alfonso > 05/04/21 [id number]
[2021-05-04 13:31] LABS: VENOUS BASE EXCESS -2.6 (-2.0-2.0); VENOUS HCO3 21.6 MEQ/L (23.0-27.0); VENOUS O2 SATURATION 84.8 % (60.0-80.0); VENOUS PARTIAL PRESSURE CO2 35.7 mmHg (38.0-50.0); VENOUS PARTIAL PRESSURE O2 49.2 mmHg (30.0-50.0); VENOUS TOTAL CO2 22.7 MEQ/L (24.0-28.0)
[2021-05-04 13:39] LABS: BASO % 0.3 % (0.0-1.0); EOS # 0.1 10^3/uL (0.0-0.5); EOS % 0.3 % (0.0-3.0); HEMATOCRIT 31.8 % (36.0-47.0); HEMOGLOBIN 11.1 g/dl (12.0-15.5); LYMPH # 1.6 10^3/uL (1.5-5.0); LYMPH % 10.5 % (24.0-44.0); MEAN CORPUSCULAR HEMOGLOBIN 28.9 pg (27.0-33.0); MEAN CORPUSCULAR HGB CONC 34.9 g/dl (32.0-36.5); MEAN CORPUSCULAR VOLUME 82.8 fl (80.0-96.0); MONO # 0.8 10^3/uL (0.0-0.8); PLATELET COUNT, AUTOMATED 352 10^3/uL (150-450); RED BLOOD COUNT 3.84 10^6/uL (4.00-5.40); WHITE BLOOD COUNT 15.7 10^3/uL (4.0-10.0)
--- OUTSIDE RECORDS SUMMARY | 2021-05-04 13:43 | CCD ---
Author Author [facility] Organization [facility] Address Unknown Phone Unavailable Care Team Providers Care Gritting Machine Operator Name Role Phone Mateusz Carranza Unavailable PROBLEMS Type Condition ICD9-CM Code [id number] Code Onset Dates Condition S tatus W/U Status Risk SNOMED Code Notes Problem Personal history of malignant neoplasm of breast Z 85.3 Active confirmed 844891724 Problem Essential (primary) hypertension I10 Active conf irmed 93343174 Problem Age-related osteoporosis without current pathological fracture M81.0 Active confirmed 845828332 Problem Vitamin D deficiency, unspecified E55.9 Active con firmed 07418291 Problem Mixed hyperlipidemia E78.2 Active confirmed 712088716 Problem CKD (chronic kidney disease) stage 3, GFR 30-59 ml/min N18.3 Active confirmed 745980400 Problem Type 2 diabetes mellitus without complications E11 .9 Active confirmed 047491193 Problem 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 Active confirmed 2 38100260 Problem Pulmonary nodule R91.1 Active confirmed 309 928359 Problem Gastroesophageal reflux disease, esophagitis pre sence not specified K21.9 Active confirmed 745303268 Problem Anemia of chronic disease D63.8 Active confirmed 392431769 Problem Depression F32.9 Active confirmed 63744286 Problem Hyponatremia E87.1 Active confirmed 2171175 8 Problem Anxiety disorder F41.9 Active confirmed 197 008083 Problem Recurrent UTI N39.0 Active confirmed 703308 001 Problem Primary osteoarthritis of both knees M17.0 Act shereen confirmed 939537030 Problem Leg cramps, sleep related G47.62 Active confirmed 506179974 Problem Breast cancer screening Z12.31 Active confirmed 314436629 ALLERGIES Allergen (clinical drug ingredient) Drug/Non Drug Allergy do cumented on EMR Reaction Allergy Type Onset Date Status aspirin Aspirin([facility] Code:[address]-22) aches Drug Allergy Active ENCOUNTERS from 1940 to 2021 Encounter Location Date Provider Diagnosis [facility] [address] [facility] [phone] [place] [address] Apr, Mateusz Carranza IMMUNIZATIONS Vaccine Route Administration Date Status COVID-19 dose #2 given elsewhere Unspecified Unknown Oct Administered COVID-19 dose #1 given elsewhere Unspecified Unknown Aug Administered Influenza (High Dose 65 & up) IM [...] Education Language: Question Answer Notes Languages spoken: Albanian Quaker: Question Answer Notes Quaker 08 Tenriism Sexual Hx: Question Answer Notes Had sex [...] Notes Start Da te End Date Status hydrALAZINE HCl 10 MG 2 tablet with food Orally Three times a day new on discharge from [facility] on 04/27/21 Apr, Active Aspirin 81 MG 1 tablet Orally Once a day for 90 day(s) Active ProAir HFA 108 (90 Base) MCG/ACT 2 puffs Inhalation QID for 10 d ays Jan, Unknown Famotidine 20 MG 1 tab Orally at bedtime for 90 day(s) Apr, Active Pramipexole Dihydrochloride 0.5 MG 1 tablet Orally at bedtime for 90 days Active Isosorbide Dinitrate 20 MG 1 tablet Orally Twice a day for 3 0 day(s) TID at 07a/12p/1700 Apr, Active Glucose strip (Verio IQ) as directed one touch verio three times daily for 30 day(s) Dec, Active Magnesium 250 MG 1 tablet with a meal Orally Once a day for 30 Days Active Super B Complex OTC 1 tablet Orally once a day Active Fosamax 70MG 1 tablet Orally once a week for 90 days Active Ergocalciferol 79463 UNIT 1 capsule Orally every 14 days for 90 day(s ) Active metFORMIN HCl ER 500 MG 1 tablet Orally twice daily Active BD Lancet Ultrafine 33G - as directed subcutaneously AC BID, E11.8 Active Calcium 600 + D 600-400 MG-UNIT 1 tablet Orally at bedtime for 90 day (s) Active Metoprolol Tartrate 50 MG 1 1/2 tablet with food Orally once daily dose increased on 04/27 to 75mg daily Apr, Active Voltaren 1 % as directed Transdermal 4 gm QID to L knee for 30 days Active Escitalopram Oxalate 20 MG 1 tablet Orally Once a day for 90 day(s) Active Ciclopirox 0.77 % 1 application to affected ar ea Externally Twice a day to feet for 30 days Apr, Active Simvastatin 40 MG 1 tablet every evening Orally Once a day for 30 Day s Active Augmentin 875-125 MG 1 tablet Orally Twice a day for 7 day(s ) on discharge from [facility] x 7 days Apr, 2 May, 2021 Unknown Glucometer as directed dx: E11.9-one touch verio Daily Oct, Active OneTouch Verio . 1 strip subcutaneously AC BID, E18.9 for 90 day(s) Active Januvia 100 mg 1 tablet Orally every morning Active PROCEDURES No Information RESULTS No Results REASON FOR VISIT TCM/ACO [facility] Hospital D/C 04/27; Altered Mental Status MEDICAL (GENERAL) HISTORY Type Description Date Medical [...] fracture for which she was place in [employer] brace , R zone 2 sacral fracture [...] TVT repair 2 uterine prolapse, stress incontinence-Dr. Delgado-Raman 12/30/2013 Hospitalization History mechanical fall c 2 R 9th po sterior rib fx 2 small hemothorax, ANU cr to 2.1 04/2019 Hospitalization History [facility] ED-Fall, indra to head 021 Goals Section No Information Health Concerns No Information MEDICAL EQUIPMENT No Information MENTAL STATUS No Information FUNCTIONAL STATUS No Information ASSESSMENTS Encounter Date Diagnosis Assessment Notes Treatment Notes Treatm ent Clinical Notes Apr, Other Discussion with patient son, (Daniel on consent). Reports that his Mom has done better since discharge from the hospital. Reports that she has had only one small episode of being Altered. Reports that she lives with him and the [id number]. Walks with a walker, and currently is receiving Home Care through [facility]. Medication reconciliation completed with son. Reports she has stopped the medications that where recommended by discharge summary. Denies any further questions or concerns with sba underwriter at this time. PLAN OF TREATMENT Medication Medication Name Sig Start Date Stop Date Magnesium 250 MG 1 tablet with a meal Orally Once a day for 30 D ays Famotidine 20 MG 1 tab Orally at bedtime for 90 day(s) Apr, 021 Voltaren 1 % as directed Transdermal 4 gm QID to L knee for 3 0 days Simvastatin 40 MG 1 tablet every evening Orally Once a day for 3 0 Days Next Appt Details Provider Name:Mateusz Carranza, 2021-05-06 0 2:00:00 PM, [address] [place] [address] , [phone] Provider Name:Mateusz Carranza, 2021-07-16 0 4:00:00 PM, [address] [place] [phone], [phone] Insurance Providers Payer Name Payer Address Payer Phone Insured Name Patient Relati onship to Insured Coverage Start Date Coverage End Date MEDICARE Part A and B [address] [facility] [id number] [employer] self MEDICAID Med[employer] [address] [facility] [id number] [employer] [employer]
--- OUTSIDE RECORDS SUMMARY | 2021-05-04 13:44 | CCD ---
Author Author [facility] Organization [facility] Address Unknown Phone Unavailable Care Team Providers Care Owner/Operator Name Role Phone Jhonny Mccray MD Unavailable [...] Unavailable Unavailable Jhonny Mccray MD Unavailable Unavailable Jhonyn Mccray MD Unavailable Unavailable Jhonny Mccray MD [...] Unavailable Jhonny Mccray MD Unavailable Unavailable Jhonny Mccary MD Unavailable Unavailable Jhonny Mccray MD Unavailable [...] is protected by Article 27-F of the [facility] Public Health law. If you continue you may have access to information: Regarding HIV / AIDS; Provided by facilities licensed or operated by the [facility] Office of Mental Health; or Provided by the [facility] Office for People With Developmental Disabilities. If such information is present, then the following [facility] mandated warning applies: This information has been [...] law may result in a fine or care home sentence or both. A general authorization for the release of medical or other information is NOT sufficient authorization for further disc losure. Allergies and Adverse Reactions Type Description Substance Reaction Status Data Source(s ) Allergy to substance Allergy to substance Allergy to substance [place] ([facility]) Allergy to substance Allergy to substance Allergy to substance [place] ([facility]) Encounters Encounter Providers Location Date Indications Data Source(s ) Unknown [address] [facility], [facility] [address] 04/28/2021 12:00:00 AM EDT eCW1 ([facility]) [place] [address] [facility] [address] 04/20/2021 12:00:00 AM EDT eCW1 ([facility]) Office Visit, Est Pt., Level 4 PC [address] [place] [address] 03/30/2021 12:00:00 AM EDT eCW1 ([facility]) [place] [address] [facility] [address] 03/29/2021 12:00:00 AM EDT eCW1 ([facility]) [place] [address] [facility] [address] 03/16/2021 12:00:00 AM EDT eCW1 ([facility]) [place] [address] [facility] [address] 03/04/2021 12:00:00 AM EDT eCW1 ([facility]) [place] [address] [facility] [address] 03/04/2021 12:00:00 AM EDT eCW1 ([facility]) [place] [address] [facility] [address] 02/11/2021 12:00:00 AM EDT eCW1 ([facility]) [place] [address] [facility] [address] 02/11/2021 12:00:00 AM EDT eCW1 ([facility]) [place] [address] [facility] [address] 02/10/2021 12:00:00 AM EDT eCW1 ([facility]) [place] [address] [facility] [address] 02/09/2021 12:00:00 AM EDT eCW1 ([facility]) [place] [address] [facility] [address] 02/04/2021 12:00:00 AM EDT eCW1 ([facility]) [place] [address] [facility] [address] 12/24/2020 12:00:00 AM EDT eCW1 ([facility]) [place] [address] [facility] [address] 12/15/2020 12:00:00 AM EDT eCW1 ([facility]) [place] [address] [facility] [address] 12/04/2020 12:00:00 AM EDT eCW1 ([facility]) [place] [address] [facility] [address] 11/13/2020 12:00:00 AM EDT eCW1 ([facility]) [place] [address] [facility] [address] 11/05/2020 12:00:00 AM EDT eCW1 ([facility]) [place] [address] [facility] [address] 11/04/2020 12:00:00 AM EDT eCW1 ([facility]) Outpatient [address] [facility] [address] 11/02/2020 12:00:00 AM EDT eCW1 ([facility]) Josiah Mccray MD: [address] [place] [address], Ph. Attender: Josiah Mccray MD [facility] Medical 10/27/2020 12:00:00 AM EDT [place] ([facility]) Unknown [address] [facility] [place] [address] 10/26/2020 12:00:00 AM EDT eCW1 ([facility]) Unknown [address] [facility] [place] [address] 10/15/2020 12:00:00 AM EDT eCW1 ([facility]) Unknown [address] [facility] [address] 10/01/2020 12:00:00 AM EDT eCW1 ([facility]) Josiah Mccray MD: [address] [place] [address], Ph. Attender: Josiah Mccray MD [facility] Medical 09/29/2020 12:00:00 AM EDT [place] ([facility]) Josiah Mccray MD: [address] [place] [address], Ph. Attender: Josiah Mccray MD [facility] - [facility] Medical 09/29/2020 12:00:00 AM EDT [place] ([facility]) Outpatient [address] [facility] [address] 08/18/2020 12:00:00 AM EST eCW1 ([facility]) Unknown [address] [facility] [place] [address] 08/18/2020 12:00:00 AM EST eCW1 ([facility]) Unknown [address] [facility] [place] [address] 08/14/2020 12:00:00 AM EST eCW1 ([facility]) Outpatient [address] [facility] [place] [address] 06/08/2020 12:00:00 AM EST eCW1 ([facility]) Unknown [address] [facility] [address] 05/18/2020 12:00:00 AM EST eCW1 ([facility]) Unknown [address] [facility] [place] [address] 05/05/2020 12:00:00 AM EST eCW1 ([facility]) Unknown [address] [facility] [place] [address] 04/17/2020 12:00:00 AM EDT eCW1 ([facility]) Immunizations Vaccine Date Status Description Data Source(s) COVID-19, mRNA, LNP-S, PF, 100 mcg/0.5 mL dose 10/27/2020 11 :55:47 AM EDT completed .5 mL [place] ([facility]) COVID-19 dose #2 given elsewhere Unspecified 10/27/2020 09:3 1:00 AM EDT completed eCW1 ([facility]) COVID-19 dose #2 given elsewhere Unspecified 10/27/2020 09:3 1:00 AM EDT completed eCW1 ([facility]) COVID-19 dose #2 given elsewhere Unspecified 10/27/2020 09:3 1:00 AM EDT completed eCW1 ([facility]) COVID-19 dose #2 given elsewhere Unspecified 10/27/2020 09:3 1:00 AM EDT completed eCW1 ([facility]) COVID-19 dose #2 given elsewhere Unspecified 10/27/2020 09:3 1:00 AM EDT completed eCW1 ([facility]) COVID-19 dose #2 given elsewhere Unspecified 10/27/2020 09:3 1:00 AM EDT completed eCW1 ([facility]) COVID-19 dose #2 given elsewhere Unspecified 10/27/2020 09:3 1:00 AM EDT completed eCW1 ([facility]) COVID-19 dose #2 given elsewhere Unspecified 10/27/2020 09:3 1:00 AM EDT completed eCW1 ([facility]) COVID-19 dose #2 given elsewhere Unspecified 10/27/2020 09:3 1:00 AM EDT completed eCW1 ([facility]) COVID-19 dose #2 given elsewhere Unspecified 10/27/2020 09:3 1:00 AM EDT completed eCW1 ([facility]) COVID-19 dose #2 given elsewhere Unspecified 10/27/2020 09:3 1:00 AM EDT completed eCW1 ([facility]) COVID-19 dose #2 given elsewhere Unspecified 10/27/2020 09:3 1:00 AM EDT completed eCW1 ([facility]) COVID-19 dose #2 given elsewhere Unspecified 10/27/2020 09:3 1:00 AM EDT completed eCW1 ([facility]) COVID-19 dose #2 given elsewhere Unspecified 10/27/2020 09:3 1:00 AM EDT completed eCW1 ([facility]) COVID-19 dose #2 given elsewhere Unspecified 10/27/2020 09:3 1:00 AM EDT completed eCW1 ([facility]) COVID-19 dose #2 given elsewhere Unspecified 10/27/2020 09:3 1:00 AM EDT completed eCW1 ([facility]) COVID-19 dose #2 given elsewhere Unspecified 10/27/2020 09:3 1:00 AM EDT completed eCW1 ([facility]) COVID-19 dose #2 given elsewhere Unspecified 10/27/2020 09:3 1:00 AM EDT completed eCW1 ([facility]) COVID-19 dose #2 given elsewhere Unspecified 10/27/2020 09:3 1:00 AM EDT completed eCW1 ([facility]) COVID-19 VACCINE Moderna 10/27/2020 12:00:00 AM EDT completed [employer] Vaccine Series Complete: YESThis Data wa s Submitted to [facility] Via [employer]. COVID-19, mRNA, LNP-S, PF, 100 mcg/0.5 mL dose 09/29/2020 11 :47:34 AM EDT completed 10.5 mL [place] ([facility]) COVID-19, mRNA, LNP-S, PF, 100 mcg/0.5 mL dose 09/29/2020 11 :47:34 AM EDT completed 10.5 mL [place] ([facility]) COVID-19 dose #1 given elsewhere Unspecified 09/29/2020 09:3 0:00 AM EDT completed eCW1 ([facility]) COVID-19 dose #1 given elsewhere Unspecified 09/29/2020 09:3 0:00 AM EDT completed eCW1 ([facility]) COVID-19 dose #1 given elsewhere Unspecified 09/29/2020 09:3 0:00 AM EDT completed eCW1 ([facility]) COVID-19 dose #1 given elsewhere Unspecified 09/29/2020 09:3 0:00 AM EDT completed eCW1 ([facility]) COVID-19 dose #1 given elsewhere Unspecified 09/29/2020 09:3 0:00 AM EDT completed eCW1 ([facility]) COVID-19 dose #1 given elsewhere Unspecified 09/29/2020 09:3 0:00 AM EDT completed eCW1 ([facility]) COVID-19 dose #1 given elsewhere Unspecified 09/29/2020 09:3 0:00 AM EDT completed eCW1 ([facility]) COVID-19 dose #1 given elsewhere Unspecified 09/29/2020 09:3 0:00 AM EDT completed eCW1 ([facility]) COVID-19 dose #1 given elsewhere Unspecified 09/29/2020 09:3 0:00 AM EDT completed eCW1 ([facility]) COVID-19 dose #1 given elsewhere Unspecified 09/29/2020 09:3 0:00 AM EDT completed eCW1 ([facility]) COVID-19 dose #1 given elsewhere Unspecified 09/29/2020 09:3 0:00 AM EDT completed eCW1 ([facility]) COVID-19 dose #1 given elsewhere Unspecified 09/29/2020 09:3 0:00 AM EDT completed eCW1 ([facility]) COVID-19 dose #1 given elsewhere Unspecified 09/29/2020 09:3 0:00 AM EDT completed eCW1 ([facility]) COVID-19 dose #1 given elsewhere Unspecified 09/29/2020 09:3 0:00 AM EDT completed eCW1 ([facility]) COVID-19 dose #1 given elsewhere Unspecified 09/29/2020 09:3 0:00 AM EDT completed eCW1 ([facility]) COVID-19 dose #1 given elsewhere Unspecified 09/29/2020 09:3 0:00 AM EDT completed eCW1 ([facility]) COVID-19 dose #1 given elsewhere Unspecified 09/29/2020 09:3 0:00 AM EDT completed eCW1 ([facility]) COVID-19 dose #1 given elsewhere Unspecified 09/29/2020 09:3 0:00 AM EDT completed eCW1 ([facility]) COVID-19 dose #1 given elsewhere Unspecified 09/29/2020 09:3 0:00 AM EDT completed eCW1 ([facility]) COVID-19 VACCINE Moderna 09/29/2020 12:00:00 AM EDT completed [employer] Vaccine Series Complete: NOThis Data was Submitted to [facility] Via [employer]. influenza, recombinant, quadrIvalent,injectable, prese rvative free 06/08/2020 05:45:00 PM EST completed eCW1 ([facility]) influenza, recombinant, quadrIvalent,injectable, prese rvative free 06/08/2020 05:45:00 PM EST completed eCW1 ([facility]) influenza, recombinant, quadrIvalent,injectable, prese rvative free 06/08/2020 05:45:00 PM EST completed eCW1 ([facility]) influenza, recombinant, quadrIvalent,injectable, prese rvative free 06/08/2020 05:45:00 PM EST completed eCW1 ([facility]) influenza, recombinant, quadrIvalent,injectable, prese rvative free 06/08/2020 05:45:00 PM EST completed eCW1 ([facility]) influenza, recombinant, quadrIvalent,injectable, prese rvative free 06/08/2020 05:45:00 PM EST completed eCW1 ([facility]) influenza, recombinant, quadrIvalent,injectable, prese rvative free 06/08/2020 05:45:00 PM EST completed eCW1 ([facility]) influenza, recombinant, quadrIvalent,injectable, prese rvative free 06/08/2020 05:45:00 PM EST completed eCW1 ([facility]) influenza, recombinant, quadrIvalent,injectable, prese rvative free 06/08/2020 05:45:00 PM EST completed eCW1 ([facility]) influenza, recombinant, quadrIvalent,injectable, prese rvative free 06/08/2020 05:45:00 PM EST completed eCW1 ([facility]) influenza, recombinant, quadrIvalent,injectable, prese rvative free 06/08/2020 05:45:00 PM EST completed eCW1 ([facility]) influenza, recombinant, quadrIvalent,injectable, prese rvative free 06/08/2020 05:45:00 PM EST completed eCW1 ([facility]) influenza, recombinant, quadrIvalent,injectable, prese rvative free 06/08/2020 05:45:00 PM EST completed eCW1 ([facility]) influenza, recombinant, quadrIvalent,injectable, prese rvative free 06/08/2020 05:45:00 PM EST completed eCW1 ([facility]) influenza, recombinant, quadrIvalent,injectable, prese rvative free 06/08/2020 05:45:00 PM EST completed eCW1 ([facility]) influenza, recombinant, quadrIvalent,injectable, prese rvative free 06/08/2020 05:45:00 PM EST completed eCW1 ([facility]) influenza, recombinant, quadrIvalent,injectable, prese rvative free 06/08/2020 05:45:00 PM EST completed eCW1 ([facility]) influenza, recombinant, quadrIvalent,injectable, prese rvative free 06/08/2020 05:45:00 PM EST completed eCW1 ([facility]) influenza, recombinant, quadrIvalent,injectable, prese rvative free 06/08/2020 05:45:00 PM EST completed eCW1 ([facility]) influenza, recombinant, quadrIvalent,injectable, prese rvative free 06/08/2020 05:45:00 PM EST completed eCW1 ([facility]) influenza, recombinant, quadrIvalent,injectable, prese rvative free 06/08/2020 05:45:00 PM EST completed eCW1 ([facility]) influenza, recombinant, quadrIvalent,injectable, prese rvative free 06/08/2020 05:45:00 PM EST completed eCW1 ([facility]) influenza, recombinant, quadrIvalent,injectable, prese rvative free 06/08/2020 05:45:00 PM EST completed eCW1 ([facility]) influenza, recombinant, quadrIvalent,injectable, prese rvative free 06/08/2020 05:45:00 PM EST completed eCW1 ([facility]) influenza, recombinant, quadrIvalent,injectable, prese rvative free 06/08/2020 05:45:00 PM EST completed eCW1 ([facility]) influenza, recombinant, quadrIvalent,injectable, prese rvative free 06/08/2020 05:45:00 PM EST completed eCW1 ([facility]) Medications Medication Brand Name Start Date Product Form Dose Route Admi nistrative Instructions Pharmacy Instructions Status Indications Reaction Description Data Source(s) Famotidine 20 MG Oral Tablet Famotidine 20 MG 2021 12:00:00 AM E DT active Famotidine 20 MG eCW1 ([facility]) Isosorbide Dinitrate 20 MG Oral Tablet Isosorbide Dinitrate 20 MG 04/27/2021 12:00:00 AM EDT 1.0 {tablet} active Is osorbide Dinitrate 20 MG eCW1 ([facility]) Metoprolol Tartrate 50 MG Oral Tablet Metoprolol Tartrate 50 MG 04/27/2021 12:00:00 AM EDT active Metoprol ol Tartrate 50 MG eCW1 ([facility]) Hydralazine Hydrochloride 10 MG Oral Tablet hydrALAZIN E HCl 10 MG hydrALAZINE HCl 10 MG 04/27/2021 12:00:00 AM EDT 2.0 {tablet_with_food} active hydrALAZINE HCl 10 MG eCW1 ([facility]) Augmentin 875-125 MG UNK 04/27/2021 12:00:00 AM EDT 1.0 {tablet } active Augmentin 875-125 MG eCW1 ([facility]) Pramipexole dihydrochloride 0.5 MG Oral Tablet PRAMIPEXOLE D I-HCL 04/20/2021 12:00:00 AM EDT tablet 90 TAKE ONE TABLET BY MOUTH AT BEDTIME TAKE ONE TABLET BY MOUTH AT BEDTIME SOLD: 04/22/2021 [facility] 70 mg 04/20/2021 12:00:00 AM EDT tablet 12 TAKE 1 TABLET BY MOUTH ONCE WEEK TAKE 1 TABLET BY MOUTH ONCE WEEK SOLD: 04/22/2021 [facility] BLOOD SUGAR DIAGNOSTIC 03/18/2021 12:00:00 AM EDT [...] {tablet} active pr edniSONE 20 MG eCW1 ([facility]) 200 ACTUAT Albuterol 0.09 MG/ACTUAT Mete red Dose Inhaler [ProAir] ProAir HFA 108 (90 Base) MCG/ACT ProAir HFA 108 (90 Base) MCG/ACT 02/11/2021 12:00:00 AM EDT 2.0 {puffs} active ProAir HFA 1 08 (90 Base) MCG/ACT eCW1 ([facility]) Prednisone 20 MG Oral Tablet predniSONE 20 MG predniSONE 20 MG 02/11/2021 12:00:00 AM EDT 1.0 {tablet} suspended predniSONE 20 MG eCW1 ([facility]) Prednisone 20 MG Oral Tablet predniSONE 20 MG predniSONE 20 MG 02/11/2021 12:00:00 AM EDT 1.0 {tablet} active pr edniSONE 20 MG eCW1 ([facility]) Prednisone 20 MG Oral Tablet predniSONE 20 MG predniSONE 20 MG 02/11/2021 12:00:00 AM EDT 1.0 {tablet} suspended predniSONE 20 MG eCW1 ([facility]) 200 ACTUAT Albuterol 0.09 MG/ACTUAT Mete red Dose Inhaler [ProAir] ProAir HFA 108 (90 Base) MCG/ACT ProAir HFA 108 (90 Base) MCG/ACT 02/11/2021 12:00:00 AM EDT 2.0 {puffs} active ProAir HFA 1 08 (90 Base) MCG/ACT eCW1 ([facility]) 20 mg 02/11/2021 12:00:00 AM EDT tablet 5 TAKE ONE TABLET BY MOUTH EVERY DAY FOR 5 DAYS TAKE ONE TABLET BY MOUTH EVERY DAY FOR 5 DAYS SOLD: 02/12/2021 [facility] Prednisone 20 MG Oral Tablet predniSONE 20 MG predniSONE 20 MG 02/11/2021 12:00:00 AM EDT 1.0 {tablet} suspended predniSONE 20 MG eCW1 ([facility]) Augmentin 875-125 MG UNK 02/11/2021 12:00:00 AM EDT 1.0 {tab let} suspended Augmentin 875-125 MG eCW1 ([facility]) Augmentin 875-125 MG UNK 02/11/2021 12:00:00 AM EDT 1.0 {tab let} suspended Augmentin 875-125 MG eCW1 ([facility]) Prednisone 20 MG Oral Tablet predniSONE 20 MG predniSONE 20 MG 02/11/2021 12:00:00 AM EDT 1.0 {tablet} suspended predniSONE 20 MG eCW1 ([facility]) 200 ACTUAT Albuterol 0.09 MG/ACTUAT Mete red Dose Inhaler [ProAir] ProAir HFA 108 (90 Base) MCG/ACT ProAir HFA 108 (90 Base) MCG/ACT 02/11/2021 12:00:00 AM EDT 2.0 {puffs} active ProAir HFA 1 08 (90 Base) MCG/ACT eCW1 ([facility]) 200 ACTUAT Albuterol 0.09 MG/ACTUAT Mete red Dose Inhaler [ProAir] ProAir HFA 108 (90 Base) MCG/ACT ProAir HFA 108 (90 Base) MCG/ACT 02/11/2021 12:00:00 AM EDT 2.0 {puffs} active ProAir HFA 1 08 (90 Base) MCG/ACT eCW1 ([facility]) Augmentin 875-125 MG UNK 02/11/2021 12:00:00 AM EDT 1.0 {tablet } active Augmentin 875-125 MG eCW1 ([facility]) 200 ACTUAT Albuterol 0.09 MG/ACTUAT Mete red Dose Inhaler [ProAir] ProAir HFA 108 (90 Base) MCG/ACT ProAir HFA 108 (90 Base) MCG/ACT 02/11/2021 12:00:00 AM EDT 2.0 {puffs} active ProAir HFA 1 08 (90 Base) MCG/ACT eCW1 ([facility]) 200 ACTUAT Albuterol 0.09 MG/ACTUAT Mete red Dose Inhaler [ProAir] ProAir HFA 108 (90 Base) MCG/ACT ProAir HFA 108 (90 Base) MCG/ACT 02/11/2021 12:00:00 AM EDT 2.0 {puffs} active ProAir HFA 1 08 (90 Base) MCG/ACT eCW1 ([facility]) Augmentin 875-125 MG UNK 02/11/2021 12:00:00 AM EDT 1.0 {tablet } active Augmentin 875-125 MG eCW1 ([facility]) Augmentin 875-125 MG UNK 02/11/2021 12:00:00 AM EDT 1.0 {tablet } active Augmentin 875-125 MG eCW1 ([facility]) Prednisone 20 MG Oral Tablet predniSONE 20 MG predniSONE 20 MG 02/11/2021 12:00:00 AM EDT 1.0 {tablet} suspended predniSONE 20 MG eCW1 ([facility]) 200 ACTUAT Albuterol 0.09 MG/ACTUAT Mete red Dose Inhaler [ProAir] ProAir HFA 108 (90 Base) MCG/ACT ProAir HFA 108 (90 Base) MCG/ACT 02/11/2021 12:00:00 AM EDT 2.0 {puffs} active ProAir HFA 1 08 (90 Base) MCG/ACT eCW1 ([facility]) 200 ACTUAT Albuterol 0.09 MG/ACTUAT Mete red Dose Inhaler [ProAir] ProAir HFA 108 (90 Base) MCG/ACT ProAir HFA 108 (90 Base) MCG/ACT 02/11/2021 12:00:00 AM EDT 2.0 {puffs} active ProAir HFA 1 08 (90 Base) MCG/ACT eCW1 ([facility]) Augmentin 875-125 MG UNK 02/11/2021 12:00:00 AM EDT 1.0 {tab let} suspended Augmentin 875-125 MG eCW1 ([facility]) 1 % 02/11/2021 12:00:00 AM EDT gel 500 APPLY 4 GRAMS TO THE LEFT KNEE FOUR TIMES A DAY APPLY 4 GRAMS TO THE LEFT KNEE FOUR TIMES A DAY SOLD: 02/12/2021 [facility] Augmentin 875-125 MG UNK 02/11/2021 12:00:00 AM EDT 1.0 {tab let} suspended Augmentin 875-125 MG eCW1 ([facility]) 90 mcg/actuation 02/11/2021 12:00:00 AM EDT HFA aerosol inha ler 18 INHALE TWO PUFFS FOUR TIMES A DAY 10 DAYS INHALE TWO PUFFS FOUR TIMES A DAY 10 DAYS SOLD: 02/12/2021 [facility] 200 ACTUAT Albuterol 0.09 MG/ACTUAT Mete red Dose Inhaler [ProAir] ProAir HFA 108 (90 Base) MCG/ACT ProAir HFA 108 (90 Base) MCG/ACT 02/11/2021 12:00:00 AM EDT 2.0 {puffs} active ProAir HFA 1 08 (90 Base) MCG/ACT eCW1 ([facility]) Augmentin 875-125 MG UNK 02/11/2021 12:00:00 AM EDT 1.0 {tab let} suspended Augmentin 875-125 MG eCW1 ([facility]) 200 ACTUAT Albuterol 0.09 MG/ACTUAT Mete red Dose Inhaler [ProAir] ProAir HFA 108 (90 Base) MCG/ACT ProAir HFA 108 (90 Base) MCG/ACT 02/11/2021 12:00:00 AM EDT 2.0 {puffs} active ProAir HFA 1 08 (90 Base) MCG/ACT eCW1 ([facility]) Augmentin 875-125 MG UNK 02/11/2021 12:00:00 AM EDT 1.0 {tab let} suspended Augmentin 875-125 MG eCW1 ([facility]) Amoxicillin 875 MG / Clavulanate 125 MG [...] 1.0 {tablet} suspended predniSONE 20 MG eCW1 ([facility]) Prednisone 20 MG Oral Tablet predniSONE 20 MG predniSONE 20 MG 02/11/2021 12:00:00 AM EDT 1.0 {tablet} active pr edniSONE 20 MG eCW1 ([facility]) Escitalopram 20 MG Oral Tablet [...] EDT active Glucose strip (Ver[employer]) eCW1 ([facility]) Glucose strip ([employer]) UNK 12/15/2020 12:00:00 AM EDT active Glucose strip ([employer]) eCW1 ([facility]) Glucose strip ([employer]) UNK 12/15/2020 12:00:00 AM EDT active Glucose strip ([employer]) eCW1 ([facility]) Glucose strip ([employer]) UNK 12/15/2020 12:00:00 AM EDT active Glucose strip ([employer]) eCW1 ([facility]) Glucose strip ([employer]) UNK 12/15/2020 12:00:00 AM EDT active Glucose strip ([employer]) eCW1 ([facility]) Glucose strip ([employer]) UNK 12/15/2020 12:00:00 AM EDT active Glucose strip ([employer]) eCW1 ([facility]) Glucose strip ([employer]) UNK 12/15/2020 12:00:00 AM EDT active Glucose strip ([employer]) eCW1 ([facility]) Glucose strip ([employer]) UNK 12/15/2020 12:00:00 AM EDT active Glucose strip ([employer]) eCW1 ([facility]) Glucose strip ([employer]) UNK 12/15/2020 12:00:00 AM EDT active Glucose strip ([employer]) eCW1 ([facility]) Glucose strip ([employer]) UNK 12/15/2020 12:00:00 AM EDT active Glucose strip ([employer]) eCW1 ([facility]) Glucose strip ([employer]) UNK 12/15/2020 12:00:00 AM EDT active Glucose strip ([employer]) eCW1 ([facility]) Glucose strip ([employer]) UNK 12/15/2020 12:00:00 AM EDT active Glucose strip ([employer]) eCW1 ([facility]) Glucose strip ([employer]) UNK 12/15/2020 12:00:00 AM EDT active Glucose strip ([employer]) eCW1 ([facility]) Glucose strip ([employer]) UNK 12/15/2020 12:00:00 AM EDT active Glucose strip ([employer]) eCW1 ([facility]) 500 mg 12/07/2020 12:00:00 AM EDT tablet extended release 24 hr 180 TAKE ONE TABLET BY MOUTH TWICE A DAY TAKE ONE TABLET BY MOUTH TWICE A DAY SOLD: 03/14/2021 [facility] BLOOD SUGAR DIAGNOSTIC 12/07/2020 12:00:00 AM EDT [...] TABLET BY MOUTH EVERY MORNING SOLD: 11/09/2020 [facility] BLOOD-GLUCOSE METER 10/16/2020 12:00:00 AM EDT misc 1 USE DIRECTED DAILY USE DIRECTED DAILY SOLD: 10/26/2020 [facility] Glucometer UNK 10/15/2020 12:00:00 AM EDT active Glucometer eCW1 ([facility]) Glucometer UNK 10/15/2020 12:00:00 AM EDT active Glucometer eCW1 ([facility]) Glucometer UNK 10/15/2020 12:00:00 AM EDT active Glucometer eCW1 ([facility]) Glucometer UNK 10/15/2020 12:00:00 AM EDT active Glucometer eCW1 ([facility]) Glucometer UNK 10/15/2020 12:00:00 AM EDT active Glucometer eCW1 ([facility]) Glucometer UNK 10/15/2020 12:00:00 AM EDT active Glucometer eCW1 ([facility]) Glucometer UNK 10/15/2020 12:00:00 AM EDT active Glucometer eCW1 ([facility]) Glucometer UNK 10/15/2020 12:00:00 AM EDT active Glucometer eCW1 ([facility]) Glucometer UNK 10/15/2020 12:00:00 AM EDT active Glucometer eCW1 ([facility]) Glucometer UNK 10/15/2020 12:00:00 AM EDT active Glucometer eCW1 ([facility]) Glucometer UNK 10/15/2020 12:00:00 AM EDT active Glucometer eCW1 ([facility]) Glucometer UNK 10/15/2020 12:00:00 AM EDT active Glucometer eCW1 ([facility]) Glucometer UNK 10/15/2020 12:00:00 AM EDT active Glucometer eCW1 ([facility]) Glucometer UNK 10/15/2020 12:00:00 AM EDT active Glucometer eCW1 ([facility]) Glucometer UNK 10/15/2020 12:00:00 AM EDT active Glucometer eCW1 ([facility]) Glucometer UNK 10/15/2020 12:00:00 AM EDT active Glucometer eCW1 ([facility]) Glucometer UNK 10/15/2020 12:00:00 AM EDT active Glucometer eCW1 ([facility]) Glucometer UNK 10/15/2020 12:00:00 AM EDT active Glucometer eCW1 ([facility]) Glucometer UNK 10/15/2020 12:00:00 AM EDT active Glucometer eCW1 ([facility]) Glucometer UNK 10/15/2020 12:00:00 AM EDT active Glucometer eCW1 ([facility]) Glucometer UNK 10/15/2020 12:00:00 AM EDT active Glucometer eCW1 ([facility]) LANCETS 10/02/2020 12:00:00 AM EDT misc 200 USE A S DIRECTED TWO TIMES A DAY USE DIRECTED TWO TIMES A DAY SOLD: 10/12/2020 [facility] irbesartan 75 MG Oral Tablet Irbesartan 75 MG Irbesartan 75 MG 08/18/2020 12:00:00 AM EST 1.0 {tablet} active Ir besartan 75 MG eCW1 ([facility]) irbesartan 75 MG Oral Tablet Irbesartan 75 MG Irbesartan 75 MG 08/18/2020 12:00:00 AM EST 1.0 {tablet} active Ir besartan 75 MG eCW1 ([facility]) irbesartan 75 MG Oral Tablet Irbesartan 75 MG Irbesartan 75 MG 08/18/2020 12:00:00 AM EST 1.0 {tablet} active Ir besartan 75 MG eCW1 ([facility]) irbesartan 75 MG Oral Tablet Irbesartan 75 MG Irbesartan 75 MG 08/18/2020 12:00:00 AM EST 1.0 {tablet} active Ir besartan 75 MG eCW1 ([facility]) irbesartan 75 MG Oral Tablet Irbesartan 75 MG Irbesartan 75 MG 08/18/2020 12:00:00 AM EST 1.0 {tablet} active Ir besartan 75 MG eCW1 ([facility]) irbesartan 75 MG Oral Tablet Irbesartan 75 MG Irbesartan 75 MG 08/18/2020 12:00:00 AM EST 1.0 {tablet} active Ir besartan 75 MG eCW1 ([facility]) irbesartan 75 MG Oral Tablet Irbesartan 75 MG Irbesartan 75 MG 08/18/2020 12:00:00 AM EST 1.0 {tablet} active Ir besartan 75 MG eCW1 ([facility]) irbesartan 75 MG Oral Tablet Irbesartan 75 MG Irbesartan 75 MG 08/18/2020 12:00:00 AM EST 1.0 {tablet} active Ir besartan 75 MG eCW1 ([facility]) 75 mg 08/18/2020 12:00:00 AM EST tablet 90 TAKE ONE TABLET BY MOUTH AT BEDTIME TAKE ONE TABLET BY MOUTH AT BEDTIME SOLD: 11/22/2020 [facility] irbesartan 75 MG Oral Tablet Irbesartan 75 MG Irbesartan 75 MG 08/18/2020 12:00:00 AM EST 1.0 {tablet} active Ir besartan 75 MG eCW1 ([facility]) irbesartan 75 MG Oral Tablet Irbesartan 75 MG Irbesartan 75 MG 08/18/2020 12:00:00 AM EST 1.0 {tablet} active Ir besartan 75 MG eCW1 ([facility]) irbesartan 75 MG Oral Tablet Irbesartan 75 MG Irbesartan 75 MG 08/18/2020 12:00:00 AM EST 1.0 {tablet} active Ir besartan 75 MG eCW1 ([facility]) 75 mg 08/18/2020 12:00:00 AM EST tablet 90 TAKE ONE TABLET BY MOUTH AT BEDTIME TAKE ONE TABLET BY MOUTH AT BEDTIME SOLD: 08/18/2020 [facility] irbesartan 75 MG Oral Tablet Irbesartan 75 MG Irbesartan 75 MG 08/18/2020 12:00:00 AM EST 1.0 {tablet} active Ir besartan 75 MG eCW1 ([facility]) irbesartan 75 MG Oral Tablet Irbesartan 75 MG Irbesartan 75 MG 08/18/2020 12:00:00 AM EST 1.0 {tablet} active Ir besartan 75 MG eCW1 ([facility]) irbesartan 75 MG Oral Tablet Irbesartan 75 MG Irbesartan 75 MG 08/18/2020 12:00:00 AM EST 1.0 {tablet} active Ir besartan 75 MG eCW1 ([facility]) irbesartan 75 MG Oral Tablet Irbesartan 75 MG Irbesartan 75 MG 08/18/2020 12:00:00 AM EST 1.0 {tablet} active Ir besartan 75 MG eCW1 ([facility]) irbesartan 75 MG Oral Tablet Irbesartan 75 MG Irbesartan 75 MG 08/18/2020 12:00:00 AM EST 1.0 {tablet} active Ir besartan 75 MG eCW1 ([facility]) irbesartan 75 MG Oral Tablet Irbesartan 75 MG Irbesartan 75 MG 08/18/2020 12:00:00 AM EST 1.0 {tablet} active Ir besartan 75 MG eCW1 ([facility]) irbesartan 75 MG Oral Tablet Irbesartan 75 MG Irbesartan 75 MG 08/18/2020 12:00:00 AM EST 1.0 {tablet} active Ir besartan 75 MG eCW1 ([facility]) irbesartan 75 MG Oral Tablet Irbesartan 75 MG Irbesartan 75 MG 08/18/2020 12:00:00 AM EST 1.0 {tablet} active Ir besartan 75 MG eCW1 ([facility]) irbesartan 75 MG Oral Tablet Irbesartan 75 MG Irbesartan 75 MG 08/18/2020 12:00:00 AM EST 1.0 {tablet} active Ir besartan 75 MG eCW1 ([facility]) irbesartan 75 MG Oral Tablet Irbesartan 75 MG Irbesartan 75 MG 08/18/2020 12:00:00 AM EST 1.0 {tablet} active Ir besartan 75 MG eCW1 ([facility]) irbesartan 75 MG Oral Tablet Irbesartan 75 MG Irbesartan 75 MG 08/18/2020 12:00:00 AM EST 1.0 {tablet} active Ir besartan 75 MG eCW1 ([facility]) irbesartan 75 MG Oral Tablet Irbesartan 75 MG Irbesartan 75 MG 08/18/2020 12:00:00 AM EST 1.0 {tablet} active Ir besartan 75 MG eCW1 ([facility]) Escitalopram 20 MG Oral Tablet [...] BY MOUTH EVERY DAY SOLD: 08/18/2020 [facility] 70 mg 07/22/2020 12:00:00 AM [...] activ e Escitalopram Oxalate 20 MG eCW1 ([facility]) Escitalopram 20 MG Oral Tablet Escitalopram Oxalate 20 MG Escitalopram Oxalate 20 MG 06/08/2020 12:00:00 AM EST 1.0 {tablet} activ e Escitalopram Oxalate 20 MG eCW1 ([facility]) BD Lancet Ultrafine 33G - BD Lancet Ultrafine 33G - 06/08/2020 1 2:00:00 AM EST active BD Lancet Ultraf ine 33G - eCW1 ([facility]) BD Lancet Ultrafine 33G - BD Lancet Ultrafine 33G - 06/08/2020 1 2:00:00 AM EST active BD Lancet Ultraf ine 33G - eCW1 ([facility]) Pramipexole dihydrochloride 0.5 MG Oral Tablet Pramipexole Dihydrochloride 0.5 MG Pramipexole Dihydrochloride 0.5 MG 06/08/2020 12:00:00 AM EST 1.0 {tablet} active Pramipexole Dihydroc hloride 0.5 MG eCW1 ([facility]) Pramipexole dihydrochloride 0.5 MG Oral Tablet Pramipexole Dihydrochloride 0.5 MG Pramipexole Dihydrochloride 0.5 MG 06/08/2020 12:00:00 AM EST 1.0 {tablet} active Pramipexole Dihydroc hloride 0.5 MG eCW1 ([facility]) 20 mg 05/19/2020 12:00:00 AM [...] TWO TIMES A DAY WITH FOOD MICHAEL [facility] Insurance Providers Payer name Policy type / Coverage type Policy ID Covered alliance party ID Covered alliance party's relationship to r[place] Policy Ramos Plan Information MEDICARE A [id number] Self [id number] A MEDICARE [id number] SP [id number] A MEDICARE [id number] SP [id number] A MEDICAID M [id number] Self [id number] MEDICAID [id number] SP [id number] MEDICAID [id number] SP [id number] ANS-Medicaid [id number] ANSI-Commercial [id number] ANSI-Medicare Part B [id number] ANSI-Commercial [id number] ANSI-Medicare Part B [id number] ANSI-Medicaid [id number] ANSI-Commercial [id number] ANSI-Medicaid [id number] ANSI-Medicare Part B [id number] ANSI-Medicaid [id number] ANSI-Commercial [id number] ANSI-Medicare Part B [id number] ANSI-Commercial [id number] ANSI-Medicare Part B [id number] ANSI-Medicaid [id number] ANSI-Commercial [id number] ANSI-Medicare Part B [id number] ANSI-Medicaid [id number] ANSI-Commercial [id number] ANSI-Medicaid [id number] ANSI-Medicare Part B [id number] MEDICARE [id number] A ANSI-Medicaid [id number] ANSI-Medicare Part B [id number] ANSI-Commercial [id number] ANSI-Commercial [id number] ANSI-Medicare Part B [id number] ANSI-Medicaid [id number] ANSI-Medicaid [id number] ANSI-Medicare Part B [id number] ANSI-Commercial [id number] ANSI-Medicare Part B [id number] ANSI-Commercial [id number] ANSI-Medicaid [id number] ANSI-Commercial [id number] ANSI-Medicaid [id number] ANSI-Medicare Part B [id number] MEDICARE C [id number] S [id number] A MEDICAID [id number] SP [id number] MEDICARE IRF PPS M [id number] S 05 [id number] MEDICARE INPATIENT M [id number] S [id number] MEDICAID W [id number] S [id number] [place] [id number] SP [id number] MEDICARE OUTPATIENT M [id number] S [id number] MEDICARE [id number] SP [id number] [place] [id number] SP [id number] MEDICARE C [id number] S [id number] MEDICAID M [id number] S [id number] MEDICAID [id number] SP [id number] Problems, Conditions, and Diagnoses Code Display Name Description Problem Type Effective Dates Data Source(s) E87.1 56448821 Hyponatremia Problem 08/18/2020 12:00:00 AM EST eCW1 ([facility]) Surgeries/Procedures Procedure Description Date Indications Data Source(s) Immunization: Flublok Quadrivalent (18 years & older) 0.5mL IM (Influenza) 06/08/2020 12:00:00 AM EST eCW1 ([facility]) Results ID Date Data Source [id number] 04/25/2021 02:23:00 PM EDT [facility] Name Value Range Interpretation Code Description Data Brittany rce(s) Supporting Document(s) SARS coronavirus 2 RNA [Presence] in Res piratory specimen by CASSIDY with probe detection NEGATIVE [facility] This lab was ordered by [facility] a nd reported by [facility]. ID Date Data Source [id number] 03/30/2021 09:56:00 AM EDT [facility] Name Value Range Interpretation Code Description Data Brittany rce(s) Supporting Document(s) SARS COVID ANTIGEN NEGATIVE [facility] This lab was ordered by [facility] a nd reported by [facility]. ID Date Data Source KARMA COVID AG (Point of Care) 03/30/2021 12:00:00 AM EDT eC W1 ([facility]) Name Value Range Interpretation Code Description Data Brittany rce(s) Supporting Document(s) NEGATIVE NEGATIVE KARMA COVID ANTIGEN eCW1 ([facility]) ID Date Data Source [id number] 02/11/2021 10:03:00 AM EDT [facility] Name Value Range Interpretation Code Description Data Brittany rce(s) Supporting Document(s) SARS COVID ANTIGEN NEGATIVE [facility] This lab was ordered by [facility] nd reported by [facility]. ID Date Data Source Coronavirus 2019 Nasopharygeal (Send Out) COVID 02/11/2021 1 2:00:00 AM EDT eCW1 ([facility]) Name Value Range Interpretation Code Description Data Brittany rce(s) Supporting Document(s) Coronavirus 2019 Nasophar ygeal (Send Out) COVID eCW1 ([facility]) ID Date Data Source URINE CULTURE 02/11/2021 12:00:00 AM EDT eCW1 ([facility]) Name Value Range Interpretation Code Description Data Brittany rce(s) Supporting Document(s) Laboratory studies (set) URINE CULTU RE eCW1 ([facility]) ID Date Data Source VITAMIN D [id number] 11/02/2020 12:00:00 AM EDT eCW1 ([facility]) Name Value Range Interpretation Code Description Data Brittany rce(s) Supporting Document(s) 22.9 30.0-100.0 TOTAL 25(OH) VITAMIN D eC W1 ([facility]) ID Date Data Source [id number] 11/02/2020 12:00:00 AM EDT eCW1 ([facility]) Name Value Range Interpretation Code Description Data Brittany rce(s) Supporting Document(s) Hemoglobin A1c/Hemoglobin.total in Blood 8.0 HEMOGLOBIN A1c eCW1 ([facility]) ID Date Data Source Comprehensive Metabolic Profile (CMP) 11/02/2020 12:00:00 AM EDT eCW1 ([facility]) Name Value Range Interpretation Code Description Data Brittany rce(s) Supporting Document(s) 281 70-100 GLUCOSE, FASTING eCW1 ([facility]) 23 7-18 BLOOD UREA NITROGEN eCW1 ([facility]) 1.13 0.55-1.30 CREATININE FOR GFR eCW1 ([facility]) 49.2 >32 GLOMERULAR FILTRATION RATE eCW 1 ([facility]) 5.1 3.5-5.1 POTASSIUM SERUM eCW1 ([facility]) 129 136-145 SODIUM LEVEL eCW1 ([facility]) 94 98-107 CHLORIDE LEVEL eCW1 ([facility]) 29 21-32 CARBON DIOXIDE LEVEL eCW1 ([facility]) 10.1 8.8-10.2 CALCIUM LEVEL eCW1 ([facility]) 22 12-78 ALT/SGPT eCW1 ([facility]) 90 45-117 ALKALINE PHOSPHATASE eCW1 ([facility]) 12 7-37 AST/SGOT eCW1 ([facility]) 0.3 0.2-1.0 BILIRUBIN,TOTAL eCW1 ([facility]) 7.3 6.4-8.2 TOTAL PROTEIN eCW1 ([facility]) 4.1 3.2-5.2 ALBUMIN eCW1 ([facility]) 1.3 1.2-2.2 ALBUMIN/GLOBULIN RATIO eCW1 ([facility]) ID Date Data Source PTH INTACT 11/02/2020 12:00:00 AM EDT eCW1 ([facility]) Name Value Range Interpretation Code Description Data Brittany rce(s) Supporting Document(s) 37.0 18.5-88.0 PTH INTACT eCW1 ([facility]) ID Date Data Source CBC with Differential 11/02/2020 12:00:00 AM EDT eCW1 ([facility]) Name Value Range Interpretation Code Description Data Brittany rce(s) Supporting Document(s) 8.5 4.0-10.0 WHITE BLOOD COUNT eCW1 ([facility]) 37.4 36.0-47.0 HEMATOCRIT eCW1 ([facility]) 12.1 12.0-15.5 HEMOGLOBIN eCW1 ([facility]) 4.20 4.00-5.40 RED BLOOD COUNT eCW1 ([facility]) 32.4 32.0-36.5 MEAN CORPUSCULAR HGB CONC eCW1 ([facility]) 89.0 80.0-96.0 MEAN CORPUSCULAR VOLUME e CW1 ([facility]) 28.8 27.0-33.0 MEAN CORPUSCULAR HEMOGLOB IN eCW1 ([facility]) 13.6 11.5-14.5 RED CELL DISTRIBUTION WID TH eCW1 ([facility]) 250 150-450 PLATELET COUNT, AUTOMATED eCW1 ([facility]) 7.8 2.0-8.0 MONO % eCW1 ([facility]) 32.3 24.0-44.0 LYMPH % eCW1 ([facility]) 56.0 36.0-66.0 NEUTROPHILS % eCW1 ([facility]) 0.7 0.0-1.0 BASO % eCW1 ([facility]) 2.7 0.0-3.0 EOS % eCW1 ([facility]) 4.7 1.5-8.5 NEUTROPHILS # eCW1 ([facility]) 0.7 0.0-0.8 MONO # eCW1 ([facility]) 2.7 1.5-5.0 LYMPH # eCW1 ([facility]) 0.1 0.0-0.2 BASO # eCW1 ([facility]) 0.2 0.0-0.5 EOS # eCW1 ([facility]) ID Date Data Source NT-PRO BNP 11/02/2020 12:00:00 AM EDT eCW1 ([facility]) Name Value Range Interpretation Code Description Data Brittany rce(s) Supporting Document(s) 383 <450 NT-PRO BNP W1 ([facility]) ID Date Data Source OSMOLALITY URINE 08/18/2020 12:00:00 AM EST eCW1 ([facility]) Name Value Range Interpretation Code Description Data Brittany rce(s) Supporting Document(s) 571 500-800 eCW1 ([facility]) ID Date Data Source SODIUM,RANDOM URINE 08/18/2020 12:00:00 AM EST eCW1 ([facility]) Name Value Range Interpretation Code Description Data Brittany rce(s) Supporting Document(s) 113 eCW1 ([facility]) ID Date Data Source RENAL PROFILE 08/18/2020 12:00:00 AM EST eCW1 ([facility]) Name Value Range Interpretation Code Description Data Brittany rce(s) Supporting Document(s) 119 70-100 eCW1 ([facility]) 4.5 3.5-5.1 eCW1 ([facility]) 32 7-18 eCW1 ([facility]) 137 136-145 eCW1 ([facility]) 49.2 >32 eCW1 ([facility]) 1.13 0.55-1.30 eCW1 ([facility]) 9.4 8.8-10.2 eCW1 ([facility]) 24 21-32 eCW1 ([facility]) 4.8 2.5-4.9 eCW1 ([facility]) 101 98-107 eCW1 ([facility]) 4.1 3.2-5.2 eCW1 ([facility]) ID Date Data Source OSMOLALITY SERUM 08/18/2020 12:00:00 AM EST eCW1 ([facility]) Name Value Range Interpretation Code Description Data Brittany rce(s) Supporting Document(s) 287 280-301 eCW1 ([facility]) ID Date Data Source FREE T4 & TSH PANEL 08/18/2020 12:00:00 AM EST eCW1 ([facility]) Name Value Range Interpretation Code Description Data Brittany rce(s) Supporting Document(s) 1.13 0.76-1.46 eCW1 ([facility]) 0.715 0.358-3.740 eCW1 (Counts include [facility] beds at [facility]) ID Date Data Source CBC with Auto Differential 08/18/2020 12:00:00 AM EST eCW1 ( [facility]) Name Value Range Interpretation Code Description Data Brittany rce(s) Supporting Document(s) 9.6 4.0-10.0 eCW1 ([facility]) 4.43 4.00-5.40 eCW1 ([facility]) 39.7 36.0-47.0 eCW1 ([facility]) 12.2 12.0-15.5 eCW1 ([facility]) 89.6 80.0-96.0 eCW1 ([facility]) 13.5 11.5-14.5 eCW1 ([facility]) 270 150-450 eCW1 ([facility]) 30.7 32.0-36.5 eCW1 ([facility]) 27.5 27.0-33.0 eCW1 ([facility]) 59.8 36.0-66.0 eCW1 ([facility]) 8.1 2.0-8.0 eCW1 ([facility]) 0.5 0.0-1.0 eCW1 ([facility]) 3.9 0.0-3.0 eCW1 ([facility]) 27.3 24.0-44.0 eCW1 ([facility]) 2.6 1.5-5.0 eCW1 ([facility]) 5.8 1.5-8.5 eCW1 ([facility]) 0.4 0-3.0 eCW1 ([facility]) 0.0 0-0 eCW1 ([facility]) 0.1 0.0-0.2 eCW1 ([facility]) 0.4 0.0-0.5 eCW1 ([facility]) 0.8 0.0-0.8 eCW1 ([facility]) ID Date Data Source [id number] 07/25/2020 08:46:00 PM EST [facility] Name Value Range Interpretation Code Description Data Brittany rce(s) Supporting Document(s) SARS coronavirus 2 RNA Not Detected [facility] This lab was ordered by [facility] and reported by [facility]. Procedure Social History Code Duration Value Status Description Data Source(s ) Smoking 04/16/2021 12:00:00 AM EDT Former Smoker completed Former Smoker eCW1 ([facility]) Smoking 04/16/2021 12:00:00 AM EDT Former Smoker completed Former Smoker eCW1 ([facility]) Smoking 03/30/2021 12:00:00 AM EDT Former Smoker completed Former Smoker eCW1 ([facility]) Smoking 03/04/2021 12:00:00 AM EDT Former Smoker completed Former Smoker eCW1 ([facility]) Smoking 03/04/2021 12:00:00 AM EDT Former Smoker completed Former Smoker eCW1 ([facility]) Smoking 03/04/2021 12:00:00 AM EDT Former Smoker completed Former Smoker eCW1 ([facility]) Smoking 03/04/2021 12:00:00 AM EDT Former Smoker completed Former Smoker eCW1 ([facility]) Smoking 02/11/2021 12:00:00 AM EDT Former Smoker completed Former Smoker eCW1 ([facility]) Smoking 02/11/2021 12:00:00 AM EDT Former Smoker completed Former Smoker eCW1 ([facility]) Smoking 02/11/2021 12:00:00 AM EDT Former Smoker completed Former Smoker eCW1 ([facility]) Smoking 11/02/2020 12:00:00 AM EDT Former Smoker completed Former Smoker eCW1 ([facility]) Smoking 11/02/2020 12:00:00 AM EDT Former Smoker completed Former Smoker eCW1 ([facility]) Smoking 11/02/2020 12:00:00 AM EDT Former Smoker completed Former Smoker eCW1 ([facility]) Smoking 11/02/2020 12:00:00 AM EDT Former Smoker completed Former Smoker eCW1 ([facility]) Smoking 11/02/2020 12:00:00 AM EDT Former Smoker completed Former Smoker eCW1 ([facility]) Smoking 11/02/2020 12:00:00 AM EDT Former Smoker completed Former Smoker eCW1 ([facility]) Smoking 11/02/2020 12:00:00 AM EDT Former Smoker completed Former Smoker eCW1 ([facility]) Smoking 11/02/2020 12:00:00 AM EDT Former Smoker completed Former Smoker eCW1 ([facility]) Smoking 11/02/2020 12:00:00 AM EDT Former Smoker completed Former Smoker eCW1 ([facility]) Smoking 08/18/2020 12:00:00 AM EST Former Smoker completed Former Smoker eCW1 ([facility]) Smoking 08/18/2020 12:00:00 AM EST Former Smoker completed Former Smoker eCW1 ([facility]) Smoking 08/18/2020 12:00:00 AM EST Former Smoker completed Former Smoker [email or web address] ([facility]) Smoking 08/18/2020 12:00:00 AM EST Former Smoker completed Former Smoker [email or web address] ([facility]) Smoking 08/18/2020 12:00:00 AM EST Former Smoker completed Former Smoker [email or web address] ([facility]) Smoking 06/08/2020 12:00:00 AM EST Former Smoker completed Former Smoker [email or web address] ([facility]) Smoking 06/08/2020 12:00:00 AM EST Former Smoker completed Former Smoker [email or web address] ([facility]) Vital Signs ID Date Data Source UNK Name Value Range Interpretation Code Description Data Source(s) Body mass index (BMI) [Ratio] 31.01 kg/m2 31.01 kg/m2 eCW1 ([facility]) Body weight 148.4 [lb_av] 148.4 [lb_av] eCW1 ([facility]) Body weight 67.31 kg 67.31 kg eCW1 ([facility]) Body height 58 [in_i] 58 [in_i] eCW1 ([facility]) Heart rate 88 /min 88 /min eCW1 ([facility]) Respiratory rate 18 /min 18 /min eCW1 ([facility]) Body temperature 97.3 [degF] 97.3 [degF] eCW1 ( [facility]) Systolic blood pressure 122 mm[Hg] 122 mm[Hg] e CW1 ([facility]) Diastolic blood pressure 82 mm[Hg] 82 mm[Hg] eCW1 ([facility]) Diastolic blood pressure 80 mm[Hg] 80 mm[Hg] eCW1 ([facility]) Body weight 149.0 [lb_av] 149.0 [lb_av] eCW1 ([facility]) Body height 58 [in_i] 58 [in_i] eCW1 ([facility]) Body mass index (BMI) [Ratio] 31.14 kg/m2 31.14 kg/m2 eCW1 ([facility]) Heart rate 87 /min 87 /min eCW1 ([facility]) Respiratory rate 20 /min 20 /min eCW1 ([facility]) Body temperature 97.4 [degF] 97.4 [degF] eCW1 ( [facility]) Systolic blood pressure 126 mm[Hg] 126 mm[Hg] e CW1 ([facility]) Body temperature 96.6 [degF] 96.6 [degF] eCW1 ( [facility]) Body weight 147 [lb_av] 147 [lb_av] eCW1 ([facility]) Body weight 66.68 kg 66.68 kg eCW1 ([facility]) Systolic blood pressure 128 mm[Hg] 128 mm[Hg] e CW1 ([facility]) Diastolic blood pressure 82 mm[Hg] 82 mm[Hg] eCW1 ([facility]) Body height 58 [in_i] 58 [in_i] eCW1 ([facility]) Body mass index (BMI) [Ratio] 30.72 kg/m2 30.72 kg/m2 eCW1 ([facility]) Heart rate 65 /min 65 /min eCW1 ([facility]) Respiratory rate 20 /min 20 /min eCW1 ([facility]) Body weight 146.2 [lb_av] 146.2 [lb_av] eCW1 ([facility]) Body height 58 [in_i] 58 [in_i] eCW1 ([facility] [facility] Body mass index (BMI) [Ratio] 30.55 kg/m2 30.55 kg/m2 eCW1 ([facility]) Heart rate 79 /min 79 /min eCW1 ([facility]) Respiratory rate 20 /min 20 /min eCW1 ([facility]) Body temperature 96.2 [degF] 96.2 [degF] eCW1 ( [facility]) Systolic blood pressure 130 mm[Hg] 130 mm[Hg] e CW1 ([facility]) Diastolic blood pressure 80 mm[Hg] 80 mm[Hg] eCW1 ([facility]) Body weight 134 [lb_av] 134 [lb_av] eCW1 ([facility]) Body height 58 [in_i] 58 [in_i] eCW1 ([facility]) Body mass index (BMI) [Ratio] 28.00 kg/m2 28.00 kg/m2 eCW1 ([facility]) Heart rate 80 /min 80 /min eCW1 ([facility]) Respiratory rate 20 /min 20 /min eCW1 ([facility]) Body temperature 96.6 [degF] 96.6 [degF] eCW1 ( [facility]) Systolic blood pressure 162 mm[Hg] 162 mm[Hg] e CW1 ([facility]) Diastolic blood pressure 82 mm[Hg] 82 mm[Hg] eCW1 ([facility]) Body mass index (BMI) [Ratio] 29.22 kg/m2 29.22 kg/m2 eCW1 ([facility]) Body weight 139.8 [lb_av] 139.8 [lb_av] eCW1 ([facility]) Body height 58 [in_i] 58 [in_i] eCW1 ([facility]) Systolic blood pressure 130 mm[Hg] 130 mm[Hg] e CW1 ([facility]) Diastolic blood pressure 82 mm[Hg] 82 mm[Hg] eCW1 ([facility]) Heart rate 81 /min 81 /min eCW1 ([facility]) Respiratory rate 18 /min 18 /min eCW1 ([facility]) Body temperature 97.0 [degF] 97.0 [degF] eCW1 ( [facility]) Patient Treatment Plan of Care Planned Activity Planned Date Details Description Data Source (s) Famotidine 20 MG Oral Tablet 2021 12:00:00 AM EDT eCW1 ([facility]) 200 ACTUAT Albuterol 0.09 MG/ACTUAT Metered Dose Inhal er [ProAir] 02/11/2021 12:00:00 AM EDT eCW1 ([facility]) Prednisone 20 MG Oral Tablet 02/11/2021 12:00:00 AM EDT eCW1 ([facility]) Augmentin 875-125 MG 02/11/2021 12:00:00 AM EDT eCW1 ([facility]) 200 ACTUAT Albuterol 0.09 MG/ACTUAT Metered Dose Inhal er [ProAir] 02/11/2021 12:00:00 AM EDT eCW1 ([facility]) Prednisone 20 MG Oral Tablet 02/11/2021 12:00:00 AM EDT eCW1 ([facility]) Augmentin 875-125 MG 02/11/2021 12:00:00 AM EDT eCW1 ([facility]) 200 ACTUAT Albuterol 0.09 MG/ACTUAT Metered Dose Inhal er [ProAir] 02/11/2021 12:00:00 AM EDT eCW1 ([facility]) Prednisone 20 MG Oral Tablet 02/11/2021 12:00:00 AM EDT eCW1 ([facility]) Augmentin 875-125 MG 02/11/2021 12:00:00 AM EDT eCW1 ([facility]) Glucose strip (Verio IQ) 12/15/2020 12:00:00 AM EDT eCW1 ([facility]) Glucose strip (Verio IQ) 12/15/2020 12:00:00 AM EDT eCW1 ([facility]) Glucose strip (Verio IQ) 12/15/2020 12:00:00 AM EDT eCW1 ([facility]) Glucose strip (Verio IQ) 12/15/2020 12:00:00 AM EDT eCW1 ([facility]) Glucometer 10/15/2020 12:00:00 AM EDT e CW1 ([facility]) Glucometer 10/15/2020 12:00:00 AM EDT e CW1 ([facility]) Glucometer 10/15/2020 12:00:00 AM EDT e CW1 ([facility]) Glucometer 10/15/2020 12:00:00 AM EDT e CW1 ([facility]) irbesartan 75 MG Oral Tablet 08/18/2020 12:00:00 AM EST eCW1 ([facility]) irbesartan 75 MG Oral Tablet 08/18/2020 12:00:00 AM EST eCW1 ([facility]) irbesartan 75 MG Oral Tablet 08/18/2020 12:00:00 AM EST eCW1 ([facility]) irbesartan 75 MG Oral Tablet 08/18/2020 12:00:00 AM EST eCW1 ([facility]) irbesartan 75 MG Oral Tablet 08/18/2020 12:00:00 AM EST eCW1 ([facility]) irbesartan 75 MG Oral Tablet 08/18/2020 12:00:00 AM EST eCW1 ([facility]) irbesartan 75 MG Oral Tablet 08/18/2020 12:00:00 AM EST eCW1 ([facility]) irbesartan 75 MG Oral Tablet 08/18/2020 12:00:00 AM EST eCW1 ([facility]) irbesartan 75 MG Oral Tablet 08/18/2020 12:00:00 AM EST eCW1 ([facility]) BD Lancet Ultrafine 33G - 06/08/2020 12:00:00 AM EST eCW1 ([facility]) Escitalopram 20 MG Oral Tablet 06/08/2020 12:00:00 AM EST eCW1 ([facility]) Pramipexole dihydrochloride 0.5 MG Oral Tablet 06/08/2020 12:00:00 AM EST eCW1 ([facility]) Escitalopram 20 MG Oral Tablet 06/08/2020 12:00:00 AM EST eCW1 ([facility]) Pramipexole dihydrochloride 0.5 MG Oral Tablet 06/08/2020 12:00:00 AM EST eCW1 ([facility]) BD Lancet Ultrafine 33G - 06/08/2020 12:00:00 AM EST eCW1 ([facility])
[2021-05-04 14:11] LABS: OSMOLALITY SERUM 252 MOSM/KG (280-301)
[2021-05-04 14:29] LABS: ACETAMINOPHEN LEVEL < 2.0 UG/ML (10.0-30.0); ALBUMIN 3.5 GM/DL (3.2-5.2); ALT/SGPT 35 U/L (12-78); BILIRUBIN,DIRECT < 0.1 MG/DL (0.0-0.2); BILIRUBIN,TOTAL 0.5 MG/DL (0.2-1.0); BLOOD UREA NITROGEN 27 MG/DL (7-18); CALCIUM LEVEL 9.5 MG/DL (8.8-10.2); CARBON DIOXIDE LEVEL 24 MEQ/L (21-32); CHLORIDE LEVEL 82 MEQ/L (98-107); CK-MB VALUE MASS 11.7 NG/ML (<3.6); CPK CREATINE PHOSPHOKINASE 265 U/L (26-192); CREATININE FOR GFR 0.84 MG/DL (0.55-1.30); ETHYL ALCOHOL (ETHANOL) 0.005 % (0.000-0.010); GLOMERULAR FILTRATION RATE > 60.0 (>32); GLUCOSE, FASTING 158 MG/DL (70-100); MB/CK RELATIVE INDEX 4.42 (< OR =4); POTASSIUM SERUM 4.8 MEQ/L (3.5-5.1); SALICYLATE LEVEL < 1.7 MG/DL (5.0-30.0); SODIUM LEVEL 115 MEQ/L (136-145); TOTAL PROTEIN 6.7 GM/DL (6.4-8.2); TROPONIN I < 0.02 NG/ML (< 0.10)
[2021-05-04 15:16] LABS: AMPHETAMINES LEVEL URINE NEGATIVE (NEGATIVE); BARBITURATES URINE NEGATIVE (NEGATIVE); BENZODIAZEPINES URINE NEGATIVE (NEGATIVE); CANNABINOIDS URINE NEGATIVE (NEGATIVE); COCAINE METABOLITE URINE NEGATIVE (NEGATIVE); METHADONE URINE NEGATIVE (NEGATIVE); OPIATES URINE NEGATIVE (NEGATIVE); PHENCYCLIDINE URINE NEGATIVE (NEGATIVE)
[2021-05-04] MEDS ORDERED: DICL1GEL3 TOP (15:16)
[2021-05-04] MEDS ORDERED: HYDR10TAB PO (15:16)
[2021-05-04] MEDS ORDERED: METO75TA PO (15:16)
[2021-05-04] MEDS ORDERED: ISOS20TAB PO (15:16)
[2021-05-04] MEDS ORDERED: AUGM875T28 PO (15:17)
[2021-05-04] MEDS ORDERED: FAMO20TA PO (15:19)
[2021-05-04] MEDS ORDERED: HOME MED LIST COMPLETE! XX SCH (15:20)
[2021-05-04] MEDS ORDERED: MAALOX 30 ML SUSP *UDC PO PRN (16:10)
[2021-05-04] MEDS ORDERED: DEXTROSE 50% 50 ML SYRINGE IV PRN (16:10)
[2021-05-04] MEDS ORDERED: GLUCAGON INJ 1MG VIAL SC PRN (16:10)
[2021-05-04] MEDS ORDERED: MOM 30ML SUSPENSION UDC PO PRN (16:10)
[2021-05-04] MEDS ORDERED: GLUCOSE 4GM CHEW TABLET PO PRN (16:10)
[2021-05-04] MEDS ORDERED: ACETAMINOPHEN TAB 650MG DOSE (2X325MG) PO PRN (16:10)
--- NOTE | 2021-05-04 16:21 | HPEPDOC ---
[facility] Medical History & Physical Date of Admission May 04, 2021 Date of Service: May 04, 2021 History and Physical Chief complaint: Who presented to the hospital after she had reported some type of confusion home History of present illness: Patient is an 81-year-old female who presented to the hospital with reported abdominal distention, which has resolved. Upon evaluation, patient been reported that she is experiencing shortness of breath which is also has resolved on evaluation. Lab work as reveal that patient is severely hyponatremic. Hospital services called for further evaluation and treatment. Patient reports that this morning she was slightly confused and had taken some extra medications. She reported that she was just confused and she did not do this in an attempt to harm herself. Patient denies any chest pain. Does report some questionable shortness of breath. Reports some clear cough. Denies any nausea, vomiting, abdominal pain or constipation. She has reported 3 bowel movements today. Denies any urinary discomfort. Has not experience any recent fevers or chills. Reports that recently her appetite has been poor. Past Medical History: Left breast invasive ductal CA (s/p mastectomy 2006, Chemotherapy, Tamoxifen x 5 years) Diastolic CHF (Grade 2) HTN NIDDM2 DLP Anxiety Osteoporosis GERD Past Surgical History: Left rib fractures 2013 Right sacral fracture Left inferior and superior rami fracture Left L2 transverse process fracture Right L4 and L5 transverse process fractures T-3 compression fracture Left mastectomy 2006 Tonsillectomy and adenoidectomy Hysterectomy Allergies: See below Medications: See below Family History: - Reviewed and noncontributory Social History: - Denies the use of alcohol, tobacco or illicit drugs - Denies recent travel or sick contacts - Lives with - Occupation Review of Systems: 10 point review of systems complete, all negative otherwise stated in HPI Physical exam: - Vitals: BP [184/82], HR [67], RR [20], Sat [97%RA], Temp [94.7F] - General: Lying in bed, No acute distress, Speaking in full sentences, AAOx3 (person, place, month) - HEENT: NC, AT, Pupils are asymmetric (R>L) - CVS: RRR, +S1S2 - Lungs: Fair air entry bilaterally, No appreciable wheezing / rales / rhonchi - Abdomen: Soft, Non-distended, Non-tender - Extremities: LE with 1+ pitting edema from legs to ankles, No calf tenderness - Neuro: 5/5 strength at upper and lower extremities bilaterally - Skin: No visible rashes Labs: See below Imaging: CXR 05/04: No acute pulmonary disease. CT head 05/04: Stable chronic findings. No acute intracranial hemorrhage, midline shift or mass effect. EKG: See below Assessment and Plan: Hyponatremia - likely 2/2 hypotonic - 2/2 euvolemic / hypervolemic etiology - Patient has presented to the ER with some slight confusion noted at home - Patient remains oriented to person, place and time and physical does not reveal any focal deficits - Will check serum + urine osmolality / urine electrolytes / Thyroid function / Cortisol baseline - c/w Telemetry monitoring - Will check BMP [id number] - Will provide Hypertonic saline (re: some level of confusion / acuity of hyponatremia) 30cc/hr for 100 cc only - Consulted and discussed case with Dr. Oneill (Nephrology); will be following along; appreciate their recommendations Diastolic CHF (Grade 2) - Lower extremities reveal 1+ pitting edema bilaterally - Imaging noted above - Will check BNP - Patient is not on diuretics at home HTN - Patient is hypertensive in the ER with SBP in 180s - Will resume home medications; Metoprolol / Hydralazine / Isosorbide mononitrate with hold parameters - c/w Telemetry monitoring NIDDM2 - Will start ISS DLP - ASA 81 and Simvastatin Anxiety - c/w Escitalopram RLS - c/w Pramipexole Osteoporosis Left breast invasive ductal CA - s/p mastectomy 2006, Chemotherapy, Tamoxifen x 5 years GERD - c/w Famotidine DVT prophylaxis - Will start Heparin SQ Code Status: - DNR / DNI Vital Signs Vital Signs Date Time Temp Pulse Resp B/P (MAP) Pulse Ox O2 Delivery O2 Flow Rate FiO2 05/04/21 13:30 67 20 184/82 (116) 97 Room Air 05/04/21 12:44 94.7 Laboratory Data Labs 24H Laboratory Tests 2 05/04/21 13:25: Immature Granulocyte % (Auto) 0.9, Neutrophils (%) (Auto) 83.0H, Lymphocytes (%) (Auto) 10.5L, Monocytes (%) (Auto) 5.0, Eosinophils (%) (Auto) 0.3, Basophils (%) (Auto) 0.3, Neutrophils # (Auto) 13.0H, Lymphocytes # (Auto) 1.6, Monocytes # (Auto) 0.8, Eosinophils # (Auto) 0.1, Basophils # (Auto) 0.0, Nucleated Red Blood Cells % (auto) 0.0, Anion Gap 9, Glomerular Filtration Rate > 60.0, Osmolality 252L, Lactic Acid Level 1.0, Calcium Level 9.5, Total Bilirubin 0.5, Direct Bilirubin < 0.1, Aspartate Amino Transf (AST/SGOT) 49H, Alanine Aminotransferase (ALT/SGPT) 35, Alkaline Phosphatase 59, Ammonia 21, Total Creatine Kinase 265H, Creatine Kinase MB 11.7H, Creatine Kinase MB Relative Index 4.42H, Troponin I < 0.02, Total Protein 6.7, Albumin 3.5, Albumin/Globulin Ratio 1.1L, Thyroid Stimulating Hormone (TSH) 2.460, Salicylates Level < 1.7L, Acetaminophen Level < 2.0L, Ethyl Alcohol Level 0.005 05/04/21 13:26: Blood Gas Bicarbonate Standard 22.0, Venous Blood pH 7.400, Venous Blood Partial Pressure CO2 35.7L, Venous Blood Partial Pressure O2 49.2, Venous Blood Total Carbon Dioxide 22.7L, Venous Blood HCO3 21.6L, Venous Blood Oxygen Saturation 84.8H, Venous Blood Base Excess -2.6L 05/04/21 14:11: Bedside Glucose (Misc Panel) 150H 05/04/21 14:41: Urine Opiates Screen NEGATIVE, Urine Methadone Screen NEGATIVE, Urine Barbiturates Screen NEGATIVE, Urine Phencyclidine Screen NEGATIVE, Urine Amphetamines Screen NEGATIVE, Urine Benzodiazepines Screen NEGATIVE, Urine Cocaine Metabolite Screen NEGATIVE, Urine Cannabinoids Screen NEGATIVE 05/04/21 14:42: Urine Color YELLOW, Urine Appearance HAZY, Urine pH 5.0, Urine Specific [place] 1.016, Urine Protein 3+H, Urine Glucose (UA) 2+H, Urine Ketones 2+H, Urine Blood NEGATIVE, Urine Nitrite NEGATIVE, Urine Bilirubin NEGATIVE, Urine Urobilinogen 0.2, Urine Leukocyte Esterase NEGATIVE, Urine WBC (Auto) 2, Urine RBC (Auto) 4H, Urine Hyaline Casts (Auto) 0, Urine Bacteria (Auto) NEGATIVE, Urine Squamous Epithelial Cells 7, Urine Mucus (Auto) SMALL, Urine Sperm (Auto) 05/04/21 15:30: CBC/BMP Laboratory Tests 05/04/21 13:25 Home Medications Scheduled Alendronate Sodium (Fosamax) 70 Mg Tablet, 70 MG PO QWEEK THURSDAYS Amoxicillin/Potassium Clav (Augmentin 875-125 Tablet) 1 Each Tablet, 1 TAB PO BID FOR 7 DAYS, STARTED 04/27 Aspirin (Aspirin EC) 81 Mg Tablet.dr, 81 MG PO DAILY Calcium Carbonate/Vitamin D3 (Calcium 600+D Softgel) 1 Each Capsule, 1 CAP PO DAILY Ciclopirox Olamine (Ciclopirox) 15 Gm Cream..g., 1 APLCT TOP BID APPLY TO FEET Diclofenac Sodium (Diclofenac Sodium) 1% 100GM Gel..gram., 4 GM TOP QID APPLY TO LEFT KNEE Escitalopram Oxalate (Lexapro) 20 Mg Tablet, 20 MG PO DAILY Famotidine (Famotidine) 20 Mg Tablet, 20 MG PO QHS Hydralazine HCl (Hydralazine HCl) 10 Mg Tablet, 20 MG PO TID Isosorbide Dinitrate (Isosorbide Dinitrate) 20 Mg Tablet, 20 MG PO TID 0700/1200/1700 Magnesium (Magnesium) 250 Mg Tablet, 250 MG PO QHS Metformin HCl (Metformin HCl ER) 500 Mg Tab.er.24h, 500 MG PO BID Metoprolol Tartrate (Metoprolol Tartrate) 75 Mg Tablet, 75 MG PO BID Pramipexole Di-HCl (Mirapex) 0.5 Mg Tablet, 0.5 MG PO QHS Simvastatin (Simvastatin) 40 Mg Tablet, 40 MG PO QHS Sitagliptin Phosphate (Januvia) 100 Mg Tablet, 100 MG PO DAILY Allergies Coded Allergies: No Known Allergies (Verified , 07/27/05) JOSE HEBERT MD May 04, 2021 16:21
[2021-05-04 16:22] LABS: RSV AMPLIFICATION NEGATIVE (NEGATIVE)
--- OUTSIDE RECORDS SUMMARY | 2021-05-04 16:26 | CCD ---
Author Author [facility] Organization [facility] Address Unknown Phone Unavailable Care Team Providers Care Trolley Operator Name Role Phone Jhonny Mccray MD Unavailable [...] Unavailable Unavailable Jhonny Mccray MD Unavailable Unavailable Johnny Mccray MD Unavailable Unavailable Jhonny Mccray MD [...] is protected by Article 27-F of the [facility] Public Health law. If you continue you may have access to information: Regarding HIV / AIDS; Provided by facilities licensed or operated by the [facility] Office of Mental Health; or Provided by the [facility] Office for People With Developmental Disabilities. If such information is present, then the following [facility] mandated warning applies: This information has [...] law may result in a fine or snf sentence or both. A general authorization for the release of medical or other information is NOT sufficient authorization for further disc losure. Allergies and Adverse Reactions Type Description Substance Reaction Status Data Source(s ) Allergy to substance Allergy to substance Allergy to substance VERNON ([facility]) Allergy to substance Allergy to substance Allergy to substance SPEED ([facility]) Encounters Encounter Providers Location Date Indications Data Source(s ) Unknown [address] [facility], [facility] [address] 04/28/2021 12:00:00 AM EDT eCW1 ([facility]) [place] [address] [facility] [address] 04/20/2021 12:00:00 AM EDT eCW1 ([facility]) Office Visit, Est Pt., Level 4 PC [address] [place] [address] 03/30/2021 12:00:00 AM EDT eCW1 ([facility]) [place] [address] [facility] [address] 03/29/2021 12:00:00 AM EDT eCW1 ([facility]) [place] [address] [facility] [address] 03/16/2021 12:00:00 AM EDT eCW1 ([facility]) [place] [address] [facility] [address] 03/04/2021 12:00:00 AM EDT eCW1 ([facility]) [place] [address] [facility] [address] 03/04/2021 12:00:00 AM EDT eCW1 ([facility]) [place] [address] [facility] [address] 02/11/2021 12:00:00 AM EDT eCW1 ([facility]) [place] [address] [facility] [address] 02/11/2021 12:00:00 AM EDT eCW1 ([facility]) [place] [address] [facility] [address] 02/10/2021 12:00:00 AM EDT eCW1 ([facility]) [place] [address] [facility] [address] 02/09/2021 12:00:00 AM EDT eCW1 ([facility]) [place] [address] [facility] [address] 02/04/2021 12:00:00 AM EDT eCW1 ([facility]) [place] [address] [facility] [address] 12/24/2020 12:00:00 AM EDT eCW1 ([facility]) [place] [address] [facility] [address] 12/15/2020 12:00:00 AM EDT eCW1 ([facility]) [place] [address] [facility] [address] 12/04/2020 12:00:00 AM EDT eCW1 ([facility]) [place] [address] [facility] [address] 11/13/2020 12:00:00 AM EDT eCW1 ([facility]) [place] [address] [facility] [address] 11/05/2020 12:00:00 AM EDT eCW1 ([facility]) [place] [address] [facility] [address] 11/04/2020 12:00:00 AM EDT eCW1 ([facility]) [place] [address] [facility] [address] 11/02/2020 12:00:00 AM EDT eCW1 ([facility]) Josiah Mccray MD: [address] [place] [address], Ph. Attender: Josiah Mccray MD [facility] Medical 10/27/2020 12:00:00 AM EDT VERNON ([facility]) Unknown [address] [facility] [place] [address] 10/26/2020 12:00:00 AM EDT eCW1 ([facility]) Unknown [address] [facility] [place] [address] 10/15/2020 12:00:00 AM EDT eCW1 ([facility]) [place] [address] [facility] [address] 10/01/2020 12:00:00 AM EDT eCW1 ([facility]) Josiah Mccray MD: [address] [place] [address], Ph. Attender: Josiah Mccray MD [facility] Medical 09/29/2020 12:00:00 AM EDT VERNON ([facility]) Josiah Mccray MD: [address] [place] [address], Ph. Attender: Josiah Mccray MD [facility] - [facility] Medical 09/29/2020 12:00:00 AM EDT VERNON ([facility]) [place]patient [address] [facility] [address] 08/18/2020 12:00:00 AM EST eCW1 ([facility]) Unknown [address] [facility] [place] [address] 08/18/2020 12:00:00 AM EST eCW1 ([facility]) Unknown [address] [facility] [place] [address] 08/14/2020 12:00:00 AM EST eCW1 ([facility]) Outpatient [address] [facility] [place] [address] 06/08/2020 12:00:00 AM EST eCW1 ([facility]) Unknown [address] [facility] [address] 05/18/2020 12:00:00 AM EST eCW1 ([facility]) Unknown [address] [facility] [place] [address] 05/05/2020 12:00:00 AM EST eCW1 ([facility]) Unknown [address] [facility] [place] [address] 04/17/2020 12:00:00 AM EDT eCW1 ([facility]) Immunizations Vaccine Date Status Description Data Source(s) COVID-19, mRNA, LNP-S, PF, 100 mcg/0.5 mL dose 10/27/2020 11 :55:47 AM EDT completed .5 mL VERNON ([facility]) COVID-19 dose #2 given elsewhere Unspecified 10/27/2020 09:3 1:00 AM EDT completed eCW1 ([facility]) COVID-19 dose #2 given elsewhere Unspecified 10/27/2020 09:3 1:00 AM EDT completed eCW1 ([facility]) COVID-19 dose #2 given elsewhere Unspecified 10/27/2020 09:3 1:00 AM EDT completed eCW1 ([facility]) COVID-19 dose #2 given elsewhere Unspecified 10/27/2020 09:3 1:00 AM EDT completed eCW1 ([facility]) COVID-19 dose #2 given elsewhere Unspecified 10/27/2020 09:3 1:00 AM EDT completed eCW1 ([facility]) COVID-19 dose #2 given elsewhere Unspecified 10/27/2020 09:3 1:00 AM EDT completed eCW1 ([facility]) COVID-19 dose #2 given elsewhere Unspecified 10/27/2020 09:3 1:00 AM EDT completed eCW1 ([facility]) COVID-19 dose #2 given elsewhere Unspecified 10/27/2020 09:3 1:00 AM EDT completed eCW1 ([facility]) COVID-19 dose #2 given elsewhere Unspecified 10/27/2020 09:3 1:00 AM EDT completed eCW1 ([facility]) COVID-19 dose #2 given elsewhere Unspecified 10/27/2020 09:3 1:00 AM EDT completed eCW1 ([facility]) COVID-19 dose #2 given elsewhere Unspecified 10/27/2020 09:3 1:00 AM EDT completed eCW1 ([facility]) COVID-19 dose #2 given elsewhere Unspecified 10/27/2020 09:3 1:00 AM EDT completed eCW1 ([facility]) COVID-19 dose #2 given elsewhere Unspecified 10/27/2020 09:3 1:00 AM EDT completed eCW1 ([facility]) COVID-19 dose #2 given elsewhere Unspecified 10/27/2020 09:3 1:00 AM EDT completed eCW1 ([facility]) COVID-19 dose #2 given elsewhere Unspecified 10/27/2020 09:3 1:00 AM EDT completed eCW1 ([facility]) COVID-19 dose #2 given elsewhere Unspecified 10/27/2020 09:3 1:00 AM EDT completed eCW1 ([facility]) COVID-19 dose #2 given elsewhere Unspecified 10/27/2020 09:3 1:00 AM EDT completed eCW1 ([facility]) COVID-19 dose #2 given elsewhere Unspecified 10/27/2020 09:3 1:00 AM EDT completed eCW1 ([facility]) COVID-19 dose #2 given elsewhere Unspecified 10/27/2020 09:3 1:00 AM EDT completed eCW1 ([facility]) COVID-19 VACCINE Moderna 10/27/2020 12:00:00 AM EDT completed [employer] Vaccine Series Complete: YESThis Data wa s Submitted to [facility] Via [employer]. COVID-19, mRNA, LNP-S, PF, 100 mcg/0.5 mL dose 09/29/2020 11 :47:34 AM EDT completed 10.5 mL VERNON ([facility]) COVID-19, mRNA, LNP-S, PF, 100 mcg/0.5 mL dose 09/29/2020 11 :47:34 AM EDT completed 10.5 mL VERNON ([facility]) COVID-19 dose #1 given elsewhere Unspecified 09/29/2020 09:3 0:00 AM EDT completed eCW1 ([facility]) COVID-19 dose #1 given elsewhere Unspecified 09/29/2020 09:3 0:00 AM EDT completed eCW1 ([facility]) COVID-19 dose #1 given elsewhere Unspecified 09/29/2020 09:3 0:00 AM EDT completed eCW1 ([facility]) COVID-19 dose #1 given elsewhere Unspecified 09/29/2020 09:3 0:00 AM EDT completed eCW1 ([facility]) COVID-19 dose #1 given elsewhere Unspecified 09/29/2020 09:3 0:00 AM EDT completed eCW1 ([facility]) COVID-19 dose #1 given elsewhere Unspecified 09/29/2020 09:3 0:00 AM EDT completed eCW1 ([facility]) COVID-19 dose #1 given elsewhere Unspecified 09/29/2020 09:3 0:00 AM EDT completed eCW1 ([facility]) COVID-19 dose #1 given elsewhere Unspecified 09/29/2020 09:3 0:00 AM EDT completed eCW1 ([facility]) COVID-19 dose #1 given elsewhere Unspecified 09/29/2020 09:3 0:00 AM EDT completed eCW1 ([facility]) COVID-19 dose #1 given elsewhere Unspecified 09/29/2020 09:3 0:00 AM EDT completed eCW1 ([facility]) COVID-19 dose #1 given elsewhere Unspecified 09/29/2020 09:3 0:00 AM EDT completed eCW1 ([facility]) COVID-19 dose #1 given elsewhere Unspecified 09/29/2020 09:3 0:00 AM EDT completed eCW1 ([facility]) COVID-19 dose #1 given elsewhere Unspecified 09/29/2020 09:3 0:00 AM EDT completed eCW1 ([facility]) COVID-19 dose #1 given elsewhere Unspecified 09/29/2020 09:3 0:00 AM EDT completed eCW1 ([facility]) COVID-19 dose #1 given elsewhere Unspecified 09/29/2020 09:3 0:00 AM EDT completed eCW1 ([facility]) COVID-19 dose #1 given elsewhere Unspecified 09/29/2020 09:3 0:00 AM EDT completed eCW1 ([facility]) COVID-19 dose #1 given elsewhere Unspecified 09/29/2020 09:3 0:00 AM EDT completed eCW1 ([facility]) COVID-19 dose #1 given elsewhere Unspecified 09/29/2020 09:3 0:00 AM EDT completed eCW1 ([facility]) COVID-19 dose #1 given elsewhere Unspecified 09/29/2020 09:3 0:00 AM EDT completed eCW1 ([facility]) COVID-19 VACCINE Moderna 09/29/2020 12:00:00 AM EDT completed [employer] Vaccine Series Complete: NOThis Data was Submitted to [facility] Via [employer]. influenza, recombinant, quadrIvalent,injectable, prese rvative free 06/08/2020 05:45:00 PM EST completed eCW1 ([facility]) influenza, recombinant, quadrIvalent,injectable, prese rvative free 06/08/2020 05:45:00 PM EST completed eCW1 ([facility]) influenza, recombinant, quadrIvalent,injectable, prese rvative free 06/08/2020 05:45:00 PM EST completed eCW1 ([facility]) influenza, recombinant, quadrIvalent,injectable, prese rvative free 06/08/2020 05:45:00 PM EST completed eCW1 ([facility]) influenza, recombinant, quadrIvalent,injectable, prese rvative free 06/08/2020 05:45:00 PM EST completed eCW1 ([facility]) influenza, recombinant, quadrIvalent,injectable, prese rvative free 06/08/2020 05:45:00 PM EST completed eCW1 ([facility]) influenza, recombinant, quadrIvalent,injectable, prese rvative free 06/08/2020 05:45:00 PM EST completed eCW1 ([facility]) influenza, recombinant, quadrIvalent,injectable, prese rvative free 06/08/2020 05:45:00 PM EST completed eCW1 ([facility]) influenza, recombinant, quadrIvalent,injectable, prese rvative free 06/08/2020 05:45:00 PM EST completed eCW1 ([facility]) influenza, recombinant, quadrIvalent,injectable, prese rvative free 06/08/2020 05:45:00 PM EST completed eCW1 ([facility]) influenza, recombinant, quadrIvalent,injectable, prese rvative free 06/08/2020 05:45:00 PM EST completed eCW1 ([facility]) influenza, recombinant, quadrIvalent,injectable, prese rvative free 06/08/2020 05:45:00 PM EST completed eCW1 ([facility]) influenza, recombinant, quadrIvalent,injectable, prese rvative free 06/08/2020 05:45:00 PM EST completed eCW1 ([facility]) influenza, recombinant, quadrIvalent,injectable, prese rvative free 06/08/2020 05:45:00 PM EST completed eCW1 ([facility]) influenza, recombinant, quadrIvalent,injectable, prese rvative free 06/08/2020 05:45:00 PM EST completed eCW1 ([facility]) influenza, recombinant, quadrIvalent,injectable, prese rvative free 06/08/2020 05:45:00 PM EST completed eCW1 ([facility]) influenza, recombinant, quadrIvalent,injectable, prese rvative free 06/08/2020 05:45:00 PM EST completed eCW1 ([facility]) influenza, recombinant, quadrIvalent,injectable, prese rvative free 06/08/2020 05:45:00 PM EST completed eCW1 ([facility]) influenza, recombinant, quadrIvalent,injectable, prese rvative free 06/08/2020 05:45:00 PM EST completed eCW1 ([facility]) influenza, recombinant, quadrIvalent,injectable, prese rvative free 06/08/2020 05:45:00 PM EST completed eCW1 ([facility]) influenza, recombinant, quadrIvalent,injectable, prese rvative free 06/08/2020 05:45:00 PM EST completed eCW1 ([facility]) influenza, recombinant, quadrIvalent,injectable, prese rvative free 06/08/2020 05:45:00 PM EST completed eCW1 ([facility]) influenza, recombinant, quadrIvalent,injectable, prese rvative free 06/08/2020 05:45:00 PM EST completed eCW1 ([facility]) influenza, recombinant, quadrIvalent,injectable, prese rvative free 06/08/2020 05:45:00 PM EST completed eCW1 ([facility]) influenza, recombinant, quadrIvalent,injectable, prese rvative free 06/08/2020 05:45:00 PM EST completed eCW1 ([facility]) influenza, recombinant, quadrIvalent,injectable, prese rvative free 06/08/2020 05:45:00 PM EST completed eCW1 ([facility]) Medications Medication Brand Name Start Date Product Form Dose Route Admi nistrative Instructions Pharmacy Instructions Status Indications Reaction Description Data Source(s) Famotidine 20 MG Oral Tablet Famotidine 20 MG 2021 12:00:00 AM E DT active Famotidine 20 MG eCW1 ([facility]) Isosorbide Dinitrate 20 MG Oral Tablet Isosorbide Dinitrate 20 MG 04/27/2021 12:00:00 AM EDT 1.0 {tablet} active Is osorbide Dinitrate 20 MG eCW1 ([facility]) Metoprolol Tartrate 50 MG Oral Tablet Metoprolol Tartrate 50 MG 04/27/2021 12:00:00 AM EDT active Metoprol ol Tartrate 50 MG eCW1 ([facility]) Hydralazine Hydrochloride 10 MG Oral Tablet hydrALAZIN E HCl 10 MG hydrALAZINE HCl 10 MG 04/27/2021 12:00:00 AM EDT 2.0 {tablet_with_food} active hydrALAZINE HCl 10 MG eCW1 ([facility]) Augmentin 875-125 MG UNK 04/27/2021 12:00:00 AM EDT 1.0 {tablet } active Augmentin 875-125 MG eCW1 ([facility]) Pramipexole dihydrochloride 0.5 MG Oral [...] {tablet} active pr edniSONE 20 MG eCW1 ([facility]) 200 ACTUAT Albuterol 0.09 MG/ACTUAT Mete red Dose Inhaler [ProAir] ProAir HFA 108 (90 Base) MCG/ACT ProAir HFA 108 (90 Base) MCG/ACT 02/11/2021 12:00:00 AM EDT 2.0 {puffs} active ProAir HFA 1 08 (90 Base) MCG/ACT eCW1 ([facility]) Prednisone 20 MG Oral Tablet predniSONE 20 MG predniSONE 20 MG 02/11/2021 12:00:00 AM EDT 1.0 {tablet} suspended predniSONE 20 MG eCW1 ([facility]) Prednisone 20 MG Oral Tablet predniSONE 20 MG predniSONE 20 MG 02/11/2021 12:00:00 AM EDT 1.0 {tablet} active pr edniSONE 20 MG eCW1 ([facility]) Prednisone 20 MG Oral Tablet predniSONE 20 MG predniSONE 20 MG 02/11/2021 12:00:00 AM EDT 1.0 {tablet} suspended predniSONE 20 MG eCW1 ([facility]) 200 ACTUAT Albuterol 0.09 MG/ACTUAT Mete red Dose Inhaler [ProAir] ProAir HFA 108 (90 Base) MCG/ACT ProAir HFA 108 (90 Base) MCG/ACT 02/11/2021 12:00:00 AM EDT 2.0 {puffs} active ProAir HFA 1 08 (90 Base) MCG/ACT eCW1 ([facility]) 20 mg 02/11/2021 12:00:00 AM EDT tablet 5 TAKE ONE TABLET BY MOUTH EVERY DAY FOR 5 DAYS TAKE ONE TABLET BY MOUTH EVERY DAY FOR 5 DAYS SOLD: 02/12/2021 [facility] Prednisone 20 MG Oral Tablet predniSONE 20 MG predniSONE 20 MG 02/11/2021 12:00:00 AM EDT 1.0 {tablet} suspended predniSONE 20 MG eCW1 ([facility]) Augmentin 875-125 MG UNK 02/11/2021 12:00:00 AM EDT 1.0 {tab let} suspended Augmentin 875-125 MG eCW1 ([facility]) Augmentin 875-125 MG UNK 02/11/2021 12:00:00 AM EDT 1.0 {tab let} suspended Augmentin 875-125 MG eCW1 ([facility]) Prednisone 20 MG Oral Tablet predniSONE 20 MG predniSONE 20 MG 02/11/2021 12:00:00 AM EDT 1.0 {tablet} suspended predniSONE 20 MG eCW1 ([facility]) 200 ACTUAT Albuterol 0.09 MG/ACTUAT Mete red Dose Inhaler [ProAir] ProAir HFA 108 (90 Base) MCG/ACT ProAir HFA 108 (90 Base) MCG/ACT 02/11/2021 12:00:00 AM EDT 2.0 {puffs} active ProAir HFA 1 08 (90 Base) MCG/ACT eCW1 ([facility]) 200 ACTUAT Albuterol 0.09 MG/ACTUAT Mete red Dose Inhaler [ProAir] ProAir HFA 108 (90 Base) MCG/ACT ProAir HFA 108 (90 Base) MCG/ACT 02/11/2021 12:00:00 AM EDT 2.0 {puffs} active ProAir HFA 1 08 (90 Base) MCG/ACT eCW1 ([facility]) Augmentin 875-125 MG UNK 02/11/2021 12:00:00 AM EDT 1.0 {tablet } active Augmentin 875-125 MG eCW1 ([facility]) 200 ACTUAT Albuterol 0.09 MG/ACTUAT Mete red Dose Inhaler [ProAir] ProAir HFA 108 (90 Base) MCG/ACT ProAir HFA 108 (90 Base) MCG/ACT 02/11/2021 12:00:00 AM EDT 2.0 {puffs} active ProAir HFA 1 08 (90 Base) MCG/ACT eCW1 ([facility]) 200 ACTUAT Albuterol 0.09 MG/ACTUAT Mete red Dose Inhaler [ProAir] ProAir HFA 108 (90 Base) MCG/ACT ProAir HFA 108 (90 Base) MCG/ACT 02/11/2021 12:00:00 AM EDT 2.0 {puffs} active ProAir HFA 1 08 (90 Base) MCG/ACT eCW1 ([facility]) Augmentin 875-125 MG UNK 02/11/2021 12:00:00 AM EDT 1.0 {tablet } active Augmentin 875-125 MG eCW1 ([facility]) Augmentin 875-125 MG UNK 02/11/2021 12:00:00 AM EDT 1.0 {tablet } active Augmentin 875-125 MG eCW1 ([facility]) Prednisone 20 MG Oral Tablet predniSONE 20 MG predniSONE 20 MG 02/11/2021 12:00:00 AM EDT 1.0 {tablet} suspended predniSONE 20 MG eCW1 ([facility]) 200 ACTUAT Albuterol 0.09 MG/ACTUAT Mete red Dose Inhaler [ProAir] ProAir HFA 108 (90 Base) MCG/ACT ProAir HFA 108 (90 Base) MCG/ACT 02/11/2021 12:00:00 AM EDT 2.0 {puffs} active ProAir HFA 1 08 (90 Base) MCG/ACT eCW1 ([facility]) 200 ACTUAT Albuterol 0.09 MG/ACTUAT Mete red Dose Inhaler [ProAir] ProAir HFA 108 (90 Base) MCG/ACT ProAir HFA 108 (90 Base) MCG/ACT 02/11/2021 12:00:00 AM EDT 2.0 {puffs} active ProAir HFA 1 08 (90 Base) MCG/ACT eCW1 ([facility]) Augmentin 875-125 MG UNK 02/11/2021 12:00:00 AM EDT 1.0 {tab let} suspended Augmentin 875-125 MG eCW1 ([facility]) 1 % 02/11/2021 12:00:00 AM EDT gel 500 APPLY 4 GRAMS TO THE LEFT KNEE FOUR TIMES A DAY APPLY 4 GRAMS TO THE LEFT KNEE FOUR TIMES A DAY SOLD: 02/12/2021 [facility] Augmentin 875-125 MG UNK 02/11/2021 12:00:00 AM EDT 1.0 {tab let} suspended Augmentin 875-125 MG eCW1 ([facility]) 90 mcg/actuation 02/11/2021 12:00:00 AM EDT HFA aerosol inha ler 18 INHALE TWO PUFFS FOUR TIMES A DAY 10 DAYS INHALE TWO PUFFS FOUR TIMES A DAY 10 DAYS SOLD: 02/12/2021 [facility] 200 ACTUAT Albuterol 0.09 MG/ACTUAT Mete red Dose Inhaler [ProAir] ProAir HFA 108 (90 Base) MCG/ACT ProAir HFA 108 (90 Base) MCG/ACT 02/11/2021 12:00:00 AM EDT 2.0 {puffs} active ProAir HFA 1 08 (90 Base) MCG/ACT eCW1 ([facility]) Augmentin 875-125 MG UNK 02/11/2021 12:00:00 AM EDT 1.0 {tab let} suspended Augmentin 875-125 MG eCW1 ([facility]) 200 ACTUAT Albuterol 0.09 MG/ACTUAT Mete red Dose Inhaler [ProAir] ProAir HFA 108 (90 Base) MCG/ACT ProAir HFA 108 (90 Base) MCG/ACT 02/11/2021 12:00:00 AM EDT 2.0 {puffs} active ProAir HFA 1 08 (90 Base) MCG/ACT eCW1 ([facility]) Augmentin 875-125 MG UNK 02/11/2021 12:00:00 AM EDT 1.0 {tab let} suspended Augmentin 875-125 MG eCW1 ([facility]) Amoxicillin 875 MG / Clavulanate 125 MG [...] 1.0 {tablet} suspended predniSONE 20 MG eCW1 ([facility]) Prednisone 20 MG Oral Tablet predniSONE 20 MG predniSONE 20 MG 02/11/2021 12:00:00 AM EDT 1.0 {tablet} active pr edniSONE 20 MG eCW1 ([facility]) Escitalopram 20 MG Oral Tablet ESCITALOPRAM [...] EDT active Glucose strip (Ver[employer]) eCW1 ([facility]) Glucose strip ([employer] IQ) UNK 12/15/2020 12:00:00 AM EDT active Glucose strip ([employer]) eCW1 ([facility]) Glucose strip ([employer]) UNK 12/15/2020 12:00:00 AM EDT active Glucose strip ([employer]) eCW1 ([facility]) Glucose strip ([employer]) UNK 12/15/2020 12:00:00 AM EDT active Glucose strip ([employer]) eCW1 ([facility]) Glucose strip ([employer]) UNK 12/15/2020 12:00:00 AM EDT active Glucose strip ([employer]) eCW1 ([facility]) Glucose strip ([employer]) UNK 12/15/2020 12:00:00 AM EDT active Glucose strip ([employer]) eCW1 ([facility]) Glucose strip ([employer] IQ) UNK 12/15/2020 12:00:00 AM EDT active Glucose strip ([employer]) eCW1 ([facility]) Glucose strip (Ver[employer] IQ) UNK 12/15/2020 12:00:00 AM EDT active Glucose strip ([employer]) eCW1 ([facility]) Glucose strip ([employer]) UNK 12/15/2020 12:00:00 AM EDT active Glucose strip ([employer]) eCW1 ([facility]) Glucose strip ([employer] IQ) UNK 12/15/2020 12:00:00 AM EDT active Glucose strip ([employer]) eCW1 ([facility]) Glucose strip ([employer]) UNK 12/15/2020 12:00:00 AM EDT active Glucose strip ([employer]) eCW1 ([facility]) Glucose strip ([employer]) UNK 12/15/2020 12:00:00 AM EDT active Glucose strip ([employer]) eCW1 ([facility]) Glucose strip ([employer]) UNK 12/15/2020 12:00:00 AM EDT active Glucose strip ([employer]) eCW1 ([facility]) Glucose strip ([employer]) UNK 12/15/2020 12:00:00 AM EDT active Glucose strip ([employer]) eCW1 ([facility]) 500 mg 12/07/2020 12:00:00 AM EDT [...] 10/15/2020 12:00:00 AM EDT active Glucometer eCW1 ([facility]) Glucometer UNK 10/15/2020 12:00:00 AM EDT active Glucometer eCW1 ([facility]) Glucometer UNK 10/15/2020 12:00:00 AM EDT active Glucometer eCW1 ([facility]) Glucometer UNK 10/15/2020 12:00:00 AM EDT active Glucometer eCW1 ([facility]) Glucometer UNK 10/15/2020 12:00:00 AM EDT active Glucometer eCW1 ([facility]) Glucometer UNK 10/15/2020 12:00:00 AM EDT active Glucometer eCW1 ([facility]) Glucometer UNK 10/15/2020 12:00:00 AM EDT active Glucometer eCW1 ([facility]) Glucometer UNK 10/15/2020 12:00:00 AM EDT active Glucometer eCW1 ([facility]) Glucometer UNK 10/15/2020 12:00:00 AM EDT active Glucometer eCW1 ([facility]) Glucometer UNK 10/15/2020 12:00:00 AM EDT active Glucometer eCW1 ([facility]) Glucometer UNK 10/15/2020 12:00:00 AM EDT active Glucometer eCW1 ([facility]) Glucometer UNK 10/15/2020 12:00:00 AM EDT active Glucometer eCW1 ([facility]) Glucometer UNK 10/15/2020 12:00:00 AM EDT active Glucometer eCW1 ([facility]) Glucometer UNK 10/15/2020 12:00:00 AM EDT active Glucometer eCW1 ([facility]) Glucometer UNK 10/15/2020 12:00:00 AM EDT active Glucometer eCW1 ([facility]) Glucometer UNK 10/15/2020 12:00:00 AM EDT active Glucometer eCW1 ([facility]) Glucometer UNK 10/15/2020 12:00:00 AM EDT active Glucometer eCW1 ([facility]) Glucometer UNK 10/15/2020 12:00:00 AM EDT active Glucometer eCW1 ([facility]) Glucometer UNK 10/15/2020 12:00:00 AM EDT active Glucometer eCW1 ([facility]) Glucometer UNK 10/15/2020 12:00:00 AM EDT active Glucometer eCW1 ([facility]) Glucometer UNK 10/15/2020 12:00:00 AM EDT active Glucometer eCW1 ([facility]) LANCETS 10/02/2020 12:00:00 AM EDT misc 200 USE A S DIRECTED TWO TIMES A DAY USE DIRECTED TWO TIMES A DAY SOLD: 10/12/2020 [facility] irbesartan 75 MG Oral Tablet Irbesartan 75 MG Irbesartan 75 MG 08/18/2020 12:00:00 AM EST 1.0 {tablet} active Ir besartan 75 MG eCW1 ([facility]) irbesartan 75 MG Oral Tablet Irbesartan 75 MG Irbesartan 75 MG 08/18/2020 12:00:00 AM EST 1.0 {tablet} active Ir besartan 75 MG eCW1 ([facility]) irbesartan 75 MG Oral Tablet Irbesartan 75 MG Irbesartan 75 MG 08/18/2020 12:00:00 AM EST 1.0 {tablet} active Ir besartan 75 MG eCW1 ([facility]) irbesartan 75 MG Oral Tablet Irbesartan 75 MG Irbesartan 75 MG 08/18/2020 12:00:00 AM EST 1.0 {tablet} active Ir besartan 75 MG eCW1 ([facility]) irbesartan 75 MG Oral Tablet Irbesartan 75 MG Irbesartan 75 MG 08/18/2020 12:00:00 AM EST 1.0 {tablet} active Ir besartan 75 MG eCW1 ([facility]) irbesartan 75 MG Oral Tablet Irbesartan 75 MG Irbesartan 75 MG 08/18/2020 12:00:00 AM EST 1.0 {tablet} active Ir besartan 75 MG eCW1 ([facility]) irbesartan 75 MG Oral Tablet Irbesartan 75 MG Irbesartan 75 MG 08/18/2020 12:00:00 AM EST 1.0 {tablet} active Ir besartan 75 MG eCW1 ([facility]) irbesartan 75 MG Oral Tablet Irbesartan 75 MG Irbesartan 75 MG 08/18/2020 12:00:00 AM EST 1.0 {tablet} active Ir besartan 75 MG eCW1 ([facility]) 75 mg 08/18/2020 12:00:00 AM EST tablet 90 TAKE ONE TABLET BY MOUTH AT BEDTIME TAKE ONE TABLET BY MOUTH AT BEDTIME SOLD: 11/22/2020 [facility] irbesartan 75 MG Oral Tablet Irbesartan 75 MG Irbesartan 75 MG 08/18/2020 12:00:00 AM EST 1.0 {tablet} active Ir besartan 75 MG eCW1 ([facility]) irbesartan 75 MG Oral Tablet Irbesartan 75 MG Irbesartan 75 MG 08/18/2020 12:00:00 AM EST 1.0 {tablet} active Ir besartan 75 MG eCW1 ([facility]) irbesartan 75 MG Oral Tablet Irbesartan 75 MG Irbesartan 75 MG 08/18/2020 12:00:00 AM EST 1.0 {tablet} active Ir besartan 75 MG eCW1 ([facility]) 75 mg 08/18/2020 12:00:00 AM EST tablet 90 TAKE ONE TABLET BY MOUTH AT BEDTIME TAKE ONE TABLET BY MOUTH AT BEDTIME SOLD: 08/18/2020 [facility] irbesartan 75 MG Oral Tablet Irbesartan 75 MG Irbesartan 75 MG 08/18/2020 12:00:00 AM EST 1.0 {tablet} active Ir besartan 75 MG eCW1 ([facility]) irbesartan 75 MG Oral Tablet Irbesartan 75 MG Irbesartan 75 MG 08/18/2020 12:00:00 AM EST 1.0 {tablet} active Ir besartan 75 MG eCW1 ([facility]) irbesartan 75 MG Oral Tablet Irbesartan 75 MG Irbesartan 75 MG 08/18/2020 12:00:00 AM EST 1.0 {tablet} active Ir besartan 75 MG eCW1 ([facility]) irbesartan 75 MG Oral Tablet Irbesartan 75 MG Irbesartan 75 MG 08/18/2020 12:00:00 AM EST 1.0 {tablet} active Ir besartan 75 MG eCW1 ([facility]) irbesartan 75 MG Oral Tablet Irbesartan 75 MG Irbesartan 75 MG 08/18/2020 12:00:00 AM EST 1.0 {tablet} active Ir besartan 75 MG eCW1 ([facility]) irbesartan 75 MG Oral Tablet Irbesartan 75 MG Irbesartan 75 MG 08/18/2020 12:00:00 AM EST 1.0 {tablet} active Ir besartan 75 MG eCW1 ([facility]) irbesartan 75 MG Oral Tablet Irbesartan 75 MG Irbesartan 75 MG 08/18/2020 12:00:00 AM EST 1.0 {tablet} active Ir besartan 75 MG eCW1 ([facility]) irbesartan 75 MG Oral Tablet Irbesartan 75 MG Irbesartan 75 MG 08/18/2020 12:00:00 AM EST 1.0 {tablet} active Ir besartan 75 MG eCW1 ([facility]) irbesartan 75 MG Oral Tablet Irbesartan 75 MG Irbesartan 75 MG 08/18/2020 12:00:00 AM EST 1.0 {tablet} active Ir besartan 75 MG eCW1 ([facility]) irbesartan 75 MG Oral Tablet Irbesartan 75 MG Irbesartan 75 MG 08/18/2020 12:00:00 AM EST 1.0 {tablet} active Ir besartan 75 MG eCW1 ([facility]) irbesartan 75 MG Oral Tablet Irbesartan 75 MG Irbesartan 75 MG 08/18/2020 12:00:00 AM EST 1.0 {tablet} active Ir besartan 75 MG eCW1 ([facility]) irbesartan 75 MG Oral Tablet Irbesartan 75 MG Irbesartan 75 MG 08/18/2020 12:00:00 AM EST 1.0 {tablet} active Ir besartan 75 MG eCW1 ([facility]) Escitalopram 20 MG Oral Tablet ESCITALOPRAM [...] activ e Escitalopram Oxalate 20 MG eCW1 ([facility]) Escitalopram 20 MG Oral Tablet Escitalopram Oxalate 20 MG Escitalopram Oxalate 20 MG 06/08/2020 12:00:00 AM EST 1.0 {tablet} activ e Escitalopram Oxalate 20 MG eCW1 ([facility]) BD Lancet Ultrafine 33G - BD Lancet Ultrafine 33G - 06/08/2020 1 2:00:00 AM EST active BD Lancet Ultraf ine 33G - eCW1 ([facility]) BD Lancet Ultrafine 33G - BD Lancet Ultrafine 33G - 06/08/2020 1 2:00:00 AM EST active BD Lancet Ultraf ine 33G - eCW1 ([facility]) Pramipexole dihydrochloride 0.5 MG Oral Tablet Pramipexole Dihydrochloride 0.5 MG Pramipexole Dihydrochloride 0.5 MG 06/08/2020 12:00:00 AM EST 1.0 {tablet} active Pramipexole Dihydroc hloride 0.5 MG eCW1 ([facility]) Pramipexole dihydrochloride 0.5 MG Oral Tablet Pramipexole Dihydrochloride 0.5 MG Pramipexole Dihydrochloride 0.5 MG 06/08/2020 12:00:00 AM EST 1.0 {tablet} active Pramipexole Dihydroc hloride 0.5 MG eCW1 ([facility]) 20 mg 05/19/2020 12:00:00 AM EST [...] type / Coverage type Policy ID Covered constitution party ID Covered constitution party's relationship to ramos Policy Ramos Plan Information MEDICARE A [id number] Self [id number] A MEDICARE [id number] SP [id number] A MEDICARE [id number] SP [id number] A MEDICAID M [id number] Self [id number] MEDICAID [id number] SP [id number] MEDICAID [id number] SP [id number] ANS-Medicaid [id number] ANSI-Commercial [id number] ANSI-Medicare Part B [id number] ANSI-Commercial [id number] ANSI-Medicare Part B [id number] ANSI-Medicaid [id number] ANSI-Commercial [id number] ANSI-Medicaid [id number] ANSI-Medicare Part B [id number] ANSI-Medicaid [id number] ANSI-Commercial [id number] ANSI-Medicare Part B [id number] ANSI-Commercial [id number] ANSI-Medicare Part B [id number] ANSI-Medicaid [id number] ANSI-Commercial [id number] ANSI-Medicare Part B [id number] ANSI-Medicaid [id number] ANSI-Commercial [id number] ANSI-Medicaid [id number] ANSI-Medicare Part B [id number] MEDICARE [id number] A ANSI-Medicaid [id number] ANSI-Medicare Part B [id number] ANSI-Commercial [id number] ANSI-Commercial [id number] ANSI-Medicare Part B [id number] ANSI-Medicaid [id number] ANSI-Medicaid [id number] ANSI-Medicare Part B [id number] ANSI-Commercial [id number] ANSI-Medicare Part B [id number] ANSI-Commercial [id number] ANSI-Medicaid [id number] ANSI-Commercial [id number] ANSI-Medicaid [id number] ANSI-Medicare Part B [id number] MEDICARE C [id number] S [id number] A MEDICAID [id number] SP [id number] MEDICARE IRF PPS M [id number] S 05 [id number] MEDICARE INPATIENT M [id number] S [id number] MEDICAID W [id number] S [id number] [place] [id number] SP [id number] MEDICARE OUTPATIENT M [id number] S [id number] MEDICARE [id number] SP [id number] EMEDNY [id number] SP [id number] MEDICARE C [id number] S [id number] MEDICAID M [id number] S [id number] MEDICAID [id number] SP [id number] Problems, Conditions, and Diagnoses Code Display Name Description Problem Type Effective Dates Data Source(s) E87.1 [id number] Hyponatremia Problem 08/18/2020 12:00:00 AM EST eCW1 ([facility]) Surgeries/Procedures Procedure Description Date Indications Data Source(s) Immunization: Flublok Quadrivalent (18 years & older) 0.5mL IM (Influenza) 06/08/2020 12:00:00 AM EST eCW1 ([facility]) Results ID Date Data Source [id number] 04/25/2021 02:23:00 PM EDT [facility] Name Value Range Interpretation Code Description Data Brittany rce(s) Supporting Document(s) SARS coronavirus 2 RNA [Presence] in Res piratory specimen by CASSIDY with probe detection NEGATIVE [facility] This lab was ordered by [facility] a nd reported by [facility]. ID Date Data Source [id number] 03/30/2021 09:56:00 AM EDT [facility] Name Value Range Interpretation Code Description Data Brittany rce(s) Supporting Document(s) SARS COVID ANTIGEN NEGATIVE [facility] This lab was ordered by [facility] a nd reported by [facility]. ID Date Data Source KARMA COVID AG (Point of Care) 03/30/2021 12:00:00 AM EDT eC W1 ([facility]) Name Value Range Interpretation Code Description Data Brittany rce(s) Supporting Document(s) NEGATIVE NEGATIVE KARMA COVID ANTIGEN eCW1 ([facility]) ID Date Data Source [id number] 02/11/2021 10:03:00 AM EDT [facility] Name Value Range Interpretation Code Description Data Brittany rce(s) Supporting Document(s) SARS COVID ANTIGEN NEGATIVE [facility] This lab was ordered by [facility] nd reported by [facility]. ID Date Data Source Coronavirus 2019 Nasopharygeal (Send Out) COVID 02/11/2021 1 2:00:00 AM EDT eCW1 ([facility]) Name Value Range Interpretation Code Description Data Brittany rce(s) Supporting Document(s) Coronavirus 2019 Nasophar ygeal (Send Out) COVID eCW1 ([facility]) ID Date Data Source URINE CULTURE 02/11/2021 12:00:00 AM EDT eCW1 ([facility]) Name Value Range Interpretation Code Description Data Brittany rce(s) Supporting Document(s) Laboratory studies (set) URINE CULTU RE eCW1 ([facility]) ID Date Data Source VITAMIN D 25-HYDROXY 11/02/2020 12:00:00 AM EDT eCW1 ([facility]) Name Value Range Interpretation Code Description Data Brittany rce(s) Supporting Document(s) 22.9 30.0-100.0 TOTAL 25(OH) VITAMIN D eC W1 ([facility]) ID Date Data Source [id number] 11/02/2020 12:00:00 AM EDT eCW1 ([facility]) Name Value Range Interpretation Code Description Data Brittany rce(s) Supporting Document(s) Hemoglobin A1c/Hemoglobin.total in Blood 8.0 HEMOGLOBIN A1c eCW1 ([facility]) ID Date Data Source Comprehensive Metabolic Profile (CMP) 11/02/2020 12:00:00 AM EDT eCW1 ([facility]) Name Value Range Interpretation Code Description Data Brittany rce(s) Supporting Document(s) 281 70-100 GLUCOSE, FASTING eCW1 ([facility]) 23 7-18 BLOOD UREA NITROGEN eCW1 ([facility]) 1.13 0.55-1.30 CREATININE FOR GFR eCW1 ([facility]) 49.2 >32 GLOMERULAR FILTRATION RATE eCW 1 ([facility]) 5.1 3.5-5.1 POTASSIUM SERUM eCW1 ([facility]) 129 136-145 SODIUM LEVEL eCW1 ([facility]) 94 98-107 CHLORIDE LEVEL eCW1 ([facility]) 29 21-32 CARBON DIOXIDE LEVEL eCW1 ([facility]) 10.1 8.8-10.2 CALCIUM LEVEL eCW1 ([facility]) 22 12-78 ALT/SGPT eCW1 ([facility]) 90 45-117 ALKALINE PHOSPHATASE eCW1 ([facility]) 12 7-37 AST/SGOT eCW1 ([facility]) 0.3 0.2-1.0 BILIRUBIN,TOTAL eCW1 ([facility]) 7.3 6.4-8.2 TOTAL PROTEIN eCW1 ([facility]) 4.1 3.2-5.2 ALBUMIN eCW1 ([facility]) 1.3 1.2-2.2 ALBUMIN/GLOBULIN RATIO eCW1 ([facility]) ID Date Data Source PTH INTACT 11/02/2020 12:00:00 AM EDT eCW1 ([facility]) Name Value Range Interpretation Code Description Data Brittany rce(s) Supporting Document(s) 37.0 18.5-88.0 PTH INTACT eCW1 ([facility]) ID Date Data Source CBC with Differential 11/02/2020 12:00:00 AM EDT eCW1 ([facility]) Name Value Range Interpretation Code Description Data Brittany rce(s) Supporting Document(s) 8.5 4.0-10.0 WHITE BLOOD COUNT eCW1 ([facility]) 37.4 36.0-47.0 HEMATOCRIT eCW1 ([facility]) 12.1 12.0-15.5 HEMOGLOBIN eCW1 ([facility]) 4.20 4.00-5.40 RED BLOOD COUNT eCW1 ([facility]) 32.4 32.0-36.5 MEAN CORPUSCULAR HGB CONC eCW1 ([facility]) 89.0 80.0-96.0 MEAN CORPUSCULAR VOLUME e CW1 ([facility]) 28.8 27.0-33.0 MEAN CORPUSCULAR HEMOGLOB IN eCW1 ([facility]) 13.6 11.5-14.5 RED CELL DISTRIBUTION WID TH eCW1 ([facility]) 250 150-450 PLATELET COUNT, AUTOMATED eCW1 ([facility]) 7.8 2.0-8.0 MONO % eCW1 ([facility]) 32.3 24.0-44.0 LYMPH % eCW1 ([facility]) 56.0 36.0-66.0 NEUTROPHILS % eCW1 ([facility]) 0.7 0.0-1.0 BASO % eCW1 ([facility]) 2.7 0.0-3.0 EOS % eCW1 ([facility]) 4.7 1.5-8.5 NEUTROPHILS # eCW1 ([facility]) 0.7 0.0-0.8 MONO # eCW1 ([facility]) 2.7 1.5-5.0 LYMPH # eCW1 ([facility]) 0.1 0.0-0.2 BASO # eCW1 ([facility]) 0.2 0.0-0.5 EOS # eCW1 ([facility]) ID Date Data Source NT-PRO BNP 11/02/2020 12:00:00 AM EDT eCW1 ([facility]) Name Value Range Interpretation Code Description Data Brittany rce(s) Supporting Document(s) 383 <450 NT-PRO BNP W1 ([facility]) ID Date Data Source OSMOLALITY URINE 08/18/2020 12:00:00 AM EST eCW1 ([facility]) Name Value Range Interpretation Code Description Data Brittany rce(s) Supporting Document(s) 571 500-800 eCW1 ([facility]) ID Date Data Source SODIUM,RANDOM URINE 08/18/2020 12:00:00 AM EST eCW1 ([facility]) Name Value Range Interpretation Code Description Data Brittany rce(s) Supporting Document(s) 113 eCW1 ([facility]) ID Date Data Source RENAL PROFILE 08/18/2020 12:00:00 AM EST eCW1 ([facility]) Name Value Range Interpretation Code Description Data Brittany rce(s) Supporting Document(s) 119 70-100 eCW1 ([facility]) 4.5 3.5-5.1 eCW1 ([facility]) 32 7-18 eCW1 ([facility]) 137 136-145 eCW1 ([facility]) 49.2 >32 eCW1 ([facility]) 1.13 0.55-1.30 eCW1 ([facility]) 9.4 8.8-10.2 eCW1 ([facility]) 24 21-32 eCW1 ([facility]) 4.8 2.5-4.9 eCW1 ([facility]) 101 98-107 eCW1 ([facility]) 4.1 3.2-5.2 eCW1 ([facility]) ID Date Data Source OSMOLALITY SERUM 08/18/2020 12:00:00 AM EST eCW1 ([facility]) Name Value Range Interpretation Code Description Data Brittany rce(s) Supporting Document(s) 287 280-301 eCW1 ([facility]) ID Date Data Source FREE T4 & TSH PANEL 08/18/2020 12:00:00 AM EST eCW1 ([facility]) Name Value Range Interpretation Code Description Data Brittany rce(s) Supporting Document(s) 1.13 0.76-1.46 eCW1 ([facility]) 0.715 0.358-3.740 eCW1 ([facility]) ID Date Data Source CBC with Auto Differential 08/18/2020 12:00:00 AM EST eCW1 ( [facility]) Name Value Range Interpretation Code Description Data Brittany rce(s) Supporting Document(s) 9.6 4.0-10.0 eCW1 ([facility]) 4.43 4.00-5.40 eCW1 ([facility]) 39.7 36.0-47.0 eCW1 ([facility]) 12.2 12.0-15.5 eCW1 ([facility]) 89.6 80.0-96.0 eCW1 ([facility]) 13.5 11.5-14.5 eCW1 ([facility]) 270 150-450 eCW1 ([facility]) 30.7 32.0-36.5 eCW1 ([facility]) 27.5 27.0-33.0 eCW1 ([facility]) 59.8 36.0-66.0 eCW1 ([facility]) 8.1 2.0-8.0 eCW1 ([facility]) 0.5 0.0-1.0 eCW1 ([facility]) 3.9 0.0-3.0 eCW1 ([facility]) 27.3 24.0-44.0 eCW1 ([facility]) 2.6 1.5-5.0 eCW1 ([facility]) 5.8 1.5-8.5 eCW1 ([facility]) 0.4 0-3.0 eCW1 ([facility]) 0.0 0-0 eCW1 ([facility]) 0.1 0.0-0.2 eCW1 ([facility]) 0.4 0.0-0.5 eCW1 ([facility]) 0.8 0.0-0.8 eCW1 ([facility]) ID Date Data Source [id number] 07/25/2020 08:46:00 PM EST [facility] Name Value Range Interpretation Code Description Data Brittany rce(s) Supporting Document(s) SARS coronavirus 2 RNA Not Detected [facility] This lab was ordered by [facility] and reported by [facility]. Procedure Social History Code Duration Value Status Description Data Source(s ) Smoking 04/16/2021 12:00:00 AM EDT Former Smoker completed Former Smoker eCW1 ([facility]) Smoking 04/16/2021 12:00:00 AM EDT Former Smoker completed Former Smoker eCW1 ([facility]) Smoking 03/30/2021 12:00:00 AM EDT Former Smoker completed Former Smoker eCW1 ([facility]) Smoking 03/04/2021 12:00:00 AM EDT Former Smoker completed Former Smoker eCW1 ([facility]) Smoking 03/04/2021 12:00:00 AM EDT Former Smoker completed Former Smoker eCW1 ([facility]) Smoking 03/04/2021 12:00:00 AM EDT Former Smoker completed Former Smoker eCW1 ([facility]) Smoking 03/04/2021 12:00:00 AM EDT Former Smoker completed Former Smoker eCW1 ([facility]) Smoking 02/11/2021 12:00:00 AM EDT Former Smoker completed Former Smoker eCW1 ([facility]) Smoking 02/11/2021 12:00:00 AM EDT Former Smoker completed Former Smoker [email or web address] (Formerly [facility]) Smoking 02/11/2021 12:00:00 AM EDT Former Smoker completed Former Smoker [email or web address] (Formerly [facility]) Smoking 11/02/2020 12:00:00 AM EDT Former Smoker completed Former Smoker [email or web address] (Formerly [facility]) Smoking 11/02/2020 12:00:00 AM EDT Former Smoker completed Former Smoker [email or web address] (Formerly [facility]) Smoking 11/02/2020 12:00:00 AM EDT Former Smoker completed Former Smoker [email or web address] (Formerly [facility]) Smoking 11/02/2020 12:00:00 AM EDT Former Smoker completed Former Smoker [email or web address] (Formerly [facility]) Smoking 11/02/2020 12:00:00 AM EDT Former Smoker completed Former Smoker [email or web address] (Formerly [facility]) Smoking 11/02/2020 12:00:00 AM EDT Former Smoker completed Former Smoker [email or web address] (Formerly [facility]) Smoking 11/02/2020 12:00:00 AM EDT Former Smoker completed Former Smoker [email or web address] (Formerly [facility]) Smoking 11/02/2020 12:00:00 AM EDT Former Smoker completed Former Smoker [email or web address] (Formerly [facility]) Smoking 11/02/2020 12:00:00 AM EDT Former Smoker completed Former Smoker [email or web address] (Formerly [facility]) Smoking 08/18/2020 12:00:00 AM EST Former Smoker completed Former Smoker [email or web address] (Formerly [facility]) Smoking 08/18/2020 12:00:00 AM EST Former Smoker completed Former Smoker [email or web address] (Formerly [facility]) Smoking 08/18/2020 12:00:00 AM EST Former Smoker completed Former Smoker [email or web address] (Formerly [facility]) Smoking 08/18/2020 12:00:00 AM EST Former Smoker completed Former Smoker [email or web address] (Formerly [facility]) Smoking 08/18/2020 12:00:00 AM EST Former Smoker completed Former Smoker [email or web address] (Formerly [facility]) Smoking 06/08/2020 12:00:00 AM EST Former Smoker completed Former Smoker [email or web address] ([facility] [facility] 06/08/2020 12:00:00 AM EST Former Smoker completed Former Smoker eCW1 (Formerly [facility]) Vital Signs ID Date Data Source UNK Name Value Range Interpretation Code Description Data Source(s) Body mass index (BMI) [Ratio] 31.01 kg/m2 31.01 kg/m2 eCW1 ([facility]) Body weight 148.4 [lb_av] 148.4 [lb_av] eCW1 ([facility]) Body weight 67.31 kg 67.31 kg eCW1 (Formerly [facility]) Body height 58 [in_i] 58 [in_i] eCW1 (Formerly [facility]) Heart rate 88 /min 88 /min eCW1 ([facility]) Respiratory rate 18 /min 18 /min eCW1 (Formerly [facility]) Body temperature 97.3 [degF] 97.3 [degF] eCW1 ( [facility]) Systolic blood pressure 122 mm[Hg] 122 mm[Hg] e CW1 ([facility]) Diastolic blood pressure 82 mm[Hg] 82 mm[Hg] eCW1 ([facility]) Diastolic blood pressure 80 mm[Hg] 80 mm[Hg] eCW1 ([facility]) Body weight 149.0 [lb_av] 149.0 [lb_av] eCW1 ([facility]) Body height 58 [in_i] 58 [in_i] eCW1 (Formerly [facility]) Body mass index (BMI) [Ratio] 31.14 kg/m2 31.14 kg/m2 eCW1 ([facility]) Heart rate 87 /min 87 /min eCW1 ([facility]) Respiratory rate 20 /min 20 /min eCW1 (Formerly [facility]) Body temperature 97.4 [degF] 97.4 [degF] eCW1 ( [facility]) Systolic blood pressure 126 mm[Hg] 126 mm[Hg] e CW1 ([facility]) Body height 58 [in_i] 58 [in_i] eCW1 (Formerly [facility]) Body weight 147 [lb_av] 147 [lb_av] eCW1 ([facility]) Body weight 66.68 kg 66.68 kg eCW1 (Formerly [facility]) Diastolic blood pressure 82 mm[Hg] 82 mm[Hg] eCW1 ([facility]) Body mass index (BMI) [Ratio] 30.72 kg/m2 30.72 kg/m2 eCW1 ([facility]) Heart rate 65 /min 65 /min eCW1 ([facility]) Respiratory rate 20 /min 20 /min eCW1 (Formerly [facility]) Body temperature 96.6 [degF] 96.6 [degF] eCW1 ( [facility]) Systolic blood pressure 128 mm[Hg] 128 mm[Hg] e CW1 ([facility]) Body weight 146.2 [lb_av] 146.2 [lb_av] eCW1 ([facility]) Body height 58 [in_i] 58 [in_i] eCW1 (Formerly [facility]) Body mass index (BMI) [Ratio] 30.55 kg/m2 30.55 kg/m2 eCW1 ([facility]) Heart rate 79 /min 79 /min eCW1 ([facility]) Respiratory rate 20 /min 20 /min eCW1 (Formerly [facility]) Body temperature 96.2 [degF] 96.2 [degF] eCW1 ( [facility]) Systolic blood pressure 130 mm[Hg] 130 mm[Hg] e CW1 ([facility]) Diastolic blood pressure 80 mm[Hg] 80 mm[Hg] eCW1 ([facility]) Body weight 134 [lb_av] 134 [lb_av] eCW1 ([facility]) Body height 58 [in_i] 58 [in_i] eCW1 (Formerly [facility]) Body mass index (BMI) [Ratio] 28.00 kg/m2 28.00 kg/m2 eCW1 ([facility]) Heart rate 80 /min 80 /min eCW1 ([facility]) Respiratory rate 20 /min 20 /min eCW1 (Formerly [facility]) Body temperature 96.6 [degF] 96.6 [degF] eCW1 ( [facility]) Systolic blood pressure 162 mm[Hg] 162 mm[Hg] e CW1 ([facility]) Diastolic blood pressure 82 mm[Hg] 82 mm[Hg] eCW1 ([facility]) Body height 58 [in_i] 58 [in_i] eCW1 (Formerly [facility]) Body weight 139.8 [lb_av] 139.8 [lb_av] eCW1 ([facility]) Systolic blood pressure 130 mm[Hg] 130 mm[Hg] e CW1 ([facility]) Diastolic blood pressure 82 mm[Hg] 82 mm[Hg] eCW1 ([facility]) Body mass index (BMI) [Ratio] 29.22 kg/m2 29.22 kg/m2 eCW1 ([facility]) Heart rate 81 /min 81 /min eCW1 ([facility]) Respiratory rate 18 /min 18 /min eCW1 (Formerly [facility]) Body temperature 97.0 [degF] 97.0 [degF] eCW1 ( [facility]) Patient Treatment Plan of Care Planned Activity Planned Date Details Description Data Source (s) Famotidine 20 MG Oral Tablet 2021 12:00:00 AM EDT eCW1 ([facility]) 200 ACTUAT Albuterol 0.09 MG/ACTUAT Metered Dose Inhal er [ProAir] 02/11/2021 12:00:00 AM EDT eCW1 (Formerly [facility]) Prednisone 20 MG Oral Tablet 02/11/2021 12:00:00 AM EDT eCW1 ([facility]) Augmentin 875-125 MG 02/11/2021 12:00:00 AM EDT eCW1 ([facility]) 200 ACTUAT Albuterol 0.09 MG/ACTUAT Metered Dose Inhal er [ProAir] 02/11/2021 12:00:00 AM EDT eCW1 (Formerly [facility]) Prednisone 20 MG Oral Tablet 02/11/2021 12:00:00 AM EDT eCW1 ([facility]) Augmentin 875-125 MG 02/11/2021 12:00:00 AM EDT eCW1 ([facility]) 200 ACTUAT Albuterol 0.09 MG/ACTUAT Metered Dose Inhal er [ProAir] 02/11/2021 12:00:00 AM EDT eCW1 (Formerly [facility]) Prednisone 20 MG Oral Tablet 02/11/2021 12:00:00 AM EDT eCW1 ([facility]) Augmentin 875-125 MG 02/11/2021 12:00:00 AM EDT eCW1 ([facility]) Glucose strip (Verio IQ) 12/15/2020 12:00:00 AM EDT eCW1 ([facility]) Glucose strip (Verio IQ) 12/15/2020 12:00:00 AM EDT eCW1 ([facility]) Glucose strip (Verio IQ) 12/15/2020 12:00:00 AM EDT eCW1 ([facility]) Glucose strip (Verio IQ) 12/15/2020 12:00:00 AM EDT eCW1 ([facility]) Glucometer 10/15/2020 12:00:00 AM EDT e CW1 ([facility]) Glucometer 10/15/2020 12:00:00 AM EDT e CW1 ([facility]) Glucometer 10/15/2020 12:00:00 AM EDT e CW1 ([facility]) Glucometer 10/15/2020 12:00:00 AM EDT e CW1 ([facility]) irbesartan 75 MG Oral Tablet 08/18/2020 12:00:00 AM EST eCW1 ([facility]) irbesartan 75 MG Oral Tablet 08/18/2020 12:00:00 AM EST eCW1 ([facility]) irbesartan 75 MG Oral Tablet 08/18/2020 12:00:00 AM EST eCW1 ([facility]) irbesartan 75 MG Oral Tablet 08/18/2020 12:00:00 AM EST eCW1 ([facility]) irbesartan 75 MG Oral Tablet 08/18/2020 12:00:00 AM EST eCW1 ([facility]) irbesartan 75 MG Oral Tablet 08/18/2020 12:00:00 AM EST eCW1 ([facility]) irbesartan 75 MG Oral Tablet 08/18/2020 12:00:00 AM EST eCW1 ([facility]) irbesartan 75 MG Oral Tablet 08/18/2020 12:00:00 AM EST eCW1 ([facility]) irbesartan 75 MG Oral Tablet 08/18/2020 12:00:00 AM EST eCW1 ([facility]) BD Lancet Ultrafine 33G - 06/08/2020 12:00:00 AM EST eCW1 ([facility]) Escitalopram 20 MG Oral Tablet 06/08/2020 12:00:00 AM EST eCW1 ([facility]) Pramipexole dihydrochloride 0.5 MG Oral Tablet 06/08/2020 12:00:00 AM EST eCW1 ([facility]) Escitalopram 20 MG Oral Tablet 06/08/2020 12:00:00 AM EST eCW1 ([facility]) Pramipexole dihydrochloride 0.5 MG Oral Tablet 06/08/2020 12:00:00 AM EST eCW1 ([facility]) BD Lancet Ultrafine 33G - 06/08/2020 12:00:00 AM EST eCW1 ([facility])
[2021-05-04 17:30] LABS: MAGNESIUM LEVEL 1.2 MG/DL (1.8-2.4)
[2021-05-04] MEDS: HumaLOG INSULIN (NovoLOG) PER UNIT SC SCH (17:30)
[2021-05-04 17:33] LABS: OSMOLALITY SERUM 251 MOSM/KG (280-301)
[2021-05-04 17:48] LABS: BLOOD UREA NITROGEN 25 MG/DL (7-18); CALCIUM LEVEL 9.4 MG/DL (8.8-10.2); CARBON DIOXIDE LEVEL 22 MEQ/L (21-32); CHLORIDE LEVEL 83 MEQ/L (98-107); CREATININE FOR GFR 0.92 MG/DL (0.55-1.30); GLOMERULAR FILTRATION RATE > 60.0 (>32); GLUCOSE, FASTING 139 MG/DL (70-100); NT-PRO BNP 971 PG/ML (<450); SODIUM LEVEL 118 MEQ/L (136-145)
[2021-05-04] MEDS ORDERED: SODIUM CHLORIDE 3% 500 ML IV SCH (18:00)
--- NOTE | 2021-05-04 18:35 | ECGEPIP ---
[facility] - ED Test Date: 2021-05-04 Pat Name: DAVIAN COATS Department: Room: - Gender: Female Box Liner: RANJITRAY : 1940 Requested By: Kacy Aldridge Order Number: [id number] Reading MD: Dilshad Henao Measurements Intervals Clark Rate: 67 P: 74 MS: 154 QRS: -31 QRSD: 92 T: 24 QT: 420 QTc: 443 Interpretive Statements Normal sinus rhythm Borderline left axis deviation LEFT ANTERIOR FASCICULAR BLOCK NSTTW ABNORMALITY(S) RATE CHANGE COMPARED TO 04/25/21 Electronically Signed on 05-04-2021 18:35:17 EDT by Dilshad Henao
[2021-05-04] MEDS: ISOSORBIDE DIN. (ISORDIL) 20 MG TAB PO SCH (19:43)
[2021-05-04] MEDS: SIMVASTATIN 40 MG TAB PO SCH (22:03)
[2021-05-04] MEDS: MAGNESIUM OXIDE 400MG TAB (MAG-OX) PO SCH (22:04)
[2021-05-04] MEDS: DOCUSATE SODIUM 100MG CAPSULE PO SCH (22:04)
[2021-05-04] MEDS: FAMOTIDINE 20 MG TAB PO SCH (22:04)
[2021-05-04] MEDS: **hydrALAZINE** 10 MG TAB PO SCH (22:05)
[2021-05-04] MEDS: METOPROLOL TART 25 MG TABLET PO SCH (22:05)
[2021-05-04] MEDS: PRAMIPEXOLE 0.25 MG TAB PO SCH (22:57)
[2021-05-04] MEDS: HEPARIN SOD (PORCINE) 5000UNITS/ML 1ML VIAL/SYRINGE SC SCH (23:20)
[2021-05-05 00:45] LABS: BLOOD UREA NITROGEN 25 MG/DL (7-18); CALCIUM LEVEL 8.6 MG/DL (8.8-10.2); CARBON DIOXIDE LEVEL 19 MEQ/L (21-32); CHLORIDE LEVEL 87 MEQ/L (98-107); GLOMERULAR FILTRATION RATE > 60.0 (>32); GLUCOSE, FASTING 143 MG/DL (70-100); MAGNESIUM LEVEL 1.4 MG/DL (1.8-2.4); POTASSIUM SERUM 3.5 MEQ/L (3.5-5.1); SODIUM LEVEL 121 MEQ/L (136-145)
[2021-05-05 04:55] LABS: BASO % 0.2 % (0.0-1.0); EOS # 0.1 10^3/uL (0.0-0.5); EOS % 0.4 % (0.0-3.0); HEMOGLOBIN 10.9 g/dl (12.0-15.5); LYMPH # 2.2 10^3/uL (1.5-5.0); LYMPH % 17.6 % (24.0-44.0); MEAN CORPUSCULAR HEMOGLOBIN 29.1 pg (27.0-33.0); MEAN CORPUSCULAR HGB CONC 34.1 g/dl (32.0-36.5); MEAN CORPUSCULAR VOLUME 85.3 fl (80.0-96.0); MONO # 1.2 10^3/uL (0.0-0.8); MONO % 9.4 % (2.0-8.0); NEUTROPHILS # 9.1 10^3/uL (1.5-8.5); NEUTROPHILS % 71.8 % (36.0-66.0); PLATELET COUNT, AUTOMATED 326 10^3/uL (150-450); RED BLOOD COUNT 3.75 10^6/uL (4.00-5.40); WHITE BLOOD COUNT 12.7 10^3/uL (4.0-10.0)
[2021-05-05 05:17] LABS: CALCIUM LEVEL 8.8 MG/DL (8.8-10.2); GLOMERULAR FILTRATION RATE 56.5 (>32); MAGNESIUM LEVEL 1.4 MG/DL (1.8-2.4); POTASSIUM SERUM 3.7 MEQ/L (3.5-5.1)
[2021-05-05] MEDS: HEPARIN SOD (PORCINE) 5000UNITS/ML 1ML VIAL/SYRINGE SC SCH ×3 (06:40→20:57)
[2021-05-05 06:59] LABS: CALCIUM LEVEL 8.6 MG/DL (8.8-10.2); CREATININE FOR GFR 1.05 MG/DL (0.55-1.30); GLOMERULAR FILTRATION RATE 53.4 (>32); MAGNESIUM LEVEL 1.7 MG/DL (1.8-2.4); POTASSIUM SERUM 3.8 MEQ/L (3.5-5.1)
[2021-05-05] MEDS: DOCUSATE SODIUM 100MG CAPSULE PO SCH ×2 (08:53→20:55)
[2021-05-05] MEDS: **hydrALAZINE** 10 MG TAB PO SCH ×3 (08:54→20:56)
[2021-05-05] MEDS: METOPROLOL TART 25 MG TABLET PO SCH ×2 (08:54→20:55)
[2021-05-05] MEDS: HumaLOG INSULIN (NovoLOG) PER UNIT SC SCH ×3 (08:55→17:25)
[2021-05-05] MEDS: ESCITALOPRAM OXALATE 10 MG TAB (LEXAPRO) PO SCH (08:55)
[2021-05-05] MEDS: MAGNESIUM OXIDE 400MG TAB (MAG-OX) PO SCH ×2 (08:55→20:56)
[2021-05-05] MEDS: ISOSORBIDE DIN. (ISORDIL) 20 MG TAB PO SCH ×3 (08:56→16:07)
[2021-05-05] MEDS: ASPIRIN 81MG ENTERIC TABLET PO SCH (08:59)
--- NOTE | 2021-05-05 09:23 | IPNPDOC ---
Text Note Date of Service The patient was seen on 05/05/21. NOTE Subjective: Patient is an 81-year-old female who presented to the hospital with reported abdominal distention, which has resolved. Upon evaluation, patient been reported that she is experiencing shortness of breath which is also has resolved on evaluation. Lab work as reveal that patient is severely hyponatremic. Hospital services called for further evaluation and treatment. Patient was seen and examined at the bedside. Patient reports that this morning she does not feel any pain. Denies any shortness of breath, cough, nausea, vomiting, diarrhea, or urinary discomfort. Objective: Vitals (See below) General: Lying in bed, appears comfortable, AAOx3 HEENT: NC, AT CVS: RRR, +S1S2 Lungs: Fair air entry b/l, -w/r/r Abdomen: Soft, ND, NT Extremities: No evidence of edema, - Calf tenderness Imaging: CXR 05/04: No acute pulmonary disease. CT head 05/04: Stable chronic findings. No acute intracranial hemorrhage, midline shift or mass effect. Assessment and plan: Hyponatremia - likely 2/2 hypotonic - 2/2 euvolemic / hypervolemic etiology - Patient is morning is oriented to person, place and time physical does not reveal any focal deficits - Serum osmolality low - Thyroid function / Cortisol baseline noted - Urine workup pending - Urine osmolality / urine electrolytes - pending; I have discussed with the lab directly this morning; will have labs added to existing sample - c/w Telemetry monitoring - c/w BMP [id number] - s/p Hypertonic saline for 100cc only - Consulted Nephrology; appreciate their recommendations Diastolic CHF (Grade 2) - Lower extremities still reveal 1+ pitting edema bilaterally - Imaging noted above - BNP 971 - Patient is not on diuretics at home HTN - BP moderately elevated - c/w Metoprolol / Hydralazine / Isosorbide mononitrate with hold parameters - c/w Telemetry monitoring NIDDM2 - c/w ISS DLP - ASA 81 and Simvastatin Anxiety - c/w Escitalopram RLS - c/w Pramipexole Osteoporosis 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
[2021-05-05 10:38] VITALS: BP 139/59
[2021-05-05 11:15] LABS: POTASSIUM RANDOM URINE 31.9 MEQ/L
[2021-05-05 12:00] VITALS: BP 120/58
[2021-05-05 12:59] LABS: CALCIUM LEVEL 8.6 MG/DL (8.8-10.2); CREATININE FOR GFR 1.09 MG/DL (0.55-1.30); GLOMERULAR FILTRATION RATE 51.2 (>32); MAGNESIUM LEVEL 1.7 MG/DL (1.8-2.4); POTASSIUM SERUM 3.7 MEQ/L (3.5-5.1)
[2021-05-05] MEDS ORDERED: TOLVAPTAN 7.5 MG HALF-TAB PO ONE ×2 (14:00→16:20)
[2021-05-05 16:00] VITALS: BP 145/67
[2021-05-05 16:09] LABS: CALCIUM LEVEL 8.9 MG/DL (8.8-10.2); CREATININE FOR GFR 1.17 MG/DL (0.55-1.30); GLOMERULAR FILTRATION RATE 47.1 (>32); MAGNESIUM LEVEL 1.7 MG/DL (1.8-2.4); POTASSIUM SERUM 4.1 MEQ/L (3.5-5.1)
[2021-05-05 20:00] VITALS: BP 133/62
[2021-05-05 20:37] LABS: CALCIUM LEVEL 8.3 MG/DL (8.8-10.2); CREATININE FOR GFR 1.25 MG/DL (0.55-1.30); GLOMERULAR FILTRATION RATE 43.7 (>32); MAGNESIUM LEVEL 1.6 MG/DL (1.8-2.4); POTASSIUM SERUM 3.9 MEQ/L (3.5-5.1)
[2021-05-05] MEDS: FAMOTIDINE 20 MG TAB PO SCH (20:55)
[2021-05-05] MEDS: SIMVASTATIN 40 MG TAB PO SCH (20:56)
[2021-05-05] MEDS: PRAMIPEXOLE 0.25 MG TAB PO SCH (21:41)
[2021-05-05] MEDS: SODIUM CHLORIDE 1 GM TAB PO SCH (21:41)
--- NOTE | 2021-05-05 22:38 | REPVR ---
PROCEDURE INFORMATION: Exam: CT Chest Without Contrast; Diagnostic Exam date and time: 05/05/2021 9:17 PM Age: 81 years old Clinical indication: Shortness of breath; Additional info: Hyponatremia TECHNIQUE: Imaging protocol: Diagnostic computed tomography of the chest without contrast. 3D rendering (Not supervised by radiologist): MIP and/or 3D reconstructed images were created by the technologist. Radiation optimization: All CT scans at this facility use at least one of these dose optimization techniques: automated exposure control; mA and/or kV adjustment per patient size (includes targeted exams where dose is matched to clinical indication); or iterative reconstruction. COMPARISON: CT Chest with contrast 04/06/2019 9:09 AM FINDINGS: Lungs: Faint 11 mm ground-glass opacity in the left upper lobe is unchanged. Lungs are otherwise clear. No masses. Pleural spaces: Unremarkable. No pneumothorax. No pleural effusion. Heart: Normal heart size. Mild cardiomegaly. Three-vessel coronary artery atherosclerotic disease. Aorta: Unremarkable. No aortic aneurysm. Lymph nodes: No enlarged lymph nodes. Diaphragm: Small hiatal hernia. Liver: The liver is low attenuation indicating hepatic steatosis. Bones/joints: Skeletal degenerative changes are noted. Chronic T3 compression fracture is unchanged. Soft tissues: Prior left mastectomy. IMPRESSION: 1. Hepatic steatosis. 2. Stable airspace opacity in the left upper lobe. No acute cardiopulmonary findings. 3. Mild cardiomegaly with coronary artery disease. 4. Stable chronic T3 fracture. Electronically signed by: Christian Sapp On 05/05/2021 22:37:11 PM
[2021-05-06] VITALS: BP 112/57
[2021-05-06 04:00] VITALS: BP 139/63
[2021-05-06 05:53] LABS: BASO % 0.1 % (0.0-1.0); EOS % 0.4 % (0.0-3.0); HEMATOCRIT 27.9 % (36.0-47.0); HEMOGLOBIN 9.5 g/dl (12.0-15.5); LYMPH # 2.1 10^3/uL (1.5-5.0); LYMPH % 19.5 % (24.0-44.0); MEAN CORPUSCULAR HEMOGLOBIN 28.7 pg (27.0-33.0); MEAN CORPUSCULAR HGB CONC 34.1 g/dl (32.0-36.5); MEAN CORPUSCULAR VOLUME 84.3 fl (80.0-96.0); MONO % 9.4 % (2.0-8.0); NEUTROPHILS # 7.6 10^3/uL (1.5-8.5); NEUTROPHILS % 70.1 % (36.0-66.0); PLATELET COUNT, AUTOMATED 257 10^3/uL (150-450); RED BLOOD COUNT 3.31 10^6/uL (4.00-5.40); WHITE BLOOD COUNT 10.9 10^3/uL (4.0-10.0)
[2021-05-06 06:13] LABS: CALCIUM LEVEL 8.6 MG/DL (8.8-10.2); CREATININE FOR GFR 1.2 MG/DL (0.55-1.30); GLOMERULAR FILTRATION RATE 45.8 (>32); POTASSIUM SERUM 3.6 MEQ/L (3.5-5.1)
[2021-05-06] MEDS: HEPARIN SOD (PORCINE) 5000UNITS/ML 1ML VIAL/SYRINGE SC SCH ×3 (06:28→21:11)
[2021-05-06] MEDS: ISOSORBIDE DIN. (ISORDIL) 20 MG TAB PO SCH ×3 (06:29→16:44)
[2021-05-06 08:00] VITALS: BP 137/65
--- NOTE | 2021-05-06 08:20 | CR ---
INPATIENT NEPHROLOGY CONSULTATION DATE: 05/05/2021 REQUESTING PHYSICIAN: Brittany Najera MD. CONSULTING PHYSICIAN: Sanju Oneill DO. REASON FOR CONSULTATION: Hypoosmolar hyponatremia acute on chronic. HISTORY OF PRESENT ILLNESS: Ms. Liss Haywood is previously unknown to me. she is an 81-year-old female with a past medical history of grade 2 diastolic congestive heart failure (not on any chronic diuretic), hypertension, type-2 diabetes mellitus, anxiety, osteoporosis, remote history of left breast invasive ductal carcinoma status post left mastectomy and other comorbid conditions mentioned below. Patient presented to the Emergency Room yesterday with complaint of being confused at home. She is unable to detail to me further regarding the confusion that she felt she just reports that she did not feel like she was herself and that something was wrong and patient tells me that she still feels slow and foggy. In the Emergency Room she was found to be markedly hypertensive with systolic 194/87, but saturating well on room air. Laboratory studies revealed significant hypoosmolar hyponatremia with serum sodium of 115 and serum osmolality of 252. Subsequent labs revealed acceptable thyroid panel, an elevated baseline cortisol level and a BNP of 970. There was also leukocytosis with white count of 15.7 and the patient was hypothermic on arrival to the ER with initial temperature reading as 94.7. She was admitted and the admitting hospitalist did discuss the case with me and recommendation was given for 100 mL of hypertonic saline to run over 3 hours and patient's sodium has corrected by 6 mEq in the first 24 hours and she is seen and examined by myself this morning at the bedside. Prior labs are reviewed and show that the patient has been persistently hyponatremic for at least the past 1 decade. I specifically note a sodium of 124 in 2013, a sodium of 128 in 2019 and a sodium of 125 in July of this year and multiple other sodiums that are in the low 130s or high 120s. Patient herself denies ever hearing about her chronic hyponatremia before. PAST MEDICAL HISTORY: 1. Chronic hyponatremia. 2. Diastolic congestive heart failure. 3. Left invasive ductal cancer status post mastectomy, chemotherapy and tamoxifen. 4. Hypertension. 5. Non-insulin dependent diabetes mellitus type-2. 6. Dyslipidemia. 7. Anxiety. 8. Osteoporosis. 9. GERD. PAST SURGICAL HISTORY: 1. Left rib fractures. 2. Right sacral fracture. 3. T3 compression fracture. 4. Left mastectomy. 5. Tonsillectomy. 6. Adenoidectomy. 7. Hysterectomy. ALLERGIES: No known drug allergies. HOME MEDICATIONS: 1. Alendronate 70 mg by mouth every week. 2. Aspirin 81 mg by mouth daily. 3. Calcium plus vitamin D 1 tablet daily. 4. Citalopram 20 mg by mouth daily. 5. Famotidine 20 mg by mouth at bedtime. 6. Hydralazine 20 mg by mouth three times a day. 7. Isordil 20 mg by mouth three times a day. 8. Magnesium 250 mg by mouth at bedtime. 9. Metformin 500 mg by mouth twice a day. 10. Metoprolol 75 mg by mouth twice a day. 11. Mirapex 0.5 mg by mouth at bedtime. 12. Simvastatin 40 mg by mouth at bedtime. 13. Januvia 100 mg by mouth daily. SOCIAL HISTORY: Denies alcohol, tobacco or drugs. FAMILY HISTORY: Reviewed and noncontributory. REVIEW OF SYSTEMS: Limited because of patient's confusion, but: Constitutional: She denies fevers or chills. Eyes: Denies visual changes or tearing. ENT: Denies rhinorrhea, epistaxis, odynophagia. Cardiac: She has a history of congestive heart failure. She denies diuretic use. Respiratory: Denies shortness of breath or cough. Gastrointestinal: Reports chronic poor appetite. She denies nausea or vomiting. Genitourinary: Denies dysuria or hematuria. She currently has a Olson catheter. Endocrine: She is noted to be chronically hyponatremic. She also has a history of diabetes. Musculoskeletal: Denies acute myalgias or arthralgias. Neurologic: Reports confusion and feeling foggy. Psychiatric: She is noted to take some psych medication. Hematologic: She denies anticoagulant use. She has mild anemia. The remainder or the Review of Systems is negative or as per HPI. PHYSICAL EXAMINATION: Vital signs: Temperature 97.8, pulse 69, respiratory rate 18, blood pressure 120/58, saturating 95-97% on room air. General: Patient is seen lying in the bed, an elderly female awake, alert and oriented to person, place and situation, answers simple questions appropriately, is able to tell me the year, the month and identify the President. HEENT: Extraocular muscles are intact. Tongue is moist. Neck: Supple. Jugular veins are not elevated. Heart sounds: Regular S1 and S2. There is trace to 1+ edema in the lower extremities. Lungs: Symmetric air movement, no crackle, no rale. Lungs are fairly clear. Abdomen: Soft and nondistended. Genitourinary: Olson catheter with gross hematuria. Neurologic: Patient is oriented and cooperative with the physical exam and answers simple questions appropriately. LABORATORY DATA: White count 12.7, hemoglobin 10.9, platelets 326. Sodium 115 on admission at 1:30 p.m. yesterday and 121 this afternoon; has come up by 6 points, potassium 3.9, bicarbonate 25, BUN 29, creatinine 1.1, magnesium 1.7. Serum osmolality on admission 252. Urine osmolality 600. RADIOLOGY STUDIES: Head CT shows no acute finding. Chest x-ray shows no acute pulmonary disease. INPATIENT MEDICATIONS: 1. She received hypertonic saline. Only 100 mL were ordered; however, I spoke to the ER last night and she got about 200 mL all in all as they inadvertently let it run for 6 hours instead of 3 hours. She is also on: 2. Aspirin 81 mg by mouth daily. 3. Colace 100 mg by mouth twice a day. 4. Lexapro 20 mg by mouth daily. 5. Pepcid 20 mg by mouth at bedtime. 6. Heparin 5000 units subcutaneously q8h. 7. Hydralazine 20 mg by mouth three times a day. 8. Isordil 20 mg by mouth three times a day. 9. Magnesium oxide 400 mg by mouth twice a day. 10. Metoprolol 75 mg by mouth twice a day. 11. Mirapex 0.5 mg by mouth at bedtime. 12. Simvastatin 20 mg by mouth at bedtime. 13. I have given the patient tolvaptan today. PROBLEMS: 1. Acute on chronic hypoosmolar hyponatremia: I reviewed prior labs as far back as they go in the [facility] system. I note patient has been persistently hyponatremic at least for 1 decade. Most of her sodium readings are in the high 120s and in the low 130s, but sodium level was as depressed as 124 back in 2013. Patient herself was unaware that she has a prior history of chronic hyponatremia. She denies any use of diuretics. Her cortisol and thyroid panel were acceptable. She has a remote history of breast cancer. She had a negative CT head on this admission. I will get a CT of the chest in view of her chronic hyponatremia. Her urine osmolality is high at 600 mOsm. We will give tolvaptan and see how she does with that. She is status post hypertonic saline in the Emergency Room. Sodium level has appropriately corrected by 6 mEq in the first 24 hours and I will try to bring her up to 130 in the next 24 hours and order is written for nursing staff to call with me each BNP and at this point we will make her BMPs less frequent. 2. Hypomagnesemia: She is written for magnesium supplementation. 3. Diastolic congestive heart failure: Patient does not take any diuretic. Volume status looks acceptable. Chest x-ray was negative for any volume issues. I am not going to give her any loop diuretic rather we will give her tolvaptan which will help with free water excretion. There is no need for any further I.V. saline administration at this time. 4. Altered mental status secondary to acute on chronic hyponatremia: If all other work-up of hyponatremia returns back negative I would consider getting an MRI of her brain to make sure that there are no issues with the pituitary gland. 5. CKD stage 3: We will keep an eye on her renal function while she is getting medication such as tolvaptan, etc. Thank you for involving in the care of Ms. Haywood. I will be happy to follow her along with you.
[2021-05-06] MEDS: DOCUSATE SODIUM 100MG CAPSULE PO SCH ×2 (08:34→21:11)
[2021-05-06] MEDS: ASPIRIN 81MG ENTERIC TABLET PO SCH (08:34)
[2021-05-06] MEDS: HumaLOG INSULIN (NovoLOG) PER UNIT SC SCH ×3 (08:34→18:36)
[2021-05-06] MEDS: MAGNESIUM OXIDE 400MG TAB (MAG-OX) PO SCH ×2 (08:35→21:10)
[2021-05-06] MEDS: **hydrALAZINE** 10 MG TAB PO SCH ×3 (08:35→21:11)
[2021-05-06] MEDS: ESCITALOPRAM OXALATE 10 MG TAB (LEXAPRO) PO SCH (08:35)
[2021-05-06] MEDS: METOPROLOL TART 25 MG TABLET PO SCH ×2 (08:35→21:10)
[2021-05-06] MEDS: SODIUM CHLORIDE 1 GM TAB PO SCH ×2 (08:35→16:43)
[2021-05-06 12:00] VITALS: BP 137/59
[2021-05-06] MEDS ORDERED: POTASSIUM CHLORIDE 10MEQ SR TABLET PO ONE (12:30)
--- NOTE | 2021-05-06 13:06 | IPNPDOC ---
Text Note Date of Service The patient was seen on 05/06/21. NOTE Subjective: Patient is an 81-year-old female who presented to the hospital with reported abdominal distention, which has resolved. Upon evaluation, patient been reported that she is experiencing shortness of breath which is also has resolved on evaluation. Lab work as reveal that patient is severely hyponatremic. Hospital services called for further evaluation and treatment. Patient was seen and examined at the bedside. Currently denies any nausea, vomiting, chest pain, shortness breath or palpitations. Reports an uneventful evening. Patient has worked with physical therapy has been cleared for discharge home. Objective: Vitals (See below) General: Patient was seen sitting up in bed, appears to be comfortable, no acute distress, awake, alert and HEENT: Atraumatic and normocephalic CVS: +S1S2 Lungs: Fair air entry b/l, no wheezing, rales or rhonchi Abdomen: Soft, nondistended, nontender Extremities: Lower extremities are without edema Imaging: CXR 05/04: No acute pulmonary disease. CT head 05/04: Stable chronic findings. No acute intracranial hemorrhage, midline shift or mass effect. CT chest 05/05: 1. Hepatic steatosis. 2. Stable airspace opacity in the left upper lobe. No acute cardiopulmonary findings. 3. Mild cardiomegaly with coronary artery disease. 4. Stable chronic T3 fracture. Assessment and plan: Hyponatremia - likely 2/2 hypotonic - 2/2 euvolemic etiology - Sodium has been slowly trending upward - Patient remains oriented without any focal deficits - Serum osmolality low - Thyroid function / Cortisol baseline noted - s/p Telemetry monitoring - s/p Hypertonic saline for 100cc; s/p Tolvaptan - c/w Sodium chloride tablets - Consulted Nephrology; appreciate their recommendations Diastolic CHF (Grade 2) - Lower extremity are without any edema this morning - Imaging noted above - BNP 971 - Patient is not on diuretics at home HTN - BP moderately elevated - c/w Metoprolol / Hydralazine / Isosorbide mononitrate with hold parameters - c/w Telemetry monitoring NIDDM2 - c/w ISS DLP - ASA 81 and Simvastatin Anxiety - c/w Escitalopram RLS - c/w Pramipexole Osteoporosis Left breast invasive ductal CA - s/p Mastectomy 2006, Chemotherapy, Tamoxifen x 5 years GERD - c/w Famotidine DVT prophylaxis - c/w Heparin SQ Disposition: - Pending clinical improvement - Patient is clear PT - Anticipate discharge home tomorrow VSOliverio, I+O Oliverio ROBERT I+O Laboratory Tests 05/05/21 15:30 05/05/21 19:50 05/06/21 05:08 Vital Signs Date Time Temp Pulse Resp B/P (MAP) Pulse Ox O2 Delivery O2 Flow Rate FiO2 05/06/21 12:10 137/59 05/06/21 12:00 97.0 67 16 95 Room Air I&O- Last 24 Hours up to 6 AM 05/06/21 06:00 Intake Total 560 ml Output Total 600 ml Balance -40 ml JOSE HEBERT MD May 06, 2021 13:05
--- NOTE | 2021-05-06 13:09 | IPN ---
PROGRESS NOTE DATE: 05/06/2021 SUBJECTIVE: Ms. Leija is seen and examined this morning at the bedside. She feels well. She offers no complaints. She tells me she feels more like her old self. Denies any shortness of breath. She inquires about discharge plans. Sodium came up to 126 on the labs this morning. OBJECTIVE: VITAL SIGNS: Temperature is 97.0, pulse is 67, respiratory rate is 16, blood pressure is 137/59, saturating 95% on room air. INTAKE AND OUTPUT: Intake yesterday was 830. Urine output thus far today is 900 ml. Weight on the bed scale today is 70 kg. GENERAL: Patient is seen awake, alert and oriented, comfortable and in no distress. HEENT: Extraocular muscles are intact. Tongue is moist. NECK: Supple. Jugular veins were not elevated. HEART: Heart sounds were regular. S1 and S2. No murmur. No peripheral edema. LUNGS: Clear to auscultation bilaterally. No crackle, rale or rhonchus. ABDOMEN: Soft, obese and nontender. NEUROLOGIC: She is oriented x3, interactive and conversational. LABORATORY DATA: Sodium is 126, potassium is 3.6, bicarbonate is 25, BUN is 26, creatinine is 1.2, magnesium is 2.0, hemoglobin is 9.5. CT of the chest was negative for any acute finding. INPATIENT MEDICATIONS: She continues on aspirin 81 mg daily, Docusate 100 mg p.o. b.i.d., Lexapro 20 mg p.o. daily, Famotidine 20 mg p.o. q.h.s., Heparin 5000 units sub q. 8 hourly, Hydralazine 20 mg p.o. three times a day, Isordil 20 mg p.o. three times a day, magnesium oxide 400 mg p.o. b.i.d., metoprolol 75 mg p.o. b.i.d., Mirapex 0.5 mg p.o. q.h.s. She has received two doses of a salt tablet. She received 15 mg of Tolvaptan yesterday. PROBLEMS: 1. Chronic hypo-osmolar hyponatremia. Patient has had persistent mild hyponatremia for the past decade. She reports very low sodium intake in her diet and that she does read food labels and avoid food with increased sodium content. She is also on a chronic SSRI (Lexapro). I would suggest to stop SSRI. She was given a dose of Tolvaptan yesterday with only minimal change in her serum sodium, hence I did give her a low dose of a salt tablet and sodium level has increased by 11 points in the past 48 hours. I expect her sodium level should be above 130 by tomorrow morning. 2. Hypomagnesemia. It is improved with magnesium supplementation. 3. Chronic diastolic congestive heart failure. Patient has Grade 2 diastolic dysfunction but has never required chronic diuretic. She strictly controls sodium in her diet. It may have been part of the reason why she is predisposed to hyponatremia (as well as in conjunction with SSRI). 4. Hypertension. Blood pressures are well-controlled on her home regimen.
[2021-05-06 16:00] VITALS: BP 160/62
[2021-05-06 20:25] LABS: CALCIUM LEVEL 8.9 MG/DL (8.8-10.2); CREATININE FOR GFR 1.56 MG/DL (0.55-1.30); GLOMERULAR FILTRATION RATE 33.8 (>32); POTASSIUM SERUM 4.3 MEQ/L (3.5-5.1)
[2021-05-06] MEDS: SIMVASTATIN 40 MG TAB PO SCH (21:08)
[2021-05-06] MEDS: PRAMIPEXOLE 0.25 MG TAB PO SCH (21:11)
[2021-05-06] MEDS: FAMOTIDINE 20 MG TAB PO SCH (21:11)
[2021-05-06 22:00] VITALS: BP 151/68
[2021-05-07 05:35] LABS: BASO % 0.3 % (0.0-1.0); EOS # 0.1 10^3/uL (0.0-0.5); EOS % 1.3 % (0.0-3.0); HEMATOCRIT 28.9 % (36.0-47.0); HEMOGLOBIN 9.6 g/dl (12.0-15.5); LYMPH # 1.9 10^3/uL (1.5-5.0); MEAN CORPUSCULAR HEMOGLOBIN 28.9 pg (27.0-33.0); MEAN CORPUSCULAR HGB CONC 33.2 g/dl (32.0-36.5); MONO # 0.8 10^3/uL (0.0-0.8); MONO % 9.3 % (2.0-8.0); NEUTROPHILS # 6.2 10^3/uL (1.5-8.5); NEUTROPHILS % 67.8 % (36.0-66.0); PLATELET COUNT, AUTOMATED 267 10^3/uL (150-450); RED BLOOD COUNT 3.32 10^6/uL (4.00-5.40); WHITE BLOOD COUNT 9.1 10^3/uL (4.0-10.0)
[2021-05-07 05:57] LABS: CALCIUM LEVEL 8.5 MG/DL (8.8-10.2); CREATININE FOR GFR 1.2 MG/DL (0.55-1.30); GLOMERULAR FILTRATION RATE 45.8 (>32); MAGNESIUM LEVEL 2.1 MG/DL (1.8-2.4); POTASSIUM SERUM 4.1 MEQ/L (3.5-5.1)
[2021-05-07 06:00] VITALS: BP 144/68
[2021-05-07] MEDS: ISOSORBIDE DIN. (ISORDIL) 20 MG TAB PO SCH ×2 (06:21→11:55)
[2021-05-07] MEDS: HEPARIN SOD (PORCINE) 5000UNITS/ML 1ML VIAL/SYRINGE SC SCH ×2 (06:21→13:46)
[2021-05-07] MEDS: HumaLOG INSULIN (NovoLOG) PER UNIT SC SCH ×2 (08:19→12:40)
[2021-05-07] MEDS: METOPROLOL TART 25 MG TABLET PO SCH (08:20)
[2021-05-07] MEDS: ESCITALOPRAM OXALATE 10 MG TAB (LEXAPRO) PO SCH (08:20)
[2021-05-07] MEDS: **hydrALAZINE** 10 MG TAB PO SCH (08:21)
[2021-05-07] MEDS: DOCUSATE SODIUM 100MG CAPSULE PO SCH (08:21)
[2021-05-07] MEDS: ASPIRIN 81MG ENTERIC TABLET PO SCH (08:21)
[2021-05-07] MEDS: MAGNESIUM OXIDE 400MG TAB (MAG-OX) PO SCH (08:21)
[2021-05-07] MEDS ORDERED: TOLVAPTAN 7.5 MG HALF-TAB PO ONE (11:00)
--- NOTE | 2021-05-07 11:42 | DS.PDOC ---
Discharge Summary General Date of Admission May 04, 2021 at 16:08 Date of Discharge 05/07/2021 Discharge Summary PROCEDURES PERFORMED DURING STAY: [None]. ADMITTING DIAGNOSES / DISCHARGE DIAGNOSES: Acute on chronic hyponatremia - likely 2/2 hypotonic - 2/2 euvolemic etiology (possibly 2/2 medications) Chronic Diastolic CHF (Grade 2) HTN NIDDM2 DLP Anxiety RLS Osteoporosis Left breast invasive ductal CA GERD DVT prophylaxis COMPLICATIONS/CHIEF COMPLAINT: Confusion HISTORY OF PRESENT ILLNESS: Patient is an 81-year-old female who presented to the hospital with reported abdominal distention, which has resolved. Upon evaluation, patient been reported that she is experiencing shortness of breath which is also has resolved on evaluation. Lab work as reveal that patient is severely hyp onatremic. Hospital services called for further evaluation and treatment. Patient was seen and examined at the bedside. Patient was seen sitting up in a chair eating breakfast, does not appear to be in any discomfort reported that her evening was uneventful. She denies any nausea, vomiting. She does report a mild cough. No abdominal pain, diarrhea, or urinary discomfort. HOSPITAL COURSE: Acute on chronic hyponatremia - likely 2/2 hypotonic - 2/2 euvolemic etiology (possibly 2/2 medications) - Sodium has trended toward her baseline chronic hyponatremia - Patient remains oriented without any focal deficits - Serum osmolality low - Thyroid function / Cortisol baseline noted - s/p Telemetry monitoring - s/p Hypertonic saline for 100cc; s/p Tolvaptan; s/p Sodium chloride tablets - Will DC Escitalopram - Consulted Nephrology; appreciate their recommendations - Will have outpatient follow-up with primary provider and nephrology within the next 7 days Chronic Diastolic CHF (Grade 2) - No edema - Imaging noted above - BNP 971 - Patient is not on diuretics at home HTN - BP moderately elevated - c/w Metoprolol / Hydralazine / Isosorbide mononitrate with hold parameters - c/w Telemetry monitoring NIDDM2 - c/w ISS DLP - ASA 81 and Simvastatin Anxiety - Will DC Escitalopram (re: Hyponatremia) - Will have outpatient follow-up with primary care provider RLS - c/w Pramipexole Osteoporosis Left breast invasive ductal CA - s/p Mastectomy 2006, Chemotherapy, Tamoxifen x 5 years GERD - c/w Famotidine DVT prophylaxis - c/w Heparin SQ DISCHARGE MEDICATIONS: Please see below. ALLERGIES: Please see below. PHYSICAL EXAMINATION ON DISCHARGE: Vitals (See below) General: She is sitting up in chair, appears comfortable without distress. She is awake, alert, oriented 3 HEENT: NC, AT CVS: +S1S2 Lungs: There appears to be fair air entry bilaterally without any evidence of wheezing, crackles or rhonchi Abdomen: Abdomen remains soft without any appreciated distention or tenderness Extremities: No edema LABORATORY DATA: Please see below. IMAGING: CXR 05/04: No acute pulmonary disease. CT head 05/04: Stable chronic findings. No acute intracranial hemorrhage, midline shift or mass effect. CT chest 05/05: 1. Hepatic steatosis. 2. Stable airspace opacity in the left upper lobe. No acute cardiopulmonary findings. 3. Mild cardiomegaly with coronary artery disease. 4. Stable chronic T3 fracture. ACTIVITY: [As tolerated]. DISCHARGE PLAN: Follow-up with primary care provider and nephrology within the next 7 days Remain compliant with treatment plan and medications Return to the ER if you experience any problems DISPOSITION: Home with services DISCHARGE CONDITION: [Stable]. TIME SPENT ON DISCHARGE: 35 minutes. Vital Signs/I&Os Vital Signs Date Time Temp Pulse Resp B/P (MAP) Pulse Ox O2 Delivery O2 Flow Rate FiO2 05/07/21 08:20 92 153/51 05/07/21 06:00 99.4 20 97 Room Air I&O- Last 24 Hours up to 6 AM 05/07/21 06:00 Intake Total 900 ml Output Total 925 ml Balance -25 ml Laboratory Data Labs 24H Laboratory Tests 2 05/06/21 11:36: Bedside Glucose (Misc Panel) 181H 05/06/21 16:53: Bedside Glucose (Misc Panel) 163H 05/06/21 19:49: Anion Gap 10, Glomerular Filtration Rate 33.8, Calcium Level 8.9 05/06/21 19:53: Bedside Glucose (Misc Panel) 251H 05/07/21 04:59: Immature Granulocyte % (Auto) 0.3, Neutrophils (%) (Auto) 67.8H, Lymphocytes (%) (Auto) 21.0L, Monocytes (%) (Auto) 9.3H, Eosinophils (%) (Auto) 1.3, Basophils (%) (Auto) 0.3, Neutrophils # (Auto) 6.2, Lymphocytes # (Auto) 1.9, Monocytes # (Auto) 0.8, Eosinophils # (Auto) 0.1, Basophils # (Auto) 0.0, Nucleated Red Blood Cells % (auto) 0.0, Anion Gap 9, Glomerular Filtration Rate 45.8, Calcium Level 8.5L, Magnesium Level 2.1 CBC/BMP Laboratory Tests 05/06/21 19:49 05/07/21 04:59 FSBS Laboratory Tests Test 05/06/21 11:36 05/06/21 16:53 05/06/21 19:53 Range/Units Bedside Glucose (Misc Panel) 181 163 251 83-110 MG/DL Discharge Medications Scheduled Alendronate Sodium (Fosamax) 70 Mg Tablet, 70 MG PO QWEEK, (Reported) THURSDAYS Aspirin (Aspirin EC) 81 Mg Tablet.dr, 81 MG PO DAILY, (Reported) Calcium Carbonate/Vitamin D3 (Calcium 600+D Softgel) 1 Each Capsule, 1 CAP PO DAILY, (Reported) Ciclopirox Olamine (Ciclopirox) 15 Gm Cream..g., 1 APLCT TOP BID, (Reported) APPLY TO FEET Diclofenac Sodium (Diclofenac Sodium) 1% 100GM Gel..gram., 4 GM TOP QID, (Reported) APPLY TO LEFT KNEE Famotidine (Famotidine) 20 Mg Tablet, 20 MG PO QHS, (Reported) Hydralazine HCl (Hydralazine HCl) 10 Mg Tablet, 20 MG PO TID, (Reported) Isosorbide Dinitrate (Isosorbide Dinitrate) 20 Mg Tablet, 20 MG PO TID, (Reported) 0700/1200/1700 Magnesium (Magnesium) 250 Mg Tablet, 250 MG PO QHS, (Reported) Metformin HCl (Metformin HCl ER) 500 Mg Tab.er.24h, 500 MG PO BID, (Reported) Metoprolol Tartrate (Metoprolol Tartrate) 75 Mg Tablet, 75 MG PO BID, (Reported) Pramipexole Di-HCl (Mirapex) 0.5 Mg Tablet, 0.5 MG PO QHS, (Reported) Simvastatin (Simvastatin) 40 Mg Tablet, 40 MG PO QHS, (Reported) Sitagliptin Phosphate (Januvia) 100 Mg Tablet, 100 MG PO DAILY, (Reported) Allergies Coded Allergies: No Known Allergies (Verified , 07/27/05) JOSE HEBERT MD May 07, 2021 11:42
[2021-05-07 11:55] VITALS: BP 137/56
--- NOTE | 2021-05-07 14:49 | IPN ---
PROGRESS NOTE DATE: 05/07/2021 SUBJECTIVE: Liss is seen and examined this morning at the bedside. She wants to go home. She offers no complaints. No shortness of breath. Her sodium level has come up to 130 on the latest labs. Temperature 99.4, pulse 75, respiratory rate 20, blood pressure 144/68, saturating 97% on room air. Intake yesterday was 840. Urine output yesterday was recorded as 1 liter plus incontinent void. Weight in the bed scale today is not recorded. GENERAL: Patient is seen sitting up in a chair, awake, alert, oriented times three, comfortable in no distress, elderly female. Extraocular muscles are intact. Tongue is moist. Neck is supple. Jugular veins are not elevated. HEART: Sounds are regular, S1 S2. There is no peripheral edema. LUNGS: Show symmetric and clear breath sounds bilaterally without crackles or rale. She is comfortable on room air. ABDOMEN: Soft and nontender. EXTREMITIES: Negative for edema or cyanosis. NEUROLOGIC: She is oriented times three. LABORATORY STUDIES: Sodium 130, potassium 4.1, bicarbonate 25, BUN 27, creatinine 1.2, glucose 190, magnesium 2.1. Hemoglobin 9.6, platelets 267. INPATIENT MEDICATIONS: Patient got a dose of tolvaptan 7.5 mg by mouth times one this morning. She got a total of 3 grams all in all of sodium chloride yesterday. She is being discontinued off of Lexapro. PROBLEMS: 1. Acute on chronic hypo-osmolar hyponatremia. Patient's sodium level has been relatively depressed on prior labs going back the past decade. Her thyroid stimulating hormone (TSH) and cortisol level were acceptable on this admission. She was initially treated with a small volume of hypertonic saline and later on tolvaptan and minimal amount of sodium tablets. She has underlying grade 2 diastolic congestive heart failure. She has never required chronic diuretic. She tells me that she avidly restricts sodium in her diet. I feel her acute on chronic hyponatremia is likely related to sodium-restricted diet along with use of selective serotonin reuptake inhibitor (SSRI) in his elderly female. We will stop the SSRI, and given that the hyponatremia has been a persistent issue over the prior decade, we will arrange for followup in the nephrology office to further monitor her sodium levels and address as indicated. 2. Chronic diastolic congestive heart failure. No need for diuretics. I advised the patient to stick to a 1.8 liter daily fluid restriction, as that will help with her sodium level as well. 3. Hypertension. Blood pressures are well controlled on the home regimen of metoprolol, Isordil, and hydralazine. 4. Hypomagnesemia. It is improved with magnesium supplementation.
[2021-05-08] MEDS ORDERED: MAGNESIUM OXIDE 400MG TAB (MAG-OX) PO SCH (09:00)
== END 2021-05-07 15:12 | disposition home health service (06) | DRG 641 ==
LOC: EDBD 12:22 → M ED 12:22 → M ED INP 16:08 → ENRESERV 05-05 09:30 → M PCU 05-05 10:11 → M MSPAV 05-06 15:45
PROVIDERS: ADMIT Internal Medicine; ATTEND Internal Medicine
DX: E87.1 Hypo-osmolality and hyponatremia (principal); I50.32 Chronic diastolic (congestive) heart failure; I13.0 Hypertensive heart and chronic kidney disease with heart failure and stage 1 through stage 4 chronic kidney disease, or unspecified chronic kidney disease; E11.9 Type 2 diabetes mellitus without complications; F41.9 Anxiety disorder, unspecified; K21.9 Gastro-esophageal reflux disease without esophagitis; Z85.3 Personal history of malignant neoplasm of breast; M81.0 Age-related osteoporosis without current pathological fracture; G25.81 Restless legs syndrome; Z92.21 Personal history of antineoplastic chemotherapy; Z79.82 Long term (current) use of aspirin; Z79.899 Other long term (current) drug therapy; Z66 Do not resuscitate; N18.30 Chronic kidney disease, stage 3 unspecified; E83.42 Hypomagnesemia

== ENCOUNTER → 2021-05-14 | Outpatient (REF) | payer MEDICARE, MEDICAID ==
[~2021-05-14] MED LIST changes: +DICL1GEL3 TOP
[2021-05-14 14:02] LABS: MAGNESIUM LEVEL 1.7 MG/DL (1.8-2.4)
== END ==
LOC: M LAB REF 12:37
PROVIDERS: ATTEND Internal Medicine Nephrology
DX: E87.1 Hypo-osmolality and hyponatremia (principal); E83.42 Hypomagnesemia; I12.9 Hypertensive chronic kidney disease with stage 1 through stage 4 chronic kidney disease, or unspecified chronic kidney disease

== ENCOUNTER → 2021-05-26 | Outpatient (REF) | payer MEDICARE, MEDICAID ==
[2021-05-26 14:17] LABS: PERCENT SATURATION 18.2 % (13.2-45.0)
== END ==
LOC: M LAB REF 12:54
PROVIDERS: ATTEND Internal Medicine Nephrology
DX: D50.9 Iron deficiency anemia, unspecified (principal)

== ENCOUNTER → 2021-06-01 | Outpatient (CLI) | payer MEDICARE, MEDICAID ==
[~2021-06-01] MED LIST changes: +ISOS20TA4 PO; -ISOS20TAB PO
[2021-06-01 10:51] LABS: BASO # 0.1 10^3/uL (0.0-0.2); BASO % 0.9 % (0.0-1.0); EOS # 0.3 10^3/uL (0.0-0.5); EOS % 3.5 % (0.0-3.0); HEMATOCRIT 35.8 % (36.0-47.0); HEMOGLOBIN 11.8 g/dl (12.0-15.5); LYMPH # 1.9 10^3/uL (1.5-5.0); LYMPH % 24.4 % (24.0-44.0); MEAN CORPUSCULAR HEMOGLOBIN 28.8 pg (27.0-33.0); MEAN CORPUSCULAR VOLUME 87.3 fl (80.0-96.0); MONO # 0.6 10^3/uL (0.0-0.8); MONO % 8.4 % (2.0-8.0); NEUTROPHILS # 4.8 10^3/uL (1.5-8.5); NEUTROPHILS % 62.5 % (36.0-66.0); PLATELET COUNT, AUTOMATED 307 10^3/uL (150-450); WHITE BLOOD COUNT 7.7 10^3/uL (4.0-10.0)
[2021-06-01 11:09] LABS: CREATININE, URINE 32.1 MG/DL; MALB URINE SIEMENS 90.3 MG/L; MAU/CREAT RATIO 281.3 MCG/MG (0.0-30.0)
[2021-06-01 11:13] LABS: HEMOGLOBIN A1c 7.9 %
[2021-06-01 11:23] LABS: ALBUMIN 4.2 GM/DL (3.2-5.2); BILIRUBIN,TOTAL 0.3 MG/DL (0.2-1.0); CALCIUM LEVEL 10.3 MG/DL (8.8-10.2); CHOLESTEROL RISK RATIO 2.706 (<5); CREATININE FOR GFR 1.54 MG/DL (0.55-1.30); GLOMERULAR FILTRATION RATE 34.3 (>32); POTASSIUM SERUM 4.2 MEQ/L (3.5-5.1); TOTAL PROTEIN 7.6 GM/DL (6.4-8.2)
== END ==
LOC: M PLALAB 09:05
PROVIDERS: ATTEND Nurse Practitioner Family
DX: E78.2 Mixed hyperlipidemia (principal); I10 Essential (primary) hypertension; E11.9 Type 2 diabetes mellitus without complications; D63.8 Anemia in other chronic diseases classified elsewhere
CPT/HCPCS: 36415; 80053; 80061; 82043; 83036; 83880; 85025; G0463

== ENCOUNTER → 2021-06-15 | Outpatient (REF) | payer MEDICARE, MEDICAID ==
[~2021-06-15] MED LIST changes: -ISOS20TA4 PO; +ISOS20TAB PO
== END ==
LOC: M SFHCPLAZ 12:47
PROVIDERS: ATTEND Physician Assistant
DX: R30.0 Dysuria (principal)
CPT/HCPCS: 81002; 87088; 87186; G0463

== ENCOUNTER → 2021-07-23 | Outpatient (REF) | payer MEDICARE, MEDICAID ==
[~2021-07-23] MED LIST changes: +ISOS20TA4 PO; -ISOS20TAB PO
== END ==
LOC: M LAB REF 12:42
PROVIDERS: ATTEND Internal Medicine Nephrology
DX: E83.42 Hypomagnesemia (principal)

== ENCOUNTER → 2021-08-09 | Outpatient (CLI) | payer MEDICARE, MEDICAID ==
[2021-08-09 09:49] LABS: BASO % 0.4 % (0.0-1.0); EOS # 0.1 10^3/uL (0.0-0.5); EOS % 1.7 % (0.0-3.0); HEMATOCRIT 31.1 % (36.0-47.0); HEMOGLOBIN 9.8 g/dl (12.0-15.5); LYMPH # 1.4 10^3/uL (1.5-5.0); LYMPH % 19.3 % (24.0-44.0); MEAN CORPUSCULAR HEMOGLOBIN 28.4 pg (27.0-33.0); MEAN CORPUSCULAR HGB CONC 31.5 g/dl (32.0-36.5); MEAN CORPUSCULAR VOLUME 90.1 fl (80.0-96.0); MONO # 0.7 10^3/uL (0.0-0.8); MONO % 9.8 % (2.0-8.0); NEUTROPHILS # 4.8 10^3/uL (1.5-8.5); NEUTROPHILS % 68.7 % (36.0-66.0); PLATELET COUNT, AUTOMATED 213 10^3/uL (150-450); RED BLOOD COUNT 3.45 10^6/uL (4.00-5.40)
[2021-08-09 10:19] LABS: ALBUMIN 3.7 GM/DL (3.2-5.2); BLOOD UREA NITROGEN 22 MG/DL (7-18); CALCIUM LEVEL 9.2 MG/DL (8.8-10.2); CARBON DIOXIDE LEVEL 28 MEQ/L (21-32); CHLORIDE LEVEL 96 MEQ/L (98-107); CREATININE FOR GFR 1.24 MG/DL (0.55-1.30); FERRITIN 91 NG/ML (8-252); FREE T4 1.15 NG/DL (0.76-1.46); GLOMERULAR FILTRATION RATE 44.1 (>32); GLUCOSE, FASTING 120 MG/DL (70-100); PHOSPHORUS LEVEL 3.4 MG/DL (2.5-4.9); PTH INTACT 41.1 PG/ML (18.5-88.0); SODIUM LEVEL 132 MEQ/L (136-145); VITAMIN B12 LEVEL > 2000 PG/ML (247-911)
[2021-08-09 10:32] LABS: HEMOGLOBIN A1c 6.3 %
[2021-08-10 08:18] LABS: MAGNESIUM LEVEL 1.7 MG/DL (1.7-2.2)
== END ==
LOC: M WUC 08:40
PROVIDERS: ATTEND Family Medicine
DX: E55.9 Vitamin D deficiency, unspecified (principal); E11.9 Type 2 diabetes mellitus without complications; E78.2 Mixed hyperlipidemia; D63.8 Anemia in other chronic diseases classified elsewhere; Z79.899 Other long term (current) drug therapy

== ENCOUNTER 2021-08-10 19:35 | Emergency (ER) | payer MEDICARE, MEDICAID ==
[~2021-08-10] VITALS: Ht 147.3 cm; Wt 72.7 kg
[2021-08-10] MEDS ORDERED: COMBIVENT RESPIMAT 100-20MCG INHALER 4GM INH ONE (20:15)
[2021-08-10] MEDS ORDERED: hydrALAZINE 20MG/ML 1ML VIAL (J0360 PER 20MG) IV STA (20:15)
[2021-08-10] MEDS ORDERED: ISOSORBIDE DIN. (ISORDIL) 20 MG TAB PO ONE (20:20)
[2021-08-10] MEDS ORDERED: **hydrALAZINE** 10 MG TAB PO ONE (20:20)
[2021-08-10 22:01] VITALS: BP 207/98
[2021-08-10 22:27] LABS: CALCIUM LEVEL 9.2 MG/DL (8.8-10.2); CREATININE FOR GFR 1.61 MG/DL (0.55-1.30); GLOMERULAR FILTRATION RATE 32.6 (>32); POTASSIUM SERUM 4.8 MEQ/L (3.5-5.1)
[2021-08-10 22:42] LABS: BASO % 0.3 % (0.0-1.0); EOS # 0.1 10^3/uL (0.0-0.5); EOS % 1.3 % (0.0-3.0); HEMATOCRIT 34.4 % (36.0-47.0); HEMOGLOBIN 10.8 g/dl (12.0-15.5); LYMPH # 1.9 10^3/uL (1.5-5.0); LYMPH % 19.1 % (24.0-44.0); MEAN CORPUSCULAR HEMOGLOBIN 28.2 pg (27.0-33.0); MEAN CORPUSCULAR HGB CONC 31.4 g/dl (32.0-36.5); MEAN CORPUSCULAR VOLUME 89.8 fl (80.0-96.0); MONO # 0.7 10^3/uL (0.0-0.8); MONO % 7.1 % (2.0-8.0); NEUTROPHILS % 71.8 % (36.0-66.0); PLATELET COUNT, AUTOMATED 224 10^3/uL (150-450); RED BLOOD COUNT 3.83 10^6/uL (4.00-5.40); WHITE BLOOD COUNT 9.8 10^3/uL (4.0-10.0)
[2021-08-10 22:56] LABS: APPEARANCE, URINE CLEAR (CLEAR); BACTERIA, URINE AUTO NEGATIVE (NEGATIVE); BILIRUBIN, URINE AUTO NEGATIVE (NEGATIVE); BLOOD, URINE BLOOD NEGATIVE (NEGATIVE); COLOR, URINE STRAW (YELLOW); GLUCOSE, URINE (UA) AUTO NEGATIVE (NEGATIVE); KETONE, URINE AUTO NEGATIVE (NEGATIVE); LEUKOCYTE ESTERASE, URINE AUTO NEGATIVE (NEGATIVE); NITRITE, URINE AUTO NEGATIVE (NEGATIVE); PROTEIN, URINE AUTO 1+ mg/dL (NEGATIVE); RBC, URINE AUTO 0 /HPF (0-3); SPECIFIC GRAVITY URINE AUTO 1.005 (1.002-1.035); SQUAMOUS EPITHELIAL CELL UR AU 0 /HPF (0-6); UROBILINOGEN, URINE AUTO 0.2 mg/dL (0.0-2.0); WBC, URINE AUTO 2 /HPF (0-3)
[2021-08-11 00:09] LABS: CK-MB VALUE MASS < 1.0 NG/ML (<3.6); CPK CREATINE PHOSPHOKINASE 39 U/L (26-192); MB/CK RELATIVE INDEX 2.56 (< OR =4)
[2021-08-11] MEDS ORDERED: VENTAER INH (00:26)
[2021-08-11 01:10] VITALS: BP 145/69
== END 2021-08-11 01:45 | disposition home or self-care (01) ==
LOC: M ED 19:35
DX: I16.0 Hypertensive urgency (principal); R06.2 Wheezing; I10 Essential (primary) hypertension; R94.31 Abnormal electrocardiogram [ECG] [EKG]; Z86.79 Personal history of other diseases of the circulatory system; Z87.891 Personal history of nicotine dependence

== ENCOUNTER → 2021-11-01 | Outpatient (CLI) | payer MEDICARE, MEDICAID ==
[2021-11-01 11:02] LABS: BASO % 0.5 % (0.0-1.0); EOS # 0.2 10^3/uL (0.0-0.5); EOS % 2.9 % (0.0-3.0); HEMATOCRIT 33.2 % (36.0-47.0); HEMOGLOBIN 10.6 g/dl (12.0-15.5); LYMPH # 1.8 10^3/uL (1.5-5.0); LYMPH % 28.5 % (24.0-44.0); MEAN CORPUSCULAR HEMOGLOBIN 28.4 pg (27.0-33.0); MEAN CORPUSCULAR HGB CONC 31.9 g/dl (32.0-36.5); MONO # 0.6 10^3/uL (0.0-0.8); MONO % 10.1 % (2.0-8.0); NEUTROPHILS # 3.6 10^3/uL (1.5-8.5); NEUTROPHILS % 57.7 % (36.0-66.0); PLATELET COUNT, AUTOMATED 225 10^3/uL (150-450); RED BLOOD COUNT 3.73 10^6/uL (4.00-5.40); WHITE BLOOD COUNT 6.3 10^3/uL (4.0-10.0)
[2021-11-01 11:38] LABS: ALBUMIN 3.9 GM/DL (3.2-5.2); ALT/SGPT 17 U/L (12-78); BILIRUBIN,TOTAL 0.3 MG/DL (0.2-1.0); BLOOD UREA NITROGEN 37 MG/DL (7-18); CALCIUM LEVEL 10.1 MG/DL (8.8-10.2); CARBON DIOXIDE LEVEL 29 MEQ/L (21-32); CHLORIDE LEVEL 101 MEQ/L (98-107); CREATININE FOR GFR 1.16 MG/DL (0.55-1.30); FERRITIN 80 NG/ML (8-252); GLOMERULAR FILTRATION RATE 47.6 (>32); GLUCOSE, FASTING 152 MG/DL (70-100); NT-PRO BNP 739 PG/ML (<450); POTASSIUM SERUM 4.8 MEQ/L (3.5-5.1); SODIUM LEVEL 135 MEQ/L (136-145); TOTAL PROTEIN 7.1 GM/DL (6.4-8.2)
[2021-11-02 15:01] LABS: ALBUMIN 4.19 GM/DL (3.29-5.55); ALPHA-1-GLOBULINS 0.43 GM/DL (0.17-0.41); ALPHA-2-GLOBULINS 0.92 GM/DL (0.42-0.99); BETA-2-GLOBULINS 0.31 GM/DL (0.19-0.55); BETA-2-GLOBULINS % 4.3 % (3.2-6.5); GAMMA GLOBULIN % 10.7 % (11.1-18.8); GAMMA GLOBULINS 0.76 GM/DL (0.65-1.58)
== END ==
LOC: M WUC 08:03
PROVIDERS: ATTEND Family Medicine
DX: I10 Essential (primary) hypertension (principal); E53.8 Deficiency of other specified B group vitamins

== ENCOUNTER 2022-01-08 05:33 | Emergency (ER) | payer MEDICARE, MEDICAID ==
[~2022-01-08] VITALS: Ht 149.9 cm; Wt 66.4 kg
[2022-01-08] MEDS ORDERED: CITA10TA6 PO (05:59)
[2022-01-08] MEDS ORDERED: B-12100010 PO (05:59)
[2022-01-08] MEDS ORDERED: vitamin d-3 PO (05:59)
[2022-01-08] MEDS ORDERED: LASI20TA3 PO (05:59)
[2022-01-08 06:50] LABS: BASO % 0.3 % (0.0-1.0); EOS # 0.1 10^3/uL (0.0-0.5); HEMATOCRIT 30.1 % (36.0-47.0); HEMOGLOBIN 9.9 g/dl (12.0-15.5); LYMPH # 1.4 10^3/uL (1.5-5.0); LYMPH % 12.2 % (24.0-44.0); MEAN CORPUSCULAR HEMOGLOBIN 28.5 pg (27.0-33.0); MEAN CORPUSCULAR HGB CONC 32.9 g/dl (32.0-36.5); MEAN CORPUSCULAR VOLUME 86.7 fl (80.0-96.0); MONO % 8.9 % (2.0-8.0); NEUTROPHILS # 8.9 10^3/uL (1.5-8.5); NEUTROPHILS % 77.1 % (36.0-66.0); PLATELET COUNT, AUTOMATED 301 10^3/uL (150-450); RED BLOOD COUNT 3.47 10^6/uL (4.00-5.40); WHITE BLOOD COUNT 11.5 10^3/uL (4.0-10.0)
[2022-01-08 07:02] LABS: INR 0.95; PROTHROMBIN TIME 13.1 SECONDS (12.7-14.5)
[2022-01-08 07:22] LABS: CK-MB VALUE MASS 4.3 NG/ML (<3.6); CREATININE FOR GFR 1.23 MG/DL (0.55-1.30); GLOMERULAR FILTRATION RATE 44.5 (>32); MB/CK RELATIVE INDEX 2.61 (< OR =4); POTASSIUM SERUM 4.5 MEQ/L (3.5-5.1)
[2022-01-08] MEDS ORDERED: ISOVUE-370 76% 100ML VIAL As Ordered ONE (07:26)
[2022-01-08] MEDS ORDERED: methylPREDNISolone 125MG 2ML VIAL IV ONE (07:30)
[2022-01-08] MEDS ORDERED: ALBUTEROL SULFATE 2.5 MG/0.5 ML INH NEB SOLN INH ONE (07:30)
[2022-01-08] MEDS ORDERED: IPRATROPIUM 0.5MG/ALBUTEROL 2.5MG INH SOL UD 3ML (DUONEB) NEB ONE (07:30)
[2022-01-08 07:35] LABS: MAGNESIUM LEVEL 1.9 MG/DL (1.8-2.4)
[2022-01-08 08:56] LABS: INR 0.96; PROTHROMBIN TIME 13.2 SECONDS (12.7-14.5)
[2022-01-08 08:57] LABS: PARTIAL THROMBOPLASTIN TIME 34.7 SECONDS (25.9-37.0)
[2022-01-08 09:15] LABS: CK-MB VALUE MASS 4.4 NG/ML (<3.6); MB/CK RELATIVE INDEX 2.88 (< OR =4)
[2022-01-08 09:16] LABS: RSV AMPLIFICATION NEGATIVE (NEGATIVE)
[2022-01-08] MEDS ORDERED: FAMOTIDINE 20 MG TAB PO ONE (09:35)
[2022-01-08] MEDS ORDERED: HEPARIN DRIP 25,000 UNITS in IV 1 EA IV SCH (09:35)
[2022-01-08] MEDS ORDERED: HEPARIN SOD (PORCINE) 5000UNITS/ML 1ML VIAL/SYRINGE IV ONE (09:35)
[2022-01-08] MEDS ORDERED: ASPIRIN 81 MG CHEW TABLET PO ONE (09:35)
[2022-01-08] MEDS ORDERED: METOPROLOL SUCC *XL* 25MG TAB (TopROL *XL*) PO ONE (09:55)
[2022-01-08] MEDS ORDERED: CitaloPRAM (CeleXA) 10 MG TABLET PO ONE (09:55)
[2022-01-08] MEDS ORDERED: SITagliptin 50 MG TAB (JANUVIA) PO ONE (09:55)
[2022-01-08] MEDS ORDERED: **hydrALAZINE** 10 MG TAB PO ONE (09:55)
[2022-01-08] MEDS ORDERED: metFORMIN (GLUCOPHAGE) 500MG TAB PO ONE (09:55)
[2022-01-08] MEDS ORDERED: FUROSEMIDE 20 MG TAB PO ONE (09:55)
[2022-01-08] MEDS ORDERED: ISOSORBIDE DIN. (ISORDIL) 20 MG TAB PO ONE (10:00)
[2022-01-08] MEDS ORDERED: PILL CUTTER 1 EACH XX ONE ×2 (11:27→11:29)
[2022-01-08 12:00] VITALS: BP 154/70
== END 2022-01-08 12:20 | disposition short-term general hospital (02) ==
LOC: M ED 05:33
DX: R07.9 Chest pain, unspecified (principal); I21.4 Non-ST elevation (NSTEMI) myocardial infarction; G45.9 Transient cerebral ischemic attack, unspecified; R94.31 Abnormal electrocardiogram [ECG] [EKG]; I10 Essential (primary) hypertension; F32.A Depression, unspecified; E78.5 Hyperlipidemia, unspecified; J44.9 Chronic obstructive pulmonary disease, unspecified; F41.9 Anxiety disorder, unspecified; K21.9 Gastro-esophageal reflux disease without esophagitis; E11.9 Type 2 diabetes mellitus without complications; Z87.891 Personal history of nicotine dependence; Z86.79 Personal history of other diseases of the circulatory system; Z88.6 Allergy status to analgesic agent; Z79.51 Long term (current) use of inhaled steroids; Z79.4 Long term (current) use of insulin; Z79.899 Other long term (current) drug therapy
CPT/HCPCS: 70450; 70496; 70498; 71045; 80047; 80048; 82550; 82553; 83735; 83880; 84484; 85025; 85610; 85730; 87631; 93005; 93041; 94640; 94760; 96374; 96375; 99285; J1644; J2930; Q9967

== ENCOUNTER → 2022-01-19 | Outpatient (CLI) | payer MEDICARE, MEDICAID ==
[~2022-01-19] MED LIST changes: +B-12100010 PO; +CITA10TA6 PO; +LASI20TA3 PO; +vitamin d-3 PO
[2022-01-19 09:28] LABS: BASO % 0.4 % (0.0-1.0); EOS # 0.1 10^3/uL (0.0-0.5); EOS % 1.6 % (0.0-3.0); HEMATOCRIT 29.1 % (36.0-47.0); HEMOGLOBIN 9.3 g/dl (12.0-15.5); LYMPH # 1.8 10^3/uL (1.5-5.0); LYMPH % 22.7 % (24.0-44.0); MEAN CORPUSCULAR HEMOGLOBIN 28.4 pg (27.0-33.0); MONO # 0.7 10^3/uL (0.0-0.8); MONO % 9.1 % (2.0-8.0); NEUTROPHILS # 5.3 10^3/uL (1.5-8.5); NEUTROPHILS % 65.8 % (36.0-66.0); PLATELET COUNT, AUTOMATED 319 10^3/uL (150-450); RED BLOOD COUNT 3.27 10^6/uL (4.00-5.40); WHITE BLOOD COUNT 8.1 10^3/uL (4.0-10.0)
[2022-01-19 10:00] LABS: ALBUMIN 3.7 GM/DL (3.2-5.2); BILIRUBIN,TOTAL 0.4 MG/DL (0.2-1.0); CALCIUM LEVEL 10.9 MG/DL (8.8-10.2); CREATININE FOR GFR 1.49 MG/DL (0.55-1.30); GLOMERULAR FILTRATION RATE 35.7 (>32); MAGNESIUM LEVEL 1.5 MG/DL (1.8-2.4); POTASSIUM SERUM 4.2 MEQ/L (3.5-5.1); TOTAL PROTEIN 6.9 GM/DL (6.4-8.2)
== END ==
LOC: M LAB 08:37
PROVIDERS: ATTEND Family Medicine
DX: I10 Essential (primary) hypertension (principal); G45.9 Transient cerebral ischemic attack, unspecified

== ENCOUNTER 2023-02-03 09:43 | Observation (INO) | payer MEDICARE, MEDICAID ==
[~2023-02-03] VITALS: Ht 162.6 cm; Wt 49.4 kg
[~2023-02-03 09:43] MED LIST changes: +ALEN70TA87 PO; +DICL100G10 TOP; -DICL1GEL3 TOP; -FOSA70TA PO
[2023-02-03 11:01] LABS: BASO % 0.5 % (0.0-1.0); EOS % 0.5 % (0.0-3.0); HEMATOCRIT 31.5 % (36.0-47.0); HEMOGLOBIN 10.8 g/dl (12.0-15.5); LYMPH # 1.3 10^3/uL (1.5-5.0); LYMPH % 15.7 % (24.0-44.0); MEAN CORPUSCULAR HEMOGLOBIN 29.3 pg (27.0-33.0); MEAN CORPUSCULAR HGB CONC 34.3 g/dl (32.0-36.5); MEAN CORPUSCULAR VOLUME 85.6 fl (80.0-96.0); MONO # 0.6 10^3/uL (0.0-0.8); MONO % 6.6 % (2.0-8.0); NEUTROPHILS # 6.5 10^3/uL (1.5-8.5); NEUTROPHILS % 76.3 % (36.0-66.0); PLATELET COUNT, AUTOMATED 328 10^3/uL (150-450); RED BLOOD COUNT 3.68 10^6/uL (4.00-5.40); WHITE BLOOD COUNT 8.5 10^3/uL (4.0-10.0)
[2023-02-03 11:22] LABS: ALBUMIN 4.2 G/DL (3.2-5.2); ALKALINE PHOSPHATASE 72 U/L (46-116); ALT/SGPT 18 U/L (7.0-40); AST/SGOT 22 U/L (<34); BILIRUBIN,DIRECT 0.2 MG/DL (<0.4); BILIRUBIN,TOTAL 0.7 MG/DL (0.3-1.2); BLOOD UREA NITROGEN 22 MG/DL (9-23); CALCIUM LEVEL 9.5 MG/DL (8.3-10.6); CARBON DIOXIDE LEVEL 23 MMOL/L (20-31); CHLORIDE LEVEL 96 MMOL/L (98-107); CREATININE FOR GFR 0.81 MG/DL (0.55-1.30); GLOMERULAR FILTRATION RATE > 60.0 (>32); GLUCOSE, FASTING 143 MG/DL (74-106); POTASSIUM SERUM 4.1 MMOL/L (3.5-5.1); SODIUM LEVEL 133 MMOL/L (136-145); TOTAL PROTEIN 7.2 G/DL (5.7-8.2)
[2023-02-03 11:24] LABS: THYROID STIMULATING HORMONE 2.917 uIU/ML (0.55-4.78)
[2023-02-03] MEDS ORDERED: HALOPERIDOL 5MG/ML 1ML VIAL IV ONE (12:55)
[2023-02-03] MEDS ORDERED: MED REC IN PROGRESS XX SCH (15:55)
[2023-02-03] MEDS ORDERED: GLUCAGON INJ 1MG VIAL SC PRN (16:05)
[2023-02-03] MEDS ORDERED: GLUCOSE 4GM CHEW TABLET PO PRN (16:05)
[2023-02-03] MEDS ORDERED: DEXTROSE 50% 50ML SYRINGE IV PRN (16:05)
[2023-02-03] MEDS ORDERED: D-101000 PO (16:16)
[2023-02-03] MEDS ORDERED: LORazepam 1 MG TAB PO PRN (18:15)
[2023-02-03] MEDS: INSULIN LISPRO (NovoLOG) PER UNIT SC SCH ×2 (18:26→21:00)
[2023-02-03] MEDS ORDERED: MED REC CURRENTLY UNOBTAINABLE XX SCH (20:25)
[2023-02-03 20:40] VITALS: BP 132/67; TEMP 98.2; O2SAT 95
[2023-02-03] MEDS ORDERED: QUEtiapine FUMARATE 25 MG TAB PO ONE (21:00)
[2023-02-03] MEDS: **hydrALAZINE** 10 MG TAB PO SCH (21:48)
[2023-02-04] MEDS: **hydrALAZINE** 10 MG TAB PO SCH ×2 (05:36→14:28)
[2023-02-04 06:00] VITALS: BP 101/50; TEMP 98.1; O2SAT 99
[2023-02-04 06:16] LABS: HEMATOCRIT 26.6 % (36.0-47.0); HEMOGLOBIN 9.2 g/dl (12.0-15.5); MEAN CORPUSCULAR HEMOGLOBIN 29.8 pg (27.0-33.0); MEAN CORPUSCULAR HGB CONC 34.6 g/dl (32.0-36.5); MEAN CORPUSCULAR VOLUME 86.1 fl (80.0-96.0); PLATELET COUNT, AUTOMATED 269 10^3/uL (150-450); RED BLOOD COUNT 3.09 10^6/uL (4.00-5.40); WHITE BLOOD COUNT 7.5 10^3/uL (4.0-10.0)
[2023-02-04 06:36] LABS: CALCIUM LEVEL 8.6 MG/DL (8.3-10.6); CREATININE FOR GFR 1.06 MG/DL (0.55-1.30); GLOMERULAR FILTRATION RATE 52.7 (>32); POTASSIUM SERUM 3.6 MMOL/L (3.5-5.1)
[2023-02-04] MEDS: INSULIN LISPRO (NovoLOG) PER UNIT SC SCH ×4 (07:18→20:39)
[2023-02-04] MEDS: ENOXAPARIN 30MG/0.3ML SYRINGE (J1650 PER 10MG) SC SCH (08:46)
[2023-02-04] MEDS: FLUTICASONE PROP 0.05% NASAL SPRAY 16 GM (FLONASE) NARES SCH (09:00)
[2023-02-04] MEDS: AUGMENTIN 875 MG TAB PO SCH ×2 (12:03→20:38)
[2023-02-04] MEDS ORDERED: MULT1TAB16 PO (13:32)
[2023-02-04] MEDS ORDERED: CLOP75TA2 PO (13:32)
[2023-02-04] MEDS ORDERED: LEXA1TAB PO (13:32)
[2023-02-04] MEDS ORDERED: MEMA1TAB3 PO (13:32)
[2023-02-04] MEDS ORDERED: IRON65TA2 PO (13:32)
[2023-02-04] MEDS ORDERED: HOME MED LIST COMPLETE! XX SCH (13:35)
[2023-02-04 14:00] VITALS: BP 130/56; TEMP 97.7; O2SAT 97
[2023-02-04] MEDS: MEMANTINE 5MG TABLET (NAMENDA) PO SCH (15:36)
[2023-02-04] MEDS: ASPIRIN 81MG ENTERIC TABLET PO SCH (15:36)
[2023-02-04] MEDS: ESCITALOPRAM OXALATE 10 MG TAB (LEXAPRO) PO SCH (15:37)
[2023-02-04] MEDS: CLOPIDOGREL 75 MG TAB PO SCH (15:37)
[2023-02-04] MEDS: amLODIPine 5 MG TAB PO SCH (15:39)
[2023-02-04] MEDS: FERROUS SULFATE 325MG TAB PO SCH (15:39)
[2023-02-04 20:00] VITALS: BP 131/59; TEMP 98.1; O2SAT 97
[2023-02-04] MEDS ORDERED: QUEtiapine FUMARATE 25 MG TAB PO SCH (21:00)
[2023-02-04] MEDS ORDERED: PRAMIPEXOLE 0.25 MG TAB PO SCH (21:00)
[2023-02-04] MEDS ORDERED: SIMVASTATIN 40 MG TAB PO SCH (21:00)
[2023-02-05 05:59] LABS: BASO % 0.6 % (0.0-1.0); EOS # 0.3 10^3/uL (0.0-0.5); EOS % 5.1 % (0.0-3.0); HEMATOCRIT 25.5 % (36.0-47.0); HEMOGLOBIN 8.6 g/dl (12.0-15.5); LYMPH # 2.2 10^3/uL (1.5-5.0); LYMPH % 33.7 % (24.0-44.0); MEAN CORPUSCULAR HEMOGLOBIN 29.5 pg (27.0-33.0); MEAN CORPUSCULAR HGB CONC 33.7 g/dl (32.0-36.5); MEAN CORPUSCULAR VOLUME 87.3 fl (80.0-96.0); MONO # 0.7 10^3/uL (0.0-0.8); MONO % 11.2 % (2.0-8.0); NEUTROPHILS # 3.1 10^3/uL (1.5-8.5); NEUTROPHILS % 48.9 % (36.0-66.0); PLATELET COUNT, AUTOMATED 253 10^3/uL (150-450); RED BLOOD COUNT 2.92 10^6/uL (4.00-5.40); WHITE BLOOD COUNT 6.4 10^3/uL (4.0-10.0)
[2023-02-05 06:00] VITALS: BP 126/49; TEMP 97.7; O2SAT 90
[2023-02-05 06:29] LABS: CALCIUM LEVEL 8.3 MG/DL (8.3-10.6); CREATININE FOR GFR 1.05 MG/DL (0.55-1.30); GLOMERULAR FILTRATION RATE 53.3 (>32); POTASSIUM SERUM 3.9 MMOL/L (3.5-5.1)
[2023-02-05 08:34] VITALS: BP 126/49
[2023-02-05] MEDS: AUGMENTIN 875 MG TAB PO SCH (08:34)
[2023-02-05] MEDS: ENOXAPARIN 30MG/0.3ML SYRINGE (J1650 PER 10MG) SC SCH (08:34)
[2023-02-05] MEDS: FERROUS SULFATE 325MG TAB PO SCH (08:34)
[2023-02-05] MEDS: ASPIRIN 81MG ENTERIC TABLET PO SCH (08:34)
[2023-02-05] MEDS: amLODIPine 5 MG TAB PO SCH (08:34)
[2023-02-05] MEDS: CLOPIDOGREL 75 MG TAB PO SCH (08:35)
[2023-02-05] MEDS: ESCITALOPRAM OXALATE 10 MG TAB (LEXAPRO) PO SCH (08:35)
[2023-02-05] MEDS: FLUTICASONE PROP 0.05% NASAL SPRAY 16 GM (FLONASE) NARES SCH (08:35)
[2023-02-05] MEDS: MEMANTINE 5MG TABLET (NAMENDA) PO SCH (08:35)
[2023-02-05] MEDS: INSULIN LISPRO (NovoLOG) PER UNIT SC SCH ×2 (08:38→11:46)
[2023-02-05] MEDS ORDERED: MIRALAX *UNIT DOSE* 17GM PACKET PO SCH (09:00)
[2023-02-05] MEDS ORDERED: DOCUSATE SODIUM 100MG CAPSULE PO PRN (09:55)
[2023-02-05 10:55] LABS: IRON (FE) 36 UG/DL (50-170); TOTAL IRON BINDING CAPACITY 301 UG/DL (250-425)
[2023-02-05 10:56] LABS: FOLATE > 24.00 NG/ML (>5.4)
[2023-02-05 10:57] LABS: FERRITIN 107.3 NG/ML (7.3-270.7)
[2023-02-05 10:58] VITALS: BP 140/60
[2023-02-05 10:58] LABS: VITAMIN B12 LEVEL 712 PG/ML (211-911)
[2023-02-05] MEDS ORDERED: AMLO10TA PO (13:45)
[2023-02-05] MEDS ORDERED: AMOX875T2 PO (13:45)
[2023-02-05] MEDS ORDERED: MIRA1POW3 PO (13:45)
[2023-02-05] MEDS ORDERED: SERO1TAB3 PO (13:45)
[2023-02-05] MEDS ORDERED: SITA50TAB PO (13:45)
[2023-02-05] MEDS ORDERED: FLON1SPR NARES (13:46)
[2023-02-05] MEDS ORDERED: PROB250C PO (13:46)
== END 2023-02-05 16:55 | disposition home or self-care (01) ==
LOC: M ED 09:43 → M ED INP 09:44 → M MS5PR 20:35
PROVIDERS: ADMIT Internal Medicine; ATTEND Internal Medicine
DX: F03.90 Unspecified dementia, unspecified severity, without behavioral disturbance, psychotic disturbance, mood disturbance, and anxiety (principal); H74.8X2 Other specified disorders of left middle ear and mastoid; I16.0 Hypertensive urgency; I11.9 Hypertensive heart disease without heart failure; I50.30 Unspecified diastolic (congestive) heart failure; E11.9 Type 2 diabetes mellitus without complications; I25.10 Atherosclerotic heart disease of native coronary artery without angina pectoris; F32.A Depression, unspecified; G25.81 Restless legs syndrome; D50.9 Iron deficiency anemia, unspecified; M81.0 Age-related osteoporosis without current pathological fracture; E78.5 Hyperlipidemia, unspecified; Z85.3 Personal history of malignant neoplasm of breast; Z92.21 Personal history of antineoplastic chemotherapy; Z79.82 Long term (current) use of aspirin; Z79.84 Long term (current) use of oral hypoglycemic drugs; Z88.8 Allergy status to other drugs, medicaments and biological substances
CPT/HCPCS: 36415; 70450; 70551; 71045; 80048; 80076; 81001; 82140; 82607; 82728; 82746; 83550; 84443; 84466; 84484; 85025; 85027; 87486; 87581; 87633; 87798; 93005; 93041; 94760; 96372; 96374; 97161; 97530; 99285; G0378; J1630; J1650; J1815

== ENCOUNTER 2023-02-17 11:28 | Inpatient (IN) | payer MEDICARE, MEDICAID ==
[~2023-02-17] VITALS: Ht 147.3 cm; Wt 51.4 kg
[~2023-02-17 11:28] MED LIST changes: +AMLO10TA PO; +AMOX875T2 PO; +CLOP75TA2 PO; +D-101000 PO; +FLON1SPR NARES; +IRON65TA2 PO; +MEMA1TAB3 PO; +MIRA1POW3 PO; +MULT1TAB16 PO; +PROB250C PO; +SERO1TAB3 PO; +SITA50TAB PO
[2023-02-17 12:42] LABS: BASO % 0.3 % (0.0-1.0); EOS # 0.1 10^3/uL (0.0-0.5); EOS % 1.1 % (0.0-3.0); HEMATOCRIT 30.6 % (36.0-47.0); HEMOGLOBIN 10.4 g/dl (12.0-15.5); LYMPH # 1.4 10^3/uL (1.5-5.0); LYMPH % 21.7 % (24.0-44.0); MEAN CORPUSCULAR HEMOGLOBIN 29.5 pg (27.0-33.0); MEAN CORPUSCULAR VOLUME 86.9 fl (80.0-96.0); MONO # 0.4 10^3/uL (0.0-0.8); MONO % 6.6 % (2.0-8.0); NEUTROPHILS # 4.5 10^3/uL (1.5-8.5); NEUTROPHILS % 69.8 % (36.0-66.0); PLATELET COUNT, AUTOMATED 328 10^3/uL (150-450); RED BLOOD COUNT 3.52 10^6/uL (4.00-5.40); WHITE BLOOD COUNT 6.4 10^3/uL (4.0-10.0)
[2023-02-17 13:00] LABS: ALBUMIN 3.7 G/DL (3.2-5.2); ALKALINE PHOSPHATASE 56 U/L (46-116); ALT/SGPT < 9 U/L (7.0-40); AST/SGOT 13 U/L (<34); BILIRUBIN,DIRECT 0.1 MG/DL (<0.4); BILIRUBIN,TOTAL 0.4 MG/DL (0.3-1.2); BLOOD UREA NITROGEN 14 MG/DL (9-23); CALCIUM LEVEL 9.3 MG/DL (8.3-10.6); CARBON DIOXIDE LEVEL 24 MMOL/L (20-31); CHLORIDE LEVEL 95 MMOL/L (98-107); CREATININE FOR GFR 0.89 MG/DL (0.55-1.30); GLOMERULAR FILTRATION RATE > 60.0 (>32); GLUCOSE, FASTING 113 MG/DL (74-106); POTASSIUM SERUM 4.4 MMOL/L (3.5-5.1); SODIUM LEVEL 128 MMOL/L (136-145); TOTAL PROTEIN 6.7 G/DL (5.7-8.2)
[2023-02-17 13:02] LABS: FREE T4 1.53 NG/DL (0.89-1.76); THYROID STIMULATING HORMONE 1.072 uIU/ML (0.55-4.78)
[2023-02-17] MEDS ORDERED: LOSA25TA13 PO (15:17)
[2023-02-17] MEDS ORDERED: HOME MED LIST COMPLETE! XX SCH (15:25)
[2023-02-17] MEDS: QUEtiapine FUMARATE 25 MG TAB PO SCH (21:28)
[2023-02-17] MEDS: SODIUM CHLORIDE 1 GM TAB PO SCH (21:28)
[2023-02-17] MEDS: PRAMIPEXOLE 0.25 MG TAB PO SCH (21:28)
[2023-02-17] MEDS: SIMVASTATIN 40 MG TAB PO SCH (21:28)
[2023-02-17] MEDS: LOSARTAN 25 MG TAB PO SCH (21:30)
[2023-02-17 21:39] VITALS: BP 109/74; TEMP 97.9; O2SAT 98
[2023-02-18 01:06] LABS: SODIUM,RANDOM URINE 63 MMOL/L
[2023-02-18 03:40] LABS: OSMOLALITY URINE 477 MOSM/KG (50-1400)
[2023-02-18 05:21] VITALS: BP 124/67; TEMP 97.9; O2SAT 98
[2023-02-18 06:50] LABS: BASO % 0.3 % (0.0-1.0); EOS # 0.3 10^3/uL (0.0-0.5); EOS % 3.9 % (0.0-3.0); HEMATOCRIT 27.9 % (36.0-47.0); HEMOGLOBIN 9.4 g/dl (12.0-15.5); LYMPH # 2.2 10^3/uL (1.5-5.0); LYMPH % 30.9 % (24.0-44.0); MEAN CORPUSCULAR HEMOGLOBIN 29.3 pg (27.0-33.0); MEAN CORPUSCULAR HGB CONC 33.7 g/dl (32.0-36.5); MEAN CORPUSCULAR VOLUME 86.9 fl (80.0-96.0); MONO # 0.6 10^3/uL (0.0-0.8); MONO % 8.2 % (2.0-8.0); NEUTROPHILS % 56.3 % (36.0-66.0); PLATELET COUNT, AUTOMATED 287 10^3/uL (150-450); RED BLOOD COUNT 3.21 10^6/uL (4.00-5.40); WHITE BLOOD COUNT 7.2 10^3/uL (4.0-10.0)
[2023-02-18 07:15] LABS: CALCIUM LEVEL 8.5 MG/DL (8.3-10.6); CREATININE FOR GFR 1.02 MG/DL (0.55-1.30); GLOMERULAR FILTRATION RATE 55.1 (>32); POTASSIUM SERUM 4.7 MMOL/L (3.5-5.1)
[2023-02-18] MEDS: CLOPIDOGREL 75 MG TAB PO SCH (08:10)
[2023-02-18] MEDS: SODIUM CHLORIDE 1 GM TAB PO SCH ×3 (08:10→17:08)
[2023-02-18] MEDS: MEMANTINE 5MG TABLET (NAMENDA) PO SCH (08:10)
[2023-02-18] MEDS: ESCITALOPRAM OXALATE 10 MG TAB (LEXAPRO) PO SCH (08:10)
[2023-02-18] MEDS: ASPIRIN 81MG ENTERIC TABLET PO SCH (08:10)
[2023-02-18] MEDS: FERROUS SULFATE 325MG TAB PO SCH (08:10)
[2023-02-18] MEDS: SITagliptin 50 MG TAB (JANUVIA) PO SCH (08:10)
[2023-02-18] MEDS: ENOXAPARIN 30MG/0.3ML SYRINGE (J1650 PER 10MG) SC SCH (08:11)
[2023-02-18 14:50] VITALS: BP 141/65; TEMP 98.1; O2SAT 97
[2023-02-18] MEDS ORDERED: FUROSEMIDE 20 MG TAB PO ONE (16:35)
[2023-02-18] MEDS: SIMVASTATIN 40 MG TAB PO SCH (20:12)
[2023-02-18] MEDS: PRAMIPEXOLE 0.25 MG TAB PO SCH (20:12)
[2023-02-18] MEDS: LOSARTAN 25 MG TAB PO SCH (20:12)
[2023-02-18] MEDS: QUEtiapine FUMARATE 25 MG TAB PO SCH (20:12)
[2023-02-18 20:15] VITALS: BP 109/67; TEMP 98.1; O2SAT 96
[2023-02-19 06:09] VITALS: BP 176/80; TEMP 97.9; O2SAT 98
[2023-02-19 06:27] LABS: BASO % 0.3 % (0.0-1.0); EOS # 0.2 10^3/uL (0.0-0.5); EOS % 2.3 % (0.0-3.0); LYMPH % 20.7 % (24.0-44.0); MEAN CORPUSCULAR HGB CONC 33.3 g/dl (32.0-36.5); MONO # 0.6 10^3/uL (0.0-0.8); MONO % 6.6 % (2.0-8.0); NEUTROPHILS # 6.6 10^3/uL (1.5-8.5); NEUTROPHILS % 69.7 % (36.0-66.0); PLATELET COUNT, AUTOMATED 318 10^3/uL (150-450); RED BLOOD COUNT 3.45 10^6/uL (4.00-5.40); WHITE BLOOD COUNT 9.4 10^3/uL (4.0-10.0)
[2023-02-19 06:46] LABS: CALCIUM LEVEL 8.8 MG/DL (8.3-10.6); CREATININE FOR GFR 1.01 MG/DL (0.55-1.30); GLOMERULAR FILTRATION RATE 55.7 (>32); POTASSIUM SERUM 4.1 MMOL/L (3.5-5.1)
[2023-02-19] MEDS: ESCITALOPRAM OXALATE 10 MG TAB (LEXAPRO) PO SCH (09:04)
[2023-02-19] MEDS: CLOPIDOGREL 75 MG TAB PO SCH (09:04)
[2023-02-19] MEDS: FERROUS SULFATE 325MG TAB PO SCH (09:04)
[2023-02-19] MEDS: SODIUM CHLORIDE 1 GM TAB PO SCH ×3 (09:04→17:16)
[2023-02-19] MEDS: ASPIRIN 81MG ENTERIC TABLET PO SCH (09:04)
[2023-02-19] MEDS: SITagliptin 50 MG TAB (JANUVIA) PO SCH (09:04)
[2023-02-19] MEDS: QUEtiapine FUMARATE 25 MG TAB PO SCH ×2 (09:05→17:16)
[2023-02-19] MEDS: ENOXAPARIN 30MG/0.3ML SYRINGE (J1650 PER 10MG) SC SCH (09:05)
[2023-02-19] MEDS: FUROSEMIDE 10MG PER 1/2 TABLET PO SCH (09:05)
[2023-02-19] MEDS: MEMANTINE 5MG TABLET (NAMENDA) PO SCH (09:06)
[2023-02-19 14:00] VITALS: BP 116/46; TEMP 97.9; O2SAT 97
[2023-02-19 20:00] VITALS: BP 130/51; TEMP 97.2; O2SAT 98
[2023-02-19] MEDS: SIMVASTATIN 40 MG TAB PO SCH (20:41)
[2023-02-19] MEDS: PRAMIPEXOLE 0.25 MG TAB PO SCH (20:41)
[2023-02-19] MEDS: LOSARTAN 25 MG TAB PO SCH (20:44)
[2023-02-20 05:43] LABS: BASO % 0.4 % (0.0-1.0); EOS # 0.3 10^3/uL (0.0-0.5); EOS % 3.3 % (0.0-3.0); HEMATOCRIT 31.5 % (36.0-47.0); HEMOGLOBIN 10.3 g/dl (12.0-15.5); LYMPH # 1.8 10^3/uL (1.5-5.0); LYMPH % 18.3 % (24.0-44.0); MEAN CORPUSCULAR HEMOGLOBIN 28.8 pg (27.0-33.0); MEAN CORPUSCULAR HGB CONC 32.7 g/dl (32.0-36.5); MONO # 0.6 10^3/uL (0.0-0.8); MONO % 5.6 % (2.0-8.0); NEUTROPHILS # 7.1 10^3/uL (1.5-8.5); PLATELET COUNT, AUTOMATED 348 10^3/uL (150-450); RED BLOOD COUNT 3.58 10^6/uL (4.00-5.40); WHITE BLOOD COUNT 9.8 10^3/uL (4.0-10.0)
[2023-02-20 06:00] VITALS: BP 178/68; TEMP 97.5; O2SAT 96
[2023-02-20 06:07] LABS: BLOOD UREA NITROGEN 20 MG/DL (9-23); CALCIUM LEVEL 9.2 MG/DL (8.3-10.6); CARBON DIOXIDE LEVEL 27 MMOL/L (20-31); CHLORIDE LEVEL 100 MMOL/L (98-107); CREATININE FOR GFR 0.94 MG/DL (0.55-1.30); GLOMERULAR FILTRATION RATE > 60.0 (>32); GLUCOSE, FASTING 139 MG/DL (74-106); POTASSIUM SERUM 4.4 MMOL/L (3.5-5.1); SODIUM LEVEL 134 MMOL/L (136-145)
[2023-02-20] MEDS: ESCITALOPRAM OXALATE 10 MG TAB (LEXAPRO) PO SCH (08:32)
[2023-02-20] MEDS: FUROSEMIDE 10MG PER 1/2 TABLET PO SCH (08:32)
[2023-02-20] MEDS: ENOXAPARIN 30MG/0.3ML SYRINGE (J1650 PER 10MG) SC SCH (08:32)
[2023-02-20] MEDS: ASPIRIN 81MG ENTERIC TABLET PO SCH (08:32)
[2023-02-20] MEDS: SODIUM CHLORIDE 1 GM TAB PO SCH ×3 (08:32→18:12)
[2023-02-20] MEDS: CLOPIDOGREL 75 MG TAB PO SCH (08:33)
[2023-02-20] MEDS: MEMANTINE 5MG TABLET (NAMENDA) PO SCH (08:33)
[2023-02-20] MEDS: FERROUS SULFATE 325MG TAB PO SCH (08:33)
[2023-02-20] MEDS: QUEtiapine FUMARATE 25 MG TAB PO SCH (08:33)
[2023-02-20] MEDS: SITagliptin 50 MG TAB (JANUVIA) PO SCH (08:35)
[2023-02-20 14:00] VITALS: BP 134/50
[2023-02-20] MEDS ORDERED: QUEtiapine FUMARATE 50MG TAB PO SCH (18:00)
[2023-02-20] MEDS: PRAMIPEXOLE 0.25 MG TAB PO SCH (20:25)
[2023-02-20] MEDS: metFORMIN XR 500MG TAB *GLUCOPHAGE XR PO SCH (20:25)
[2023-02-20] MEDS: SIMVASTATIN 40 MG TAB PO SCH (20:25)
[2023-02-20] MEDS: LOSARTAN 25 MG TAB PO SCH (20:28)
[2023-02-20] MEDS ORDERED: RAMELTEON 8 MG TAB (ROZEREM) PO PRN (21:15)
[2023-02-20] MEDS ORDERED: ACETAMINOPHEN TAB 650MG DOSE (2X325MG) PO PRN (21:15)
[2023-02-21 06:04] LABS: BASO # 0.1 10^3/uL (0.0-0.2); BASO % 0.9 % (0.0-1.0); EOS # 0.5 10^3/uL (0.0-0.5); EOS % 6.7 % (0.0-3.0); HEMATOCRIT 30.7 % (36.0-47.0); LYMPH # 1.8 10^3/uL (1.5-5.0); LYMPH % 25.8 % (24.0-44.0); MEAN CORPUSCULAR HEMOGLOBIN 29.2 pg (27.0-33.0); MEAN CORPUSCULAR HGB CONC 32.6 g/dl (32.0-36.5); MEAN CORPUSCULAR VOLUME 89.8 fl (80.0-96.0); MONO # 0.5 10^3/uL (0.0-0.8); MONO % 7.7 % (2.0-8.0); NEUTROPHILS # 4.1 10^3/uL (1.5-8.5); NEUTROPHILS % 58.6 % (36.0-66.0); PLATELET COUNT, AUTOMATED 323 10^3/uL (150-450); RED BLOOD COUNT 3.42 10^6/uL (4.00-5.40)
[2023-02-21 06:29] LABS: CALCIUM LEVEL 9.3 MG/DL (8.3-10.6); CREATININE FOR GFR 0.97 MG/DL (0.55-1.30); GLOMERULAR FILTRATION RATE 58.4 (>32); POTASSIUM SERUM 4.3 MMOL/L (3.5-5.1)
[2023-02-21] MEDS: FUROSEMIDE 10MG PER 1/2 TABLET PO SCH (08:54)
[2023-02-21] MEDS: MEMANTINE 5MG TABLET (NAMENDA) PO SCH (08:54)
[2023-02-21] MEDS: FERROUS SULFATE 325MG TAB PO SCH (08:54)
[2023-02-21 08:55] VITALS: BP 138/78
[2023-02-21] MEDS: ASPIRIN 81MG ENTERIC TABLET PO SCH (08:55)
[2023-02-21] MEDS: ESCITALOPRAM OXALATE 10 MG TAB (LEXAPRO) PO SCH (08:55)
[2023-02-21] MEDS: SITagliptin 50 MG TAB (JANUVIA) PO SCH (08:55)
[2023-02-21] MEDS: metFORMIN XR 500MG TAB *GLUCOPHAGE XR PO SCH (08:55)
[2023-02-21] MEDS: CLOPIDOGREL 75 MG TAB PO SCH (08:55)
[2023-02-21] MEDS: SODIUM CHLORIDE 1 GM TAB PO SCH ×2 (08:55→11:54)
[2023-02-21] MEDS: ENOXAPARIN 30MG/0.3ML SYRINGE (J1650 PER 10MG) SC SCH (08:56)
[2023-02-21] MEDS ORDERED: QUET50TA4 PO (10:54)
== END 2023-02-21 14:01 | disposition home or self-care (01) | DRG 305 ==
LOC: M ED 11:28 → EDBD 11:28 → M ED INP 17:07 → M MSPAV 20:27
PROVIDERS: ADMIT Internal Medicine Nephrology; ATTEND Internal Medicine
DX: I16.0 Hypertensive urgency (principal); F03.918 Unspecified dementia, unspecified severity, with other behavioral disturbance; E87.1 Hypo-osmolality and hyponatremia; I50.32 Chronic diastolic (congestive) heart failure; Z66 Do not resuscitate; E11.9 Type 2 diabetes mellitus without complications; I11.0 Hypertensive heart disease with heart failure; E78.5 Hyperlipidemia, unspecified; G25.81 Restless legs syndrome; M81.0 Age-related osteoporosis without current pathological fracture; B34.8 Other viral infections of unspecified site; D50.9 Iron deficiency anemia, unspecified; J06.9 Acute upper respiratory infection, unspecified; F32.A Depression, unspecified; F41.1 Generalized anxiety disorder; Z90.12 Acquired absence of left breast and nipple; Z90.79 Acquired absence of other genital organ(s); Z90.49 Acquired absence of other specified parts of digestive tract; Z92.21 Personal history of antineoplastic chemotherapy; Z85.3 Personal history of malignant neoplasm of breast; Z20.822 Contact with and (suspected) exposure to COVID-19

== ENCOUNTER → 2023-03-13 | Outpatient (CLI) | payer MEDICARE, MEDICAID ==
[~2023-03-13] MED LIST changes: +LOSA25TA13 PO; +QUET50TA4 PO
[2023-03-13 12:58] LABS: HEMATOCRIT 31.4 % (36.0-47.0); HEMOGLOBIN 10.2 g/dl (12.0-15.5); MEAN CORPUSCULAR HEMOGLOBIN 29.1 pg (27.0-33.0); MEAN CORPUSCULAR HGB CONC 32.5 g/dl (32.0-36.5); MEAN CORPUSCULAR VOLUME 89.7 fl (80.0-96.0); PLATELET COUNT, AUTOMATED 295 10^3/uL (150-450); WHITE BLOOD COUNT 8.6 10^3/uL (4.0-10.0)
[2023-03-13 13:28] LABS: IRON (FE) 35 UG/DL (50-170); TOTAL IRON BINDING CAPACITY 350 UG/DL (250-425)
[2023-03-13 13:29] LABS: ALBUMIN 3.8 G/DL (3.2-5.2); ALKALINE PHOSPHATASE 71 U/L (46-116); ALT/SGPT < 9 U/L (7.0-40); AST/SGOT 9 U/L (<34); BILIRUBIN,TOTAL 0.3 MG/DL (0.3-1.2); BLOOD UREA NITROGEN 23 MG/DL (9-23); CALCIUM LEVEL 9.3 MG/DL (8.3-10.6); CARBON DIOXIDE LEVEL 27 MMOL/L (20-31); CHLORIDE LEVEL 99 MMOL/L (98-107); CHOLESTEROL LEVEL 169 MG/DL (<200); CREATININE FOR GFR 1.02 MG/DL (0.55-1.30); GLOMERULAR FILTRATION RATE 55.1 (>32); GLUCOSE, FASTING 111 MG/DL (74-106); HDL CHOLESTEROL 80.3 MG/DL (>40); LDL CHOLESTEROL 67.3 MG/DL (<100); MAGNESIUM LEVEL 1.6 MG/DL (1.8-2.4); NON-HDL-C 88.7 MG/DL; POTASSIUM SERUM 4.7 MMOL/L (3.5-5.1); SODIUM LEVEL 134 MMOL/L (136-145); TOTAL PROTEIN 6.8 G/DL (5.7-8.2); TRIGLYCERIDES LEVEL 107 MG/DL (<150)
[2023-03-13 13:30] LABS: FOLATE > 24.0 NG/ML (>5.4)
[2023-03-13 13:31] LABS: VITAMIN B12 LEVEL 739 PG/ML (211-911)
== END ==
LOC: M LAB 12:11
PROVIDERS: ATTEND Registered Nurse
DX: E11.65 Type 2 diabetes mellitus with hyperglycemia (principal); Z79.01 Long term (current) use of anticoagulants; M81.0 Age-related osteoporosis without current pathological fracture; E78.00 Pure hypercholesterolemia, unspecified; D64.9 Anemia, unspecified; R25.2 Cramp and spasm

== ENCOUNTER → 2023-10-30 | Outpatient (CLI) | payer MEDICARE, MEDICAID ==
[~2023-10-30] MED LIST changes: +HYDR-161 PO; -HYDR10TAB PO; +IRBE75TA11 PO; -IRBE75TA4 PO; -MIRA1POW3 PO; +MIRA33506 PO
== END ==
LOC: M WUC 13:37
PROVIDERS: ATTEND Nurse Practitioner Family
DX: M79.662 Pain in left lower leg (principal); W01.10XA Fall on same level from slipping, tripping and stumbling with subsequent striking against unspecified object, initial encounter; L03.116 Cellulitis of left lower limb

== ENCOUNTER → 2024-10-01 | Outpatient (CLI) | payer MEDICARE, MEDICAID ==
[2024-10-01 12:37] LABS: HEMATOCRIT 35.4 % (36.0-47.0); HEMOGLOBIN 11.1 g/dl (12.0-15.5); MEAN CORPUSCULAR HEMOGLOBIN 29.1 pg (27.0-33.0); MEAN CORPUSCULAR HGB CONC 31.4 g/dl (32.0-36.5); MEAN CORPUSCULAR VOLUME 92.9 fl (80.0-96.0); PLATELET COUNT, AUTOMATED 218 10^3/uL (150-450); RED BLOOD COUNT 3.81 10^6/uL (4.00-5.40); WHITE BLOOD COUNT 7.2 10^3/uL (4.0-10.0)
[2024-10-01 13:09] LABS: CREATININE, URINE 39.6 MG/DL; MAU/CREAT RATIO 239.8 MCG/MG (0.0-30.0)
[2024-10-01 13:10] LABS: IRON (FE) 128 UG/DL (50-170)
[2024-10-01 13:11] LABS: ALKALINE PHOSPHATASE 69 U/L (35-104); ALT/SGPT < 9 U/L (7.0-40); AST/SGOT 13 U/L (<34); BILIRUBIN,TOTAL 0.4 MG/DL (0.3-1.2); BLOOD UREA NITROGEN 31 MG/DL (9-23); CALCIUM LEVEL 9.4 MG/DL (8.3-10.6); CARBON DIOXIDE LEVEL 28 MMOL/L (20-31); CHLORIDE LEVEL 104 MMOL/L (98-107); CHOLESTEROL LEVEL 143 MG/DL (<200); CHOLESTEROL RISK RATIO 2.64 (<5); CREATININE FOR GFR 1.21 MG/DL (0.55-1.30); GLUCOSE, FASTING 94 MG/DL (74-106); LDL CHOLESTEROL 67.6 MG/DL (<100); MAGNESIUM LEVEL 1.9 MG/DL (1.8-2.4); POTASSIUM SERUM 4.9 MMOL/L (3.5-5.1); SODIUM LEVEL 138 MMOL/L (136-145); TOTAL PROTEIN 7.3 G/DL (5.7-8.2); TRIGLYCERIDES LEVEL 107 MG/DL (<150)
[2024-10-01 13:14] LABS: FERRITIN 184.8 NG/ML (7.3-270.7)
[2024-10-01 13:30] LABS: HEMOGLOBIN A1c 6.2 % (4.0-6.0)
== END ==
LOC: M WUC 10:32
PROVIDERS: ATTEND Registered Nurse
DX: I10 Essential (primary) hypertension (principal); E11.65 Type 2 diabetes mellitus with hyperglycemia; D50.9 Iron deficiency anemia, unspecified; E83.42 Hypomagnesemia; E78.00 Pure hypercholesterolemia, unspecified

== ENCOUNTER → 2025-02-20 | Outpatient (CLI) | payer MEDICARE, MEDICAID ==
[~2025-02-20] MED LIST changes: +AMLO-751 PO; -AMLO10TA PO
[2025-02-20 13:01] LABS: PLATELET COUNT, AUTOMATED 193 10^3/uL (150-450)
[2025-02-20 13:50] LABS: ALT/SGPT 9.0 U/L (7.0-40); AST/SGOT 21.0 U/L (<34); CALCIUM LEVEL 9.6 MG/DL (8.3-10.6); CARBON DIOXIDE LEVEL 28.0 MMOL/L (20-31); CHLORIDE LEVEL 102.0 MMOL/L (98-107); CHOLESTEROL LEVEL 167.0 MG/DL (<200); CHOLESTEROL RISK RATIO 2.65 (<5); CREATININE FOR GFR 1.23 MG/DL (0.55-1.30); GLOMERULAR FILTRATION RATE 43.1 (>32); IRON (FE) 123.0 UG/DL (50-170); LDL CHOLESTEROL 75.8 MG/DL (<100); MAGNESIUM LEVEL 1.9 MG/DL (1.8-2.4); NON-HDL-C 104.0 MG/DL; PERCENT SATURATION 39.7 % (13.2-45.0); POTASSIUM SERUM 5.2 MMOL/L (3.5-5.1); SODIUM LEVEL 140.0 MMOL/L (136-145); TOTAL 25(OH) VITAMIN D 47.2 NG/ML (20.0-100.0); TRIGLYCERIDES LEVEL 141.0 MG/DL (<150)
[2025-02-20 16:40] LABS: ESTIMATED AVERAGE GLUCOSE 140.0 MG/DL (60-110)
== END ==
LOC: M WUC 09:20
PROVIDERS: ATTEND Registered Nurse
DX: E11.65 Type 2 diabetes mellitus with hyperglycemia (principal); D50.9 Iron deficiency anemia, unspecified; E83.42 Hypomagnesemia; E78.00 Pure hypercholesterolemia, unspecified; M81.0 Age-related osteoporosis without current pathological fracture